=== PATIENT | male | born 1965 | race Caucasian/White ===

== ENCOUNTER 2017-01-06 20:07 | Emergency (ER) | payer MEDICAID ==
[~2017-01-06] VITALS: Ht 172.7 cm; Wt 68.0 kg
[~2017-01-06 20:07] MED LIST: LITH150C; NO HOME MEDICATIONS
[2017-01-06 20:08] VITALS: BP 143/72
--- NOTE | 2017-01-06 20:20 | NUR ---
CALLED; NO ANSWER AND NOT IN LOBBY
--- NOTE | 2017-01-06 20:47 | NUR ---
CALLED AGAIN; NOT IN LOBBY
--- NOTE | 2017-01-06 21:01 | NUR ---
CALLED AGAIN; STILL NOT IN LOBBY
--- NOTE | 2017-01-06 21:17 | NUR ---
CALLED AGAIN AND NOT ANYWHERE IN ER OR OUTSIDE.
== END 2017-01-06 21:19 | disposition home or self-care (01) ==
LOC: ER 20:08
DX: Z53.21 Procedure and treatment not carried out due to patient leaving prior to being seen by health care provider (principal)
CPT/HCPCS: A4606; Z7610

== ENCOUNTER 2018-05-22 17:51 | Inpatient (IN) | payer MEDICAID ==
[~2018-05-22] VITALS: Ht 182.9 cm; Wt 83.5 kg
--- NOTE | 2018-05-22 17:55 | NUR ---
PT MADHURI FROM THE STREETS TO ER BED 12 C/O GENERALIZED WEAKNESS, DIFFUSE ABDOMINAL PAIN AND DISTENSION FOR DAYS. HX OF LIVER CIRRHOSIS, ALSO C/O NAUSEA AND VOMITING. AWAITING MD MCCURDY.
--- NOTE | 2018-05-22 18:35 | NUR ---
KATHI FERRARI AT BEDSIDE FOR EVAL.
--- NOTE | 2018-05-22 18:46 | NUR ---
IV LINE STARTED BLOOD DRAWN AND SENT TO LAB.
[2018-05-22] MEDS ORDERED: KETOROLAC TROMETHAMINE 15 MG/ML VIAL ONE (18:51)
[2018-05-22] MEDS ORDERED: ONDANSETRON HCL/PF 4 MG/2 ML VIAL ONE (18:52)
[2018-05-22] MEDS ORDERED: ONDANSETRON HCL/PF 4 MG/2 ML VIAL IVP ONE (19:00)
[2018-05-22] MEDS ORDERED: KETOROLAC TROMETHAMINE INJ 30 MG/ML VIAL IV ONE (19:00)
[2018-05-22] MEDS ORDERED: IV NS 0.9% 500 ML BAG IV ONE (19:00)
[2018-05-22 19:02] LABS: CALCIUM, SERUM 8.1 mg/dL (8.5-10.1); CREATININE 0.5 mg/dL (0.6-1.3); POTASSIUM 3.1 mmol/L (3.5-5.1)
[2018-05-22 19:08] LABS: ALBUMIN 2.7 g/dL (3.4-5.0); BILIRUBIN,DIRECT 1.1 mg/dL (0.0-0.2); BILIRUBIN,TOTAL 1.9 mg/dL (0.2-1.0); TOTAL PROTEIN, SERUM 6.1 g/dL (6.4-8.2)
[2018-05-22 19:12] LABS: HEMATOCRIT 27 % (39-51); HEMOGLOBIN 8.4 g/dL (13.5-17.5); MEAN CORPUSCULAR HGB CONC 31 g/dl (31.0-36.0); MEAN CORPUSCULAR VOLUME 65 fL (80-96); RED BLOOD CELL COUNT(AUTO) 4.17 MIL/uL (4.5-6.0); WHITE BLOOD COUNT (AUTO) 6.8 K/uL (4.3-11.0)
[2018-05-22 19:13] LABS: PLATELET COUNT (AUTO) 119 /CMM (150-450)
[2018-05-22 19:28] LABS: LYMPHOCYTES % (MANUAL) 22 % (16-48); MONOCYTES % (MANUAL) 20 % (0-11.0); NEUTROPHILS % (MANUAL) 58 (42-76)
[2018-05-22 19:29] LABS: OCCULT BLOOD STOOL NEGATIVE (NEGATIVE)
[2018-05-22] MEDS ORDERED: POTASSIUM CHLORIDE 20 MEQ TAB.PRT.SR PO ONE ×2 (19:30→19:50)
[2018-05-22] MEDS ORDERED: Magnesium 1 GM/2 ML VIAL IV ONE (19:30)
[2018-05-22] MEDS ORDERED: Magnesium 1GM/D5W 100ML PREMIX 100 ML IV ONE (19:50)
--- NOTE | 2018-05-22 19:57 | NUR ---
REPORT GIVEN TO ERNA CISNEROS FOR KELLY.
[2018-05-22] MEDS ORDERED: Magnesium 1GM/D5W 100ML PREMIX PIGGYBACK IV ONE (20:00)
[2018-05-22] MEDS ORDERED: AMOX/CLAVULANATE 875 MG TABLET ONE (20:52)
[2018-05-22] MEDS ORDERED: AMOX/CLAVULANATE 875 MG TABLET PO ONE (21:00)
[2018-05-22] MEDS ORDERED: HYDROCODONE/APAP 5/325MG 1 EACH TABLET PO PRN (22:00)
[2018-05-22] MEDS ORDERED: MAG HYDROX/AL HYDROX/SIMETH 30 ML UDC PO PRN (22:00)
[2018-05-22] MEDS ORDERED: ONDANSETRON HCL/PF 4 MG/2 ML VIAL IVP PRN (22:00)
[2018-05-22] MEDS ORDERED: ACETAMINOPHEN 325 MG TABLET PO PRN (22:00)
[2018-05-22] MEDS ORDERED: Z GUARD REMEDY 2 OZ OINT TP PRN (22:00)
[2018-05-22] MEDS ORDERED: MAGNESIUM HYDROXIDE 30 ML UDC PO PRN (22:00)
--- NOTE | 2018-05-22 22:50 | NUR ---
REPORT GIVE TO BLAYNE BLACK FOR KELLY. BED 304-2.
[2018-05-22 23:46] VITALS: BP 116/60
--- NOTE | 2018-05-23 | NUR ---
RESOURCE RN NOTES: RECEIVED REPORT FROM ERNA REYNA RN. ADMISSION DOCUMENTATION COMPLETED. I INTERVIEWED THE PATIENT, LICENSED LAND SURVEYOR MY WITNESS. PT IS A/O X3, HOMELESS, WILL BE ADMITTED UNDER EPIC GROUP, DX ALCOHOLIC CIRRHOSIS OF LIVER WITH ASCITES, BULLOUS MYRINGITIS LEFT EAR. PT REFUSED FLU VACCINE AND PNA VACCINE, EDUCATION PROVIDED TO PT. LAST PARACENTESIS MAR 2018. ETOH 4 CANS OF BEER A DAY, SMOKER 9 CIG A DAY. ASSIGNED RN TO COMPLETE/DO INITIAL PHYSICAL ASSESSMENT AND ASSUMED FULL PATIENT CARE.
[2018-05-23] MEDS ORDERED: CEFTRIAXONE 1 G VIAL ONE (00:22)
[2018-05-23] MEDS: IV NS 0.9% 1,000 ML IV PRN ×2 (00:26→18:06)
[2018-05-23] MEDS: CEFTRIAXONE 1 G in IV D5W 50 ML IV SCH ×2 (00:27→22:56)
[2018-05-23] MEDS: MORPHINE SULFATE INJ 2 MG/ML DISP.SYRIN IV PRN ×2 (00:27→04:44)
[2018-05-23 06:35] LABS: BASOPHILS % (AUTO) 0.8 % (0.0-2.0); HEMATOCRIT 24 % (39-51); HEMOGLOBIN 7.4 g/dL (13.5-17.5); LYMPHOCYTES # (AUTO) 1.1 /CMM (0.8-4.8); LYMPHOCYTES % (AUTO) 22.1 % (20.0-44.0); MEAN CORPUSCULAR HGB CONC 31 g/dl (31.0-36.0); MEAN CORPUSCULAR VOLUME 65 fL (80-96); MONOCYTES # (AUTO) 1.2 /CMM (0.1-1.30); MONOCYTES % (AUTO) 24.8 % (2.0-12.0); NEUTROPHILS # (AUTO) 2.5 /CMM (1.8-8.9); NEUTROPHILS % (AUTO) 51.3 % (43.0-81.0); PLATELET COUNT (AUTO) 79 /CMM (150-450); RED BLOOD CELL COUNT(AUTO) 3.66 MIL/uL (4.5-6.0); WHITE BLOOD COUNT (AUTO) 4.9 K/uL (4.3-11.0)
--- NOTE | 2018-05-23 06:43 | NUR ---
MS RN NOTES AWAKE & RESPONSIVE. NOT IN ANY DISTRESS. NO SOB NOTED. DENIES ANY PAIN OR DISCOMFORT AT THIS TIME. WITH IVF INFUSING WELL. MONITORED ACCORDINGLY. CALL LIGHT WITHIN REACH. BED IN LOWEST POSITION. SR UP X 2 FOR SAFETY. WILL ENDORSE TO NEXT SHIFT.
[2018-05-23 06:53] LABS: ALBUMIN 2.4 g/dL (3.4-5.0); BILIRUBIN,TOTAL 1.4 mg/dL (0.2-1.0); CALCIUM, SERUM 7.9 mg/dL (8.5-10.1); CREATININE 0.5 mg/dL (0.6-1.3); PHOSPHORUS 3.5 mg/dL (2.5-4.9); POTASSIUM 3.5 mmol/L (3.5-5.1); TOTAL PROTEIN, SERUM 5.4 g/dL (6.4-8.2)
--- NOTE | 2018-05-23 07:24 | NUR ---
MS RN OPENING NOTES RECEIVED PT RESTING IN BED. A/O X 3 ON ROOM AIR, WITHOUT ANY SIGNS OF RESPIRATORY DISTRESS. ON IVF NS AT 75ML/HR TO RAC 20G INTACT AND PATENT; IVF INFUSING AND TOLERATING WELL. CURRENTLY ON NPO, SCHEDULED FOR US GUIDED PARACENTESIS TODAY; CONSENT TO BE SIGNED. WILL CONTINUE TO MONITOR.
[2018-05-23] MEDS: PANTOPRAZOLE 40 MG VIAL IV SCH (07:30)
[2018-05-23 08:00] VITALS: BP 107/60
[2018-05-23] MEDS: TRAMADOL HCL 50 MG TABLET PO SCH ×2 (08:30→16:16)
[2018-05-23] MEDS ORDERED: LORAZEPAM INJ 2 MG/ML VIAL IV PRN (08:30)
[2018-05-23 08:32] LABS: LYMPHOCYTES % (MANUAL) 24 % (16-48); MONOCYTES % (MANUAL) 25 % (0-11.0); NEUTROPHILS % (MANUAL) 51 (42-76)
[2018-05-23] MEDS: AMOX/CLAVULANATE 875 MG TABLET PO SCH ×2 (09:39→16:17)
[2018-05-23] MEDS: NICOTINE PATCH (14MG) 14 MG PATCH.TD24 TD SCH (09:40)
--- NOTE | 2018-05-23 10:30 | NUR ---
PER BLAYNE BALDERAS CONSENT FOR PARACENTESIS IS NOT SIGNED
--- NOTE | 2018-05-23 13:32 | NUR ---
MS RN NOTES US GUIDED PARACENTESIS DONE TO PATIENT WITH OUTPUT OF 3,060 ML. RN BROUGHT PARACENTESIS FLUID TO LABORATORY FOR SAFE KEEPING FOR NOW. VS STABLE; S/P PARACENTESIS. NO BLEEDING ON THE PUNCTURE SITE NOTED.
[2018-05-23 14:57] LABS: APPEARANCE,URINE CLOUDY (CLEAR); BILIRUBIN,URINE NEGATIVE (NEGATIVE); BLOOD, URINE NEGATIVE Ery/uL (NEGATIVE); COLOR,URINE AMBER (YELLOW); KETONES,URINE 1+ (NEGATIVE); LEUKOCYTE ESTERASE ,URINE NEGATIVE (NEGATIVE); NITRITE, URINE POSITIVE (NEGATIVE); PROTEIN,URINE NEGATIVE (NEGATIVE); UGLUCOSE NEGATIVE (NEGATIVE)
[2018-05-23 15:20] LABS: BACTERIA,URINE None seen /HPF (None Seen); RBC,URINE 0-2 /HPF (0-2); SQUAMOUS EPITHELIAL CELL,UR Few /HPF (None Seen); URINE AMORPHOUS URATE Many /HPF (None Seen); WBC,URINE 0-2 /HPF (0-3)
--- NOTE | 2018-05-23 15:57 | NUR ---
Bilingual Executive Assistant Consult: SW received consult regarding homeless and alcohol abuse. Patient is a 53 year-old male admitted to Med/Surg unit for diffuse abdominal pain and distension. 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 SW met with patient at bedside to discuss above consult. Patient is alert and oriented x4. Patient is aware of his cirrhosis. Per patient he drinks about 2-3 beers per day and has been doing so since he was 24 years old. Patient reports that he does not plan to stop drinking. SW provided education and information about Substance Abuse and ETOH Treatment Centers, and patient was receptive to the resources. SW gave patient referrals to [facility]stance Abuse Self-Helpl[facility] ([phone]); [facility] [[address] [place] [address]; [phone]]; [facility] [[address] [place] [address]; [phone]]; [facility] [[address] [place] [address]; [phone]]; [facility] [[address]; [place] [address]; [phone]]; [facility] [[address] [place] [address]; [phone]], and the [facility] [[address] [place] [address]; [phone]]. Patient reported that he is planning to re-apply for General Relief upon discharge. 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 Patient reports that he does not keep in touch with his family. Patient stated he has an adult daughter, with whom he plans to get in touch soon. Patient reported that he has been homeless for quite some time and has been living at the [facility] for a couple of months. SW educated the patient about the [facility], and patient refused halfway placement at this time. Patient reported that he would like to return to the [facility]. SW provided patient with the Homeless Resource Packet, which includes information about emergency shelters, meals, hot showers, and walk-in clinics. Patient was accepting of these resources. Patient also requested warm clothes, and SW provided patient with a warm coat and extra pairs of socks from the clothing closet. Patient was accepting of the clothing. JAY placed unsigned Homeless Patient Waiver Form in patient's chart and collaborated with pt's RNJulito and drive in theater attendant Sudha to have patient complete the form prior to discharge. No further Bilingual Executive Assistant needs identified at this time.
[2018-05-23 16:00] VITALS: BP 104/61
--- NOTE | 2018-05-23 17:30 | NUR ---
RN NOTES PATIENT REFUSED BED BATH OR SHOWER AND TO CHANGE FROM CIVILIAN CLOTHES TO HOSPITAL GOWN, DESPITE OF ENCOURAGEMENT. EXPLAINED IMPORTANCE OF HYGIENE, VERBALIZED UNDERSTANDING, BUT STILL REFUSING. STATED "NO, IT FEELS COLD AND WILL LET STAFF WHEN READY FOR CHANGE". WILL ENDORSE TO LABORATORY SUPERVISOR NURSE.
--- NOTE | 2018-05-23 18:42 | NUR ---
RN NOTES PIV ON RAC 20G, DISLODGED. NEW PIV ACCESS RFA WITH 22G INSERTED, SECURED WITH TAPE AND DATED; PIV INTACT AND PATENT. PT NOTED AGITATED AND REQUESTED FOR ATIVAN. 1MG OF ATIVAN GIVEN ORDERED AT 1835 VIA IVP. WILL CONTINUE TO MONITOR.
--- NOTE | 2018-05-23 18:50 | NUR ---
MS RN CLOSING NOTES PATIENT IN BED, AWAKE AND WATCHING TV. ALERT/ORIENTED X4. ABLE TO MAKE NEEDS AND CONCERNS. ALL NEEDS AND CARE PROVIDED WELL. ON ROOM AIR, BREATHING EVEN WITH NO ACUTE DISTRESS NOTED THROUGHOUT THE DAY. ON IVF NS AT 75ML/HR TO RFA 22G, INTACT AND PATENT, WITH NO SIGNS OF INFILTRATION NOTED. SAFETY MEASURES KEPT IN PLACE. BED IN LOW LOCKED POSITIONS WITH SR UP X2. CALL LIGHT WITHIN REACH. REMINDED PT TO CALL FOR ANY ASSISTANCE. WILL ENDORSE TO SWEATBAND DRUMMER NURSE FOR KELLY.
[2018-05-23 20:00] VITALS: BP 119/64
--- NOTE | 2018-05-23 20:08 | NUR ---
RN NOTES RECEIVED PATIENT IN BED, ALERT AND ORIENTED X4, ANXIOUS, ON ROOM AIR, NO DISTRESS, UNKEMPT, REFUSING BED BATH AND CHANGE OF CLOTHES, S/P PARACENTESIS, ON SOFT DIET, KEPT SAFE, CALL LIGHT WITHIN REACH.
[2018-05-23 20:25] VITALS: BP 119/64
[2018-05-23] MEDS: HYDROMORPHONE INJ 0.5 MG/0.5 ML SYRINGE IV PRN (21:02)
[2018-05-24] MEDS: TRAMADOL HCL 50 MG TABLET PO SCH ×2 (00:58→07:47)
[2018-05-24] MEDS: IV NS 0.9% 1,000 ML IV PRN (06:00)
--- NOTE | 2018-05-24 06:16 | NUR ---
RN NOTES PATIENT IS ALERT AND ORIENTED X4, ON ROOM AIR, COMPLAINING OF ABDOMINAL PAIN, RELIEVED BY TRAMADOL AND DILAUDID IVP, S/P PARACENTESIS, RIGHT LOWER QUADRANT PUNCTURE SITE IS DRY, NO BLEEDING, NO DRAINAGE, OPEN TO AIR, TOLERATING SOFT DIET, REFUSING BED BATH, PER POC, MONITOR H/H, 7.424, MONITOR FOR WITHDRAWALS, ATIVAN PRN, CONTINUE ROCEPHIN IV, SEIZURE PRECAUTION, PAIN MANAGEMENT.
--- NOTE | 2018-05-24 07:25 | NUR ---
MS RN OPENING NOTES RECEIVED PATIENT AWAKE, ALERT AND ORIENTED X4. ON ROOM AIR, WITH NO SOB NOTED. NOT IN ANY PAIN OR DISTRESS NOTED AND STATED. S/P ABDOMINAL PARACENTESIS, RIGHT LOWER QUADRANT PUNCTURE SITE IS DRY, NO BLEEDING, NO DRAINAGE, OPEN TO AIR. ON IF 75 ML/HR TO RFA 22G, INTACT AND PATENT, WITH NO INFILTRATION NOTED. SAFETY MEASURES IN PLACE. BED IN LOW LOCKED POSITION WITH SR X2. PT ABLE TO ASK FOR ASSISTANCE. ON SEIZURE PRECAUTION. WILL CONTINUE TO MONITOR.
[2018-05-24 07:31] LABS: BASOPHILS % (AUTO) 0.6 % (0.0-2.0); EOSINOPHILS % (AUTO) 0.8 % (0.0-6.0); HEMATOCRIT 24 % (39-51); HEMOGLOBIN 7.5 g/dL (13.5-17.5); LYMPHOCYTES # (AUTO) 0.7 /CMM (0.8-4.8); LYMPHOCYTES % (AUTO) 17.5 % (20.0-44.0); MEAN CORPUSCULAR HGB CONC 32 g/dl (31.0-36.0); MEAN CORPUSCULAR VOLUME 65 fL (80-96); MONOCYTES # (AUTO) 0.8 /CMM (0.1-1.30); MONOCYTES % (AUTO) 20.1 % (2.0-12.0); NEUTROPHILS # (AUTO) 2.4 /CMM (1.8-8.9); PLATELET COUNT (AUTO) 68 /CMM (150-450); RED BLOOD CELL COUNT(AUTO) 3.68 MIL/uL (4.5-6.0); WHITE BLOOD COUNT (AUTO) 3.9 K/uL (4.3-11.0)
[2018-05-24 07:47] LABS: CALCIUM, SERUM 7.8 mg/dL (8.5-10.1); CREATININE 0.4 mg/dL (0.6-1.3); MAGNESIUM 1.6 mg/dL (1.8-2.4); PHOSPHORUS 2.6 mg/dL (2.5-4.9); POTASSIUM 3.5 mmol/L (3.5-5.1)
[2018-05-24] MEDS: PANTOPRAZOLE 40 MG VIAL IV SCH (07:47)
[2018-05-24 08:00] VITALS: BP 107/63
[2018-05-24] MEDS: AMOX/CLAVULANATE 875 MG TABLET PO SCH ×2 (08:23→16:37)
[2018-05-24] MEDS: NICOTINE PATCH (14MG) 14 MG PATCH.TD24 TD SCH (08:23)
[2018-05-24] MEDS: Magnesium 1GM/D5W 100ML PREMIX 100 ML IV SCH ×2 (08:35→09:38)
--- NOTE | 2018-05-24 10:00 | NUR ---
RN NOTES PT'S MAGNESIUM LEVEL NOTED AT 1.6.REPLACED WITH 2BAGS OF MAGNESIUM 1GM/100ML; TOTAL OF 2GMS. WILL CONTINUE TO MONITOR.
[2018-05-24] MEDS: CHLORDIAZEPOXIDE HCL 25 MG CAPSULE PO SCH ×2 (10:55→16:37)
[2018-05-24] MEDS ORDERED: TRAMADOL HCL 50 MG TABLET PO PRN (11:00)
[2018-05-24] MEDS: HYDROMORPHONE INJ 0.5 MG/0.5 ML SYRINGE IV PRN ×2 (14:27→20:51)
--- NOTE | 2018-05-24 14:35 | NUR ---
RN NOTES PT STATED HE IS IN PAIN OF 8 OUT OF 10 ON HIS ABDOMEN RIGHT AND LEFT SIDE. REQUESTED FOR DILAUDID PRN, GIVEN ORDERED VIA IVP. WILL CONTINUE TO MONITOR.
[2018-05-24 16:00] VITALS: BP 110/60
[2018-05-24] MEDS ORDERED: METOCLOPRAMIDE HCL 10 MG/2 ML VIAL IV SCH (17:30)
--- NOTE | 2018-05-24 17:44 | NUR ---
RN NOTES PATIENT SEEN AND EVALUATED BY AUGUSTUS LOEV WITH ORDER FOR KUB TOMORROW AND CANCELLED NGT INSERTION AND TO START ON MECHANICAL SOFT DIET. WILL CONTINUE TO MONITOR.
[2018-05-24 17:46] LABS: IRON, SERUM 10 ug/dl (50-175); TOTAL IRON BINDING CAPACITY 273 ug/dl (250-450)
[2018-05-24] MEDS: SUCRALFATE 1 G TABLET PO SCH ×2 (17:52→21:00)
[2018-05-24 17:59] LABS: FERRITIN 19 ng/mL (8-388)
[2018-05-24] MEDS ORDERED: METOCLOPRAMIDE HCL 10 MG/2 ML VIAL IV PRN (18:00)
--- NOTE | 2018-05-24 18:47 | NUR ---
MS RN CLOSING NOTES RECEIVED PATIENT AWAKE, ALERT AND ORIENTED X4. ON ROOM AIR, WITH NO SOB NOTED. ON PAIN MANAGEMENT, DILAUDID VIA IVP. S/P ABDOMINAL PARACENTESIS, RIGHT LOWER QUADRANT PUNCTURE SITE IS DRY, NO BLEEDING, NO DRAINAGE, OPEN TO AIR. ON IVF 75 ML/HR TO RFA 22G, INTACT AND PATENT, WITH NO INFILTRATION NOTED. SAFETY MEASURES IN PLACE. BED IN LOW LOCKED POSITION WITH SR X2. PT ABLE TO ASK FOR ASSISTANCE. ON SEIZURE PRECAUTION. ON DAILY WT MONITORING, 172 LBS. FOR KUB TEST TOMORROW WITHOUT NPO NEEDED PER ORDER. WILL ENDORSE TO INCOMING GRINDER SET UP OPERATOR EXTERNAL NURSE FOR KELLY.
--- NOTE | 2018-05-24 19:00 | NUR ---
MS RN OPENING NOTES Received patient A/O x4, sitting on bed, able to ambulate with walker. On RA, no SOB/respiratory distress noted. Patient denies any pain discomfort at this time. Kept bed low and locked, call light at bedside. Will continue to monitor accordingly.
--- NOTE | 2018-05-24 19:20 | NUR ---
MS RN OPENING NOTES Received patient alert and oriented x3 on bed sitting position on bed with O2 inhalation via NC at 6LPM. SOB and occasional productive cough noted. RT at bedside giving breathing treatment. With family member and caregiver at bedside. Kept bed low and locked, call light at bedside. Will continue to monitor accordingly.
[2018-05-24 20:00] VITALS: BP 104/62
[2018-05-24] MEDS: ZOLPIDEM TARTRATE 5 MG TABLET PO PRN (21:01)
[2018-05-24] MEDS: CEFTRIAXONE 1 G in IV D5W 50 ML IV SCH (22:25)
--- NOTE | 2018-05-24 23:50 | NUR ---
MS RN NOTES Patient asked to discontinue his IV. Encourage patient to increase oral fluid intake unless contraindicated. Will monitor the patient closely.
--- NOTE | 2018-05-25 06:25 | NUR ---
MS RN NOTES Patient transferred to MS 202-1, transported via wheelchair accompanied by SHOULDER BONER and RN. Patient remained in stable condition, denies discomfort at this time. For pranav PLAZA this AM. Endorsed patient and report given to BLAYNE Urbina.
--- NOTE | 2018-05-25 07:05 | NUR ---
RN MS CLOSING NOTES PATIENT IN STABLE CONDITION. NO ACUTE CHANGES SINCE TRANSFER. BREATHING EVEN AND UNLABORED. NO SOB NOTED. TOLERATING ROOM AIR. NO COMPLAINTS OF PAIN OR DISCOMFORT. IV INTACT AND PATENT. SKIN DRY AND WARM TO TOUCH. AFEBRILE. ALL OTHER NEEDS ATTENDED TO. SAFETY MEASURES IN PLACE. CALL LIGHT WITHIN REACH. WILL ENDORSE TO ONCOMING NURSE FOR KELLY.
[2018-05-25 07:13] LABS: BASOPHILS % (AUTO) 0.8 % (0.0-2.0); EOSINOPHILS % (AUTO) 1.7 % (0.0-6.0); HEMATOCRIT 23 % (39-51); HEMOGLOBIN 7.2 g/dL (13.5-17.5); LYMPHOCYTES # (AUTO) 0.5 /CMM (0.8-4.8); LYMPHOCYTES % (AUTO) 15.3 % (20.0-44.0); MEAN CORPUSCULAR HGB CONC 31 g/dl (31.0-36.0); MEAN CORPUSCULAR VOLUME 65 fL (80-96); MONOCYTES # (AUTO) 0.7 /CMM (0.1-1.30); MONOCYTES % (AUTO) 20.7 % (2.0-12.0); NEUTROPHILS # (AUTO) 2.2 /CMM (1.8-8.9); NEUTROPHILS % (AUTO) 61.5 % (43.0-81.0); PLATELET COUNT (AUTO) 69 /CMM (150-450); RED BLOOD CELL COUNT(AUTO) 3.58 MIL/uL (4.5-6.0); WHITE BLOOD COUNT (AUTO) 3.6 K/uL (4.3-11.0)
[2018-05-25 07:28] LABS: CALCIUM, SERUM 7.8 mg/dL (8.5-10.1); CREATININE 0.5 mg/dL (0.6-1.3); MAGNESIUM 1.8 mg/dL (1.8-2.4); PHOSPHORUS 2.4 mg/dL (2.5-4.9); POTASSIUM 3.3 mmol/L (3.5-5.1)
--- NOTE | 2018-05-25 07:33 | NUR ---
RN OPENING NOTES RECEIVED BEDSIDE REPORT FROM NOC. ABLE TO AROUSE WITH VOICE AND TOUCH PATIENT SLEEPING NO SIGNS OR SYMPTOMS OF RESPIRATORY DISTRESS OR ACUTE PAIN NOTED.RFA # 22 GAUGE RUNNING @75ML/HR. KUB SCHEDULED FOR 0800 TRAY HELD TILL AFTER PROCEDURE. SAFETY PRECAUTIONS IN PLACE BED IN LOW POSITION CALL LIGHT WITHIN REACH WILL CONT TO MONITOR
[2018-05-25 08:00] VITALS: BP 105/64
[2018-05-25] MEDS: SUCRALFATE 1 G TABLET PO SCH ×4 (08:41→21:08)
[2018-05-25] MEDS: CHLORDIAZEPOXIDE HCL 25 MG CAPSULE PO SCH ×2 (08:41→16:28)
[2018-05-25] MEDS: PANTOPRAZOLE 40 MG VIAL IV SCH ×2 (08:41→16:28)
[2018-05-25] MEDS: NICOTINE PATCH (14MG) 14 MG PATCH.TD24 TD SCH (08:41)
[2018-05-25] MEDS ORDERED: POTASSIUM CHLORIDE 20 MEQ TAB.PRT.SR PO SCH (09:30)
[2018-05-25] MEDS: AMOX/CLAVULANATE 875 MG TABLET PO SCH ×2 (10:04→16:27)
[2018-05-25] MEDS ORDERED: K PHOS NEUTRAL 250 MG TABLET PO ONE (13:00)
[2018-05-25] MEDS: HYDROMORPHONE INJ 0.5 MG/0.5 ML SYRINGE IV PRN (13:25)
[2018-05-25] MEDS: IV NS 0.9% 1,000 ML IV PRN (14:27)
[2018-05-25] MEDS ORDERED: LACTULOSE 10 G/15 ML UDC (PYXIS) PO PRN (15:00)
[2018-05-25] MEDS ORDERED: PEG 3350/NA SULF,BICARB,CL/KCL 4,000 ML BOTTLE PO ONE (15:00)
[2018-05-25] MEDS ORDERED: MAGNESIUM CITRATE 296 ML BOTTLE PO ONE (15:00)
[2018-05-25] MEDS ORDERED: NA PHOS,M-B/NA PHOS,DI-BA 1 EA ENEMA RC PRN (15:00)
[2018-05-25 16:00] VITALS: BP 103/66
[2018-05-25] MEDS: TRAMADOL HCL 50 MG TABLET PO PRN (16:28)
--- NOTE | 2018-05-25 18:58 | NUR ---
MS RN CLOSING NOTES PATIENT IN BED ALERT/ORIENTED X4. ABLE TO MAKE NEEDS AND CONCERNS. ALL NEEDS AND CARE PROVIDED BY STAFF ON ROOM AIR, BREATHING EVEN WITH NO ACUTE DISTRESS NOTED THROUGHOUT THE DAY. ON IVF NS AT 75ML/HR TO RFA 22G, INTACT AND PATENT, CONSENT SIGNED FOR EGD IN THE AM WILL ENDORSE TO NOC OF NPO AFTER MIDNIGHT. AWAITING RX TO DELIVER PREP CALL X2. SAFETY MEASURES KEPT IN PLACE. BED IN LOW LOCKED POSITIONS WITH SR UP X2. CALL LIGHT WITHIN REACH. REMINDED PT TO CALL FOR ANY ASSISTANCE. WILL ENDORSE TO TIRE MOLD ENGRAVER NURSE FOR KELLY.
--- NOTE | 2018-05-25 19:44 | NUR ---
RN MS OPENING NOTES RECEIVED PATIENT IN BED AWAKE. ALERT AND ORIENTED X3, VERBALLY RESPONSIVE, ABLE TO MAKE NEEDS KNOWN. BREATHING EVEN AND UNLABORED. NO SOB NOTED. TOLERATING ROOM AIR. NO COMPLAINTS OF PAIN OR DISCOMFORT. IV ON RIGHT FA #22 INTACT AND PATENT WITH NS RUNNING AT 75ML/HR. SKIN DRY AND WARM TO TOUCH. AFEBRILE. ENCOURAGED TO CONTINUOUSLY DRINK GOLYTLE. PROVIDED EDUCATION ON THE PURPOSE OF THE MEDICATION AND REMINDED OF EGD AND COLONOSCOPY IN AM. PATIENT STATED, "I DONT THINK I CAN FINISH THAT." PATIENT ENCOURAGED AND STATED THAT HE WILL TRY. WILL CONTINUE TO MONITOR. ALL OTHER NEEDS ATTENDED TO. SAFETY MEASURES IN PLACE. CALL LIGHT WITHIN REACH.
[2018-05-25 20:00] VITALS: BP 106/69
[2018-05-25] MEDS: CEFTRIAXONE 1 G in IV D5W 50 ML IV SCH (23:08)
--- NOTE | 2018-05-26 | NUR ---
RN MS NOTES PATIENT WAS ONLY ABLE TO DRINK HALF OF GOLYTLE. ADMINISTRATION STARTED AT 1917 BY DAY NURSE. PER PATIENT, HE FEELS REALLY BLOATED AND CANNOT FINISH THE REST. PATIENT UNABLE TO MAKE BOWEL MOVEMENTS SINCE GOLYTLE STARTED. PATIENT IS NOW NPO FOR PROCEDURE IN AM.
--- NOTE | 2018-05-26 01:00 | NUR ---
BLAYNE MS NOTES PATIENT REFUSED TO HAVE IS IV FLUIDS ON. PER PATIENT IT KEEPS BEEPING, CAUSING HIM TO WAKE UP. HE ALSO GOES TO THE BATHROOM TO ATTEMPT TO MAKE A BOWEL MOVEMENT FREQUENTLY. PATIENT IS CURRENTLY NPO. Addendum: 05/26/18 at 0355 by MIGUEL ANDUJAR RN WILL CONTINUE TO MONITOR.
--- NOTE | 2018-05-26 04:20 | NUR ---
RN MS NOTES FLEET ENEMA WAS ADMINISTERED DUE TO PATIENT NOT HAVING BOWEL MOVEMENTS. PATIENT WAS ABLE TO GO GO RIGHT AWAY AFTER ADMINISTRATION. PATIENT'S BOWEL WAS NOTED TO BE GREENISH BROWN LIQUID WITH TRACES OF SMALL BROWN BOWELS. STILL NOT CLEAR DESPITE DRINKING ALMOST HALF OF THE GOLYTLE AND GETTING THE FLEET ENEMA. WILL CONTINUE TO MONITOR.
--- NOTE | 2018-05-26 06:06 | NUR ---
RN MS NOTES PAGED DR. MONTELONGO AND INFORMED HIM REGARDING PATIENT ONLY HAVING 1 BOWEL MOVEMENT THROUGHOUT THE SHIFT DESPITE DRINKING GOLYTLE AND FLEET ENEMA. INFORMED DR. MONTELONGO THAT HIS LAST BM BUT GREENISH BROWN LIQUID WITH TRACES OF SMALL FORMED BROWN BOWELS. PER DR. MONTELONGO, CANCEL COLONOSCOPY. WILL JUST DO EGD TODAY. ORDER NOTED AND CARRIED OUT. WILL CONTINUE TO MONITOR.
[2018-05-26 06:10] LABS: BASOPHILS % (AUTO) 1.1 % (0.0-2.0); EOSINOPHILS % (AUTO) 2.3 % (0.0-6.0); HEMATOCRIT 23 % (39-51); LYMPHOCYTES # (AUTO) 0.6 /CMM (0.8-4.8); LYMPHOCYTES % (AUTO) 18.1 % (20.0-44.0); MEAN CORPUSCULAR HGB CONC 31 g/dl (31.0-36.0); MEAN CORPUSCULAR VOLUME 65 fL (80-96); MONOCYTES # (AUTO) 0.9 /CMM (0.1-1.30); MONOCYTES % (AUTO) 26.4 % (2.0-12.0); NEUTROPHILS # (AUTO) 1.7 /CMM (1.8-8.9); NEUTROPHILS % (AUTO) 52.1 % (43.0-81.0); PLATELET COUNT (AUTO) 75 /CMM (150-450); RED BLOOD CELL COUNT(AUTO) 3.46 MIL/uL (4.5-6.0); WHITE BLOOD COUNT (AUTO) 3.3 K/uL (4.3-11.0)
[2018-05-26 06:28] LABS: CALCIUM, SERUM 7.7 mg/dL (8.5-10.1); CREATININE 0.5 mg/dL (0.6-1.3); MAGNESIUM 1.8 mg/dL (1.8-2.4); PHOSPHORUS 2.9 mg/dL (2.5-4.9); POTASSIUM 2.9 mmol/L (3.5-5.1)
--- NOTE | 2018-05-26 06:45 | NUR ---
RN MS NOTES PAGED DR. ZEE TO MAKE AWARE OF H/H OF 10/14.3. PREVIOUS H/H 7.06/07. AWAITING CALL BACK.
--- NOTE | 2018-05-26 06:46 | NUR ---
RN MS CLOSING NOTES PATIENT IN STABLE CONDITION. NO ACUTE CHANGES THROUGHOUT SHIFT. BREATHING EVEN AND UNLABORED. NO SOB NOTED. TOLERATING ROOM AIR. NO COMPLAINTS OF PAIN OR DISCOMFORT. IV INTACT AND PATENT - REFUSING IVF. SKIN DRY AND WARM TO TOUCH. AFEBRILE. ONLY HAD 1 BOWEL MOVEMENT DESPITE GOLYTLE AND FLEET ENEMA. DR. MONTELONGO AWARE. ANTICIPATING EGD TODAY. ALL OTHER NEEDS ATTENDED TO. SAFETY MEASURES IN PLACE. CALL LIGHT WITHIN REACH. WILL ENDORSE TO ONCOMING NURSE FOR KELLY.
--- NOTE | 2018-05-26 06:55 | NUR ---
RN MS NOTES PER DR. ZEE, NO NEW ORDERS REGARDING H/H. WILL CONTINUE TO MONITOR.
[2018-05-26 07:21] LABS: BAND % (MANUAL) 4 % (0.0-5.0); EOSINOPHILS % (MANUAL) 3 % (0-4); LYMPHOCYTES % (MANUAL) 24 % (16-48); MONOCYTES % (MANUAL) 19 % (0-11.0); NEUTROPHILS % (MANUAL) 50 (42-76)
[2018-05-26] MEDS: SUCRALFATE 1 G TABLET PO SCH ×4 (07:30→21:57)
[2018-05-26 08:00] VITALS: BP 109/67
[2018-05-26] MEDS ORDERED: POTASSIUM CL. PREMIX PERIPHER. 50 ML IV SCH (08:00)
--- NOTE | 2018-05-26 08:00 | NUR ---
m/s sales financial analyst: initial assessment received pt in bed awake, a/ox2-3. pt remains npo; for egd this afternoon. pt is not clear. colonoscopy was cancelled by gluing machine operator automatic per report. pt still reported having particles. pt stopped drinking golytely since early this morning per report. instructed to call for assistance. will continue to monitor.
--- NOTE | 2018-05-26 08:10 | NUR ---
m/s hand spring former: md visit seen by dr. haddad with orders. orders acknowledged. pt informed of blood transfusion due to hgb low=7.0, but pt gets upset and stated, "you are not going to put blood on my system." reality orientation provided prn. dr. haddad here and made aware.
[2018-05-26] MEDS: NICOTINE PATCH (14MG) 14 MG PATCH.TD24 TD SCH (08:49)
[2018-05-26] MEDS: PANTOPRAZOLE 40 MG VIAL IV SCH ×2 (09:00→15:20)
--- NOTE | 2018-05-26 09:34 | NUR ---
WOUND CARE CONSULT: PT PRESENTS WITH DRY ABRASION TO LEFT HIP AREA AND VERY DRY FLAKY SKIN TO EXTREMITIES, PRESENT ON ADMISSION. PT IS CONTINENT AND AMBULATORY. WILL SEE PRN.
--- NOTE | 2018-05-26 09:35 | NUR ---
m/s roofer apprentice: notes pt still refusing iv potassium and wants it pill form as stated. also pt aware of blood transfusion, but still refuses blood transfusion when it's available. dr. haddad still here and made aware with order to give potassium chloride 60meq po x one and d'c iv potassium. orders read back and carried out and acknowledged.
[2018-05-26] MEDS ORDERED: POTASSIUM CHLORIDE 20 MEQ TAB.PRT.SR PO ONE (10:00)
[2018-05-26] MEDS ORDERED: MINERAL OIL/PETROLATUM,WHITE 120 GM JAR TP PRN (10:00)
[2018-05-26] MEDS: CHLORDIAZEPOXIDE HCL 25 MG CAPSULE PO SCH ×2 (10:13→16:39)
[2018-05-26] MEDS: AMOX/CLAVULANATE 875 MG TABLET PO SCH ×2 (10:13→16:39)
--- NOTE | 2018-05-26 10:13 | NUR ---
m/s cannon pinion adjuster: notes medications given with sips of water. pt remains npo for egd this afternoon. will continue to monitor.
--- NOTE | 2018-05-26 11:42 | NUR ---
m/s bariatric coordinator: notes down to o.r. via bed at this time accompanied by 2 staff with chart.
[2018-05-26 13:30] VITALS: BP 105/65
--- NOTE | 2018-05-26 13:30 | NUR ---
m/s armored truck driver: notes received pt from recovery room with dx: s/p egd/colonoscopy by dr. henderson. pt with eyes close, but arousable. appears sedated. vss. no acute distress. will continue to monitor.
--- NOTE | 2018-05-26 13:35 | NUR ---
m/s uniform maker: notes bedside report given by jerardo (rn) and stated, "pt has gastritis with biopsy taken and colonoscopy done, but poorly prep, but it was done."
[2018-05-26] MEDS: SOD FERRIC GLUC 125 MG in IV NS 0.9% 100 ML IV SCH (13:54)
--- NOTE | 2018-05-26 15:00 | NUR ---
m/s data specialist: notes pt more awake and ask pt if he remembers earlier that he needed to be transfuse of 1 unit of prbc due to hgb=7.0, but pt still refuses, he doesn't want any blood on his system. educated pt on blood transfusion and side effects, but still refuses. instructed to call for assistance. will monitor.
[2018-05-26] MEDS: HYDROMORPHONE INJ 0.5 MG/0.5 ML SYRINGE IV PRN ×2 (15:21→20:26)
--- NOTE | 2018-05-26 15:21 | NUR ---
m/s cash surrender calculator: notes c/o 01/22 abdominal pain, medicated with dilaudid 0.25mg ivp by rn. instructed to call for assistance. will monitor.
--- NOTE | 2018-05-26 15:51 | NUR ---
m/s bank vault custodian: notes pt having his late lunch at this time. voiced no discomfort. call light within reach. instructed to call for assistance. will monitor.
[2018-05-26 16:00] VITALS: BP 104/69
--- NOTE | 2018-05-26 18:24 | NUR ---
m/s rouge presser: notes in bed resting comfortable. needs attended. no apparent distress noted. instructed to call for assistance. will continue to monitor.
--- NOTE | 2018-05-26 19:00 | NUR ---
RN MS NOTES RECEIVED PATIENT IN BED AWAKE ALERT AND ORIENTED X2, VERBALLY RESPONSIVE, RESPIRATIONS EVEN AND UNLABORED WITH EQUAL RISE AND FALL OF CHEST, PATIENT IS CURRENTLY EATING AT THIS TIME, TOLERATING WELL. DENIES ANY PAIN OR DISCOMFORT AT THIS TIME,FLUIDS OFFERED, IV SITE TO RIGHT FA #22G INTACT AND PATENT, NO REDNESS, NO INFILTRATION PRESENT, IVF RUNNING ORDERED, ORIENTED TO STAFF AND CALL LIGHT AND KEPT WITHIN REACH, SAFETY PRECAUTIONS IN PLACE LOW BED AND LOCKED,BED ALARM IN PLACE, PATIENT MADE AWARE REGARDING HEMOGLOBIN LEVEL AND STANDING BLOOD TRANSFUSION ORDER MADE AWARE OF RISKS AND BENEFITS, PATIENT REFUSED X 3 STATES " I DONT WANT IT." MD IS AWARE. ALL NEEDS ATTENDED AT THIS TIME, WILL CONTINUE TO MONITOR AND ATTEND TO NEEDS.
--- NOTE | 2018-05-26 19:10 | NUR ---
m/s government relations director: notes report given to leif (simón) for continuity of care.
[2018-05-26 20:00] VITALS: BP 95/62
[2018-05-26 20:09] VITALS: BP 95/62
--- NOTE | 2018-05-26 20:29 | NUR ---
RN MS NOTES PATIENT COMPLAINT OF PAIN TO ABDOMINAL AREA, 12/23 REQUESTING FOR PAIN MEDICATION DILAUDID. VS ASSESSED WNL,95/62,87,19,93% RA. PER PATIENT BP TENDS TO RUN ON THE LOWER END. WILL CONTINUE TO MONITOR, SAFETY PRECAUTIONS IN PLACE, LOW BED AND LOCKED. DILAUDID 0.25 ML GIVEN REST WASTED WITH ANOTHER RN AND VERIFIED.
[2018-05-26] MEDS: CEFTRIAXONE 1 G in IV D5W 50 ML IV SCH (22:00)
--- NOTE | 2018-05-26 22:30 | NUR ---
RN MS NOTES ATB ROCEPHIN INFUSED, PER PATIENT DOES NOT WANT IVF RUNNING AT THIS TIME, STATES " I WOULD LIKE TO GET SOME REST AND BE ABLE TO TURN." EXPLAINED RISKS AND BENEFITS PATIENT REFUSED, WILL CONTINUE TO MONITOR.
[2018-05-27] VITALS (7 sets, daily range): BP systolic 96–137; BP diastolic 54–67
[2018-05-27] MEDS: IV NS 0.9% 1,000 ML IV PRN (05:01)
--- NOTE | 2018-05-27 06:29 | NUR ---
RN MS CLOSING NOTES PATIENT IN BED AWAKE ALERT AND ORIENTED X2-3, VERBALLY RESPONSIVE, RESPIRATIONS EVEN AND UNLABORED WITH EQUAL RISE AND FALL OF CHEST. DENIES ANY PAIN OR DISCOMFORT AT THIS TIME,FLUIDS OFFERED, IV SITE TO RIGHT FA #22G INTACT AND PATENT, NO REDNESS, NO INFILTRATION PRESENT, PATIENT REFUSED IVF THROUGHOUT SHIFT MADE AWARE OF BENEFIT AND RISKS, REFUSED X 3 PER PATIENT " DOES NOT WANT AT THIS TIME",ALSO PATIENT REFUSED BLOOD TRANSFUSION. STATING " I DONT WANT IT." CALL LIGHT AND KEPT WITHIN REACH, SAFETY PRECAUTIONS IN PLACE LOW BED AND LOCKED,BED ALARM IN PLACE, FALL PRECAUTIONS RENDERED ALL NEEDS ATTENDED AT THIS TIME, WILL CONTINUE TO MONITOR AND ENDORSE TO NEXT SHIFT.
[2018-05-27 06:50] LABS: BASOPHILS # (AUTO) 0.1 /CMM (0.0-0.2); BASOPHILS % (AUTO) 1.6 % (0.0-2.0); EOSINOPHILS % (AUTO) 3.1 % (0.0-6.0); HEMATOCRIT 23 % (39-51); HEMOGLOBIN 7.2 g/dL (13.5-17.5); LYMPHOCYTES # (AUTO) 0.5 /CMM (0.8-4.8); LYMPHOCYTES % (AUTO) 14.3 % (20.0-44.0); MEAN CORPUSCULAR HGB CONC 31 g/dl (31.0-36.0); MEAN CORPUSCULAR VOLUME 65 fL (80-96); MONOCYTES # (AUTO) 1.1 /CMM (0.1-1.30); MONOCYTES % (AUTO) 29.7 % (2.0-12.0); NEUTROPHILS # (AUTO) 1.9 /CMM (1.8-8.9); NEUTROPHILS % (AUTO) 51.3 % (43.0-81.0); PLATELET COUNT (AUTO) 83 /CMM (150-450); RED BLOOD CELL COUNT(AUTO) 3.52 MIL/uL (4.5-6.0); WHITE BLOOD COUNT (AUTO) 3.8 K/uL (4.3-11.0)
[2018-05-27 07:02] LABS: POTASSIUM 3.2 mmol/L (3.5-5.1)
[2018-05-27 07:03] LABS: CALCIUM, SERUM 7.9 mg/dL (8.5-10.1); CREATININE 0.5 mg/dL (0.6-1.3); MAGNESIUM 1.8 mg/dL (1.8-2.4); PHOSPHORUS 2.7 mg/dL (2.5-4.9)
[2018-05-27 07:25] LABS: LYMPHOCYTES % (MANUAL) 12 % (16-48); MONOCYTES % (MANUAL) 24 % (0-11.0); NEUTROPHILS % (MANUAL) 64 (42-76)
--- NOTE | 2018-05-27 08:00 | NUR ---
m/s mortuary beautician: initial assessment received pt in bed awake, a/ox2-3. able to make needs known. reality orientation provided prn. no c/o pain or anyd discomfort. instructed to call for assistance. will continue to monitor.
[2018-05-27] MEDS: SUCRALFATE 1 G TABLET PO SCH ×4 (08:47→21:52)
[2018-05-27] MEDS: CHLORDIAZEPOXIDE HCL 25 MG CAPSULE PO SCH ×2 (08:48→16:54)
[2018-05-27] MEDS: AMOX/CLAVULANATE 875 MG TABLET PO SCH ×2 (08:48→16:54)
[2018-05-27] MEDS: NICOTINE PATCH (14MG) 14 MG PATCH.TD24 TD SCH (08:50)
[2018-05-27] MEDS: PANTOPRAZOLE 40 MG VIAL IV SCH ×2 (09:02→16:29)
[2018-05-27] MEDS: HYDROMORPHONE INJ 0.5 MG/0.5 ML SYRINGE IV PRN (09:05)
--- NOTE | 2018-05-27 10:20 | NUR ---
m/s transport tech: md visit seen and examined by dr. hanson with order to give 1 unit of prbc. pt agreed and signed the blood transfusion consent. order carried out and acknowledged.
[2018-05-27] MEDS: POTASSIUM CHLORIDE 20 MEQ TAB.PRT.SR PO SCH ×2 (11:09→12:42)
--- NOTE | 2018-05-27 12:35 | NUR ---
m/s resident programs assistant: notes started on blood transfusion (1 unit prbc) at this time. vss, afebrile. instructed to call for assistance. will continue to monitor.
--- NOTE | 2018-05-27 12:55 | NUR ---
m/s electric motor repair supervisor: notes no a/r noted from blood transfusion after 15 minutes. will continue to monitor.
--- NOTE | 2018-05-27 13:55 | NUR ---
m/s stenographer secretary: notes blood still infusing without a/r noted. instructed to call for assistance. will monitor.
--- NOTE | 2018-05-27 15:45 | NUR ---
m/s platform worker: notes blood transfusion completed without a/r noted, remains afebrile. b/p 96/61, hr 84. pt resting comfortable, sounds asleep at this time, but arousable. call light within reach. will continue to monitor.
[2018-05-27] MEDS: SOD FERRIC GLUC 125 MG in IV NS 0.9% 100 ML IV SCH (16:29)
--- NOTE | 2018-05-27 16:45 | NUR ---
m/s stock drier tender: notes s/p blood transfusion without a/r noted. instructed to call for assistance. will continue to monitor.
--- NOTE | 2018-05-27 18:30 | NUR ---
m/s appellate conferee: notes appetite remains fair to good. needs attended. no acute distress noted. instructed to call for assistance. will continue to monitor.
[2018-05-27] MEDS: HYDROCODONE/APAP 5/325MG 1 EACH TABLET PO PRN (18:46)
--- NOTE | 2018-05-27 18:46 | NUR ---
m/s laborer poultry hatchery: notes c/o 10/22 abdominal pain, medicated with norco 1 tab po as ordered. instructed to call for assistance. will continue to monitor.
--- NOTE | 2018-05-27 19:05 | NUR ---
RN MS OPENING NOTES RECEIVED PATIENT IN BED AWAKE ALERT AND ORIENTED X 2-3, DENIES ANY PAIN OR DISCOMFORT AT THIS TIME, RESPIRATIONS EVEN AND UNLABORED WITH EQUAL RISE AND FALL OF CHEST, SAFETY PRECAUTIONS IN PLACE, LOW BED AND LOCKED, BED ALARM IN PLACE, ORIENTED TO STAFF AND CALL LIGHT AND KEPT WITHIN REACH, URINAL AT BEDSIDE AND OFFERED, FLUIDS OFFERED, IV SITE TO RIGHT FA #22G INTACT AND PATENT, NO REDNESS, NO INFILTRATION PRESENT, REMAINS COMFORTABLE AT THIS TIME, ALL NEEDS ATTENDED WILL CONTINUE TO MONITOR,AND ATTEND TO NEEDS.
--- NOTE | 2018-05-27 19:22 | NUR ---
RN MS NOTES PATIENT COMPLAINT OF UPSET STOMACH. REQUESTING FOR MEDICATION MAALOX OFFERED AGREED TO TAKE, GIVEN, WILL CONTINUE TO MONITOR.
[2018-05-28] MEDS: ZOLPIDEM TARTRATE 5 MG TABLET PO PRN (00:22)
--- NOTE | 2018-05-28 00:22 | NUR ---
RN MS NOTES PATIENT COMPLAINT HE CANT SLEEP REQUESTING FOR SLEEP AID, AMBIEN OFFERED PATIENT AGREED, PRN AMBIEN GIVEN ORDERED WILL CONTINUE TO MONITOR FOR EFFECTIVENESS
--- NOTE | 2018-05-28 06:16 | NUR ---
RN MS NOTES BED BATH AND LINEN CHANGED OFFERED, PATIENT REFUSED.
--- NOTE | 2018-05-28 06:30 | NUR ---
RN MS CLOSING NOTES PATIENT IN BED AWAKE ALERT AND ORIENTED X 2-3, DENIES ANY PAIN OR DISCOMFORT AT THIS TIME, RESPIRATIONS EVEN AND UNLABORED WITH EQUAL RISE AND FALL OF CHEST, SAFETY PRECAUTIONS IN PLACE, LOW BED AND LOCKED, BED ALARM IN PLACE, CALL LIGHT KEPT WITHIN REACH, URINAL AT BEDSIDE AND OFFERED, FLUIDS OFFERED, IV SITE TO RIGHT FA #22G INTACT AND PATENT, NO REDNESS, NO INFILTRATION PRESENT, REMAINS COMFORTABLE AT THIS TIME, ALL NEEDS ATTENDED WILL CONTINUE TO MONITOR,AND ATTEND TO NEEDS AND ENDORSE TO NEXT SHIFT, REFUSED LAB DRAW AT THIS TIME, WOULD LIKE IT DONE LATER.
[2018-05-28 08:00] VITALS: BP 100/64
[2018-05-28] MEDS: SUCRALFATE 1 G TABLET PO SCH ×5 (08:27→21:02)
[2018-05-28] MEDS: HYDROCODONE/APAP 5/325MG 1 EACH TABLET PO PRN (08:49)
[2018-05-28] MEDS: AMOX/CLAVULANATE 875 MG TABLET PO SCH ×2 (08:49→17:15)
[2018-05-28] MEDS: PANTOPRAZOLE 40 MG VIAL IV SCH ×2 (08:49→17:15)
[2018-05-28] MEDS: NICOTINE PATCH (14MG) 14 MG PATCH.TD24 TD SCH (08:49)
[2018-05-28] MEDS: CHLORDIAZEPOXIDE HCL 25 MG CAPSULE PO SCH ×2 (09:00→17:00)
[2018-05-28 09:04] LABS: BASOPHILS % (AUTO) 0.9 % (0.0-2.0); EOSINOPHILS % (AUTO) 1.7 % (0.0-6.0); HEMATOCRIT 28 % (39-51); HEMOGLOBIN 8.9 g/dL (13.5-17.5); LYMPHOCYTES # (AUTO) 0.7 /CMM (0.8-4.8); LYMPHOCYTES % (AUTO) 13.9 % (20.0-44.0); MEAN CORPUSCULAR HGB CONC 32 g/dl (31.0-36.0); MEAN CORPUSCULAR VOLUME 67 fL (80-96); MONOCYTES # (AUTO) 1.3 /CMM (0.1-1.30); NEUTROPHILS # (AUTO) 2.8 /CMM (1.8-8.9); NEUTROPHILS % (AUTO) 56.5 % (43.0-81.0); PLATELET COUNT (AUTO) 106 /CMM (150-450); RED BLOOD CELL COUNT(AUTO) 4.21 MIL/uL (4.5-6.0); WHITE BLOOD COUNT (AUTO) 4.9 K/uL (4.3-11.0)
[2018-05-28 10:11] LABS: CALCIUM, SERUM 8.1 mg/dL (8.5-10.1); CREATININE 0.6 mg/dL (0.6-1.3); MAGNESIUM 1.8 mg/dL (1.8-2.4); PHOSPHORUS 2.2 mg/dL (2.5-4.9); POTASSIUM 3.4 mmol/L (3.5-5.1)
[2018-05-28] MEDS ORDERED: LIDOCAINE HCL/PF 1% 30 ML SDV ONE (10:36)
[2018-05-28] MEDS ORDERED: K PHOS NEUTRAL 250 MG TABLET PO ONE (11:30)
--- NOTE | 2018-05-28 11:30 | NUR ---
PARACENTESIS PERFORMED LT. ABDOMEN,5 LITERS REMOVED.PT. TOLERATED WELL.SPECIMEN TO LAB.ALL TESTS ORDERED PER DR. TAVARES.
[2018-05-28 12:30] VITALS: BP 96/57
[2018-05-28] MEDS ORDERED: POTASSIUM CHLORIDE 20 MEQ TAB.PRT.SR PO SCH (14:00)
[2018-05-28] MEDS: SOD FERRIC GLUC 125 MG in IV NS 0.9% 100 ML IV SCH (14:24)
[2018-05-28 16:00] VITALS: BP 94/52
--- NOTE | 2018-05-28 17:55 | NUR ---
NO CHANGE IN STATUS,ALTHOUGH BP LOW SO GREGORIA. LIBRIUM HELD.
[2018-05-28] MEDS: TRAMADOL HCL 50 MG TABLET PO PRN (21:03)
[2018-05-28 22:06] VITALS: BP 97/56
[2018-05-29] MEDS: HYDROCODONE/APAP 5/325MG 1 EACH TABLET PO PRN (02:20)
[2018-05-29 06:18] LABS: BASOPHILS % (AUTO) 0.9 % (0.0-2.0); EOSINOPHILS % (AUTO) 1.7 % (0.0-6.0); HEMATOCRIT 26 % (39-51); HEMOGLOBIN 8.3 g/dL (13.5-17.5); LYMPHOCYTES # (AUTO) 0.8 /CMM (0.8-4.8); MEAN CORPUSCULAR HGB CONC 32 g/dl (31.0-36.0); MEAN CORPUSCULAR VOLUME 68 fL (80-96); MONOCYTES # (AUTO) 1.4 /CMM (0.1-1.30); MONOCYTES % (AUTO) 26.2 % (2.0-12.0); NEUTROPHILS # (AUTO) 2.9 /CMM (1.8-8.9); NEUTROPHILS % (AUTO) 56.2 % (43.0-81.0); PLATELET COUNT (AUTO) 108 /CMM (150-450); RED BLOOD CELL COUNT(AUTO) 3.86 MIL/uL (4.5-6.0); WHITE BLOOD COUNT (AUTO) 5.2 K/uL (4.3-11.0)
--- NOTE | 2018-05-29 06:23 | NUR ---
MS RN NOTES AWAKE & RESPONSIVE. NOT IN ANY DISTRESS. NO SOB NOTED. DENIES ANY PAIN OR DISCOMFORT AT THIS TIME. WITH IV-HL PATENT & INTACT. CALL LIGHT WITHIN REACH. BED IN LOWEST POSITION. SR UP X 2 FOR SAFETY. WILL ENDORSE TO NEXT SHIFT.
[2018-05-29 06:27] LABS: CREATININE 0.5 mg/dL (0.6-1.3); MAGNESIUM 1.9 mg/dL (1.8-2.4); PHOSPHORUS 2.8 mg/dL (2.5-4.9); POTASSIUM 3.2 mmol/L (3.5-5.1)
--- NOTE | 2018-05-29 07:15 | NUR ---
RN OPENING NOTES RECEIVED PATIENT IN BED RESTING. A/OX3-4, ABLE TO MAKE NEEDS KNOWN. NOT IN ANY FORM OF DISTRESS. NO SOB. DENIED PAIN OR DISCOMFORT AT THIS TIME. IV ACCESS INTACT AND PATENT. KEPT PATIENT SAFE AND COMFORTABLE. BED IN LOW, LOCKED POSITION, SIDERAILS UPX2, CALL LIGHT IN REACH. WILL CONTINUE TO MONITOR ACCORDINGLY.
[2018-05-29 08:00] VITALS: BP 97/61
[2018-05-29] MEDS: AMOX/CLAVULANATE 875 MG TABLET PO SCH (08:40)
[2018-05-29] MEDS: CHLORDIAZEPOXIDE HCL 25 MG CAPSULE PO SCH (08:40)
[2018-05-29] MEDS: SUCRALFATE 1 G TABLET PO SCH ×2 (08:40→12:29)
[2018-05-29] MEDS: NICOTINE PATCH (14MG) 14 MG PATCH.TD24 TD SCH (08:41)
[2018-05-29] MEDS: PANTOPRAZOLE 40 MG VIAL IV SCH (08:41)
[2018-05-29 09:17] LABS: BAND % (MANUAL) 1 % (0.0-5.0); EOSINOPHILS % (MANUAL) 2 % (0-4); LYMPHOCYTES % (MANUAL) 8 % (16-48); MONOCYTES % (MANUAL) 19 % (0-11.0); NEUTROPHILS % (MANUAL) 70 (42-76)
[2018-05-29] MEDS ORDERED: Amox/Clavulanate PO (09:52)
[2018-05-29] MEDS ORDERED: SUCR1TAB PO (09:52)
[2018-05-29] MEDS ORDERED: LACT10SO6 PO (09:52)
[2018-05-29] MEDS ORDERED: PANT40TA2 PO (09:52)
[2018-05-29] MEDS ORDERED: POTASSIUM CHLORIDE 20 MEQ TAB.PRT.SR PO ONE (10:00)
[2018-05-29] MEDS: Magnesium 1GM/D5W 100ML PREMIX 100 ML IV SCH ×2 (11:04→12:28)
[2018-05-29] MEDS: TRAMADOL HCL 50 MG TABLET PO PRN (11:15)
[2018-05-29] MEDS ORDERED: KEY,NONCONTROL,TO KEEP IN PYXI 1 EA MC ONE (11:39)
--- NOTE | 2018-05-29 12:30 | NUR ---
JAY met with pt. bedside to discuss discharge plan. Pt. is alert and oriented x 4. Pt. is ambulatory. SW offered pt. the Winter Residential Program placement, however pt. declined stating, " I don't do group home." Pt. wants to go back to [facility] where he usually stays. SW offered pt. blankets, TAP CARD, Sweatshirt and a pair of shoes. JAY also gave pt. the following resources: [facility] Winter Residential Program [phone]. Mental Health clinics [facility] Homeless Program [address] [place] [address] [facility] [address] [facility], 2nd [place] [address] Main Number: Adult Full Service Partnership (AFSP): Contact [facility] [address] [place] [address] HOURS: Mon-Fri 8am--7pm Saturdays 9am--5:30pm [facility] [address] [place], [place] [address] Operation Hours: MON - FRI 8:00 a.m. - 5:00 p.m. Walk In Hours: Services by Age: Adults and Older Adults [facility] For the Homeless [facility] [address], [address] [place]. [place] Hours: M, T, Th, F 8:30AM-4:30PM Walk-ins allowed Provide medical screening and pharmacy [facility] [address] [place] [address] Hours M-F 8AM-3:30PM Walk-ins allowed Provide medical screening and pharmacy [facility] [address] [place] [address] Hours 8AM-4:30PM Walk-ins allowed Provide medical screening and pharmacy Alcohol and Drug Treatment Programs [facility] Substance Abuse Self-helpline ([facility]) Contact number . Call the hotline and the assistant offset press operator will screen and link individual to an appropriate program. Must have Medi-eva or be Med-eva eligible. [facility] [address] [facility] [place] [id number] [facility] [address] [place] [address] [facility] Rehabilitation Program (Hinduism based) [address] [place] [address] (Six months program and need to work for 8 hrs per day while in treatment) [facility] (No insurance required) [address] [place] [address] No other social service needs are requested at this time. Homeless Patient Waiver Form was signed by pt. and placed in pt's chart. BLAYNE Martinez and BRETT Boland were updated on pt's discharge plan.
--- NOTE | 2018-05-29 13:10 | NUR ---
DISCHARGED PATIENT IN STABLE CONDITION, ACCOMPANIED TO THE LOBBY. DISCHARGE INSTRUCTIONS GIVEN, VERBALIZED UNDERSTANDING. REFUSED TO ACCEPT DC PAPERWORKS, LEFT IT ON THE TABLE. ALL BELONGINGS RETURNED, FORM SIGNED. REMOVED IV ACCESS, NO BLEEDING, NO COMPLICATIONS. REMOVED NAME BAND. REFUSED SKIN PHOTOS, PATIENT STATED "IM IN A HURRY MAN, IDONT HAVE TIME FOR THIS".
== END 2018-05-29 13:06 | disposition home or self-care (01) | DRG 241 ==
LOC: ER 17:59 → MED 21:50 → MEDSG2 05-25 06:22 → MED 05-25 12:03
PROVIDERS: ADMIT Nurse Practitioner Acute Care; ATTEND Internal Medicine
PROC: 0W9G3ZX Drainage of Peritoneal Cavity, Percutaneous Approach, Diagnostic (ICD-10-PCS; 2018-05-23)
PROC: 0DB78ZX Excision of Stomach, Pylorus, Via Natural or Artificial Opening Endoscopic, Diagnostic (ICD-10-PCS; principal; 2018-05-26)
PROC: 0DJD8ZZ Inspection of Lower Intestinal Tract, Via Natural or Artificial Opening Endoscopic (ICD-10-PCS; principal; 2018-05-26)
PROC: 0W9G3ZX Drainage of Peritoneal Cavity, Percutaneous Approach, Diagnostic (ICD-10-PCS; 2018-05-28)
DX: K29.20 Alcoholic gastritis without bleeding (principal); E43 Unspecified severe protein-calorie malnutrition; D61.818 Other pancytopenia; J15.9 Unspecified bacterial pneumonia; K70.31 Alcoholic cirrhosis of liver with ascites; K56.7 Ileus, unspecified; E83.42 Hypomagnesemia; F10.239 Alcohol dependence with withdrawal, unspecified; D50.9 Iron deficiency anemia, unspecified; K72.90 Hepatic failure, unspecified without coma; H73.011 Bullous myringitis, right ear; Y90.9 Presence of alcohol in blood, level not specified; K29.70 Gastritis, unspecified, without bleeding; K57.30 Diverticulosis of large intestine without perforation or abscess without bleeding; F17.210 Nicotine dependence, cigarettes, uncomplicated; E87.6 Hypokalemia; Z59.0 Homelessness; R74.0 Nonspecific elevation of levels of transaminase and lactic acid dehydrogenase [LDH]; E80.6 Other disorders of bilirubin metabolism; K57.90 Diverticulosis of intestine, part unspecified, without perforation or abscess without bleeding
CPT/HCPCS: 36415; 71045-TC; 74018; 76942-TC; 80048-TC; 80053-TC; 80061-TC; 80076-TC; 81000-TC; 82140-TC; 82272-TC; 82728-TC; 83540-TC; 83690-TC; 83735-TC; 84100-TC; 85025-TC; 85730-TC; 86850-TC; 86921-TC; 87070-TC; 87081-TC; 87086-TC; 88305-TC; 88313-TC; 88342; 89051-TC; C9113; G0378; J0696; J1885; J2060; J2270; J2405; J2704; J2916; J3475; J3480; J3490; J7030; J7040; J7050; J7060; P9016-BL

== ENCOUNTER 2018-06-19 22:37 | Emergency (ER) | payer MEDICAID ==
[~2018-06-19] VITALS: Ht 182.9 cm; Wt 83.9 kg
[~2018-06-19 22:37] MED LIST changes: +Amox/Clavulanate PO; +LACT10SO6 PO; -LITH150C; -NO HOME MEDICATIONS; +PANT40TA2 PO; +SUCR1TAB PO
--- NOTE | 2018-06-19 22:45 | NUR ---
PT MADHURI FROM THE STREETS FOR ETOH; PT AAOX2-3; PT ON MONITOR, VSS, NAD NOTED, PENDING ER PROVIDER KAZ
--- NOTE | 2018-06-20 04:00 | NUR ---
Patient is resting comfortably in bed with eyes closed. Easily aroused. VSS
--- NOTE | 2018-06-20 07:55 | NUR ---
Patient discharged to home in stable condition. Written and verbal after care instructions given. Patient verbalizes understanding of instruction. PT REFUSED HOMELESS RESOURCES.
[2018-06-20 07:57] VITALS: BP 119/67
== END 2018-06-20 07:58 | disposition home or self-care (01) ==
LOC: ER 22:43
DX: F10.129 Alcohol abuse with intoxication, unspecified (principal); F17.200 Nicotine dependence, unspecified, uncomplicated; Y90.9 Presence of alcohol in blood, level not specified; Z59.0 Homelessness
CPT/HCPCS: 82962; 99283; 99406; A4606

== ENCOUNTER 2018-06-24 00:12 | Inpatient (IN) | payer MEDICAID ==
[~2018-06-24] VITALS: Ht 182.9 cm; Wt 83.0 kg
--- NOTE | 2018-06-24 00:20 | NUR ---
PT MADHURI FROM THE STREET FOR ETOH; C/O OF ABD PAIN; PT AAOX2-3, PT ON MONITOR, VSS, NAD NOTED, PENDING MD MCCURDY
[2018-06-24 00:57] LABS: BASOPHILS # (AUTO) 0.1 /CMM (0.0-0.2); BASOPHILS % (AUTO) 1.3 % (0.0-2.0); EOSINOPHILS % (AUTO) 1.8 % (0.0-6.0); HEMATOCRIT 32 % (39-51); HEMOGLOBIN 10.4 g/dL (13.5-17.5); LYMPHOCYTES # (AUTO) 1.9 /CMM (0.8-4.8); LYMPHOCYTES % (AUTO) 30.4 % (20.0-44.0); MEAN CORPUSCULAR HGB CONC 32 g/dl (31.0-36.0); MEAN CORPUSCULAR VOLUME 73 fL (80-96); MONOCYTES # (AUTO) 1.1 /CMM (0.1-1.30); NEUTROPHILS % (AUTO) 48.5 % (43.0-81.0); PLATELET COUNT (AUTO) 159 /CMM (150-450); RED BLOOD CELL COUNT(AUTO) 4.41 MIL/uL (4.5-6.0); WHITE BLOOD COUNT (AUTO) 6.1 K/uL (4.3-11.0)
[2018-06-24 01:10] LABS: CALCIUM, SERUM 8.3 mg/dL (8.5-10.1); CREATININE 0.4 mg/dL (0.6-1.3); POTASSIUM 3.5 mmol/L (3.5-5.1)
[2018-06-24 01:12] LABS: LYMPHOCYTES % (MANUAL) 20 % (16-48); MONOCYTES % (MANUAL) 17 % (0-11.0)
[2018-06-24 01:13] LABS: EOSINOPHILS % (MANUAL) 1 % (0-4); NEUTROPHILS % (MANUAL) 62 (42-76)
[2018-06-24 01:17] LABS: ALBUMIN 2.6 g/dL (3.4-5.0); BILIRUBIN,DIRECT 0.8 mg/dL (0.0-0.2); BILIRUBIN,TOTAL 1.2 mg/dL (0.2-1.0); TOTAL PROTEIN, SERUM 6.4 g/dL (6.4-8.2)
[2018-06-24 01:59] LABS: OCCULT BLOOD STOOL NEGATIVE (NEGATIVE)
--- NOTE | 2018-06-24 01:59 | NUR ---
PANEL CALL PLACED, AWAITING CALLBACK FROM DELORES COFFMAN
[2018-06-24] MEDS ORDERED: CEFTRIAXONE 1 G in IV D5W 50 ML IV ONE (02:00)
[2018-06-24] MEDS ORDERED: CEFTRIAXONE 1GM BAG (ER ONLY) 50 ML IV ONE (02:11)
[2018-06-24] MEDS ORDERED: MAGNESIUM HYDROXIDE 30 ML UDC PO PRN (02:30)
[2018-06-24] MEDS ORDERED: ZOLPIDEM TARTRATE 5 MG TABLET PO PRN (02:30)
[2018-06-24] MEDS ORDERED: ACETAMINOPHEN 325 MG TABLET PO PRN (02:30)
[2018-06-24] MEDS ORDERED: Z GUARD REMEDY 2 OZ OINT TP PRN (02:30)
--- NOTE | 2018-06-24 03:00 | NUR ---
REPORT GIVEN TO BLAYNE PERSON CHARGE NURSE FOR KELLY
[2018-06-24 04:00] VITALS: BP 106/66
--- NOTE | 2018-06-24 04:00 | NUR ---
PT TRANSFERRED TO 3RD FLOOR VIA WILLIAM COOPER
--- NOTE | 2018-06-24 04:10 | NUR ---
MS mens locker room attendant notes 53 years old male brought in via [facility], admitted for Acute toxic encephalopathy. Patient is awake, A/O x3 appears anxious. Skin body assessment done with VALENCIA Altman. Orientation to room, unit, staff. Safety measure explained, verbalized understanding.
[2018-06-24] MEDS: IV NS 0.9% 1,000 ML IV PRN ×3 (04:47→21:27)
[2018-06-24] MEDS: HYDROCODONE/APAP 5/325MG 1 EACH TABLET PO PRN ×3 (04:55→22:54)
--- NOTE | 2018-06-24 06:21 | NUR ---
MS RN CLOSING NOTES Patient in bed, stable oxygen saturation on RA. IVF infusing, maintained at 125ml/hr, tolerating well. Hip/leg pain controlled with PRN [place]. Patient is homeless, social service to follow. Blister bilateral plantar foot, coccyx excoriation, for wound consult. Repositioned every 2 hours, offload extremities at all times. Maintained safety, will endorse to oncoming RN.
[2018-06-24 06:28] LABS: BASOPHILS # (AUTO) 0.1 /CMM (0.0-0.2); BASOPHILS % (AUTO) 1.2 % (0.0-2.0); EOSINOPHILS % (AUTO) 4.1 % (0.0-6.0); HEMATOCRIT 31 % (39-51); HEMOGLOBIN 10.2 g/dL (13.5-17.5); LYMPHOCYTES # (AUTO) 1.6 /CMM (0.8-4.8); LYMPHOCYTES % (AUTO) 26.6 % (20.0-44.0); MEAN CORPUSCULAR HGB CONC 33 g/dl (31.0-36.0); MEAN CORPUSCULAR VOLUME 71 fL (80-96); MONOCYTES # (AUTO) 1.2 /CMM (0.1-1.30); MONOCYTES % (AUTO) 19.9 % (2.0-12.0); NEUTROPHILS % (AUTO) 48.2 % (43.0-81.0); PLATELET COUNT (AUTO) 156 /CMM (150-450); RED BLOOD CELL COUNT(AUTO) 4.35 MIL/uL (4.5-6.0); WHITE BLOOD COUNT (AUTO) 6.2 K/uL (4.3-11.0)
--- NOTE | 2018-06-24 06:44 | NUR ---
Troponin level elevated 0.057 (previous 0.054) patient denies pain, Pulse on 90's. Informed AUGUSTUS Self with no new orders at this time. Addendum: 06/24/18 at 0652 by LETICIA CACERES RN ERROR NOTES ABOVE. PLEASE DISREGARD.
[2018-06-24 06:53] LABS: CREATININE 0.4 mg/dL (0.6-1.3); MAGNESIUM 1.9 mg/dL (1.8-2.4); PHOSPHORUS 3.3 mg/dL (2.5-4.9); POTASSIUM 3.4 mmol/L (3.5-5.1)
[2018-06-24 08:00] VITALS: BP 127/75
[2018-06-24] MEDS ORDERED: SPIRONOLACTONE 25 MG TABLET PO ONE (09:00)
[2018-06-24] MEDS ORDERED: FUROSEMIDE 20 MG TABLET PO ONE (09:00)
[2018-06-24] MEDS ORDERED: FOLIC ACID 1 MG TABLET PO ONE (09:00)
[2018-06-24] MEDS ORDERED: THIAMINE HCL 100 MG TABLET PO ONE (09:00)
[2018-06-24] MEDS ORDERED: POTASSIUM CHLORIDE 20 MEQ TAB.PRT.SR PO SCH (10:00)
[2018-06-24] MEDS ORDERED: LORAZEPAM INJ 2 MG/ML VIAL IV PRN (11:00)
--- NOTE | 2018-06-24 11:20 | NUR ---
SW received consult requested by AUGUSTUS Self regarding homeless. Patient is a 53 year-old male admitted to Med/Surg unit for ascites. 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 SW met with patient at bedside to discuss above consult. Patient is alert and oriented x2. Pt. appears drowsy and lethargic and continued to fall asleep on SW during the assessment. SW to come back at a later time when pt. is more awake.
--- NOTE | 2018-06-24 12:47 | NUR ---
AT THIS TIME US GUIDED PARACENTESIS BEING COMPLETED-5L REMOVED CLEAR YELLOW FLUID.VS TAKEN.BP 105/55,HEART RATE 87 POX INITIALLY 89% THEN UP TO 91%.FOR COMFORT PLACED ON 02 2L.NC,IMMEDIATELY REQUESTING FOOD AND YELLING OUTLOUD.
--- NOTE | 2018-06-24 12:57 | NUR ---
PARACENTESIS FLUID TO LAB.
[2018-06-24 16:00] VITALS: BP 108/50
--- NOTE | 2018-06-24 17:07 | NUR ---
ASKS FOR PAIN MED THEN FALLS OFF TO SLEEP.
--- NOTE | 2018-06-24 20:06 | NUR ---
RN MS OPENING NOTES RECEIVED PT IN BED, AWAKE ALERT ORIENTED X3. BREATHING EVEN AND UNLABORED ON ROOM AIR. NO COMPLAINT OF PAIN OR DISCOMFORT AT THIS TIME. BLE EDEMA, ELEVATED WITH PILLOWS, ABDOMEN DISTENDED TENDER AND FIRM. IV ACCESS ON THE R AC #20 NS @125ML/HR. BED IN LOWEST LOCKED POSITION, CALL LIGHT WITHIN REACH AT ALL TIMES, WILL CONTINUE TO MONITOR
[2018-06-24 20:23] VITALS: BP 107/50
[2018-06-24] MEDS: ONDANSETRON HCL/PF 4 MG/2 ML VIAL IVP PRN (22:28)
[2018-06-25 04:14] VITALS: BP 107/50
[2018-06-25] MEDS: HYDROCODONE/APAP 5/325MG 1 EACH TABLET PO PRN (06:33)
--- NOTE | 2018-06-25 06:59 | NUR ---
RN MS CLOSING NOTES PT IN BED, AWAKE ALERT ORIENTED X3. BREATHING EVEN AND UNLABORED ON ROOM AIR. NO COMPLAINT OF PAIN OR DISCOMFORT AT THIS TIME. BLE EDEMA, ELEVATED WITH PILLOWS, ABDOMEN DISTENDED TENDER AND FIRM. IV ACCESS ON THE L FA #20 NS @125ML/HR. BED IN LOWEST LOCKED POSITION, CALL LIGHT WITHIN REACH AT ALL TIMES, WILL ENDORSE TO DAY NURSE FOR KELLY.
[2018-06-25 07:44] LABS: CALCIUM, SERUM 7.8 mg/dL (8.5-10.1); CREATININE 0.4 mg/dL (0.6-1.3); POTASSIUM 3.7 mmol/L (3.5-5.1)
[2018-06-25 08:00] VITALS: BP 116/58
--- NOTE | 2018-06-25 08:00 | NUR ---
RN NOTES RECEIVED PATIENT IN THE BED A/O X4, NO ACUTE RESPIRATORY DISTRESS, PATIENT WAS COMPLAINING OF GENERALIZED PAIN 10/22, MEDICATION WERE ADMINISTERED FOR PAIN NOT EFFECTIVE, V/S TAKEN STABLE. PATIENT HAS AN EDEMA ON BILATERAL LOWER EXTREMITIES WITH REDNESS, AND HOT TO TOUCH, AND EDEMA ON PENILE . DISTENDED ABDOMEN,AND MULTIPLE ABRASIONS. IV ACCESS ON LEFT FA INFUSING NS AT125 ML/HR. KEEP BLE ELEVATED. ADMINISTERED SCHEDULED MEDICATION. CALL LIGHT WITHIN TO REACH, SAFETY PRECAUTION MAINTAINED ALL THE TIME.
--- NOTE | 2018-06-25 08:58 | NUR ---
rn notes ADMINISTERED TYLENOL 650 MG PO PRN FOR BILATERAL LOWER EXTREMITIES 01/22 PER PATIENT REQUEST. CONTINUED MONITORING.
[2018-06-25] MEDS: SPIRONOLACTONE 25 MG TABLET PO SCH (08:59)
[2018-06-25] MEDS: ONDANSETRON HCL/PF 4 MG/2 ML VIAL IVP PRN (09:25)
--- NOTE | 2018-06-25 09:25 | NUR ---
RN NOTES ADMINISTERED ZOFRAN 4 MG/ML IV PUSH FOR NAUSEA.
--- NOTE | 2018-06-25 09:27 | NUR ---
WOUND CARE CONSULT: PT PRESENTS WITH SCARRING TO SACRUM, INCONTINENCE, LEFT WRIST ESCHAR, LARGE ABDOMEN WITH DRY ABRASIONS, BILATERAL LOWER LEG SWELLING AND REDNESS, BILATERAL PLANTAR FOOT DRY PEELING BLISTERS AND CURLING TOENAILS. RECOMMEND DPM CONSULT. RECOMMENDATIONS MADE FOR SKIN PROTECTION. DISCUSSED WITH NURSING STAFF. CURRENT SHAY SCORE IS 15. WILL SEE PRN. PAYTON IN AGREEMENT WITH PLAN OF CARE. Addendum: 06/25/18 at 0930 by CHANG NEWMAN WNDNU Amended: Links added.
[2018-06-25] MEDS ORDERED: Thiamine 100 MG in IV D5W 50 ML IV SCH (10:00)
[2018-06-25] MEDS: IV NS 0.9% 1,000 ML IV PRN (10:18)
[2018-06-25] MEDS ORDERED: LACTULOSE 10 G/15 ML UDC (PYXIS) PO PRN (11:00)
[2018-06-25] MEDS ORDERED: Folic acid 1 MG in IV D5W 50 ML IV SCH (11:00)
--- NOTE | 2018-06-25 11:43 | NUR ---
SW met with pt. again at bedside for an assessment. Patient is much more alert than yesterday. Pt. resides at the [facility]. Patient reported that he has been homeless for quite some time and has been living at the [facility] for a couple of months. SW is familiar with the pt. from previous admissions. JAY educated the patient about the [facility], and patient refused group home placement at this time. Patient reported that he would like to return to the [facility]. JAY to provide pt. with the Homeless Resource Packet, which includes information about emergency shelters, meals, hot showers, and walk-in clinics. Patient was accepting of these resources. Pt. is an alcoholic and drinks about 2-3 beers per day and has been doing so since he was 24 years old. Patient reports that he does not plan to stop drinking. JAY to provide education and information about Substance Abuse and ETOH Treatment Centers, and patient was receptive to the resources. JAY will give pt. referrals to [facility] Substance Abuse Self-Helpline ([phone]); [facility] [[address] [place] [address]; [phone]]; [facility] [[address] [place] [address]; [phone]]; [facility] Rehabilitation [facility] [[address] [place] [address]; [phone]]; [facility] [[address]; [place] [address]; [phone]]; [facility] [[address] [place] [address]; [phone]], and the [facility] [[address] [place] [address]; [phone]].
[2018-06-25] MEDS: CYCLOBENZAPRINE 10 MG TABLET PO PRN ×2 (13:04→19:39)
--- NOTE | 2018-06-25 13:04 | NUR ---
NOTES ADMINISTERED FLEXERIL 10 MG PO PRN FOR PAIN BLE 6/10 PER PATIENT REQUEST, CONTINUED MONITORING.
[2018-06-25 16:03] VITALS: BP 105/61
[2018-06-25] MEDS: CLOTRIMAZOLE 1% 15 GM TUBE TP SCH (17:50)
--- NOTE | 2018-06-25 18:30 | NUR ---
RN NOTES PATIENT STABLE, RESTING IN THE BED. KEEP BLE ELEVATED USING PILLOW, V/S STABLE, MED COMPLAINT. NEEDS ATTENDED AND ANTICIPATED. CALL LIGHT WITHIN TO REACH. ENDORSED ONCOMING NURSE FOR PLAN OF CARE.
--- NOTE | 2018-06-25 19:40 | NUR ---
RN MS OPENING NOTES RECEIVED PT IN BED, AWAKE ALERT ORIENTED X3. BREATHING EVEN AND UNLABORED ON ROOM AIR. PT COMPLAINTS OF ABDOMINAL PAIN 6/10 FLEXERIL GIVEN, WILL REASSESS IN 15 MINUTES. BLE EDEMA, ELEVATED WITH PILLOWS, ABDOMEN DISTENDED TENDER AND FIRM. IV ACCESS ON THE L FA #20 NS @125ML/HR. BED IN LOWEST LOCKED POSITION, CALL LIGHT WITHIN REACH AT ALL TIMES, WILL CONTINUE TO MONITOR
[2018-06-25 20:00] VITALS: BP 102/60
[2018-06-26] MEDS: IV NS 0.9% 1,000 ML IV PRN (06:18)
--- NOTE | 2018-06-26 07:40 | NUR ---
MS RN OPENING NOTE RECEIVED PT IN BED, RESTING WITH EYES CLOSED AND EASILY AROUSABLE. PT IS A/OX4, DENIES CHEST PAIN, SOB, N/V. BREATHING IS EVEN AND UNLABORED ON ROOM AIR. NO ACUTE DISTRESS NOTED AT THIS TIME. LEFT FA #20G IV IS INFUSING NS @ 75ML/HR WITHOUT REDNESS OR SWELLING. ALL NEEDS ATTENDED TO. BED IS LOCKED AND IN LOWEST POSITION, SIDE RAILS UP X2, BED ALARM ON, CALL LIGHT AND POSSESSIONS WITHIN REACH.
[2018-06-26 08:00] VITALS: BP 117/69
[2018-06-26] MEDS: SPIRONOLACTONE 25 MG TABLET PO SCH (08:30)
[2018-06-26] MEDS: CLOTRIMAZOLE 1% 15 GM TUBE TP SCH (08:30)
[2018-06-26] MEDS: HYDROCODONE/APAP 5/325MG 1 EACH TABLET PO PRN (08:33)
[2018-06-26 08:43] VITALS: BP 117/69
[2018-06-26] MEDS ORDERED: FOLIC ACID 1 MG TABLET PO SCH (09:00)
[2018-06-26] MEDS ORDERED: THIAMINE HCL 100 MG TABLET PO SCH (09:00)
--- NOTE | 2018-06-26 11:20 | NUR ---
JAY met with pt. bedside to discuss discharge plan. Pt. is alert and oriented x 4. Pt. was seen by Physical therapy and pt. is ambulatory and walked independently to the bathroom. However, Pt. is stating he is unable to walk. JAY informed pt. that he was evaluated by pt. and he is ambulatory. JAY informed pt. she will request a walker for him prior to discharge. Pt. requested if he could stay another night and leave tomorrow morning. JAY informed pt. she will inform BRETT Moore regarding his request. JAY provided pt. with the Homeless Resources which include [facility] program and [facility] Homeless Resource Directory which includes Hot meals, showers, housing etc. SW provided education and information about Substance Abuse and ETOH Treatment Centers, and patient was receptive to the resources. JAY also gave pt. referrals to [facility] Substance Abuse Self-Helpline ([phone]); [facility] [[address] [place] [address]; [phone]]; [facility] [[address] [place] [address]; [phone]]; [facility] [[address] [place] [address]; [phone]]; [facility] [[address]; [place] [address]; [phone]]; [facility] [[address] [place] [address]; [phone]], and the [facility] [[address] [place] [address]; [phone]]. Homeless Patient Waiver form was signed by the pt. and placed in pt's chart. JAY updated BRETT Moore regarding pt's request. JAY also informed case advocate Ira Aguilera regarding a walker for the pt. No other social service needs are requested at this time. SW is available, if needed. Pt. will require a TAP card upon request.
--- NOTE | 2018-06-26 14:20 | NUR ---
MS RN NOTE THE PT CALLED THE NURSE INTO THE ROOM AND STATED THAT HE NO LONGER WANTED TO WAIT AND SEE IF IT WOULD BE POSSIBLE TO STAY THE NIGHT BECAUSE IT WOULD "TAKE TOO LONG". THE PT INFORMED THE NURSE THAT HIS WISH IS TO LEAVE SOON POSSIBLE. THE PT STATED HE WAS AGREEABLE TO WAITING FOR DISCHARGE PAPERWORK.
--- NOTE | 2018-06-26 14:46 | NUR ---
MS RN PT DISCHARGED PT DISCHARGED HOME IN MEDICALLY STABLE CONDITION. PT IS A/OX 4, DENIES CHEST PAIN, SOB, N/V. BREATHING IS EVEN AND UNLABORED ON ROOM AIR. LEFT FOREARM PERIPHERAL IV REMOVED WITH CATHETER TIP INTACT. ASSISTED PT TO SET UP WALKER AND UTILIZED TEACH BACK METHOD. DISCHARGE PAPERWORK AND EDUCATION PROVIDED PER PROTOCOL. PT PROVIDED WITH PRESCRIPTION MEDICATIONS. PT INFORMED TO CALL 911 OR RETURN TO THE NEAREST ER FOR CHEST PAIN, SOB, UNILATERAL CALF SWELLING, TEMPERATURE THAT DOES NOT GO DOWN WITH TYLENOL ADMINISTRATION OR REOCCURRENCE OF CHIEF COMPLAINT. DISCUSSED DR RECOMMENDATIONS TO FOLLOW UP WITH PRIMARY CARE PROVIDER WITHIN 2 WEEKS, TAKE MEDICATIONS AND PRESCRIBED AND TO INITIATE AA MEETINGS. PT VERBALIZED UNDERSTANDING. PT REFUSED WOUND DOCUMENTATION X3, STATING THAT HE WAS EAGER AND WANTING TO LEAVE SOON POSSIBLE. PT ALSO REFUSED WOUND CARE. RISKS AND BENEFITS EXPLAINED, PT STILL STRONGLY REFUSED. SHAREPOINT SPECIALIST MET WITH PT TODAY AT THE BEDSIDE AND PROVIDED RESOURCES. ALL BELONGINGS ACCOUNTED FOR AND BELONGINGS LIST SIGNED AND PLACED IN CHART. THE NURSE ACCOMPANIED THE PT TO THE MAIN LOBBY WITHOUT INCIDENT.
== END 2018-06-26 14:45 | disposition home or self-care (01) | DRG 775 ==
LOC: ER 00:14 → MED 02:37
PROVIDERS: ADMIT Internal Medicine; ATTEND Internal Medicine
PROC: 0W9G3ZZ Drainage of Peritoneal Cavity, Percutaneous Approach (ICD-10-PCS; principal; 2018-06-24)
DX: F10.229 Alcohol dependence with intoxication, unspecified (principal); G92 Toxic encephalopathy; R18.8 Other ascites; K74.60 Unspecified cirrhosis of liver; B35.3 Tinea pedis; B35.1 Tinea unguium; F17.200 Nicotine dependence, unspecified, uncomplicated; Y90.8 Blood alcohol level of 240 mg/100 ml or more; Z59.0 Homelessness; L84 Corns and callosities
CPT/HCPCS: 36415; 70450-TC; 71045-TC; 72125-TC; 73630-TC; 76700-TC; 76942-TC; 80048-TC; 80061-TC; 80076-TC; 82040-TC; 82272-TC; 83690-TC; 83735-TC; 84100-TC; 85025-TC; 85610-TC; 87070-TC; 87081-TC; 88305-TC; 88312-TC; 89051-TC; 93307-TC; 93970-TC; 97110-TC; 97116-TC; 97530-TC; A6403; G0378; G0480; J0696; J2405; J3411; J3490; J7030; J7060

== ENCOUNTER 2018-07-04 19:36 | Emergency (ER) | payer MEDICAID ==
[~2018-07-04] VITALS: Ht 182.9 cm; Wt 78.0 kg
--- NOTE | 2018-07-04 19:40 | NUR ---
PT MADHURI COMPLAINING OF FLU LIKE SYMPTOMS X SEVERAL MONTHS. PT AXO4. RESPIRATIONS EVEN AND UNLABORED. NAD NOTED. PT PUT ON THE EXPEDITER CLERK AND PULSE OX. PENDING EVAL FROM ER .
--- NOTE | 2018-07-04 19:45 | NUR ---
DR CORDERO AT BEDSIDE
[2018-07-04] MEDS ORDERED: SPIRONOLACTONE 25 MG TABLET ONE (19:57)
[2018-07-04] MEDS ORDERED: SPIRONOLACTONE 25 MG TABLET PO ONE (20:00)
--- NOTE | 2018-07-04 21:00 | NUR ---
Patient signed homeless waiver form. Pt was wearing Jacket, pants, socks and shoes. All belongings with the patient. Transferred carefully to wheelchair by 2 EMT's.
--- NOTE | 2018-07-04 21:04 | NUR ---
Patient given written and verbal discharge instructions. Patient verbalizes understanding of instructions. Patient assisted to waiting room via wheelchair by 2 EMT's. Refuses offer of senior care placement. Patient verbalizes already has list of available shelters in surrounding area. Provided with Tap Card.
[2018-07-04 21:12] VITALS: BP 134/68
== END 2018-07-04 21:16 | disposition home or self-care (01) ==
LOC: ER 19:39
DX: K70.30 Alcoholic cirrhosis of liver without ascites (principal); R60.0 Localized edema; F19.10 Other psychoactive substance abuse, uncomplicated; F17.200 Nicotine dependence, unspecified, uncomplicated; F10.10 Alcohol abuse, uncomplicated; Y90.9 Presence of alcohol in blood, level not specified; Z59.0 Homelessness

== ENCOUNTER 2018-08-18 18:59 | Inpatient (IN) | payer MEDICAID, OTHER ==
[~2018-08-18] VITALS: Ht 170.2 cm; Wt 81.3 kg
--- NOTE | 2018-08-18 19:07 | NUR ---
MADHURI FROM THE STREET FOR ABD PAIN; PT SMELLS OF ETOH, PT AAOX4, PT ON MONITOR, VSS, MARIPOSA BURNETT MD AT FOR EVAL
[2018-08-18 19:29] LABS: BASOPHILS # (AUTO) 0.1 /CMM (0.0-0.2); BASOPHILS % (AUTO) 1.2 % (0.0-2.0); EOSINOPHILS % (AUTO) 1.3 % (0.0-6.0); HEMATOCRIT 29 % (39-51); HEMOGLOBIN 9.5 g/dL (13.5-17.5); LYMPHOCYTES % (AUTO) 21.7 % (20.0-44.0); MEAN CORPUSCULAR HGB CONC 33 g/dl (31.0-36.0); MEAN CORPUSCULAR VOLUME 79 fL (80-96); MONOCYTES % (AUTO) 32.5 % (2.0-12.0); NEUTROPHILS % (AUTO) 43.3 % (43.0-81.0); PLATELET COUNT (AUTO) 175 /CMM (150-450); RED BLOOD CELL COUNT(AUTO) 3.69 MIL/uL (4.5-6.0); WHITE BLOOD COUNT (AUTO) 9.2 K/uL (4.3-11.0)
[2018-08-18 19:44] LABS: ALBUMIN 2.5 g/dL (3.4-5.0); BILIRUBIN,TOTAL 3.6 mg/dL (0.2-1.0); CALCIUM, SERUM 7.7 mg/dL (8.5-10.1); CREATININE 0.5 mg/dL (0.6-1.3); POTASSIUM 3.4 mmol/L (3.5-5.1); TOTAL PROTEIN, SERUM 5.8 g/dL (6.4-8.2)
[2018-08-18] MEDS ORDERED: Calcium Gluconate 1GM/10ML 4.65 MEQ in IV NS 0.9% 50 ML IV ONE (20:00)
[2018-08-18] MEDS ORDERED: IOHEXOL-300 100 ML VIAL IV ONE (20:11)
[2018-08-18] MEDS ORDERED: IV NS 0.9% 250 ML IV ONE (20:12)
[2018-08-18] MEDS ORDERED: CT SWABBABLE VALVE TRANS SET 1 EA INFUS.SET MC ONE (20:12)
--- NOTE | 2018-08-18 20:41 | NUR ---
VERBAL AUTH APPROVED
--- NOTE | 2018-08-18 21:24 | NUR ---
CALLED HOUSE SUP FOR TELE BED
[2018-08-18 22:00] LABS: BAND % (MANUAL) 1 % (0.0-5.0); LYMPHOCYTES % (MANUAL) 19 % (16-48); MONOCYTES % (MANUAL) 29 % (0-11.0); NEUTROPHILS % (MANUAL) 51 (42-76)
[2018-08-18] MEDS ORDERED: ACETAMINOPHEN 325 MG TABLET PO PRN (22:00)
[2018-08-18] MEDS ORDERED: MAGNESIUM HYDROXIDE 30 ML UDC PO PRN (22:00)
[2018-08-18] MEDS ORDERED: ONDANSETRON HCL/PF 4 MG/2 ML VIAL IVP PRN (22:00)
[2018-08-18] MEDS ORDERED: MAG HYDROX/AL HYDROX/SIMETH 30 ML UDC PO PRN (22:00)
--- NOTE | 2018-08-18 22:25 | NUR ---
REPORT GIVEN TO INP NURSE; PT WILL BE TRANSPORTED VIA ACLS PROTOCOL
[2018-08-18 22:30] VITALS: BP 98/52
--- NOTE | 2018-08-18 22:30 | NUR ---
RN OPEN NOTES RECEIVED PATIENT FROM ER VIA WILLIAM. A/O X3. NO SIGNS OF DISTRESS OR DISCOMFORT. BREATHING EVEN AND UNLABORED. IV ACCESS IN RAC, PATENT AND INTACT, NO SIGNS OF REDNESS OR INFILTRATION. ORIENTED PATIENT TO UNIT AND ROOM. ALL SKIN BREAKDOWN PHOTOS TAKEN. BED IN LOW LOCKED POSITION WITH SIDE RAILS X2. CALL LIGHT WITHIN REACH. WILL CONTINUE TO MONITOR.
--- NOTE | 2018-08-18 22:37 | NUR ---
UNABLE TO DEPART PT ON [facility]
[2018-08-18] MEDS: THIAMINE HCL 100 MG TABLET PO SCH (23:13)
[2018-08-18] MEDS: HYDROCODONE/APAP 10/325MG 1 EA TABLET PO PRN (23:14)
[2018-08-18] MEDS: IV NS 0.9% 1,000 ML IV PRN (23:17)
[2018-08-19] MEDS: TEMAZEPAM 15 MG CAPSULE PO PRN (01:41)
--- NOTE | 2018-08-19 01:41 | NUR ---
RN NOTES ADMINISTERED RESTORIL 30MG ORDERED FOR INSOMNIA. AT PATIENT REQUEST. VSS. WILL CONTINUE TO MONITOR.
--- NOTE | 2018-08-19 06:48 | NUR ---
RN CLOSING NOTES PATIENT RESTING COMFORTABLY IN BED. A/OX3. NO SIGNS OF DISTRESS OR DISCOMFORT. BREATHING EVEN AND UNLABORED. IV ACCESS IN RAC WITH NS INFUSING, PATENT AND INTACT, NO SIGNS OF REDNESS OR INFILTRATION. ALL NEEDS MET. NO SIGNIFICANT CHANGES THROUGH THE NIGHT. PATIENT REPOSITIONED Q2H AND PRN. BED IN LOW LOCKED POSITION WITH SIDE RAILS X2. CALL LIGHT WITHIN REACH. WILL ENDORSE TO AM SHIFT FOR KELLY.
[2018-08-19 07:26] LABS: BASOPHILS # (AUTO) 0.1 /CMM (0.0-0.2); EOSINOPHILS % (AUTO) 2.8 % (0.0-6.0); HEMATOCRIT 24 % (39-51); LYMPHOCYTES # (AUTO) 1.5 /CMM (0.8-4.8); LYMPHOCYTES % (AUTO) 25.5 % (20.0-44.0); MEAN CORPUSCULAR HGB CONC 33 g/dl (31.0-36.0); MEAN CORPUSCULAR VOLUME 78 fL (80-96); MONOCYTES # (AUTO) 1.8 /CMM (0.1-1.30); MONOCYTES % (AUTO) 29.2 % (2.0-12.0); NEUTROPHILS # (AUTO) 2.5 /CMM (1.8-8.9); NEUTROPHILS % (AUTO) 41.5 % (43.0-81.0); PLATELET COUNT (AUTO) 139 /CMM (150-450); WHITE BLOOD COUNT (AUTO) 6.1 K/uL (4.3-11.0)
[2018-08-19] MEDS: PANTOPRAZOLE 40 MG TABLET.DR PO SCH (07:32)
[2018-08-19 07:52] LABS: CALCIUM, SERUM 7.7 mg/dL (8.5-10.1); CREATININE 0.5 mg/dL (0.6-1.3); MAGNESIUM 1.9 mg/dL (1.8-2.4); PHOSPHORUS 2.9 mg/dL (2.5-4.9); POTASSIUM 3.7 mmol/L (3.5-5.1)
[2018-08-19 08:00] VITALS: BP 108/54
[2018-08-19] MEDS: THIAMINE HCL 100 MG TABLET PO SCH (08:03)
[2018-08-19] MEDS: IV NS 0.9% 1,000 ML IV PRN (10:45)
[2018-08-19] MEDS: HYDROCODONE/APAP 10/325MG 1 EA TABLET PO PRN ×3 (10:47→19:49)
--- NOTE | 2018-08-19 11:38 | NUR ---
WOUND CARE CONSULT; PT PRESENTS WITH MULTIPLE DRY ABRASIONS AND BRUISES AND LEFT ARM SKIN TEAR, PRESENT ON ADMISSION. RECOMMENDATIONS MADE FOR WOUND CARE AND SKIN PROTECTION. DISCUSSED WITH NURSING STAFF. WILL SEE PRN. PAYTON IN AGREEMENT WITH PLAN OF CARE. PT ON [facility] LOW AIRLOSS BED. Addendum: 08/19/18 at 1140 by CHANG NEWMAN WNDNU Amended: Links added.
[2018-08-19] MEDS ORDERED: Z GUARD REMEDY 2 OZ OINT TP PRN (12:00)
[2018-08-19] MEDS: Z GUARD REMEDY 2 OZ OINT TP SCH (12:51)
--- NOTE | 2018-08-19 15:32 | NUR ---
Social service consult requested by Tony Chi for pts homelessness. Pt is a 53 year old male admitted to [facility] due to cirrhosis, trauma and fall. Pt has a medical history of cirrhosis with ascites and bullous meningitis per medical records. mop worker attempted to meet with pt at bedside pt was in a deep sleep and had not even waken to eat lunch. Social work will attempt to return to conduct consult.
[2018-08-19 16:00] VITALS: BP 110/62
--- NOTE | 2018-08-19 16:01 | NUR ---
workers compensation coordinator was notified by Case Management that pt has a housing case manager through [facility]. workers compensation coordinator called rehabilitation case coordinator Ximena Rodríguez (web design specialist) cell phone [phone], no pickle processor, carlos alberto left requesting return call. CM notified CARLOS ALBERTO that pts d.c plan is to go to [facility].
--- NOTE | 2018-08-19 16:40 | NUR ---
section gang worker reached out to [facility] at [phone] and spoke with mayte Loza at extension ([phone]) who stated that pt currently does not have a bed assigned. Pt had last contacted [facility] SaturdayAugust 17. section gang worker created referral packet with pts Face sheet, H&P, medication list, and progress notes and faxed them to [facility] at ([phone]).
--- NOTE | 2018-08-19 19:10 | NUR ---
RN MS OPENING NOTES RECEIVED PATIENT IN BED AWAKE ALERT AND ORIENTED X3, ABLE TO MAKE SIMPLE NEEDS KNOWN, RESPIRATIONS EVEN AND UNLABORED, IV SITE TO RIGHT AC #18 G INTACT AND PATENT, NO REDNESS , NO INFILTRATION PRESENT, IVF RUNNING ORDERED, ORIENTED TO STAFF AND CALL LIGHT AND KEPT WITHIN REACH, SAFETY PRECAUTIONS IN PLACE, LOW BED AND LOCKED, FLUIDS OFFERED, REPOSITIONING OFFERED, ALL NEEDS ATTENDED AT THIS TIME, WILL CONTINUE TO MONITOR.
--- NOTE | 2018-08-19 19:29 | NUR ---
M/S RN NOTES PATIENT RESTING IN BED, ALERT AND ORIENTED X3. PATIENT WITH NO RESPIRATORY DISTRESS NOTED. PATIENT WITH NO S/S OF PAIN AT THIS TIME. SKIN WARM TO TOUCH. IVF OF NS @75ML/HR INFUSING WELL ON RT AC #18G. BED ON LOW AND LOCKED POSITION. CALL LIGHT WITHIN REACH. WILL CONTINUE TO MONITOR.
--- NOTE | 2018-08-19 19:49 | NUR ---
RN MS NOTES PATIENT COMPLAINT OF PAIN TO GENERALIZED BODY / REQUESTING FOR PAIN MEDICATION NORCO VS WNL 114/62,18,93%, NORCO PRN GIVEN ORDERED WILL CONTINUE TO MONITOR FOR EFFECTIVENESS.
[2018-08-19 20:00] VITALS: BP 114/62
[2018-08-19] MEDS: LORAZEPAM INJ 2 MG/ML VIAL IV PRN (21:27)
--- NOTE | 2018-08-19 21:27 | NUR ---
RN MS NOTES PATIENT NOTED TO APPEAR ANXIOUS NOTED WITH SLIGHT SHAKING OF HANDS PT STATES " WITHDRAWING FROM ALCOHOL" PRN ATIVAN GIVEN ORDERED 0.5ML/1MG GIVEN , 1 MG REST WASTED AND VERIFIED WITH ANOTHER RN . WILL CONTINUE TO MONITOR FOR EFFECTIVENESS.
[2018-08-20] MEDS: IV NS 0.9% 1,000 ML IV PRN ×2 (00:49→17:41)
[2018-08-20] MEDS: HYDROCODONE/APAP 10/325MG 1 EA TABLET PO PRN ×3 (02:50→14:09)
--- NOTE | 2018-08-20 02:50 | NUR ---
RN MS NOTES PATIENT COMPLAINT OF PAIN GENERALIZED 10/10 REQUESTING FOR PAIN MEDICATION NORCO OFFERED PATIENT AGREED NORCO 10/325 PRN GIVEN ORDERED VS WNL 120/75,85,97% 2 L , 18 REPOSITIONED WILL CONTINUE TO MONITOR FOR EFFECTIVENESS.
--- NOTE | 2018-08-20 06:39 | NUR ---
RN MS CLOSING NOTES RECEIVED PATIENT IN BED AWAKE ALERT AND ORIENTED X3, ABLE TO MAKE SIMPLE NEEDS KNOWN, RESPIRATIONS EVEN AND UNLABORED, IV SITE TO RIGHT AC #18 G INTACT AND PATENT, NO REDNESS , NO INFILTRATION PRESENT, IVF RUNNING ORDERED,CALL LIGHT KEPT WITHIN REACH, SAFETY PRECAUTIONS IN PLACE, LOW BED AND LOCKED, FLUIDS OFFERED, REPOSITIONING OFFERED, LINENS CHANGED, WOUND CARE PROVIDED, HEELS OFFLOADED, SACRAL INTACT AND OFFLOADED HEELS INTACT. ALL NEEDS ATTENDED AT THIS TIME, WILL CONTINUE TO MONITOR AND ENDORSE TO NEXT SHIFT. PATIENT REMAINS COMFORTABLE ON 2 L VIA NC FOR COMFORT PER PATIENT REQUEST.
[2018-08-20 07:53] VITALS: BP 120/71
[2018-08-20 08:00] VITALS: BP 120/71
--- NOTE | 2018-08-20 08:00 | NUR ---
RN NOTES RECEIVED PATIENT IN THE BED A/O X3/4. PATIENT ON O2-2LNC. PATIENT REFUSED SOB, NO ACUTE RESPIRATORY DISTRESS. PATIENT HAS DISTENDED ABDOMEN, BLE EDEMA KEEP ELEVATED USING PILLOWS. DISCOLORATION LEFT SIDE OF ABDOMEN, AND BUA, AND SCABS. PATIENT WAS COMPLAINING OF PAIN 10/10 PER PAIN SCALE GENERALIZED. V/S TAKEN STABLE, ADMINISTERED SCHEDULED MEDICATION, PATIENT UNKEMPT. INFUSING NS AT 75 ML/HR ON RIGHT ARM INTACT. PATIENT REFUSED TURN AND REPOSTION BECAUSE OF PAIN, CALL LIGHT WITHIN TO REACH. PATIENT USING DIAPER, APPLIED Z-GUARD. CALL LIGHT WITHIN TO REACH. SAFETY PRECAUTION MAINTAINED ALL THE TIME.
[2018-08-20] MEDS: PANTOPRAZOLE 40 MG TABLET.DR PO SCH (08:38)
[2018-08-20] MEDS: THIAMINE HCL 100 MG TABLET PO SCH (08:39)
--- NOTE | 2018-08-20 08:40 | NUR ---
RN NOTES ADMINISTERED NARCO 10/325 MG PO PRN FOR GENERALIZED PAIN /10 PER PATIENT REQUEST, V/S TAKEN BP-120/71, P-95. CONTINUED MONITORING.
[2018-08-20] MEDS: Z GUARD REMEDY 2 OZ OINT TP SCH (08:41)
--- NOTE | 2018-08-20 10:01 | NUR ---
JAY received a call from shelter case manager through [facility] (college specialist) [phone], inquiring about pt's discharge plan. JAY informed her that pt. was referred to [facility], however there is no bed availability at this time. Ximena reiterated to JAY that pt. cannot be discharged back to the streets since due to his medical condition and will require placement. JAY, then transferred call to Lefty, case picker regarding SNF placement.
[2018-08-20] MEDS ORDERED: SPIR50TA5 PO (11:34)
[2018-08-20] MEDS ORDERED: HYDR-3972 PO (11:34)
[2018-08-20] MEDS ORDERED: Thiamine HCL PO (11:34)
[2018-08-20] MEDS ORDERED: FURO-145 PO (11:34)
[2018-08-20] MEDS ORDERED: FOLI1TAB16 PO (11:34)
--- NOTE | 2018-08-20 14:12 | NUR ---
RN NOTES ADMINISTERED NARCO 10/325 MG PO PRN, FOR GENERALIZED PAIN 10/10 PER PATIENT REQUEST, AND MAALOX 30 MG PO PRN FOR STOMACHACHE. CONTINUED MONITORING.
[2018-08-20 16:00] VITALS: BP 132/79
--- NOTE | 2018-08-20 17:20 | NUR ---
RN NOTES PATIENT D/C ORDER FOR SNF, WAITING FOR BED AVAILABILITY, MEDICATION WERE ADMINISTERED FOR PAIN EFFECTIVE. CALL LIGHT WITHIN TO REACH, DRESSING CHANGED ON LEFT ARM. CONTINUED MONITORING.
[2018-08-20] MEDS: LORAZEPAM INJ 2 MG/ML VIAL IV PRN (17:44)
--- NOTE | 2018-08-20 17:44 | NUR ---
RN NOTES ADMINISTERED ATIVAN 1 MG /ML IV PUSH FOR ANXIETY PER PATIENT REQUEST BP-132/79, P-89, CONTINUED MONITORING.
--- NOTE | 2018-08-20 18:43 | NUR ---
RN NOTES PATIENT RESTING IN THE BED, MEDICATION WERE ADMINISTERED FOR ANXIETY EFFECTIVE, NO ACUTE RESPIRATORY DISTRESS. CALL LIGHT WITHIN TO REACH. INFUSING NS AT 75 ML/HR INTACT ON RIGHT AC AREA, ENDORSED ONCOMING NURSE FOR PLAN OF CARE.
--- NOTE | 2018-08-20 19:15 | NUR ---
RN OPEN NOTES RECEIVED PATIENT SITTING IN BED. A/OX3. NO SIGNS OF DISTRESS OR DISCOMFORT. BREATHING EVEN AND UNLABORED. IV ACCESS IN RAC WITH NS INFUSING, PATENT AND INTACT, NO SIGNS OF REDNESS OR INFILTRATION. BED IN LOW LOCKED POSITION WITH SIDE RAILS X3. CALL LIGHT WITHIN REACH. BED ALARM ON. WILL CONTINUE TO MONITOR.
[2018-08-20 20:00] VITALS: BP 119/71
[2018-08-20 20:21] VITALS: BP 119/71
[2018-08-21] MEDS: IV NS 0.9% 1,000 ML IV PRN ×2 (06:08→23:17)
--- NOTE | 2018-08-21 06:47 | NUR ---
RN CLOSING NOTES PATIENT RESTING IN BED. A/OX3. NO SIGNS OF DISTRESS OR DISCOMFORT. BREATHING EVEN AND UNLABORED. IV ACCESS IN RAC WITH NS INFUSING, PATENT AND INTACT, NO SIGNS OF REDNESS OR INFILTRATION. ALL NEEDS MET. NO SIGNIFICANT CHANGES THROUGH THE NIGHT. PATIENT REPOSITIONED Q2H AND PRN. PATIENT REFUSED TO BE CHANGED X3 THIS AM, ADVISED PATIENT OF RISK OF SKIN BREAKDOWN. BED IN LOW LOCKED POSITION WITH SIDE RAILS X3. CALL LIGHT WITHIN REACH. BED ALARM ON. WILL ENDORSE TO AM SHIFT FOR KELLY.
[2018-08-21 07:30] VITALS: BP 122/81
--- NOTE | 2018-08-21 07:43 | NUR ---
MS RN OPENING NOTES RECEIVED PT LAYING IN BED WITH HOB ELEVATED, SLEEPING COMFORTABLY. PT IS EASILY AROUSABLE, A/O 2-3, AFEBRILE. RESPIRATIONS ARE EVEN AND UNLABORED, NOT IN ANY ACUTE DISTRESS NOTED. PT DENIES ANY PAIN AT THIS TIME, NO C/O SOB N/V. IV SITE TO RAC INTACT, NO INFILTRATION NOTED. DRESSING KEPT CLEAN AND DRY. IV FLUIDS INFUSING AT 75ML/HR, TOLERATING WELL. SAFETY MEASURES ARE IN PLACE. INSTRUCTED PT TO USE CALL LIGHT WHEN ASSISTANCE IS NEEDED, CALL LIGHT IS LEFT WITHIN REACH. WILL MONITOR THROUGHOUT SHIFT FOR CONTINUITY OF CARE.
[2018-08-21 08:00] VITALS: BP 122/81
[2018-08-21] MEDS: THIAMINE HCL 100 MG TABLET PO SCH (08:14)
[2018-08-21] MEDS: PANTOPRAZOLE 40 MG TABLET.DR PO SCH (08:15)
[2018-08-21] MEDS: HYDROCODONE/APAP 10/325MG 1 EA TABLET PO PRN ×2 (08:15→23:10)
[2018-08-21] MEDS: Z GUARD REMEDY 2 OZ OINT TP SCH (08:22)
[2018-08-21] MEDS: LORAZEPAM INJ 2 MG/ML VIAL IV PRN (12:09)
--- NOTE | 2018-08-21 12:41 | NUR ---
MS RN NOTES-- PT ABLE TO MAKE NEEDS KNOWN. NEEDS MET AND RENDERED. WILL CONTINUE TO MONITOR.
--- NOTE | 2018-08-21 14:00 | NUR ---
MS RN NOTES-- PICTURES TAKEN OF SKIN. PT REFUSED PICTURE TO SCROTAL AREA, HONORED PTS DIGNITY AND RIGHT TO REFUSE. PICTURES PLACED IN CHART.
[2018-08-21 16:00] VITALS: BP 107/73
--- NOTE | 2018-08-21 18:25 | NUR ---
MS RN NOTES-- PER CM, WAITING ON AUTH FOR HARPREET FOSTER.
--- NOTE | 2018-08-21 18:26 | NUR ---
MS RN CLOSING NOTES ALL DUE MEDS GIVEN, NEEDS MET AND ANTICIPATED. PT REMAINS A/O X2-3, AFEBRILE. RESPIRATIONS ARE EVEN AND UNLABORED, NOT IN ANY ACUTE DISTRESS NOTED. DENIES ANY CHEST PAIN, SOB, N/V. IV SITE TO LAC INTACT, NO INFILTRATION NOTED. HOB KEPT ELEVATED TO ENHANCE BREATHING AND PREVENT ASPIRATION. SAFETY MEASURES ARE IN PLACE. REMINDED PT TO USE CALL LIGHT WHEN ASSISTANCE IS NEEDED, CALL LIGHT IS LEFT WITHIN REACH. WILL ENDORSE TO NEXT SHIFT FOR CONTINUITY OF CARE.
--- NOTE | 2018-08-21 19:00 | NUR ---
MS RN OPENING NOTES Received patient asleep, easily awaken, A/Ox3. On Vaughan's position on bed. On RA, no SOB/respiratory distress noted at this time. No complaints of pain at this time, no discomfort noted. With patent peripheral IV line RAC G#18 with NS 75ml/hr. Incontinent, on diaper. On fall precaution. Call light at bedside. Will continue to monitor accordingly.
[2018-08-21 20:21] VITALS: BP 118/71
[2018-08-22] MEDS: TEMAZEPAM 15 MG CAPSULE PO PRN (01:59)
[2018-08-22] MEDS: LORAZEPAM INJ 2 MG/ML VIAL IV PRN (03:19)
[2018-08-22] MEDS: HYDROCODONE/APAP 10/325MG 1 EA TABLET PO PRN ×2 (04:54→19:02)
--- NOTE | 2018-08-22 06:36 | NUR ---
MS RN CLOSING NOTES Patient noted intermittently asleep throughout the night with episodes of getting confusion and multiple attempts to get off the bed. On close monitoring for high risk of fall, patient noncompliant to safety instructions. With peripheral IV line RFA G#20 with NS @ 75ml/hr as ordered. Due meds given as ordered, no ASE noted. Kept HOB elevated and in Avughan's position at all times. Supplementary O2 @ 2LPM given to patient via NC. Shallow, minimal tachypnea noted due to patient's effort in getting of the bed. No new complaints made. On fall precautions. Endorsed to the next shift.
[2018-08-22 08:00] VITALS: BP 113/73
--- NOTE | 2018-08-22 08:00 | NUR ---
m/s automobile club travel counselor: initial assessment received pt in bed awake, appears drowsy or lethargic. a/ox2-3. reality orientation provided prn. noted pt disrobing. incontinent care rendered by staff. new gown provided. instructed to call for assistance. will monitor.
[2018-08-22] MEDS: THIAMINE HCL 100 MG TABLET PO SCH (08:33)
[2018-08-22] MEDS: PANTOPRAZOLE 40 MG TABLET.DR PO SCH (08:33)
[2018-08-22] MEDS: Z GUARD REMEDY 2 OZ OINT TP SCH (08:33)
--- NOTE | 2018-08-22 11:00 | NUR ---
m/s sill worker: notes p.t. tx done at this time. for d'c planning. instructed to call for assistance. will monitor.
--- NOTE | 2018-08-22 13:00 | NUR ---
m/s turbine operator: notes pt in bed with eyes close. no distress noted. for d'c planning to snf. will continue to monitor.
--- NOTE | 2018-08-22 14:00 | NUR ---
m/s sheltered workshop executive director: notes pt having his lunch at this time. hob elevated. will continue to monitor.
--- NOTE | 2018-08-22 15:00 | NUR ---
m/s staff combat information center officer: notes noted with close/unopen blister on the penis shaft, pt refuse photo to be taken. wound consult triggered. incontinent care rendered by soft sugar supervisor. will continue to monitor.
[2018-08-22] MEDS: HYDROCODONE/APAP 5/325MG 1 EACH TABLET PO PRN (15:11)
--- NOTE | 2018-08-22 15:11 | NUR ---
m/s foreign car mechanic: notes c/o 7/10 lower back pain, medicated with norco 5/325mg po 1 tab as ordered. instructed to call for assistance. will continue to monitor.
[2018-08-22 16:00] VITALS: BP 115/74
--- NOTE | 2018-08-22 17:15 | NUR ---
m/s fitness center attendant: notes dinner served with hob elevated, but no ensure. left message to dietary dept.
[2018-08-22] MEDS: ENSURE ENLIVE 237 ML LIQUID (VANILLA) PO SCH (17:51)
--- NOTE | 2018-08-22 17:51 | NUR ---
m/s antique furniture restorer: notes pt still having dinner with hob elevated. ensure given to pt. call light within reach. will continue to monitor.
--- NOTE | 2018-08-22 19:02 | NUR ---
m/s wafer slicer: notes pt c/o 8 lower back pain, medicated with norco 10/325mg po as ordered. will continue to monitor. call light within reach. report given piero (rn) for continuity of care.
--- NOTE | 2018-08-22 19:15 | NUR ---
MS/RN NOTES RECEIVED PT. LYING IN BED. PT. IS AWAKE, ALERT AND ORIENTED X2-3. BREATHING EVEN AND UNLABORED ON ROOM AIR. NO SOB, RESPIRATORY DISTRESS OR COMPLAINTS OF PAIN NOTED AT THIS TIME. PT. WITH RIGHT FOREARM 20 GAUGE IV SALINE LOCK PRESENT, PATENT AND INTACT ADMINISTERING TO PT. NS @ 75 ML/HR. BED LOCKED AND IN LOWEST POSITION, SIDE RAILS UP X3, BED ALARM ON, CALL LIGHT WITHIN REACH, WILL CONTINUE TO MONITOR.
[2018-08-22 20:25] VITALS: BP 112/74
--- NOTE | 2018-08-23 06:53 | NUR ---
MS/RN NOTES PT. IS LYING IN BED RESTING. BREATHING EVEN AND UNLABORED ON ROOM AIR. NO SOB, RESPIRATORY DISTRESS OR COMPLAINTS OF PAIN NOTED AT THIS TIME. PT. WITH RIGHT FOREARM 20 GAUGE IV SALINE LOCK PRESENT, PATENT AND INTACT ADMINISTERING TO PT. NS @ 75 ML/HR. ALL PT. NEEDS MET. BED LOCKED AND IN LOWEST POSITION, SIDE RAILS UP X3, BED ALARM ON, CALL LIGHT WITHIN REACH, WILL ENDORSE TO DAYSHIFT NURSE FOR CONTINUITY OF CARE.
[2018-08-23] MEDS: IV NS 0.9% 1,000 ML IV PRN (06:59)
--- NOTE | 2018-08-23 07:51 | NUR ---
MS/RN OPENING NOTE PATIENT IN BED IN STABLE CONDITION. A/O X 3. NO SIGNS OF ACUTE DISTRESS. NO COMPLAIN OF PAIN OR DISCOMFORT. ALL NEEDS ATTENDED TO. CALL LIGHT WITHIN REACH. WILL CONTINUE TO MONITOR TO ENSURE SAFETY.
--- NOTE | 2018-08-23 07:54 | NUR ---
TELE/RN OPENING NOTE PATIENT IN BED IN STABLE CONDITION. A/O X 2-3 WITH EPISODES OF FORGETFULNESS. NO SIGNS OF ACUTE DISTRESS. NO COMPLAIN OF PAIN OR DISCOMFORT. ON TELE MONITOR NOTED WITH SR IN 90'S. NOTED WITH SWOLLEN TONGUE AT THIS TIME AND PATIENT COMPLAIN OF DIFFICULTY TALKING SECONDARY TO SWOLLEN TONGUE. PER PATIENT, BEFORE COMING TO ER PATIENT WAS HAVING SEIZURES AND HE BIT HIS TONGUE. AT THIS TIME KEPT PATIENT NPO TFO. DR. NORTON NOTIFIED. CALL LIGHT WITHIN REACH. WILL CONTINUE TO MONITOR TO ENSURE SAFETY. Addendum: 08/23/18 at 0758 by SUPRIYA REYES RN DOCUMENTED FOR WRONG PATIENT.
[2018-08-23 08:00] VITALS: BP 120/72
[2018-08-23] MEDS: THIAMINE HCL 100 MG TABLET PO SCH (08:29)
[2018-08-23] MEDS: PANTOPRAZOLE 40 MG TABLET.DR PO SCH (08:29)
[2018-08-23] MEDS: Z GUARD REMEDY 2 OZ OINT TP SCH (08:30)
[2018-08-23] MEDS: ENSURE ENLIVE 237 ML LIQUID (VANILLA) PO SCH ×2 (08:30→16:22)
--- NOTE | 2018-08-23 10:00 | NUR ---
MS/RN PATIENT REFUSED IV FLUIDS, OFFERED X 3 WITH RISKS AND BENEFITS EXPLAINED CONTINUE TO REFUSE. MD NOTIFIED.
[2018-08-23] MEDS: HYDROCODONE/APAP 5/325MG 1 EACH TABLET PO PRN ×2 (12:52→18:53)
[2018-08-23 16:00] VITALS: BP 110/61
--- NOTE | 2018-08-23 18:01 | NUR ---
MS/RN CLOSING NOTE PATIENT IN BED IN STABLE CONDITION. A/O X 3. NO SIGNS OF ACUTE DISTRESS. NO COMPLAIN OF PAIN OR DISCOMFORT. ALL NEEDS ATTENDED TO. CALL LIGHT WITHIN REACH. WILL ENDORSE TO NEXT SHIFT FOR CONTINUITY OF CARE.
[2018-08-23 20:00] VITALS: BP 117/75
[2018-08-24] MEDS: HYDROCODONE/APAP 10/325MG 1 EA TABLET PO PRN ×2 (05:22→10:22)
--- NOTE | 2018-08-24 06:03 | NUR ---
MS/RN MORNING CARE WAS DONE AT 0500, GOOD SKIN CARE DONE, REPOSITIONED TO COMFORT, ALL NEEDS ATTENDED AT THIS TIME, WILL CONTINUE TO MONITOR.
--- NOTE | 2018-08-24 06:51 | NUR ---
MS/RN IV NOT FLUSHING, REMOVED AND INSERTED NEW IV AT LEFT F/A G 22. STILL REFUSED IVF.
--- NOTE | 2018-08-24 07:05 | NUR ---
MS RN NOTES PATIENT IN BED ALERT ORIENTED X 3. NO ACUTE DISTRESS NOTED, BREATHING UNLABORED. NO SOB NOTED. DUE MEDICATIONS GIVEN, NO ASE NOTED. IV ACCESS PATENT AND INTACT, NO REDNESS OR SWELLING NOTED. SAFETY MEASURES IN PLACE. CALL LIGHT WITHIN REACH. WILL CONTINUE TO MONITOR ACCORDINGLY.
--- NOTE | 2018-08-24 07:15 | NUR ---
MS/RN PATIENT WAS MOVED TO MS2 AT AROUND 0645. BEDSIDE REPORT WAS GIVEN TO NEXT RN FOR CONTINUITY OF CARE.
[2018-08-24] MEDS: PANTOPRAZOLE 40 MG TABLET.DR PO SCH (07:57)
[2018-08-24 08:00] VITALS: BP 111/73
[2018-08-24] MEDS: ENSURE ENLIVE 237 ML LIQUID (VANILLA) PO SCH (08:47)
[2018-08-24] MEDS: THIAMINE HCL 100 MG TABLET PO SCH (08:47)
[2018-08-24] MEDS: Z GUARD REMEDY 2 OZ OINT TP SCH (08:48)
[2018-08-24] MEDS ORDERED: SPIRONOLACTONE 25 MG TABLET PO SCH (09:00)
[2018-08-24] MEDS ORDERED: FUROSEMIDE 20 MG TABLET PO SCH (09:00)
[2018-08-24] MEDS ORDERED: MORPHINE SULFATE INJ 2 MG/ML DISP.SYRIN IV ONE (16:30)
--- NOTE | 2018-08-24 16:35 | NUR ---
MS RN NOTES PATIENT SITTING ON HIS WHEELCHAIR CAME OUT OF THE ROOM WHEELED HIMSELF TO THE HALLWAY YELLING LOOKING FOR EXIT DOOR TO GO OUT OF THE HOSPITAL. MADE AWARE THAT DOCTOR HAS NOT CLEARED HIM TO BE DISCHARGE AND AWAITING FOR HIS PLACEMENT. INSISTED ON LEAVING THE HOSPITAL BECAUSE HE HAS TO BE SOMEWHERE IN 30 MINUTES, RISK AND BENEFITS EXPLAINED, VERBALIZED UNDERSTANDING, PATIENT STILL INSISTED IN LEAVING THE HOSPITAL SCREAMING. PATIENT REFUSED BODY ASSESSMENT AND PHOTO TAKEN ,PATIENT ALLOWED IV ACCESS REMOVED, NO BLEEDING, NO REDNESS, NO SWELLING NOTED. PATIENT LEFT WITH SECURITY, PATIENT ALERT ORIENTED X 3, NO ACUTE DISTRESS NOTED, IN STABLE CONDITION. PATIENT REFUSED TO SIGNS AMA FORM AND DISCHARGE PAPERS. SLAB OFF MILL TENDER INDIRA ESTRELLA MADE AWARE AND NURSING POLE SETTER MARKEL. BELONGINGS LEFT BY PATIENT PLACED IN A PLASTIC AND PLACED IN THE SUPPLY ROOM WITNESSED BY SECURITY AND BLAYNE ELISE.
--- NOTE | 2018-08-24 16:40 | NUR ---
MS RN NOTES TRYING TO CALL ONEAL JAVIER ON CONTACT LIST TO NOTIFY, NO ANSWER.
== END 2018-08-24 16:35 | disposition left against medical advice (07) | DRG 135 ==
LOC: ER 19:01 → TELE 21:29 → MED 22:34 → MEDSG2 08-24 06:51
PROVIDERS: ADMIT Nurse Practitioner Acute Care; ATTEND Nurse Practitioner Acute Care
DX: S22.41XA Multiple fractures of ribs, right side, initial encounter for closed fracture (principal); E43 Unspecified severe protein-calorie malnutrition; S22.019A Unspecified fracture of first thoracic vertebra, initial encounter for closed fracture; K76.6 Portal hypertension; E83.51 Hypocalcemia; K70.31 Alcoholic cirrhosis of liver with ascites; E88.09 Other disorders of plasma-protein metabolism, not elsewhere classified; K86.1 Other chronic pancreatitis; W19.XXXA Unspecified fall, initial encounter; Y92.9 Unspecified place or not applicable; F10.129 Alcohol abuse with intoxication, unspecified; Y90.8 Blood alcohol level of 240 mg/100 ml or more; S30.1XXA Contusion of abdominal wall, initial encounter; Z59.0 Homelessness; F17.200 Nicotine dependence, unspecified, uncomplicated; D63.8 Anemia in other chronic diseases classified elsewhere; J98.11 Atelectasis; R74.0 Nonspecific elevation of levels of transaminase and lactic acid dehydrogenase [LDH]; M62.50 Muscle wasting and atrophy, not elsewhere classified, unspecified site; Z68.28 Body mass index [BMI] 28.0-28.9, adult
CPT/HCPCS: 36415; 71260-TC; 80048-TC; 80076-TC; 83690-TC; 83735-TC; 84100-TC; 84484-TC; 85025-TC; 85730-TC; 86850-TC; 87081-TC; 97530-TC; A4216; G0378; G0480; J0610; J2060; J7030; J7050; Q9967

== ENCOUNTER 2018-08-24 22:36 | Emergency (ER) | payer OTHER ==
[~2018-08-24] VITALS: Ht 182.9 cm; Wt 95.3 kg
[~2018-08-24 22:36] MED LIST changes: -Amox/Clavulanate PO; +FOLI1TAB16 PO; +FURO-145 PO; +HYDR-3972 PO; -LACT10SO6 PO; -PANT40TA2 PO; +SPIR50TA5 PO; -SUCR1TAB PO; +Thiamine HCL PO
--- NOTE | 2018-08-24 22:42 | NUR ---
PT BBIRA [facility] FOR ABD PAIN; PT WAS RECENTLY ADMITTED TO [facility] TODAY 08/24/18; PT VSS, NAD NOTED, PT TO BED 13, PENDING MD MCCURDY
--- NOTE | 2018-08-24 23:48 | NUR ---
VITAL SIGNS UPDATED. Patient is resting comfortably in bed with eyes closed. Easily aroused. VSS
--- NOTE | 2018-08-25 00:04 | NUR ---
REPORT GIVEN TO STEVIE ICSNEROS FOR KELLY
--- NOTE | 2018-08-25 02:34 | NUR ---
PT RESTING COMFORTABLY IN BED. VITAL SIGNS STABLE. NO ACUTE DISTRESS NOTED AT THIS TIME
[2018-08-25 04:28] VITALS: BP 127/86
--- NOTE | 2018-08-25 05:35 | NUR ---
PT COUGHT SMOKING IN ER BED. ASKED TO HAND OVER PERSONAL BELONGINGS, PT REFUSED AND DECIDED TO LEAVE AMA WITHOUT SIGNING PAPERWORK. AWARE.
== END 2018-08-25 05:45 | disposition left against medical advice (07) ==
LOC: ER 22:41
DX: T51.8X1A Toxic effect of other alcohols, accidental (unintentional), initial encounter (principal); F10.129 Alcohol abuse with intoxication, unspecified; K70.31 Alcoholic cirrhosis of liver with ascites; D64.9 Anemia, unspecified; F17.200 Nicotine dependence, unspecified, uncomplicated; Z59.0 Homelessness; Z79.899 Other long term (current) drug therapy; Y92.89 Other specified places as the place of occurrence of the external cause; Y90.6 Blood alcohol level of 120-199 mg/100 ml
CPT/HCPCS: 36415; 71045-TC; G0480

== ENCOUNTER 2018-08-25 08:00 | Emergency (ER) | payer OTHER ==
[~2018-08-25] VITALS: Ht 177.8 cm; Wt 68.0 kg
--- NOTE | 2018-08-25 08:27 | NUR ---
PT BIB SELF C/O ABDOMINAL PAIN AND SWELLING, PT IS AAOX4, NOT IN RESPIRATORY DISTRESS, V/S STABLE, HOOKED TO MONITOR, KEPT RESTED AND COMFORTABLE.
--- NOTE | 2018-08-25 08:45 | NUR ---
SEEN AND EXAMINED BY DR. CARROLL.
--- NOTE | 2018-08-25 09:00 | NUR ---
IV LINE ESTABLISHED, LABS DRAWNED AND SENT TO LAB.
[2018-08-25 09:01] LABS: BASOPHILS # (AUTO) 0.1 /CMM (0.0-0.2); BASOPHILS % (AUTO) 1.4 % (0.0-2.0); EOSINOPHILS % (AUTO) 1.7 % (0.0-6.0); HEMATOCRIT 28 % (39-51); HEMOGLOBIN 9.1 g/dL (13.5-17.5); LYMPHOCYTES # (AUTO) 0.8 /CMM (0.8-4.8); LYMPHOCYTES % (AUTO) 10.6 % (20.0-44.0); MEAN CORPUSCULAR HGB CONC 33 g/dl (31.0-36.0); MEAN CORPUSCULAR VOLUME 80 fL (80-96); MONOCYTES # (AUTO) 1.9 /CMM (0.1-1.30); MONOCYTES % (AUTO) 24.9 % (2.0-12.0); NEUTROPHILS # (AUTO) 4.8 /CMM (1.8-8.9); NEUTROPHILS % (AUTO) 61.4 % (43.0-81.0); PLATELET COUNT (AUTO) 120 /CMM (150-450); WHITE BLOOD COUNT (AUTO) 7.8 K/uL (4.3-11.0)
[2018-08-25 09:08] LABS: CALCIUM, SERUM 7.8 mg/dL (8.5-10.1); CREATININE 0.6 mg/dL (0.6-1.3); POTASSIUM 3.1 mmol/L (3.5-5.1)
[2018-08-25 09:14] LABS: ALBUMIN 2.3 g/dL (3.4-5.0); BILIRUBIN,DIRECT 2.5 mg/dL (0.0-0.2); TOTAL PROTEIN, SERUM 5.5 g/dL (6.4-8.2)
[2018-08-25 10:28] VITALS: BP 122/71
== END 2018-08-25 10:32 | disposition home or self-care (01) ==
LOC: ER 08:00
DX: F10.20 Alcohol dependence, uncomplicated (principal); R18.8 Other ascites; D64.9 Anemia, unspecified; F17.200 Nicotine dependence, unspecified, uncomplicated; Z59.0 Homelessness; Z79.899 Other long term (current) drug therapy
CPT/HCPCS: 36415; 80048; 80076; 80307; 83690; 85025; 85730; 99283; 99406; A6403; G0480

== ENCOUNTER 2018-08-29 19:41 | Inpatient (IN) | payer OTHER ==
[~2018-08-29] VITALS: Ht 182.9 cm; Wt 77.1 kg
[2018-08-29] MEDS ORDERED: ONDANSETRON HCL/PF 4 MG/2 ML VIAL ONE (20:55)
[2018-08-29] MEDS ORDERED: MORPHINE SULFATE INJ 4 MG/ML DISP.SYRIN ONE (20:56)
[2018-08-29] MEDS ORDERED: MORPHINE SULFATE INJ 2 MG/ML DISP.SYRIN ONE (20:56)
[2018-08-29] MEDS ORDERED: ONDANSETRON HCL/PF 4 MG/2 ML VIAL IVP ONE (21:00)
[2018-08-29] MEDS ORDERED: MORPHINE SULFATE INJ 2 MG/ML DISP.SYRIN IV ONE (21:00)
--- NOTE | 2018-08-29 21:00 | NUR ---
[id number] FROM [facility] C/O GENERALIZED ABDOMINAL PAIN NR. +ETOH. ABD ASCITES NOTED. HX OF ETOH ABUSE. PT IS AAOX4. RR EVEN AND UNLABORED. PT PLACED ON SCALP TREATMENT SPECIALIST AND POX. MILD S/S OF DISTRESS NOTED D/T TESTICULAR PAIN.
[2018-08-29 21:11] LABS: BASOPHILS # (AUTO) 0.1 /CMM (0.0-0.2); BASOPHILS % (AUTO) 1.1 % (0.0-2.0); EOSINOPHILS % (AUTO) 0.8 % (0.0-6.0); HEMATOCRIT 30 % (39-51); HEMOGLOBIN 9.8 g/dL (13.5-17.5); LYMPHOCYTES # (AUTO) 1.5 /CMM (0.8-4.8); LYMPHOCYTES % (AUTO) 11.5 % (20.0-44.0); MEAN CORPUSCULAR HGB CONC 33 g/dl (31.0-36.0); MEAN CORPUSCULAR VOLUME 79 fL (80-96); MONOCYTES # (AUTO) 3.6 /CMM (0.1-1.30); MONOCYTES % (AUTO) 27.5 % (2.0-12.0); NEUTROPHILS # (AUTO) 7.7 /CMM (1.8-8.9); NEUTROPHILS % (AUTO) 59.1 % (43.0-81.0); PLATELET COUNT (AUTO) 216 /CMM (150-450)
[2018-08-29 21:37] LABS: ALANINE AMINOTRANSFERASE 31 U/L (12-78); ALBUMIN 2.3 g/dL (3.4-5.0); ALKALINE PHOSPHATASE 504 U/L (46-116); ASPARTATE AMINOTRANSFERASE 71 U/L (15-37); BILIRUBIN,DIRECT 2.6 mg/dL (0.0-0.2); BILIRUBIN,TOTAL 4.7 mg/dL (0.2-1.0); CALCIUM, SERUM 7.8 mg/dL (8.5-10.1); CARBON DIOXIDE 22 mmol/L (21-32); CHLORIDE 98 mmol/L (98-107); CREATININE 0.4 mg/dL (0.6-1.3); GLUCOSE 86 mg/dL (74-106); POTASSIUM 4.5 mmol/L (3.5-5.1); SODIUM SERUM 132 mmol/L (136-145); TOTAL PROTEIN, SERUM 5.6 g/dL (6.4-8.2); UREA NITROGEN, BLOOD 3 mg/dL (7-18)
--- NOTE | 2018-08-29 21:44 | NUR ---
URINAL GIVEN TO PT
[2018-08-29] MEDS ORDERED: PIPERACILLIN /TAZOBACTAM 3.375 G VIAL IV ONE (21:51)
[2018-08-29 22:00] LABS: LYMPHOCYTES % (MANUAL) 15 % (16-48); MONOCYTES % (MANUAL) 21 % (0-11.0); NEUTROPHILS % (MANUAL) 64 (42-76)
[2018-08-29] MEDS ORDERED: PIPERACILLIN /TAZOBACTAM 3.375 G in IV D5W 50 ML IV ONE (22:00)
--- NOTE | 2018-08-29 22:03 | NUR ---
PT UNABLE TO GIVEN URINE SAMPLE AT THIS TIME, MADE AWARE. PER MD, PT OKAY TO BE ADMITTED INPATIENT WITHOUT URINE SAMPLE AT THIS TIME
--- NOTE | 2018-08-29 22:44 | NUR ---
REPORT GIVEN TO DARIANA VEGA FOR KELLY
[2018-08-29] MEDS ORDERED: IV NS 0.9% 1,000 ML IV PRN (22:51)
[2018-08-29] MEDS ORDERED: ZOLPIDEM TARTRATE 5 MG TABLET PO PRN (23:00)
[2018-08-29] MEDS ORDERED: ALBUTEROL FS 2.5 MG/0.5 ML VIAL.NEB NEB PRN (23:00)
[2018-08-29] MEDS ORDERED: ONDANSETRON HCL/PF 4 MG/2 ML VIAL IVP PRN (23:00)
[2018-08-29] MEDS ORDERED: MAG HYDROX/AL HYDROX/SIMETH 30 ML UDC PO PRN (23:00)
[2018-08-29] MEDS ORDERED: ACETAMINOPHEN 325 MG TABLET PO PRN (23:00)
[2018-08-29] MEDS ORDERED: MAGNESIUM HYDROXIDE 30 ML UDC PO PRN (23:00)
[2018-08-29] MEDS ORDERED: LORAZEPAM INJ 2 MG/ML VIAL IV PRN (23:00)
[2018-08-29] MEDS ORDERED: Z GUARD REMEDY 2 OZ OINT TP PRN (23:00)
[2018-08-29 23:30] VITALS: BP 117/61
[2018-08-29 23:40] VITALS: BP 117/61
--- NOTE | 2018-08-29 23:40 | NUR ---
RN NOTES ADMITTED PATIENT, TRANSPORTED VIA GURNEY, INITIAL ASSESSMENT AND ADMISSION DONE, ASSESSED SKIN CONDITION, ORIENTED TO UNIT, AND THE USE OF CALL LIGHT, SAFETY MEASURES IN PLACE, REPOSITIONED FOR COMFORT. NO APPARENT CARDIAC AND RESPIRATORY DISTRESS NOTED. WILL MONITOR ACCORDINGLY.
[2018-08-30] MEDS ORDERED: VANCOMYCIN 1 GM VIAL ONE (00:39)
[2018-08-30] MEDS ORDERED: VANCOMYCIN 500 MG VIAL ONE (00:41)
[2018-08-30] MEDS ORDERED: VANCOMYCIN 1.5 GM in IV D5W 500ml IV ONE (01:00)
[2018-08-30] MEDS ORDERED: ENOXAPARIN SODIUM 40 MG/0.4 ML DISP.SYRIN SQ ONE (01:00)
[2018-08-30] MEDS: HYDROMORPHONE INJ 2 MG/ML DISP.SYRIN IV PRN ×5 (01:24→18:34)
[2018-08-30 04:00] VITALS: BP 102/65
[2018-08-30] MEDS ORDERED: PIPERACILLIN /TAZOBACTAM 3.375 G VIAL IV ONE (05:03)
[2018-08-30] MEDS ORDERED: PIPERACILLIN /TAZOBACTAM 3.375 G in IV D5W 50 ML IV ONE (06:00)
[2018-08-30 06:14] LABS: BASOPHILS # (AUTO) 0.1 /CMM (0.0-0.2); BASOPHILS % (AUTO) 1.2 % (0.0-2.0); EOSINOPHILS % (AUTO) 3.6 % (0.0-6.0); HEMATOCRIT 26 % (39-51); HEMOGLOBIN 8.9 g/dL (13.5-17.5); LYMPHOCYTES # (AUTO) 1.7 /CMM (0.8-4.8); MEAN CORPUSCULAR HGB CONC 34 g/dl (31.0-36.0); MEAN CORPUSCULAR VOLUME 78 fL (80-96); MONOCYTES # (AUTO) 3.1 /CMM (0.1-1.30); MONOCYTES % (AUTO) 27.3 % (2.0-12.0); NEUTROPHILS # (AUTO) 6.1 /CMM (1.8-8.9); NEUTROPHILS % (AUTO) 52.9 % (43.0-81.0); PLATELET COUNT (AUTO) 189 /CMM (150-450); RED BLOOD CELL COUNT(AUTO) 3.39 MIL/uL (4.5-6.0); WHITE BLOOD COUNT (AUTO) 11.4 K/uL (4.3-11.0)
[2018-08-30 06:42] LABS: ALBUMIN 2.1 g/dL (3.4-5.0); CALCIUM, SERUM 7.5 mg/dL (8.5-10.1); CREATININE 0.6 mg/dL (0.6-1.3); MAGNESIUM 1.8 mg/dL (1.8-2.4); PHOSPHORUS 3.3 mg/dL (2.5-4.9); POTASSIUM 4.3 mmol/L (3.5-5.1); TOTAL PROTEIN, SERUM 5.1 g/dL (6.4-8.2)
[2018-08-30 07:09] LABS: NEUTROPHILS % (MANUAL) 54 (42-76)
[2018-08-30 07:10] LABS: EOSINOPHILS % (MANUAL) 6 % (0-4); LYMPHOCYTES % (MANUAL) 24 % (16-48); MONOCYTES % (MANUAL) 16 % (0-11.0)
[2018-08-30] MEDS ORDERED: FEE PK DOSING 1 MIN EA MC ONE (07:31)
--- NOTE | 2018-08-30 07:33 | NUR ---
RN NOTES ALL NEEDS ATTENDED AND MET, REPOSITIONED FOR COMFORT, TELE MONITOR READS SINUS 90s, IV ACCESS INTACT AND PATENT, ABLE TO REST AND SLEEP AT INTERVALS, ENDORSED TO AM NURSE FOR CONTINUITY OF CARE.
[2018-08-30 08:00] VITALS: BP 102/54
--- NOTE | 2018-08-30 08:06 | NUR ---
RN MS OPENING NOTES Patient received on 2L o2 nasal cannula. No sob noted. Patient stated that he prefers morphine as his pain reliever. Patient comfortable, a/o x 4. Bed at the lowest setting, call light within reach.
[2018-08-30] MEDS: MULTIPLE VIT (LYCOPENE/FA/MV,CA,IRON,MIN/LUT)1 TAB PO SCH (08:16)
[2018-08-30] MEDS: FUROSEMIDE 20 MG TABLET PO SCH (08:16)
[2018-08-30] MEDS: FOLIC ACID 1 MG TABLET PO SCH (08:16)
[2018-08-30] MEDS: PANTOPRAZOLE 40 MG TABLET.DR PO SCH (08:16)
[2018-08-30] MEDS: THIAMINE HCL 100 MG TABLET PO SCH (08:16)
[2018-08-30] MEDS: NICOTINE PATCH (21MG) 21 MG PATCH.TD24 TD SCH (08:17)
[2018-08-30] MEDS ORDERED: SPIRONOLACTONE 50 MG TABLET PO SCH (09:00)
[2018-08-30] MEDS: VANCOMYCIN 1.25 GM in IV D5W 500 ML IV SCH ×2 (09:56→17:46)
--- NOTE | 2018-08-30 11:09 | NUR ---
RN MS NOTES Transfered patient to Juan CISNEROS for KELLY.
--- NOTE | 2018-08-30 11:10 | NUR ---
PATIENT IN STABLE CONDITION. ABLE TO MAKE NEEDS KNOWN. NOT IN ANY FORM OF DISTRESS, NO SOB. IV ACCESS INTACT AND PATENT. KEPT PATIENT SAFE AND COMFORTABLE. BED IN LOW/LOCKED, SIDRAILS UPX2, CALL LIGHT IN REACH. WILL CONTINUE TO MONITOR ACCORDINGLY
[2018-08-30] MEDS: SPIRONOLACTONE 25 MG TABLET PO SCH (11:16)
--- NOTE | 2018-08-30 11:30 | NUR ---
RN NOTES DR ALFARO AT BEDSIDE ROUNDING THE PATIENT. PATIENT NEEDS PARACENTESIS PER MD. ORDERS NOTED AND WILL CARRY OUT
--- NOTE | 2018-08-30 12:00 | NUR ---
RN NOTES CONSENT SIGNED FOR PARACENTESIS
[2018-08-30] MEDS: PIPERACILLIN /TAZOBACTAM 3.375 G in IV D5W 50 ML IV SCH ×3 (12:22→23:15)
--- NOTE | 2018-08-30 14:30 | NUR ---
RN NOTES PARACENTESIS DONE, 5L OUTPUT. BODY FLUIDS SENT OUT TO LAB.
--- NOTE | 2018-08-30 14:31 | NUR ---
RN NOTES COMPLAINS OF ABDOMINAL PAIN 12/23. DILAUDID 1MG IV GIVEN ORDERED. WILL REASSESS
--- NOTE | 2018-08-30 15:27 | NUR ---
RN NOTES REFUSED SKIN ASSESSMENT ON THE BACK AND SACRUM. PATIENT STATED "NO MAN! IT HURTS WHEN IT MOVES! LET ME REST FOR A WHILE MAN!".
--- NOTE | 2018-08-30 15:30 | NUR ---
RN NOTES OFFERED NORCO BUT REFUSED. PER PATIENT, "NORCO DOESNT HELP!". PATIENT WANTED DILAUDID, MEDS NOT DUE YET. PATIENT SAID HE'LL WAIT.
[2018-08-30 16:00] VITALS: BP 111/69
--- NOTE | 2018-08-30 18:28 | NUR ---
RN NOTES RIGHT WRIST IV ACCESS WAS ACCIDENTALLY PULLED OUT BY PATIENT. NO COMPLICATIONS.
--- NOTE | 2018-08-30 19:10 | NUR ---
MS RN OPENING NOTES Received patient in bed, alert, oriented x 3. Breathing even and unlabored. Not in any distress, on room air. Currently infusing IV Vancomycin. No complaints at this time. Patient stable as endorsed by the AM RN. Safety measures in place; call alvarez within easy reach, bed in low, locked position. Will continue to monitor accordingly
--- NOTE | 2018-08-30 19:18 | NUR ---
RN CLOSING NOTES PATIENT IN STABLE CONDITION. ALL NEEDS ATTENDED AND PROVIDED. ALL DUE MEDICATIONS GIVEN ORDERED. ASSISTED WITH ADLS. BED IN LOW/LOCKED POSITION, SIDERAILS UPX2, CALL LIGHT IN REACH. ENDORSED TO NIGHT RN FOR KELLY.
[2018-08-30 20:00] VITALS: BP 116/69
--- NOTE | 2018-08-30 20:15 | NUR ---
RN NOTES Urine sample obtained. Sent to Lab
[2018-08-30 20:24] LABS: APPEARANCE,URINE CLEAR (CLEAR); BILIRUBIN,URINE NEGATIVE (NEGATIVE); BLOOD, URINE TRACE Ery/uL (NEGATIVE); COLOR,URINE YELLOW (YELLOW); KETONES,URINE NEGATIVE (NEGATIVE); LEUKOCYTE ESTERASE ,URINE NEGATIVE (NEGATIVE); NITRITE, URINE NEGATIVE (NEGATIVE); PROTEIN,URINE NEGATIVE (NEGATIVE); UGLUCOSE NEGATIVE (NEGATIVE); UROBILINOGEN,URINE 0.2 EU/dL (0.2)
[2018-08-30 20:49] LABS: BACTERIA,URINE None seen /HPF (None Seen); SQUAMOUS EPITHELIAL CELL,UR 0-2 /HPF (None Seen); WBC,URINE 0-2 /HPF (0-3)
--- NOTE | 2018-08-30 21:30 | NUR ---
RN NOTES Clarified with AUGUSTUS Montelongo if okay to give lovenox with H/H- 8.9/, PT- 13.6, INR- 1.32. AUGUSTUS Montelongo says okay to give
[2018-08-30] MEDS: ENOXAPARIN SODIUM 40 MG/0.4 ML DISP.SYRIN SQ SCH (21:34)
--- NOTE | 2018-08-30 21:41 | NUR ---
RN NOTES Patient c/o nausea, zofran 4mg given as ordered.
[2018-08-31] MEDS: HYDROMORPHONE INJ 2 MG/ML DISP.SYRIN IV PRN ×6 (00:20→23:43)
--- NOTE | 2018-08-31 00:21 | NUR ---
RN NOTES Patient c/o pain in the abdomen and back, 01/22. BP-117/60, HR- 108. Dilaudid 1mg given as ordered. Excess wasted with another RN. Will continue to monitor
[2018-08-31] MEDS: VANCOMYCIN 1.25 GM in IV D5W 500 ML IV SCH ×2 (00:25→09:00)
--- NOTE | 2018-08-31 02:30 | NUR ---
RN NOTES Patient is wet from urine. Patient refused to be changed at this time, stated he wants to be changed in the morning
[2018-08-31] MEDS: PIPERACILLIN /TAZOBACTAM 3.375 G in IV D5W 50 ML IV SCH ×2 (05:27→11:54)
--- NOTE | 2018-08-31 06:06 | NUR ---
RN NOTES Patient c/o abdominal and back pain, 12/23. BP- 115/64, HR- 103. Dilaudid 1mg given as ordered
[2018-08-31 06:13] LABS: BASOPHILS # (AUTO) 0.1 /CMM (0.0-0.2); BASOPHILS % (AUTO) 0.7 % (0.0-2.0); EOSINOPHILS % (AUTO) 1.3 % (0.0-6.0); HEMATOCRIT 27 % (39-51); HEMOGLOBIN 8.9 g/dL (13.5-17.5); LYMPHOCYTES # (AUTO) 0.6 /CMM (0.8-4.8); LYMPHOCYTES % (AUTO) 9.2 % (20.0-44.0); MEAN CORPUSCULAR HGB CONC 33 g/dl (31.0-36.0); MEAN CORPUSCULAR VOLUME 78 fL (80-96); MONOCYTES # (AUTO) 1.6 /CMM (0.1-1.30); MONOCYTES % (AUTO) 22.4 % (2.0-12.0); NEUTROPHILS # (AUTO) 4.6 /CMM (1.8-8.9); NEUTROPHILS % (AUTO) 66.4 % (43.0-81.0); PLATELET COUNT (AUTO) 104 /CMM (150-450); RED BLOOD CELL COUNT(AUTO) 3.47 MIL/uL (4.5-6.0)
[2018-08-31 06:40] LABS: CALCIUM, SERUM 7.8 mg/dL (8.5-10.1); CREATININE 0.8 mg/dL (0.6-1.3); POTASSIUM 3.3 mmol/L (3.5-5.1)
--- NOTE | 2018-08-31 06:52 | NUR ---
RN CLOSING NOTES PATIENT IN STABLE CONDITION, NO ACUTE CHANGES OVERNIGHT. ALL NEEDS ATTENDED AND PROVIDED. ALL DUE MEDICATIONS GIVEN ORDERED. BED IN LOW/LOCKED POSITION, SIDERAILS UPX2, CALL LIGHT IN REACH. WILL ENDORSE KELLY TO ONCOMING RN
--- NOTE | 2018-08-31 07:15 | NUR ---
RN OPENING NOTES PATIENT IN STABLE CONDITION. ABLE TO MAKE NEEDS KNOWN. NOT IN ANY FORM OF DISTRESS, NO SOB. IV ACCESS INTACT AND PATENT. KEPT PATIENT SAFE AND COMFORTABLE. BED IN LOW/LOCKED, SIDRAILS UPX2, CALL LIGHT IN REACH. WILL CONTINUE TO MONITOR ACCORDINGLY
[2018-08-31 07:26] LABS: BAND % (MANUAL) 4 % (0.0-5.0); LYMPHOCYTES % (MANUAL) 7 % (16-48); MONOCYTES % (MANUAL) 14 % (0-11.0); NEUTROPHILS % (MANUAL) 75 (42-76)
[2018-08-31 08:08] VITALS: BP 103/52
[2018-08-31] MEDS: FUROSEMIDE 20 MG TABLET PO SCH (08:24)
[2018-08-31] MEDS: SPIRONOLACTONE 25 MG TABLET PO SCH (08:24)
[2018-08-31] MEDS: MULTIPLE VIT (LYCOPENE/FA/MV,CA,IRON,MIN/LUT)1 TAB PO SCH (08:24)
[2018-08-31] MEDS: PANTOPRAZOLE 40 MG TABLET.DR PO SCH (08:25)
[2018-08-31] MEDS: FOLIC ACID 1 MG TABLET PO SCH (08:25)
[2018-08-31] MEDS: NICOTINE PATCH (21MG) 21 MG PATCH.TD24 TD SCH (08:25)
[2018-08-31] MEDS: THIAMINE HCL 100 MG TABLET PO SCH (08:25)
[2018-08-31] MEDS: HYDROCODONE/APAP 5/325MG 1 EACH TABLET PO PRN ×2 (08:32→21:27)
--- NOTE | 2018-08-31 09:25 | NUR ---
tariqo trough 22, held 0900 dose. notifid pharmacstkanika
[2018-08-31] MEDS ORDERED: Z GUARD REMEDY 2 OZ OINT TP PRN (09:30)
--- NOTE | 2018-08-31 10:00 | NUR ---
RN NOTES AGREED SKIN ASSESSMENT ON THE BACK. PHOTOS TAKEN. NOTED WITH BLANCHABLE REDNESS AND EXCORIATION ON SACRAL AREA AND LEFT UPPER POSTERIOR THIGH. SEEMS LIKE A POPPED BLISTER. ALSO NOTED BLISTER ON LEFT UPPER BACK. WOUND CONSULT ORDERED.
[2018-08-31] MEDS ORDERED: POTASSIUM CHLORIDE 20 MEQ TAB.PRT.SR PO SCH (11:00)
[2018-08-31] MEDS: VANCOMYCIN 1 GM in IV D5W 250 ML IV SCH ×2 (15:46→23:35)
--- NOTE | 2018-08-31 15:48 | NUR ---
RN NOTES AUTOMATIC BANDSAW TENDER,DOTTIE, REPORTED TO PRIMARY NURSE THAT HE WITNESSED PATIENT'S IV WAS PULLED OUT. APPLIED PRESSURE AND COVERED WITH GAUZE AND TAPED. NO COMPLICATIONS.
--- NOTE | 2018-08-31 15:50 | NUR ---
RN NOTES REINSERTED NEW IV ACCESS AT RIGHT FOREARM GAUGE 20, INTACT AND PATENT.
[2018-08-31 16:00] VITALS: BP 114/66
[2018-08-31] MEDS ORDERED: CEFTRIAXONE 1 G in IV D5W 50 ML IV SCH (18:00)
--- NOTE | 2018-08-31 19:37 | NUR ---
RN CLOSING NOTES PATIENT IN STABLE CONDITION. ALL NEEDS ATTENDED AND PROVIDED, ALL DUE MEDS GIVEN ORDERED. ASSISTED WITH ADLs. TURNED AND REPOSITIONED PATIENT EVERY 2 HRS NEEDED. KEPT PATIENT SAFE AND COMFORTABLE. BED IN LOW/LOCKED POSITION, SIDERAILS UPX2 CALL LIGHT IN EACH. ENDORSED TO NIGHT RN FOR KELLY.
--- NOTE | 2018-08-31 19:46 | NUR ---
RN OPENING NOTES/ DILAUDID PRN PATIENT IN STABLE CONDITION. ABLE TO MAKE NEEDS KNOWN. REQUESTED AND GIVEN DILUADID PRN FOR PAIN 10/10 IN BACK LEGS AND ABD. NOT IN ANY FORM OF DISTRESS, NO SOB. IV ACCESS INTACT AND PATENT. KEPT PATIENT SAFE AND COMFORTABLE. BED IN LOW/LOCKED, SIDRAILS UPX2, CALL LIGHT IN REACH. WILL CONTINUE TO MONITOR ACCORDINGLY. REVIEWED POC QUESTIONS CONCERNS ADDRESSED.
[2018-08-31 20:00] VITALS: BP 113/69
--- NOTE | 2018-08-31 21:25 | NUR ---
NORCO PRN PATIENT REQUESTED NORCO PRN FOR PAIN RATED 7/10 IN ABD, BLE AND BACK. ADMINSITERED PER ORDRES.
[2018-08-31] MEDS: ENOXAPARIN SODIUM 40 MG/0.4 ML DISP.SYRIN SQ SCH (21:33)
[2018-09-01] MEDS: VANCOMYCIN 1 GM in IV D5W 250 ML IV SCH (06:01)
[2018-09-01] MEDS: HYDROMORPHONE INJ 2 MG/ML DISP.SYRIN IV PRN ×3 (06:02→15:45)
[2018-09-01] MEDS: PANTOPRAZOLE 40 MG TABLET.DR PO SCH (06:33)
[2018-09-01 06:43] LABS: CALCIUM, SERUM 7.7 mg/dL (8.5-10.1); CREATININE 0.7 mg/dL (0.6-1.3); POTASSIUM 3.2 mmol/L (3.5-5.1)
--- NOTE | 2018-09-01 07:05 | NUR ---
RN PM CLOSING NOTES PATIENT IN STABLE CONDITION. ALL NEEDS ATTENDED AND PROVIDED, ALL DUE MEDS GIVEN ORDERED. TURNED AND REPOSITIONED PATIENT EVERY 2 HRS NEEDED. KEPT PATIENT SAFE AND COMFORTABLE. BED IN LOW/LOCKED POSITION, SIDERAILS UPX2 CALL LIGHT IN EACH.
[2018-09-01] MEDS: HYDROCODONE/APAP 5/325MG 1 EACH TABLET PO PRN ×3 (07:29→12:09)
--- NOTE | 2018-09-01 07:44 | NUR ---
MS RN OPENING NOTES RECEIVED PATIENT AWAKE IN BED IN NO ACUTE SIGNS OF DISTRESS. A/O X3. ABLE TO MAKE NEEDS KNOWN, DENIES PAIN OR ANY DISCOMFORTS AT THIS TIME. ON ROOM AIR, BREATHING EVEN AND UNLABORED. IV ACCESS ON RFA G#20 INTACT AND PATENT. SAFETY MEASURES IN PLACE. BED IN LOW LOCKED POSITION WITH SIDE RAILS UP X2. CALL LIGHT WITHIN REACH. WILL CONTINUE TO MONITOR
[2018-09-01 08:00] VITALS: BP 108/63
[2018-09-01] MEDS: MULTIPLE VIT (LYCOPENE/FA/MV,CA,IRON,MIN/LUT)1 TAB PO SCH (08:26)
[2018-09-01] MEDS: NICOTINE PATCH (21MG) 21 MG PATCH.TD24 TD SCH (08:26)
[2018-09-01] MEDS: FOLIC ACID 1 MG TABLET PO SCH (08:27)
[2018-09-01] MEDS: SPIRONOLACTONE 25 MG TABLET PO SCH (08:27)
[2018-09-01] MEDS: THIAMINE HCL 100 MG TABLET PO SCH (08:27)
[2018-09-01] MEDS: FUROSEMIDE 20 MG TABLET PO SCH (08:27)
[2018-09-01] MEDS: POTASSIUM CHLORIDE 20 MEQ TAB.PRT.SR PO SCH ×2 (09:41→10:38)
--- NOTE | 2018-09-01 10:42 | NUR ---
Social service consult requested by AUGUSTUS Montelongo for homelessness and possible placement. Pt. is a 53 year old male who was admitted to [facility] for ascitis/fluid overload. SW met with pt. bedside. SW is familiar with pt. from previous admissions. Pt's last admission was on August 25, 2018. Pt. refused to go to a SNF placement at time of discharge on previous admission. Pt. is linked to services through [facility]. Pt. is alert and oriented x 4. Pt. is friendly and cooperative with SW during the assessment. Pt. is an alcoholic, however denies drinking alcohol in the past 2 weeks. Pt's alcohol level on admission was 251. Pt. is being referred to a SNF placement, however pt. declined and is adamant on leaving. Pt. states he needs to go see his friend. SW explained to the pt. the benefits of short term rehab, however pt. declined. Pt. is also refusing homeless shelters and resources, stating he has the resources from last time he was at [facility]. Pt. is in need of pants and T-shirt. SW to provide pt with pants and T-shirt. Pt. will need a walker. SW informed heel caser Ira Aguilera regarding pt. needing a walker upon discharge. SW offered pt. alcohol treatment programs, however pt. has no motivation to change and declined referrals and resources to alcohol treatment programs. Homeless Patient waiver Form to be signed by the pt. upon discharge.
--- NOTE | 2018-09-01 10:43 | NUR ---
RN NOTES/PAIN MANAGEMENT PATIENT C/O ACHING AND RADIATING PAIN TO LOWER ABDOMEN, BACK AND BLE WITH SCALE OF 9/10. PRN DILAUDID 1MG/0.5ML IVP ADMINISTERED AT 1040. WILL CONTINUE TO MONITOR AND REASSESS PT.
--- NOTE | 2018-09-01 11:53 | NUR ---
WOUND CARE CONSULT: PT BEING SEEN FOR DEBRIDEMENT OF LOWER LEG WOUNDS BY DR ESPARZA AT THIS TIME. WILL SEE PT AT LATER TIME FOR SKIN ASSESSMENT.
--- NOTE | 2018-09-01 12:02 | NUR ---
RN NOTES PATIENT SEEN AND EVALUATED BY DR GRAY WITH ORDER TO DO INCISION AND DRAINAGE WITH WOUND DEBRIDEMENT OF RIGHT LOWER LEG. PROCEDURE WAS EXPLAINED TO PT AND VERBALIZED UNDERSTANDING. PT SIGNED CONSENT AND PROCEDURES WAS DONE. WILL CONTINUE TO MONITOR
--- NOTE | 2018-09-01 12:09 | NUR ---
RN MS NOTES/PAIN MANAGEMENT AFTER WOUND DRAINIAGE AND DEBRIDEMENT, PT C/O BILATERAL LEG PAIN RATED 7/10. PT GIVEN PRN NORCO. WILL REASSESS PAIN LEVEL.
--- NOTE | 2018-09-01 12:33 | NUR ---
JAY met with pt. bedside and gave him a pair of pants and sweatshirt. Pt. appeared very happy to get some clothes. Pt. has been recommended SNF placement, however pt. is declining SNF. Pt. refused snf placement as well. Pt. states he is going to meet with this friend when he is discharged from the hospital. JAY gave pt. the following homeless resources: [facility] located at [address] [facility] ; [facility], [address] [place] [address], [place]. [place] ; [employer] [place], [address], [place] ; [facility] Homeless Resource Directory which includes food stamps, transitional housing, showers and hot meals etc; Mental Health clinics such as [facility] ; [facility] ; Health clinics;[facility] and Alcohol treatment centers such as [facility], ; [facility] Substance Abuse Hotline and [facility] . Pt. accepted the resources. Homeless Patient form was signed by the pt. and placed in pt's chart. BLAYNE Vila and correctional case manager Ira Aguilera have been updated with pt's discharge plan. Pt. was given a walker. Pt. will need a TAP card upon discharge. BLAYNE Vila is aware.
--- NOTE | 2018-09-01 14:49 | NUR ---
WOUND CARE CONSULT: PT PRESENTS WITH SKIN TEARS TO HANDS AND INCONTINENCE ASSOCIATED SKIN DAMAGE TO BUTTOCKS AND LEFT POSTERIOR BUTTOCK/THIGH AREA, PRESENT ON ADMISSION. ABDOMEN IS HUGE. RECOMMENDATIONS MADE FOR SKIN PROTECTION AND CARE. DISCUSSED WITH NURSING STAFF. WILL SEE PRN. PAYTON IN AGREEMENT WITH PLAN OF CARE. LOW AIRLOSS BED TO BE PLACED IF PT NOT DISCHARGED (ISOFLEX). DEFER TO DPM FOR LOWER EXTREMITIES. DRESSING LEFT IN PLACE (DRY AND INTACT) TO RT LOWER LEG.
[2018-09-01 16:00] VITALS: BP 126/74
--- NOTE | 2018-09-01 17:03 | NUR ---
communications equipment installer note PT discharged home in stable condition. All discharge teachings given regarding patients conditionand pt verbalized understanding. Vital signs stable and recorded. Patient encouraged to seek out senior care services for wound and antibiotic treatments. Patient verbalized understanding and stated "I will go tonight or tomorrow." Photos of skin issues taken and documented in chart. Pt signed all discharge papers but refused to take belongings and discharge packet home. Iv access removed without bleeding noted. Patient provided with walker but refused to take it home stating "its too much to carry". Pt left unit at 1700 on escorted out via wheelchair accompanied by nursing staff. MD and Charge Nurse aware of discharge.
[2018-09-01] MEDS ORDERED: VANCOMYCIN 1 GM in IV D5W 250 ML IV SCH (18:00)
== END 2018-09-01 17:03 | disposition home or self-care (01) | DRG 280 ==
LOC: ER 19:42 → MED 22:33 → TELE 08-30 02:57 → MED 08-30 10:28
PROVIDERS: ADMIT Nurse Practitioner Acute Care
PROC: 0W9G3ZX Drainage of Peritoneal Cavity, Percutaneous Approach, Diagnostic (ICD-10-PCS; principal; 2018-08-30)
PROC: 0JBN0ZZ Excision of Right Lower Leg Subcutaneous Tissue and Fascia, Open Approach (ICD-10-PCS; 2018-09-01)
DX: K70.31 Alcoholic cirrhosis of liver with ascites (principal); K70.40 Alcoholic hepatic failure without coma; E43 Unspecified severe protein-calorie malnutrition; G92 Toxic encephalopathy; E87.2 Acidosis; K76.6 Portal hypertension; E87.1 Hypo-osmolality and hyponatremia; K86.0 Alcohol-induced chronic pancreatitis; L03.115 Cellulitis of right lower limb; E88.09 Other disorders of plasma-protein metabolism, not elsewhere classified; L03.116 Cellulitis of left lower limb; F10.229 Alcohol dependence with intoxication, unspecified; Y90.8 Blood alcohol level of 240 mg/100 ml or more; D63.8 Anemia in other chronic diseases classified elsewhere; Z59.0 Homelessness; R74.0 Nonspecific elevation of levels of transaminase and lactic acid dehydrogenase [LDH]; Z68.23 Body mass index [BMI] 23.0-23.9, adult; F17.210 Nicotine dependence, cigarettes, uncomplicated; F19.20 Other psychoactive substance dependence, uncomplicated; I87.2 Venous insufficiency (chronic) (peripheral); I87.311 Chronic venous hypertension (idiopathic) with ulcer of right lower extremity; Z91.19 Patient's noncompliance with other medical treatment and regimen; I10 Essential (primary) hypertension
CPT/HCPCS: 36415; 71045-TC; 76942-TC; 80048-TC; 80053-TC; 80076-TC; 80202-TC; 81000-TC; 83605-TC; 83735-TC; 84100-TC; 84484-TC; 85025-TC; 85730-TC; 87040-TC; 87070-TC; 87081-TC; 87086-TC; 89051-TC; 97110-TC; 97112-TC; 97530-TC; A6253; A6402; A6403; G0378; G0480; J0696; J1170; J1650; J2270; J2405; J2543; J3370; J7030; J7060

== ENCOUNTER 2018-09-01 21:04 | Emergency (ER) ==
[~2018-09-01] VITALS: Ht 172.7 cm; Wt 77.6 kg
--- NOTE | 2018-09-01 21:37 | NUR ---
PT BIB RA WITH A C/O ABD PAIN. PT WAS JUST D/C'D FROM THE HOSPITAL 2 HRS AGO. PT WAS FOUND DRINKING AND CALLED 911 DUE TO ABD PAIN. PT WAS TRIAGED AND TAKEN TO ROOM 14. PT'S ABD APPEARS DISTENDED AND PT IS C/O FEELING COLD. PT REC'D SEVERAL WARM BLANKETS. WILL CONTINUE TO MONTIOR THE PT.
--- NOTE | 2018-09-01 23:00 | NUR ---
Patient discharged to home in stable condition. Written and verbal after care instructions given. Patient verbalizes understanding of instruction. PT REC'D A CANE TO ASSIST WITH WALKING. PT ALSO REC'D A SANDWICH AND WILL WAIT IN THE LOBBY FOR A LITTLE WHILE. PT HAS A TAP CARD FROM EARLIER DISCHARGE AND STATED THAT HE WILL USE IT. PT HAS FRIENDS HE LIVES WITH BUT WAS ALSO GIVEN THE HOMELESS RESOURCES. PT AMBULATED OUT WITH A SLOW GATE USING THE CANE. VSS.
[2018-09-01 23:48] VITALS: BP 109/57
[2018-09-23] MEDS ORDERED: FURO20TA4 PO (14:13)
[2018-09-23] MEDS ORDERED: DIPH50CA37 PO (14:13)
[2018-09-23] MEDS ORDERED: ALLA266C2 TP (14:13)
[2018-09-23] MEDS ORDERED: Hydrogel Dressing TP (14:13)
[2018-09-23] MEDS ORDERED: CLOT15CR5 TP (14:13)
[2018-09-23] MEDS ORDERED: DIPH28.33 TP (14:13)
[2018-09-23] MEDS ORDERED: MAG30ORA PO (14:13)
[2018-09-23] MEDS ORDERED: SPIR25TA PO (14:14)
[2018-09-23] MEDS ORDERED: ZOLP5TAB2 PO (14:14)
[2018-09-23] MEDS ORDERED: NEOM15OI3 TP (14:14)
[2018-09-23] MEDS ORDERED: POTA20TA83 PO (14:14)
== END 2018-09-01 23:53 | disposition home or self-care (01) ==
LOC: ER 21:06
DX: K74.69 Other cirrhosis of liver (principal); F19.10 Other psychoactive substance abuse, uncomplicated; K76.6 Portal hypertension; F10.20 Alcohol dependence, uncomplicated; F17.200 Nicotine dependence, unspecified, uncomplicated; Y90.9 Presence of alcohol in blood, level not specified; Z60.2 Problems related to living alone; Z98.890 Other specified postprocedural states

== ENCOUNTER 2018-09-02 01:06 | Emergency (ER) ==
[~2018-09-02] VITALS: Ht 162.6 cm; Wt 68.0 kg
--- NOTE | 2018-09-02 01:11 | NUR ---
PT BIBS. C/O "HAVING R SIDE PAIN" -SOB -ACUTE DISTRESS. AMBULATORY
[2018-09-02] MEDS ORDERED: IBUPROFEN 600 MG TABLET PO ONE ×2 (01:15→01:30)
[2018-09-02 02:49] VITALS: BP 125/77
[2018-09-23] MEDS ORDERED: DIPH28.33 TP (14:13)
[2018-09-23] MEDS ORDERED: MAG30ORA PO (14:13)
[2018-09-23] MEDS ORDERED: CLOT15CR5 TP (14:13)
[2018-09-23] MEDS ORDERED: ALLA266C2 TP (14:13)
[2018-09-23] MEDS ORDERED: FURO20TA4 PO (14:13)
[2018-09-23] MEDS ORDERED: Hydrogel Dressing TP (14:13)
[2018-09-23] MEDS ORDERED: DIPH50CA37 PO (14:13)
[2018-09-23] MEDS ORDERED: SPIR25TA PO (14:14)
[2018-09-23] MEDS ORDERED: NEOM15OI3 TP (14:14)
[2018-09-23] MEDS ORDERED: ZOLP5TAB2 PO (14:14)
[2018-09-23] MEDS ORDERED: POTA20TA83 PO (14:14)
== END 2018-09-02 02:50 | disposition home or self-care (01) ==
LOC: ER 01:09
DX: S22.41XA Multiple fractures of ribs, right side, initial encounter for closed fracture (principal); D64.9 Anemia, unspecified; F17.200 Nicotine dependence, unspecified, uncomplicated; I10 Essential (primary) hypertension; Z76.5 Malingerer [conscious simulation]; Z59.0 Homelessness; Z79.899 Other long term (current) drug therapy; W18.11XA Fall from or off toilet without subsequent striking against object, initial encounter; Y93.89 Activity, other specified; Y92.89 Other specified places as the place of occurrence of the external cause; Y99.8 Other external cause status
CPT/HCPCS: 71045-TC

== ENCOUNTER 2018-09-02 16:52 | Emergency (ER) ==
[~2018-09-02] VITALS: Ht 172.7 cm; Wt 86.6 kg
[2018-09-02] MEDS ORDERED: FAMOTIDINE/PF INJ 20 MG/2 ML VIAL IV ONE ×2 (17:15→17:30)
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
[2018-09-02] MEDS ORDERED: IV NS 0.9% 1,000 ML BAG IV ONE (17:30)
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
[2018-09-02 17:56] LABS: BASOPHILS # (AUTO) 0.1 /CMM (0.0-0.2); BASOPHILS % (AUTO) 0.6 % (0.0-2.0); EOSINOPHILS % (AUTO) 4.8 % (0.0-6.0); HEMATOCRIT 30 % (39-51); HEMOGLOBIN 9.9 g/dL (13.5-17.5); LYMPHOCYTES # (AUTO) 1.2 /CMM (0.8-4.8); LYMPHOCYTES % (AUTO) 11.5 % (20.0-44.0); MEAN CORPUSCULAR HGB CONC 33 g/dl (31.0-36.0); MEAN CORPUSCULAR VOLUME 80 fL (80-96); MONOCYTES # (AUTO) 1.9 /CMM (0.1-1.30); MONOCYTES % (AUTO) 18.7 % (2.0-12.0); NEUTROPHILS # (AUTO) 6.5 /CMM (1.8-8.9); NEUTROPHILS % (AUTO) 64.4 % (43.0-81.0); PLATELET COUNT (AUTO) 214 /CMM (150-450); RED BLOOD CELL COUNT(AUTO) 3.77 MIL/uL (4.5-6.0); WHITE BLOOD COUNT (AUTO) 10.2 K/uL (4.3-11.0)
[2018-09-02 18:05] LABS: CALCIUM, SERUM 7.9 mg/dL (8.5-10.1); CREATININE 0.9 mg/dL (0.6-1.3); POTASSIUM 3.3 mmol/L (3.5-5.1)
[2018-09-02 18:14] LABS: ALBUMIN 2.4 g/dL (3.4-5.0); BILIRUBIN,DIRECT 1.3 mg/dL (0.0-0.2); BILIRUBIN,TOTAL 2.2 mg/dL (0.2-1.0); TOTAL PROTEIN, SERUM 5.8 g/dL (6.4-8.2)
[2018-09-02] MEDS ORDERED: FOLIC ACID 1 MG TABLET PO ONE (18:30)
[2018-09-02] MEDS ORDERED: THIAMINE HCL 100 MG TABLET PO ONE (18:30)
[2018-09-02] MEDS ORDERED: FOLIC ACID 1 MG TABLET ONE (18:31)
[2018-09-02] MEDS ORDERED: THIAMINE HCL 100 MG TABLET ONE (18:31)
--- NOTE | 2018-09-02 18:42 | NUR ---
PROVIDED PT WITH FOOD TRAY
[2018-09-02 18:48] LABS: EOSINOPHILS % (MANUAL) 7 % (0-4); LYMPHOCYTES % (MANUAL) 7 % (16-48); MONOCYTES % (MANUAL) 25 % (0-11.0); NEUTROPHILS % (MANUAL) 61 (42-76)
--- NOTE | 2018-09-02 19:16 | NUR ---
CALLED NURSING SUP FOR TAP CARD
--- NOTE | 2018-09-02 19:22 | NUR ---
IV removed. Catheter intact and site benign. Pressure and 4x4 applied to site. No bleeding noted. Patient discharged to home in stable condition. Written and verbal after care instructions given. PT REFUSED TO SIGN.
--- NOTE | 2018-09-02 19:47 | NUR ---
GAVE PT SANDWICH AND TAP CARD. SECURITY AT BEDSIDE FOR DISCHARGE. PT REFUSED TO SIGN DISCHARGE PAPER AND HOMELESS CHECKLIST.
[2018-09-02 20:15] VITALS: BP 154/54
[2018-09-23] MEDS ORDERED: CLOT15CR5 TP (14:13)
[2018-09-23] MEDS ORDERED: FURO20TA4 PO (14:13)
[2018-09-23] MEDS ORDERED: Hydrogel Dressing TP (14:13)
[2018-09-23] MEDS ORDERED: MAG30ORA PO (14:13)
[2018-09-23] MEDS ORDERED: ALLA266C2 TP (14:13)
[2018-09-23] MEDS ORDERED: DIPH50CA37 PO (14:13)
[2018-09-23] MEDS ORDERED: DIPH28.33 TP (14:13)
[2018-09-23] MEDS ORDERED: SPIR25TA PO (14:14)
[2018-09-23] MEDS ORDERED: POTA20TA83 PO (14:14)
[2018-09-23] MEDS ORDERED: ZOLP5TAB2 PO (14:14)
[2018-09-23] MEDS ORDERED: NEOM15OI3 TP (14:14)
== END 2018-09-02 19:47 | disposition home or self-care (01) ==
LOC: ER 16:53
DX: K70.31 Alcoholic cirrhosis of liver with ascites (principal); F10.10 Alcohol abuse, uncomplicated; I10 Essential (primary) hypertension; D64.9 Anemia, unspecified; F17.200 Nicotine dependence, unspecified, uncomplicated; Z76.5 Malingerer [conscious simulation]; Z86.19 Personal history of other infectious and parasitic diseases; Z59.0 Homelessness; Z79.899 Other long term (current) drug therapy
CPT/HCPCS: 36415; 80048; 80076; 83690; 85025; 85730; 96374; 99283; 99406; J3490; J7030

== ENCOUNTER 2018-09-03 21:39 | Inpatient (IN) | payer OTHER ==
[~2018-09-03] VITALS: Ht 172.7 cm; Wt 81.6 kg
[~2018-09-03 21:39] MED LIST changes: -HYDR-3972 PO
[2018-09-03] MEDS ORDERED: FAMOTIDINE/PF INJ 20 MG/2 ML VIAL IV ONE ×2 (22:30→22:42)
[2018-09-03] MEDS ORDERED: IV NS 0.9% 500 ML BAG IV ONE (22:30)
[2018-09-03 23:08] LABS: BASOPHILS # (AUTO) 0.1 /CMM (0.0-0.2); BASOPHILS % (AUTO) 0.8 % (0.0-2.0); EOSINOPHILS % (AUTO) 2.9 % (0.0-6.0); HEMATOCRIT 30 % (39-51); HEMOGLOBIN 9.9 g/dL (13.5-17.5); LYMPHOCYTES # (AUTO) 1.5 /CMM (0.8-4.8); LYMPHOCYTES % (AUTO) 12.6 % (20.0-44.0); MEAN CORPUSCULAR HGB CONC 33 g/dl (31.0-36.0); MEAN CORPUSCULAR VOLUME 80 fL (80-96); MONOCYTES % (AUTO) 25.3 % (2.0-12.0); NEUTROPHILS % (AUTO) 58.4 % (43.0-81.0); PLATELET COUNT (AUTO) 219 /CMM (150-450); RED BLOOD CELL COUNT(AUTO) 3.76 MIL/uL (4.5-6.0)
[2018-09-03 23:13] LABS: CALCIUM, SERUM 7.6 mg/dL (8.5-10.1); CREATININE 0.8 mg/dL (0.6-1.3); POTASSIUM 3.9 mmol/L (3.5-5.1)
[2018-09-03 23:28] LABS: ALBUMIN 2.3 g/dL (3.4-5.0); BILIRUBIN,DIRECT 1.1 mg/dL (0.0-0.2); BILIRUBIN,TOTAL 1.8 mg/dL (0.2-1.0); TOTAL PROTEIN, SERUM 5.7 g/dL (6.4-8.2)
[2018-09-03] MEDS ORDERED: CEFTRIAXONE 1GM BAG (ER ONLY) 50 ML IV ONE (23:58)
--- NOTE | 2018-09-03 23:58 | NUR ---
blood culture was drawn and rocephine given as ordered. infusion time: 09/04/18 @ 0028 .
[2018-09-04] MEDS ORDERED: CEFTRIAXONE 1 G in IV D5W 50 ML IV ONE ×2
--- NOTE | 2018-09-04 00:04 | NUR ---
CALLED NURSING SUP FOR BED
[2018-09-04 00:05] LABS: EOSINOPHILS % (MANUAL) 3 % (0-4); LYMPHOCYTES % (MANUAL) 14 % (16-48); MONOCYTES % (MANUAL) 20 % (0-11.0); NEUTROPHILS % (MANUAL) 63 (42-76)
--- NOTE | 2018-09-04 00:08 | NUR ---
BED 200
[2018-09-04] MEDS ORDERED: SILVER SULFADIAZINE CREAM 25 GM TUBE ONE (00:34)
--- NOTE | 2018-09-04 04:19 | NUR ---
Patient is resting comfortably in bed with eyes closed. Easily aroused. VSS
--- NOTE | 2018-09-04 07:04 | NUR ---
PT IN BED RESTING COMFORTABLY. BREATHING EVENLY. NO SOB. REMAINED ON CONTINUOUS MONITORING W/ NO ACUTE EVENT DURING THE NIGHT. WILL CONT TO MONITOR AND WILL ENDORSE TO AM SHIFT FOR KELLY AND F/U.
--- NOTE | 2018-09-04 07:12 | NUR ---
ASSUME PT CARE. SLEEPING IN BED. AROUSABLE. ON MONITOR. STABLE VITALS.
--- NOTE | 2018-09-04 09:46 | NUR ---
Social service consult requested by BRETT Krueger for homelessness and alcohol use. Pt. is a 53 year old male who was brought to [facility] ED for weakness and alcohol intoxication. JAY and director of event marketing Mariela Jang met with pt. bedside in ED. JAY is very familiar with pt. from previous admissions with the recent discharge date of 09/01/18. Pt. refused to cooperate. Pt. had the sheet over his face. Pt. ambulates with a walker. His walker was outside the room with all his belongings. Pt. is not appropriate for homeless shelters due to his medical needs. Case management to assist with placement for this pt.
--- NOTE | 2018-09-04 09:55 | NUR ---
PT IS AWAKE. PROVIDED W/ FOOD TRAY. STABLE VITALS.
[2018-09-04] MEDS ORDERED: FURO-145 PO (10:59)
[2018-09-04] MEDS ORDERED: SPIR50TA PO (10:59)
[2018-09-04] MEDS ORDERED: THIA100T74 PO (10:59)
[2018-09-04] MEDS ORDERED: FOLI1TAB16 PO (10:59)
--- NOTE | 2018-09-04 11:20 | NUR ---
PT NOW REFUSING BLOOD RE DRAW.
[2018-09-04 12:23] LABS: BASOPHILS # (AUTO) 0.2 /CMM (0.0-0.2); BASOPHILS % (AUTO) 1.4 % (0.0-2.0); EOSINOPHILS % (AUTO) 2.3 % (0.0-6.0); HEMATOCRIT 29 % (39-51); HEMOGLOBIN 9.6 g/dL (13.5-17.5); LYMPHOCYTES # (AUTO) 1.2 /CMM (0.8-4.8); MEAN CORPUSCULAR HGB CONC 33 g/dl (31.0-36.0); MEAN CORPUSCULAR VOLUME 80 fL (80-96); MONOCYTES % (AUTO) 32.3 % (2.0-12.0); NEUTROPHILS # (AUTO) 6.7 /CMM (1.8-8.9); PLATELET COUNT (AUTO) 200 /CMM (150-450); RED BLOOD CELL COUNT(AUTO) 3.65 MIL/uL (4.5-6.0); WHITE BLOOD COUNT (AUTO) 12.3 K/uL (4.3-11.0)
[2018-09-04 12:32] LABS: CALCIUM, SERUM 7.9 mg/dL (8.5-10.1); CARBON DIOXIDE 24 mmol/L (21-32); CHLORIDE 99 mmol/L (98-107); CREATININE 0.8 mg/dL (0.6-1.3); GLUCOSE 116 mg/dL (74-106); SODIUM SERUM 133 mmol/L (136-145); UREA NITROGEN, BLOOD 9 mg/dL (7-18)
[2018-09-04 12:38] LABS: ALANINE AMINOTRANSFERASE 31 U/L (12-78); ALBUMIN 2.1 g/dL (3.4-5.0); ALCOHOL, BLOOD 117 mg/dL (0-0); ALKALINE PHOSPHATASE 482 U/L (46-116); ASPARTATE AMINOTRANSFERASE 64 U/L (15-37); BILIRUBIN,DIRECT 1.2 mg/dL (0.0-0.2); TOTAL PROTEIN, SERUM 5.6 g/dL (6.4-8.2)
--- NOTE | 2018-09-04 12:41 | NUR ---
PT RESTING IN BED. MEAL TRAY PROVIDED. ALL NEEDS ATTENDED.
--- NOTE | 2018-09-04 14:14 | NUR ---
310-2 M/S DX FAILURE TO THRIVE
--- NOTE | 2018-09-04 15:05 | NUR ---
REPORT GIVEN TO ERIKA CISNEROS. PT AWAITING TRANSFER TO FLOOR.
[2018-09-04 15:50] VITALS: BP 124/67
--- NOTE | 2018-09-04 15:50 | NUR ---
MS FOOD SERVER NOTES PATIENT ADMITTED FROM ER IN STABLE CONDITION REPORT GIVEN BY EDNA. ALERT ORIENTED X 4. NO ACUTE DISTRESS NOTED. BREATHING UNLABORED, IV ACCESS PATENT AND INTACT. NEEDS ATTENDED AND ANTICIPATED. PATIENT SHOUTING REFUSED BODY ASSESSMENT AND PHOTO TAKEN DESPITE OF EXPLANATION OF RISKS AND BENEFITS. SAFETY MEASURES IN PLACE. CALL LIGHT WITHIN REACH. WILL CONTINUE TO MONITOR ACCORDINGLY.
--- NOTE | 2018-09-04 15:50 | NUR ---
MS PREMIUM CARD CANCELLATION CLERK NOTES PATIENT ADMITTED FROM ER IN STABLE CONDITION, REPORT GIVEN BY EDNA CISNEROS. NO ACUTE DISTRESS NOTED. BREATHING UNLABORED, IV ACCESS PATENT AND INTACT. NEEDS ATTENDED AND ANTICIPATED. PATIENT SHOUTING REFUSED BODY ASSESSMENT AND PHOTO TAKEN DESPITE OF EXPLANATION OF RISK AND BENEFITS. SAFETY MEASURES IN PLACE. CALL LIGHT WITHIN REACH. WILL CONTINUE TO MONITOR ACCORDINGLY. Addendum: 09/04/18 at 1848 by ABHILASH HOLMAN RN DISREGARD ABOVE NOTES
[2018-09-04 17:00] VITALS: BP 124/67
[2018-09-04] MEDS ORDERED: LORAZEPAM INJ 2 MG/ML VIAL IV PRN (17:00)
[2018-09-04] MEDS ORDERED: ONDANSETRON HCL/PF 4 MG/2 ML VIAL IVP PRN (17:00)
[2018-09-04] MEDS ORDERED: FEE PK DOSING 1 MIN EA MC ONE (17:29)
[2018-09-04] MEDS: PIPERACILLIN /TAZOBACTAM 3.375 G in IV D5W 50 ML IV SCH (18:03)
[2018-09-04] MEDS: IV NS 0.9% 1,000 ML IV PRN (18:03)
[2018-09-04] MEDS: PANTOPRAZOLE 40 MG TABLET.DR PO SCH (18:05)
--- NOTE | 2018-09-04 18:43 | NUR ---
BUSINESS REPRESENTATIVE NOTES CLARIFIED WITH AUGUSTUS HOUSTON REGARDING SEPSIS PROTOCOL ORDERS, AUGUSTUS HOUSTON SAID TO GIVE FLUID ORDERED NS @50 MLS/HR, ZOSYN IV AND VANCOMYCIN IV ORDERED.
[2018-09-04 18:55] LABS: BILIRUBIN,DIRECT 1.2 mg/dL (0.0-0.2); BILIRUBIN,TOTAL 1.9 mg/dL (0.2-1.0)
--- NOTE | 2018-09-04 18:58 | NUR ---
MS RN NOTES PATIENT IN BED ALERT ORIENTED X 4. NO ACUTE DISTRESS NOTED, BREATHING UNLABORED, NO SOB NOTED. IV ACCESS PATENT AND INTACT, NO REDNESS NO SWELLING NOTED. DUE MEDICATION GIVEN GIVEN, NO ASE NOTED. NEEDS ATTENDED AND ANTICIPATED. SAFETY MEASURES IN PLACE. CALL LIGHT WITHIN REACH. WILL ENDORSE TO NIGHT NURSE FOR CONTINUITY OF CARE.
--- NOTE | 2018-09-04 19:00 | NUR ---
HOT STRIP MILL INSPECTOR NOTES VANCOMYCIN IV NOT AVAILABLE YET AT THIS TIME, CALLED PHARMACIST SPOKE WITH ALFONSO , VANCOMYCIN WILL BE DELIVERED AT THE FLOOR SOON. ENDORSED TO NIGHT NURSE FOR FOLLOW UP AND ADMINISTRATION OF VANCOMYCIN IV.
[2018-09-04] MEDS: VANCOMYCIN 1 GM in IV D5W 250 ML IV SCH (19:46)
--- NOTE | 2018-09-04 19:58 | NUR ---
RN OPENING NOTES RECEIVED PATIENT AWAKE IN BED. PATIENT IS A/O X4. NO SIGNS OF RESPIRATORY DISTRESS. NO S/S OF SOB OR PAIN AT THIS TIME. IV SITE PATENT AND INTACT. SAFETY PRECAUTIONS IMPLEMENTED. CALL LIGHT WITHIN REACH. WILL CONTINUE TO MONITOR PATIENT THROUGHOUT THE SHIFT.
[2018-09-04 20:00] VITALS: BP 124/67
[2018-09-04] MEDS: MORPHINE SULFATE INJ 2 MG/ML DISP.SYRIN IV PRN (20:11)
--- NOTE | 2018-09-04 20:33 | NUR ---
RN NOTES CURRENT TELE READING IS SR 97. PATIENT NONCOMPLIANT WITH TELE MONITOR AT THE BEGINNING OF THE SHIFT. PATIENT COMPLIANT NOW.
--- NOTE | 2018-09-04 23:06 | NUR ---
RN NOTES DR. ALFARO AWARE OF CURRENT CRITICAL LACTIC ACID VALUE OF 2.3. WILL CONTINUE ABX AND FLUIDS.
--- NOTE | 2018-09-04 23:28 | NUR ---
patient is well known to returned case inspector from his multiple ER visits and readmissions. He was recently discharged on 09/01/18 now readmitted with need of placement. 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 He is non-compliant with treatments and meds, has very limited support system. Robyn Lee / Ximena Rodríguez - are his pack worker supervisor [facility] [phone]. Will discuss with IPA returned case inspector regarding dc planning for possible SNF placement. Addendum: 09/04/18 at 5521 by EKTA SORIANO RN Amended: Links added.
[2018-09-05] VITALS (7 sets, daily range): BP systolic 116–132; BP diastolic 63–77
[2018-09-05] MEDS: PIPERACILLIN /TAZOBACTAM 3.375 G in IV D5W 50 ML IV SCH ×5 (00:14→23:14)
[2018-09-05] MEDS: VANCOMYCIN 1 GM in IV D5W 250 ML IV SCH ×2 (05:04→20:26)
[2018-09-05 06:43] LABS: BASOPHILS # (AUTO) 0.1 /CMM (0.0-0.2); BASOPHILS % (AUTO) 1.5 % (0.0-2.0); EOSINOPHILS % (AUTO) 1.7 % (0.0-6.0); HEMATOCRIT 27 % (39-51); HEMOGLOBIN 8.9 g/dL (13.5-17.5); LYMPHOCYTES % (AUTO) 10.5 % (20.0-44.0); MEAN CORPUSCULAR HGB CONC 33 g/dl (31.0-36.0); MEAN CORPUSCULAR VOLUME 79 fL (80-96); MONOCYTES # (AUTO) 2.9 /CMM (0.1-1.30); MONOCYTES % (AUTO) 30.7 % (2.0-12.0); NEUTROPHILS # (AUTO) 5.3 /CMM (1.8-8.9); NEUTROPHILS % (AUTO) 55.6 % (43.0-81.0); PLATELET COUNT (AUTO) 129 /CMM (150-450); RED BLOOD CELL COUNT(AUTO) 3.38 MIL/uL (4.5-6.0); WHITE BLOOD COUNT (AUTO) 9.5 K/uL (4.3-11.0)
--- NOTE | 2018-09-05 06:48 | NUR ---
RN CLOSING NOTES PATIENT IS IN BED A/O X 4. NO RESPIRATORY DISTRESS NOTED. NO SOB NOTED. IV ACCESS PATENT AND INTACT. DUE MEDICATION GIVEN. ALL NEEDS ATTENDED. CURRENT TELE READING IS SR 99. SAFETY PRECAUTIONS IMPLEMENTED. CALL LIGHT WITHIN REACH. WILL ENDORSE TO AM NURSE FOR CONTINUITY OF CARE.
[2018-09-05 07:04] LABS: THYROID STIMULATING HORMONE 3.082 uIU/mL (0.358-3.74)
[2018-09-05 07:08] LABS: BILIRUBIN,TOTAL 3.4 mg/dL (0.2-1.0); CALCIUM, SERUM 7.8 mg/dL (8.5-10.1); CREATININE 0.9 mg/dL (0.6-1.3); MAGNESIUM 1.8 mg/dL (1.8-2.4); PHOSPHORUS 2.8 mg/dL (2.5-4.9); POTASSIUM 3.6 mmol/L (3.5-5.1); TOTAL PROTEIN, SERUM 5.3 g/dL (6.4-8.2)
--- NOTE | 2018-09-05 07:30 | NUR ---
CONTRACT SHELTERED WORKSHOP SUPERVISOR OPENING NOTE RECEIVED PT IN BED, RESTING WITH EYES CLOSED AND EASILY AROUSABLE. PT IS ALERT AND ORIENTED X3-4, DENIES CHEST PAIN, SOB, N/V, BREATHING IS EVEN AND UNLABORED ON ROOM AIR. PT ON GENERAL SURGERY PHYSICIAN ASSISTANT WITH SINUS RHYTHM, HR 94 AT THIS TIME. RIGHT FA #20G IS INFUSING NS @ 50ML/HR WITHOUT REDNESS OR SWELLING. SITTER AT THE BEDSIDE FOR SAFETY. SEIZURE AND ASPIRATION PRECAUTIONS MAINTAINED. ALL NEEDS ATTENDED TO. BED IS LOCKED AND IN LOWEST POSITION, SIDE RAILS UP X3, BED ALARM ON, CALL LIGHT AND POSSESSIONS WITHIN REACH.
[2018-09-05] MEDS: SPIRONOLACTONE 25 MG TABLET PO SCH (08:58)
--- NOTE | 2018-09-05 08:58 | NUR ---
NUCLEAR PHYSICS TEACHER NOTE AM ALDACTONE HELD PENDING IMMINENT THORACENTESIS.
[2018-09-05] MEDS: FUROSEMIDE 20 MG/2 ML VIAL IV SCH (08:59)
[2018-09-05] MEDS: THIAMINE HCL 100 MG TABLET PO SCH (08:59)
[2018-09-05] MEDS: FERROUS SULFATE (325 MG) 325 MG/TAB TABLET PO SCH ×2 (08:59→17:00)
[2018-09-05] MEDS: FOLIC ACID 1 MG TABLET PO SCH (08:59)
[2018-09-05] MEDS: MULTIVITAMINS,THERAGRAN 1 UDTAB TABLET PO SCH (08:59)
[2018-09-05] MEDS: PANTOPRAZOLE 40 MG TABLET.DR PO SCH (09:22)
--- NOTE | 2018-09-05 10:00 | NUR ---
MS RN NOTE DR. SMITH AT THE BEDSIDE FOR ASSESSMENT, PT ALLOWED HIM TO CHANGE DRESSING ON LOWER RIGHT EXTREMITY, DID NOT ALLOW FOR FULL SKIN ASSESSMENT OR PICTURES AT THIS TIME. EDUCATION PROVIDED, PT STILL STRONGLY REFUSING.
[2018-09-05] MEDS ORDERED: LACTULOSE 10 G/15 ML UDC (PYXIS) PO PRN (10:30)
--- NOTE | 2018-09-05 10:34 | NUR ---
10:05 PATIENT REFUSED PARACENTESIS. HE WANTS TO EAT FIRST. RNCONNIE , WAS INFORMED
--- NOTE | 2018-09-05 10:47 | NUR ---
INFECTIOUS DISEASE TECHNICIAN NOTE PT REFUSING PARACENTESIS AT THIS TIME. EDUCATION PROVIDED ON RISKS AND BENEFITS, PT STILL REFUSING AT THIS TIME. INFORMED PRIMARY HOSPITALIST DONAL HOUSTON NP.
--- NOTE | 2018-09-05 10:50 | NUR ---
ASSOCIATE LOAN OFFICER NOTE PT REFUSING LAB DRAW AT THIS TIME. RISKS AND BENEFITS EXPLAINED, PT STILL REFUSING AT THIS TIME.
--- NOTE | 2018-09-05 10:51 | NUR ---
10:50 FOLLOWED UP WITH RN. PER RN HE IS REFUSING AND UTILITY PORTER TALKING TO PATIENT. RN, CONNIE , WILL CALL ME SHORTLY FOR THE UPDATES.
--- NOTE | 2018-09-05 11:12 | NUR ---
WOUND CARE CONSULT: PT REFUSED SKIN ASSESSMENT. DISCUSSED SKIN PROTCTION WITH NURSING STAFF. WILL SEE PRN. PAYTON IN AGREEMENT WITH PLAN OF CARE.
--- NOTE | 2018-09-05 11:15 | NUR ---
JAY met with pt. bedside. JAY is familiar with pt. from several previous admissions. Pt's last admission was on August 25, 2018. Pt. refused to go to a SNF placement at time of discharge on previous admission. Pt. is linked to services through [facility]. Pt. is alert and oriented x 3. Pt. is friendly and cooperative with SW during the assessment. Pt. appears dirty and disheveled. Pt. appears weak and stated, " I am feeling very cold." Pt. has three blankets on him, SW gave him another blanket. Pt. is a severe alcoholic and drinks daily. Pt. is being referred to a SNF placement if deemed appropriate or will be discharged to a board and care. Pt. ambulates with a walker. Pt. is not homeless long-term appropriate at this time due to medical concerns. Pt. is very non-compliant with his care. JAY has tried to encourage pt. several times to attend an alcohol treatment program, however pt. continues to decline and is not motivated to change. SW is available, if needed.
[2018-09-05] MEDS ORDERED: Z GUARD REMEDY 2 OZ OINT TP PRN (11:30)
[2018-09-05] MEDS: Z GUARD REMEDY 2 OZ OINT TP SCH (11:30)
[2018-09-05] MEDS: IV NS 0.9% 1,000 ML IV PRN (12:12)
--- NOTE | 2018-09-05 12:15 | NUR ---
MS RN NOTE PT REFUSING TO ALLOW ABD ULTRASOUND TO BE COMPLETED. EDUCATION PROVIDED, PT STILL STRONGLY REFUSING. PLEASE SEE ABD US REPORT.
--- NOTE | 2018-09-05 14:05 | NUR ---
INSOLE AND OUTSOLE SPLITTER REQUEST 6 BOTTLES/6300 ML FLUID WAS TAKEN FROM BLAYNE MEANS CONFIRMED
--- NOTE | 2018-09-05 14:50 | NUR ---
MS RN NOTE CRITICAL VALUE OF LACTIC ACID 2.4 REPORTED PER PROTOCOL TO DONAL HOUSTON NP. ORDERS RECEIVED AND INITIATED.
[2018-09-05] MEDS: MORPHINE SULFATE INJ 2 MG/ML DISP.SYRIN IV PRN ×2 (16:03→20:25)
[2018-09-05] MEDS ORDERED: IV NS 0.9% 500 ML IV ONE (17:00)
--- NOTE | 2018-09-05 18:00 | NUR ---
MS RN NOTE RAPID FLU OBTAINED ORDERED, INFORMED SOODA IN LAB FOR SHELL MOLDING ROLLER BLAST OPERATOR
--- NOTE | 2018-09-05 18:05 | NUR ---
MS RN PT TRANSFER NOTE PT TRANSFERRED TO ROOM 208-2. PT IN BED, RESTING WITH EYES CLOSED AND EASILY AROUSABLE. PT IS ALERT AND ORIENTED X3-4, DENIES CHEST PAIN, SOB, N/V, BREATHING IS EVEN AND UNLABORED ON ROOM AIR. RIGHT FA #20G IS INFUSING ORDERED WITHOUT REDNESS OR SWELLING. SITTER AT THE BEDSIDE FOR SAFETY. SEIZURE AND ASPIRATION PRECAUTIONS MAINTAINED. ADLS AND WOUND CARE PROVIDED ORDERED AND PT ASSISTED TO TURN AND REPOSITION Q2H FOR THE DURATION OF THE SHIFT. ALL NEEDS ATTENDED TO. BED IS LOCKED AND IN LOWEST POSITION, SIDE RAILS UP X3, BED ALARM ON, CALL LIGHT AND POSSESSIONS WITHIN REACH. REPORT GIVEN TO BLAYNE JAMES FOR CONTINUITY OF CARE.
--- NOTE | 2018-09-05 19:00 | NUR ---
MS RN NOTES PATIENT IN BED ALERT ORIENTED X 3-4. NO ACUTE DISTRESS NOTED. BREATHING UNLABORED. NO SOB NOTED. IV ACCESS PATENT AND INTACT, NO REDNESS OR SWELLING NOTED. NEEDS ATTENDED AND ANTICIPATED. SITTER AT BEDSIDE. SAFETY MEASURES IN PLACE. STILL RUNNING ZOSYN ANTIBIOTIC AND NS WIDE OPEN, ENDORSED TO NIGHT NURSE VANCOMYCIN ADMINISTRATION AND CONTINUITY OF CARE.
--- NOTE | 2018-09-05 19:42 | NUR ---
rn initial notes: received report from meghna. pt in bed, s/p paracentesis today with 6300ml fluid removed. pt a/o x3 on ra respiration even and unlabored, sitter at bed side. rfa iv access patent and flushing well,infusing with ns at 50ml/hr. noted abdominal distention. pt refusing skin check and assessing abdomen area. pt received bolus and iv antibiotic due to elevated lactic acid. repeat lactic acid order for 1999. discussed plan of care to pt. safety precautions for fall initiated, call light in reach, will continue monitoring pt
--- NOTE | 2018-09-05 19:45 | NUR ---
rn notes: pt strongly refused body assessment, sitter at bed side witness, pt will only allow to cover his toes and feet, other than that he doesn't want any skin/body check, refused photo documentation, education provided to the pt
--- NOTE | 2018-09-05 20:03 | NUR ---
RN NOTES: CENTRIFUGAL CASTING MACHINE TENDER IN THE UNIT TO DRAW BLOOD, LACTIC ACID SCHED FOR 1999
[2018-09-05] MEDS: ACETAMINOPHEN 325 MG TABLET PO PRN (20:08)
--- NOTE | 2018-09-05 20:10 | NUR ---
PRN TYLENOL: PT TEMP IS 100.3, PRN TYLENOL 650 MG TAB PO ADMINISTERED TO THE PT AT THIS TIME, PT REFUSED COOLING MEASURES, REFUSED ICE PACK AND REFUSED REMOVING BLANKET, EDUCATION PROVIDED TO THE PT.
--- NOTE | 2018-09-05 20:27 | NUR ---
PRN MORPHINE: PT C/O 01/22 GENERALIZED PAIN REQUESTING FOR MORPHINE, PRN MORPHINE 0.5ML IVP ADMINISTERED TO THE PT AT THIS TIME, VS TAKEN AND RECORDED PRIOR TO ADMINISTERING MEDS. EDUCATION PROVIDED TO PT REGARDING ACTION AND SIDE EFFECTS. LATE ADMIN OF VANCOMYCIN IV, PT PER DAY RN REPORT RECEIVED BOLUS AND ZOSYN, THOSE JUST COMPLETED. NOW ADMINISTERING THE IV VANCOMYCIN ORDERED
--- NOTE | 2018-09-05 21:30 | NUR ---
rn notes: pt drink total of 240ml of juice, ate 2 packets of crackers, and half egg sand which
--- NOTE | 2018-09-05 22:00 | NUR ---
rn notes: pt refused to be turn and repositioned at this time, education provided to the pt regarding possibility of developing pressure ulcer
--- NOTE | 2018-09-06 | NUR ---
REFUSAL FOR REPOSITION: pt refused to be turn and repositioned at this time, educate pt about developing pressure sore, risk
[2018-09-06 00:49] VITALS: BP 128/67
[2018-09-06] MEDS: MORPHINE SULFATE INJ 2 MG/ML DISP.SYRIN IV PRN ×6 (00:50→22:07)
--- NOTE | 2018-09-06 00:50 | NUR ---
PRN MORPHINE: PT C/O 01/22 GENERALIZED PAIN, REQUESTING FOR MORPHINE, PRN MORPHINE 1MG IVP ADMINISTERED TO THE PT AT THIS TIME, VS TAKEN AND RECORDED PRIOR TO ADMINISTERING MEDICATION. WILL CONTINUE TO MONITOR AND REASSESS PT
[2018-09-06 05:00] VITALS: BP 118/67
--- NOTE | 2018-09-06 05:08 | NUR ---
PRN MORPHINE: PT C/O GENERALIZED PAIN PS 10/ REQUESTING FOR HIS PAIN MEDICATION. PRN MORPHINE 1MG IVP ADMINISTERED TO THE PT AT THIS TIME, WILL CONTINUE TO MONITOR AND REASSESS PT
[2018-09-06] MEDS: PIPERACILLIN /TAZOBACTAM 3.375 G in IV D5W 50 ML IV SCH ×2 (05:09→11:02)
--- NOTE | 2018-09-06 06:15 | NUR ---
rn notes: vanco trough drawn at 0500am, awaiting result, vancomycin iv schedule for 0600am, will determine whether it will be administer or not, awaiting result from lab
[2018-09-06] MEDS: IV NS 0.9% 1,000 ML IV PRN (06:20)
--- NOTE | 2018-09-06 06:53 | NUR ---
rn closing notes: pt in bed, awake, last pain meds administered at 0500am. seizure precautions maintained and followed. iv access remains patent and flushing well, infusing with ns at 50ml/hr. pt remains to refused skin check, also refused to touch his leg and refused for any dressing change. refused turning and repositioning. education provided to the pt. abdomen remains distended. condom cath remains in placed. vs remains stable, needs attended. still waiting for vanco trough result. safety precautions for fall remains engaged, call light in reach, will endorse to day rn for continuity of care.
--- NOTE | 2018-09-06 07:05 | NUR ---
RN OPENING NOTE PT WAS RECEIVED RESTING IN BED AT LOWEST AND LOCKED POSITION WITH SIDE RAILS UP 2, A/O X3 BREATHING EVEN AND UNLABORED ON RA, NO S/S OF ANY DISTRESS OR PAIN NOTED AT THIS TIME, IV IS PATENT AND INTACT, NOTED TO HAVE CONDOM CATH IN PLACE, REFUSED TO HAVE PHOTOS OF SACRAL WOUND/LEFTHIP/LEFT LEG, AND UPPER BACK TO BE TAKEN. NOTED TO HAVE REFUSED TURNING LAST NIGHT. HOLDING ANTICOAG DUE TO H/H TRENDING DOWN, SITTER PRESENT AT BEDSIDE, SAFETY PRECAUTIONS IN PLACE, CALL LIGHT WITHIN REACH, WILL MONITOR PT ACCORDINGLY.
[2018-09-06 08:00] VITALS: BP 110/60
[2018-09-06 08:14] LABS: BASOPHILS # (AUTO) 0.1 /CMM (0.0-0.2); EOSINOPHILS % (AUTO) 3.9 % (0.0-6.0); HEMATOCRIT 25 % (39-51); HEMOGLOBIN 8.3 g/dL (13.5-17.5); LYMPHOCYTES # (AUTO) 0.9 /CMM (0.8-4.8); LYMPHOCYTES % (AUTO) 13.5 % (20.0-44.0); MEAN CORPUSCULAR HGB CONC 33 g/dl (31.0-36.0); MEAN CORPUSCULAR VOLUME 79 fL (80-96); MONOCYTES # (AUTO) 1.8 /CMM (0.1-1.30); MONOCYTES % (AUTO) 26.9 % (2.0-12.0); NEUTROPHILS # (AUTO) 3.6 /CMM (1.8-8.9); NEUTROPHILS % (AUTO) 54.7 % (43.0-81.0); PLATELET COUNT (AUTO) 85 /CMM (150-450); RED BLOOD CELL COUNT(AUTO) 3.14 MIL/uL (4.5-6.0); WHITE BLOOD COUNT (AUTO) 6.6 K/uL (4.3-11.0)
[2018-09-06] MEDS: PANTOPRAZOLE 40 MG TABLET.DR PO SCH (08:30)
[2018-09-06] MEDS: SPIRONOLACTONE 25 MG TABLET PO SCH (08:30)
[2018-09-06] MEDS: FERROUS SULFATE (325 MG) 325 MG/TAB TABLET PO SCH ×2 (08:30→16:42)
[2018-09-06] MEDS: MULTIVITAMINS,THERAGRAN 1 UDTAB TABLET PO SCH (08:30)
[2018-09-06] MEDS: THIAMINE HCL 100 MG TABLET PO SCH (08:30)
[2018-09-06] MEDS: FOLIC ACID 1 MG TABLET PO SCH (08:30)
[2018-09-06] MEDS: FUROSEMIDE 20 MG/2 ML VIAL IV SCH ×2 (08:31→16:43)
[2018-09-06] MEDS: Z GUARD REMEDY 2 OZ OINT TP SCH (08:31)
[2018-09-06 08:36] LABS: ALBUMIN 1.8 g/dL (3.4-5.0); BILIRUBIN,TOTAL 2.4 mg/dL (0.2-1.0); CALCIUM, SERUM 7.5 mg/dL (8.5-10.1); MAGNESIUM 1.7 mg/dL (1.8-2.4); PHOSPHORUS 2.7 mg/dL (2.5-4.9); TOTAL PROTEIN, SERUM 4.8 g/dL (6.4-8.2)
[2018-09-06] MEDS: VANCOMYCIN 1 GM in IV D5W 250 ML IV SCH ×2 (08:48→17:17)
--- NOTE | 2018-09-06 08:54 | NUR ---
RN NOTE VANCO TROUGH RESULT CAME BACK AND RESULTED IN A LEVEL OF 13, VANCO GIVEN AT THIS TIME.
[2018-09-06 10:10] LABS: EOSINOPHILS % (MANUAL) 6 % (0-4); LYMPHOCYTES % (MANUAL) 14 % (16-48); MONOCYTES % (MANUAL) 26 % (0-11.0); NEUTROPHILS % (MANUAL) 54 (42-76)
--- NOTE | 2018-09-06 10:17 | NUR ---
RN NOTE PT HAD CONDOM CATH ON BUT REMOVED IT DUE TO HIM NOT WANTING IT ANYMORE STATING IT WAS GETTING IN HIS WAY
--- NOTE | 2018-09-06 10:30 | NUR ---
RN NOTE NEW IV INSERTED IN LFA GAUGE 22 AT THIS TIME
[2018-09-06] MEDS: POTASSIUM CL. PREMIX PERIPHER. 50 ML IV SCH ×6 (10:41→16:42)
--- NOTE | 2018-09-06 11:15 | NUR ---
RN NOTE PT STILL REFUSED FOR PHOTOS OF SKIN WOUNDS TO BE TAKEN, HOWEVER HE ALLOWED ME TO PLACE SOME Z GUARD AND MEPILEX ON HIS SACRUM AT THIS TIME. WILL MONITOR ACCORDINGLY.
[2018-09-06] MEDS: Magnesium 1GM/D5W 100ML PREMIX 100 ML IV SCH ×2 (12:05→13:02)
[2018-09-06] MEDS: LACTULOSE 10 G/15 ML UDC (PYXIS) PO SCH ×2 (12:06→16:43)
--- NOTE | 2018-09-06 12:42 | NUR ---
RN NOTE PT REQUESTED FOR POTASSIUM TO BE DISCONNECTED AT THIS TIME DUE TO CAUSING HIM PAIN. HE WAS INFORMED THAT THE POTASSIUM WOULD CAUSE SOME PAIN WHEN INFUSED AND THAT IT WAS ALREADY RUNNING AT A SLOW RATE AND INFUSING WITH SALINE WELL. WILL ATTEMPT TO CONTINUE INFUSION LATER AND WILL MONITOR PT ACCORDINGLY
[2018-09-06 16:00] VITALS: BP 105/62
[2018-09-06] MEDS: RIFAXIMIN 550 MG TABLET PO SCH (16:43)
--- NOTE | 2018-09-06 18:10 | NUR ---
RN NOTE PT REFUSED THE LAST TWO BAGS OF IV POTASSIUM AT THIS TIME STATING HE HAS HAD ENOUGH OF THE POTASSIUM AND THE BURNING SENSATION SO HE DOES NOT WANT THE OTHER TWO BAGS THAT ARE DUE. HE WAS INFORMED OF HIS POTASSIUM LEVEL AND WHY HE NEED THE LAST TWO IV POTASSIUM BAGS BUT HE IS ADAMANT ON NOT WANTING MORE.
--- NOTE | 2018-09-06 18:20 | NUR ---
RN CLOSING NOTE PT IN BED AT LOWEST AND LOCKED POSITION WITH SIDE RAILS UP X2, A/O X3 BREATHING EVEN AND UNLABORED ON RA, IV MORPHINE WAS JUST GIVEN FOR GENERALIZED PAIN OF 9-10, IV ARE PATENT AND INTACT, ALL NEEDS WERE ATTENDED TO, SAFETY PRECAUTIONS IN PLACE, CALL LIGHT WITHIN REACH, WILL ENDORSE TO SLATE SPLITTER RN FOR KELLY.
--- NOTE | 2018-09-06 18:55 | NUR ---
RN NOTE DONAL HOUSTON QUALITY COMPLIANCE COORDINATOR NOTIFIED OF PATIENT REFUSAL OF LAST 2 BAGS OF IV POTASSIUM, ORDERED 40 MEQ OF PO POTASSIUM AT THIS TIME, WILL IMPLEMENT AND CARRY OUT.
[2018-09-06] MEDS ORDERED: POTASSIUM CHLORIDE 20 MEQ TAB.PRT.SR PO ONE (19:00)
--- NOTE | 2018-09-06 19:30 | NUR ---
rn initial notes: received report from verenice. pt in bed, a/o x3 on ra respiration even and unlabored, sitter at bed side. rfa iv access patent and flushing well,another iv access lfa g 22, on hl. noted abdominal distention, dressing in placed, no active bleeding noted. pt s/p paracentesis 09/05/18. discussed plan of care to pt. safety precautions for fall initiated, call light in reach, will continue monitoring pt
--- NOTE | 2018-09-06 19:30 | NUR ---
RN NOTES": CONTACTED LAB TO MANAGER WOUND CARE URINE SPECIMEN
[2018-09-06 20:00] VITALS: BP 112/66
--- NOTE | 2018-09-06 20:30 | NUR ---
RN NOTES: CONTACTED LAB O CERTIFIED OPHTHALMIC TECHNOLOGIST STOOL SPECIMEN
--- NOTE | 2018-09-06 21:00 | NUR ---
RN NOTES: PT ON LACTULOSE TID, RECEIVED THIS AFTERNOON. AMMONIA LEVEL ELEVATED
[2018-09-06 21:22] LABS: APPEARANCE,URINE CLEAR (CLEAR); BILIRUBIN,URINE NEGATIVE (NEGATIVE); BLOOD, URINE NEGATIVE Ery/uL (NEGATIVE); COLOR,URINE YELLOW (YELLOW); KETONES,URINE NEGATIVE (NEGATIVE); LEUKOCYTE ESTERASE ,URINE NEGATIVE (NEGATIVE); NITRITE, URINE NEGATIVE (NEGATIVE); PROTEIN,URINE NEGATIVE (NEGATIVE); UGLUCOSE NEGATIVE (NEGATIVE)
[2018-09-06 21:25] LABS: BACTERIA,URINE None seen /HPF (None Seen); RBC,URINE 0-2 /HPF (0-2); SQUAMOUS EPITHELIAL CELL,UR Few /HPF (None Seen); WBC,URINE 0-2 /HPF (0-3)
--- NOTE | 2018-09-06 21:33 | NUR ---
RN NOTES: HAD LIQUID BM, WASHED PT, WOUND CARE DONE FOR SACRAL WOUND, PT STILL REFUSED FOR TAKING PICTURE OR TOUCHING WOUND, ONLY AGREE TO PUT MEPILEX AND Z GUARD ON THE WOUND
[2018-09-06 21:36] LABS: OCCULT BLOOD STOOL NEGATIVE (NEGATIVE)
[2018-09-06 22:00] VITALS: BP 118/60
--- NOTE | 2018-09-06 22:00 | NUR ---
rn notes: reoffer to pt to do picture taking for skin issue but pt refused, stated he doesn't need those, inform pt there is a wound care nurse who can check and prescribe appropriate treatment for the wounds, pt doesn't listen and started yelling a dn raising his voice towards staff. informed pt i will just measure the wounds but pt very uncooperative, and making his body so stiff, no male rn to help us tonight only female sitter/community service aide, pt refused for picture taking and wound measuring, only wants zguard and mepilex for wounds, education provided to pt
--- NOTE | 2018-09-06 22:07 | NUR ---
prn morphine: pt c/o generalized pain ps 01/22 requesting for morphine, prn morphine 1mg ivp administered to the pt at this time, will continue to monitor and reassess pt
[2018-09-07 02:00] VITALS: BP 116/64
[2018-09-07] MEDS: IV NS 0.9% 1,000 ML IV PRN (02:05)
[2018-09-07] MEDS: MORPHINE SULFATE INJ 2 MG/ML DISP.SYRIN IV PRN ×4 (02:07→14:43)
--- NOTE | 2018-09-07 02:07 | NUR ---
PRN MORPHINE: PT C/O GENERALIZED PAIN CLAIMED PAIN SCALE 10/10 REQUESTING FOR MORPHINE, PRN MORPHINE 1MG IVP ADMINISTERED AT THIS TIME, WILL CONTINUE TO MONITOR AND REASSESS PT.
--- NOTE | 2018-09-07 02:10 | NUR ---
rn notes: placed on oxygen 2l nc as pt receiving prn iv meds on the dot
--- NOTE | 2018-09-07 03:00 | NUR ---
rn notes: pt kept asking for more water, pt finished 1L of water, informed pt too much water isnt good for his condition as his been retaining fluids and edematous legs, extremities, pt on lasix and gentle hydration. pt still insisting to drink more water, claimed he feels dehydrated. he had chronic alcoholism as pt stated. pt removed oxygen as he feels its making him more thirsty
[2018-09-07] MEDS: ACETAMINOPHEN 325 MG TABLET PO PRN (03:35)
--- NOTE | 2018-09-07 03:36 | NUR ---
PRN TYLENOL: C/O GENERALIZED PAIN 06/22, JUST RECEIVED MORPHINE AT 0206AM, REQUESTED FOR TYLENOL, PRN TYLENOL 650 MG TAB PO ADMINISTERED TO THE PT AT THIS TIME, WILL CONTINUE TO MONITOR AND REASSESS PT
--- NOTE | 2018-09-07 03:51 | NUR ---
rn notes: pt still c/o pain, requesting for extra morphine, notified md diamond sander awaiting for callback
--- NOTE | 2018-09-07 04:07 | NUR ---
rn notes: per md electrician control equipment no more additional pain meds
--- NOTE | 2018-09-07 04:30 | NUR ---
rn notes: am care provided, dressing change provided, wound care done
--- NOTE | 2018-09-07 05:05 | NUR ---
rn notes: ms2 will be closed, pt transferred to room 326-2 all belongings including pt's own walker sent with the pt upon transfer
[2018-09-07 06:00] VITALS: BP 118/67
--- NOTE | 2018-09-07 06:10 | NUR ---
PRN MORPHINE: PT C/O 11/22 ABDOMINAL PAIN REQUESTING FOR MORPHINE, PRN MORPHINE 1MG IVP ADMINISTERED TO THE PT AT THIS TIME, WILL CONTINUE TO MONITOR AND REASSESS PT
--- NOTE | 2018-09-07 06:29 | NUR ---
RN CLOSING NOTES: PT REMAINS A/O X3 ON RA, REFUSING OXYGEN STATED HIS NOT COMFORTABLE WITH OXYGEN. LAST PAIN MEDS ADMINISTERED AT 0609AM. IV ACCESS REMAINS PATENT AND FLUSHING WELL, INFUSING WITH NS AT 50ML/HR. NO ACTIVE BLEEDING NOTED. PT HAD A TOTAL OF 10X SOFT TO LOOSE BM, PT ON LACTULOSE DUE HIGH AMMONIA LEVEL. REPEAT LABS TODAY. ABDOMEN REMAINS DISTENDED. BLE KEPT OFFLOADED ON PILLOWS. PT REMAINS TO REFUSED PICTURE TAKING FOR DOCUMENTATION OF WOUNDS, ONLY AGREED TO APPLICATION OF Z GUARD AND MEPILEX. VS REMAINS STABLE, NEEDS ATTENDED. SAFETY PRECAUTIONS FOR FALL REMAINS ENGAGED, CALL LIGHT IN REACH, WILL ENDORSE TO DAY RN FOR CONTINUITY OF CARE.
[2018-09-07 08:02] LABS: BASOPHILS # (AUTO) 0.1 /CMM (0.0-0.2); EOSINOPHILS % (AUTO) 3.9 % (0.0-6.0); HEMATOCRIT 27 % (39-51); HEMOGLOBIN 8.7 g/dL (13.5-17.5); LYMPHOCYTES # (AUTO) 0.9 /CMM (0.8-4.8); LYMPHOCYTES % (AUTO) 9.8 % (20.0-44.0); MEAN CORPUSCULAR HGB CONC 33 g/dl (31.0-36.0); MEAN CORPUSCULAR VOLUME 80 fL (80-96); MONOCYTES # (AUTO) 1.9 /CMM (0.1-1.30); MONOCYTES % (AUTO) 20.9 % (2.0-12.0); NEUTROPHILS # (AUTO) 5.9 /CMM (1.8-8.9); NEUTROPHILS % (AUTO) 64.4 % (43.0-81.0); PLATELET COUNT (AUTO) 110 /CMM (150-450); RED BLOOD CELL COUNT(AUTO) 3.35 MIL/uL (4.5-6.0); WHITE BLOOD COUNT (AUTO) 9.1 K/uL (4.3-11.0)
[2018-09-07 08:09] LABS: ALBUMIN 1.9 g/dL (3.4-5.0); BILIRUBIN,TOTAL 2.3 mg/dL (0.2-1.0); CALCIUM, SERUM 7.6 mg/dL (8.5-10.1); CREATININE 0.9 mg/dL (0.6-1.3); MAGNESIUM 1.9 mg/dL (1.8-2.4); PHOSPHORUS 2.4 mg/dL (2.5-4.9); POTASSIUM 3.3 mmol/L (3.5-5.1); TOTAL PROTEIN, SERUM 5.1 g/dL (6.4-8.2)
[2018-09-07 08:13] VITALS: BP 113/68
[2018-09-07] MEDS: LACTULOSE 10 G/15 ML UDC (PYXIS) PO SCH ×2 (09:00→13:00)
[2018-09-07] MEDS: Z GUARD REMEDY 2 OZ OINT TP SCH (09:00)
[2018-09-07 09:12] LABS: BAND % (MANUAL) 1 % (0.0-5.0); EOSINOPHILS % (MANUAL) 7 % (0-4); LYMPHOCYTES % (MANUAL) 7 % (16-48); MONOCYTES % (MANUAL) 19 % (0-11.0); NEUTROPHILS % (MANUAL) 66 (42-76)
[2018-09-07] MEDS: MULTIVITAMINS,THERAGRAN 1 UDTAB TABLET PO SCH (09:16)
[2018-09-07] MEDS: PANTOPRAZOLE 40 MG TABLET.DR PO SCH (09:16)
[2018-09-07] MEDS: FOLIC ACID 1 MG TABLET PO SCH (09:16)
[2018-09-07] MEDS: SPIRONOLACTONE 25 MG TABLET PO SCH (09:16)
[2018-09-07] MEDS: THIAMINE HCL 100 MG TABLET PO SCH (09:17)
[2018-09-07] MEDS: RIFAXIMIN 550 MG TABLET PO SCH (09:17)
[2018-09-07] MEDS: FUROSEMIDE 20 MG/2 ML VIAL IV SCH (09:17)
[2018-09-07] MEDS: FERROUS SULFATE (325 MG) 325 MG/TAB TABLET PO SCH (09:17)
[2018-09-07] MEDS ORDERED: POTASSIUM CHLORIDE 20 MEQ TAB.PRT.SR PO SCH (09:30)
[2018-09-07] MEDS ORDERED: K PHOS NEUTRAL 250 MG TABLET PO ONE (10:00)
--- NOTE | 2018-09-07 10:24 | NUR ---
RN NOTES INFORMED DONAL HOUSTON OF DUPLICATE ORDER FOR KDUR. PER MANAGER WORK OKAY TO HOLD DOSE.
--- NOTE | 2018-09-07 10:25 | NUR ---
RN NOTES PATIENT COMPLAINS OF 10/10 GENERALIZED PAIN REQUESTING FOR MORPHINE, PRN MORPHINE 1MG IVP ADMINISTERED TO THE PT AT THIS TIME, WILL CONTINUE TO MONITOR.
[2018-09-07 16:32] VITALS: BP 104/60
--- NOTE | 2018-09-07 18:51 | NUR ---
UPPER CUTTER OUT NOTES PT STABLE AT DISCHARGE. ALL PATIENT BELONGINGS TAKEN WITH PATIENT. ID AND IVS REMOVED PRIOR TO DISCHARGE. PT REFUSED PHOTOS. ALL DISCHARGE PAPERWORK DISCUSSED, SIGNED, COPIED, AND GIVEN TO THE PATIENT. PATIENT TAKEN OFF UNIT AT 1810 VIA PRIVATE TRANSPORT.
== END 2018-09-07 18:00 | disposition home or self-care (01) | DRG 720 ==
LOC: ER 21:43 → MEDSG2 09-04 00:59 → UNDOADMIN 09-04 00:59 → MED 09-04 14:53 → TELE 09-04 22:33 → MED 09-05 09:14 → MEDSG2 09-05 17:57 → MED 09-07 05:57
PROVIDERS: ADMIT Registered Nurse; ATTEND Registered Nurse
PROC: 0W9G3ZZ Drainage of Peritoneal Cavity, Percutaneous Approach (ICD-10-PCS; principal; 2018-09-05)
DX: A41.9 Sepsis, unspecified organism (principal); E43 Unspecified severe protein-calorie malnutrition; D61.818 Other pancytopenia; E87.2 Acidosis; J90 Pleural effusion, not elsewhere classified; D68.4 Acquired coagulation factor deficiency; D69.59 Other secondary thrombocytopenia; E87.1 Hypo-osmolality and hyponatremia; K76.6 Portal hypertension; K72.90 Hepatic failure, unspecified without coma; K86.1 Other chronic pancreatitis; K70.31 Alcoholic cirrhosis of liver with ascites; D63.8 Anemia in other chronic diseases classified elsewhere; K31.9 Disease of stomach and duodenum, unspecified; K29.50 Unspecified chronic gastritis without bleeding; E66.9 Obesity, unspecified; F17.210 Nicotine dependence, cigarettes, uncomplicated; Z59.0 Homelessness; Z91.19 Patient's noncompliance with other medical treatment and regimen; F10.20 Alcohol dependence, uncomplicated; Y90.5 Blood alcohol level of 100-119 mg/100 ml; N39.0 Urinary tract infection, site not specified; R74.0 Nonspecific elevation of levels of transaminase and lactic acid dehydrogenase [LDH]; E88.09 Other disorders of plasma-protein metabolism, not elsewhere classified; E80.6 Other disorders of bilirubin metabolism; K57.30 Diverticulosis of large intestine without perforation or abscess without bleeding; L97.819 Non-pressure chronic ulcer of other part of right lower leg with unspecified severity; I87.2 Venous insufficiency (chronic) (peripheral); Z68.27 Body mass index [BMI] 27.0-27.9, adult; M84.48XS Pathological fracture, other site, sequela; I11.0 Hypertensive heart disease with heart failure; I50.9 Heart failure, unspecified
CPT/HCPCS: 36415; 71045-TC; 76700-TC; 76942-TC; 80048-TC; 80053-TC; 80061-TC; 80076-TC; 80202-TC; 81000-TC; 82040-TC; 82140-TC; 82247-TC; 82248-TC; 82272-TC; 83605-TC; 83690-TC; 83735-TC; 84100-TC; 84443-TC; 84484-TC; 85025-TC; 85730-TC; 87040-TC; 87070-TC; 87081-TC; 87086-TC; 87400; 88112-TC; 88305-TC; 88312-TC; 89051-TC; 97116-TC; 97530-TC; A4349; A6402; A6403; G0378; G0480; J0696; J1940; J2060; J2270; J2543; J3370; J3475; J3480; J3490; J7030; J7040; J7050; J7060

== ENCOUNTER 2018-09-15 19:19 | Inpatient (IN) | payer OTHER ==
[~2018-09-15] VITALS: Ht 182.9 cm; Wt 77.1 kg
[~2018-09-15 19:19] MED LIST changes: +SPIR50TA PO; -SPIR50TA5 PO; +THIA100T74 PO; -Thiamine HCL PO
--- NOTE | 2018-09-15 22:01 | NUR ---
CALLED PT TO BE PLACED IN ROOM, PT ELOPED
--- NOTE | 2018-09-15 22:15 | NUR ---
PT WAS PLACED IN ER 18 IN A CHAIR. PT STATED THAT HE HAD A GLF EARLIER TODAY AND NOW HIS BACK AND BLE HURT. PT HAS AN ABRASION ON HIS NOSE. PT WAS TAKEN TO BED #14 VIA .
[2018-09-15] MEDS ORDERED: oxyCODONE/APAP (5/325 MG) 1 UDTAB TABLET PO ONE (22:30)
[2018-09-15 22:43] LABS: BASOPHILS # (AUTO) 0.3 /CMM (0.0-0.2); BASOPHILS % (AUTO) 2.9 % (0.0-2.0); LYMPHOCYTES # (AUTO) 1.3 /CMM (0.8-4.8); MONOCYTES # (AUTO) 1.8 /CMM (0.1-1.30); NEUTROPHILS # (AUTO) 6.9 /CMM (1.8-8.9)
[2018-09-15 22:45] LABS: HEMATOCRIT 31 % (39-51); MEAN CORPUSCULAR HGB CONC 33 g/dl (31.0-36.0); MEAN CORPUSCULAR VOLUME 82 fL (80-96); MONOCYTES % (AUTO) 16.5 % (2.0-12.0); NEUTROPHILS % (AUTO) 63.6 % (43.0-81.0); PLATELET COUNT (AUTO) 257 /CMM (150-450); RED BLOOD CELL COUNT(AUTO) 3.72 MIL/uL (4.5-6.0); WHITE BLOOD COUNT (AUTO) 10.9 K/uL (4.3-11.0)
[2018-09-15] MEDS ORDERED: oxyCODONE/APAP (5/325 MG) 1 UDTAB TABLET ONE (22:45)
[2018-09-15 22:50] LABS: CALCIUM, SERUM 7.6 mg/dL (8.5-10.1); CREATININE 0.8 mg/dL (0.6-1.3); POTASSIUM 3.7 mmol/L (3.5-5.1)
[2018-09-15 22:56] LABS: ALBUMIN 2.1 g/dL (3.4-5.0); BILIRUBIN,DIRECT 0.8 mg/dL (0.0-0.2); MAGNESIUM 2.2 mg/dL (1.8-2.4); TOTAL PROTEIN, SERUM 5.7 g/dL (6.4-8.2)
--- NOTE | 2018-09-15 22:57 | NUR ---
PT APPEARS TO BE RESTING COMFORTABLY. WILL CONTINUE TO MONITOR THE PT.
[2018-09-15 23:28] LABS: EOSINOPHILS % (MANUAL) 4 % (0-4); LYMPHOCYTES % (MANUAL) 14 % (16-48); MONOCYTES % (MANUAL) 12 % (0-11.0); NEUTROPHILS % (MANUAL) 70 (42-76)
--- NOTE | 2018-09-16 01:21 | NUR ---
CALLED [facility]EDER[facility], FOR X-RAY AND CT READ.
--- NOTE | 2018-09-16 01:37 | NUR ---
PT DOES NOT HAVE AN IV. MD IS AWARE AND IS NOT ORDERING AN IV AT THIS TIME.
--- NOTE | 2018-09-16 01:49 | NUR ---
PT WAS SLEEPING SOUNDLY AND CALLING FOR HIS NURSE. WHEN I WENT TO THE BEDSIDE, THE PT WAS ASLEEP. PT FINALLY WOKE UP AND REQUESTED A URINAL. PT REC'D URINAL
--- NOTE | 2018-09-16 01:58 | NUR ---
DR LONG SPOKE TO DR CEJA RE: ADMITTING THE PT.
[2018-09-16] MEDS ORDERED: ZOLPIDEM TARTRATE 5 MG TABLET PO PRN (02:30)
[2018-09-16] MEDS ORDERED: MAGNESIUM HYDROXIDE 30 ML UDC PO PRN (02:30)
[2018-09-16] MEDS ORDERED: ONDANSETRON HCL/PF 4 MG/2 ML VIAL IVP PRN (02:30)
[2018-09-16] MEDS ORDERED: Z GUARD REMEDY 2 OZ OINT TP PRN (02:30)
--- NOTE | 2018-09-16 02:30 | NUR ---
RECEIVED REPORT FROM BLAYNE WOO FOR KELLY.
--- NOTE | 2018-09-16 02:32 | NUR ---
REPORT GIVEN TO BLAYNE HARRIS
--- NOTE | 2018-09-16 03:00 | NUR ---
MANAGER BEHAVIOR OPENING NOTES PT ARRIVED VIA GURNEY FROM ER. PT A/O X3, ABLE TO MAKE NEEDS KNOWN. C/O PAIN 01/22, WILL ADMINISTER PRN MEDICATION. NO SOB NOTED. ON RA, RR EVEN AND UNLABORED. VITAL SIGNS WNL. PATIENT ORIENTED TO ROOM. MRSA SWAB DONE. PHYSICAL ASSESSMENT DONE AND RECORDED. SAFETY MEASURES IN PLACE. CALL LIGHT WITHIN REACH. BED LOCKED AND IN LOWEST POSITION. MD MADE AWARE OF ADMISSION, AWAITING FOR ADMITTING ORDERS. WILL MONITOR PATIENT.
[2018-09-16 04:00] VITALS: BP 108/62
[2018-09-16] MEDS: MORPHINE SULFATE INJ 2 MG/ML DISP.SYRIN IV PRN ×3 (05:22→21:19)
--- NOTE | 2018-09-16 07:22 | NUR ---
BUCKLE STRINGER CLOSING NOTES PATIENT IN RESTING IN BED. A/O X3. ABLE TO MAKE NEEDS KNOWN. NO SOB NOTED. ON RA, RR EVEN AND UNLABORED. VITAL SIGNS WNL. PATIENT ORIENTED TO ROOM. MRSA SWAB DONE. PHYSICAL ASSESSMENT DONE AND RECORDED. SAFETY MEASURES IN PLACE. CALL LIGHT WITHIN REACH. BED LOCKED AND IN LOWEST POSITION. ALL ADMITTING ORDERS ATTENDED. ALL NEEDS ANTICIPATED AND MET. ENDORSED TO AM RN FOR KELLY.
--- NOTE | 2018-09-16 07:48 | NUR ---
PATIENT PORTAL REPRESENTATIVE AM NOTES PATIENT IN RESTING IN BED. A/O X3. ABLE TO MAKE NEEDS KNOWN. SCREAMING FOR MORPHINE IV FOR HIS GENERALIZED BODY PAIN AND EXPLAINED THAT HIS MORPHINE IV WAS JUST RECENTLY GIVEN AT 6AM AND NEXT DOSE IS DUE AT 10 AM.NO SOB NOTED. ON RA, RR EVEN AND UNLABORED. VITAL SIGNS WNL.REFUSED BLOOD DRAW FOR AM LABS INSPITE OF EXPLAINING ITS RISKS AND BENEFITS-PT INSISTS TO REFUSE.WILL TRY LATER. SAFETY MEASURES IN PLACE. CALL LIGHT WITHIN REACH. BED LOCKED AND IN LOWEST POSITION. Addendum: 09/16/18 at 0752 by PRASAD WALLACE RN PT IS A MED SURG PT NOT TELE.
[2018-09-16 08:00] VITALS: BP 93/36
[2018-09-16] MEDS: PANTOPRAZOLE 40 MG TABLET.DR PO SCH (08:32)
--- NOTE | 2018-09-16 10:19 | NUR ---
WOUND CARE CONSULT: PT PRESENTS WITH INCONTINENCE, BILATERAL SHOULDER STAGE 2 ULCERS, BILATERAL LOWER LEG OPEN BLISTER/WOUNDS, STAGE 3 ULCERS TO LEFT HIP AND SACRUM, RASH TO PERINEUM, INNER THIGH AREAS, SUTURE NOTED TO ABDOMEN, ALL PRESENT ON ADMISSION. ABDOMEN IS VERY LARGE. RECOMMEND SURGICAL CONSULT. DEFER TO SURGEON FOR WOUND TREATMENT PLAN. DR BARNES NOTIFIED OF SURGICAL WOUND CONSULT. ISOFLEX LOW AIRLOSS BED TO BE PLACED. WILL SEE PRN. IN AGREEMENT WITH PLAN OF CARE.
[2018-09-16 11:24] LABS: BASOPHILS # (AUTO) 0.1 /CMM (0.0-0.2); BASOPHILS % (AUTO) 1.5 % (0.0-2.0); EOSINOPHILS % (AUTO) 5.6 % (0.0-6.0); HEMATOCRIT 26 % (39-51); HEMOGLOBIN 8.7 g/dL (13.5-17.5); LYMPHOCYTES # (AUTO) 0.8 /CMM (0.8-4.8); LYMPHOCYTES % (AUTO) 9.1 % (20.0-44.0); MEAN CORPUSCULAR HGB CONC 33 g/dl (31.0-36.0); MEAN CORPUSCULAR VOLUME 81 fL (80-96); MONOCYTES # (AUTO) 2.1 /CMM (0.1-1.30); MONOCYTES % (AUTO) 22.6 % (2.0-12.0); NEUTROPHILS # (AUTO) 5.7 /CMM (1.8-8.9); NEUTROPHILS % (AUTO) 61.2 % (43.0-81.0); PLATELET COUNT (AUTO) 195 /CMM (150-450); WHITE BLOOD COUNT (AUTO) 9.4 K/uL (4.3-11.0)
[2018-09-16 11:37] LABS: ALBUMIN 1.8 g/dL (3.4-5.0); BILIRUBIN,TOTAL 0.9 mg/dL (0.2-1.0); CALCIUM, SERUM 7.5 mg/dL (8.5-10.1); CREATININE 0.8 mg/dL (0.6-1.3); POTASSIUM 3.9 mmol/L (3.5-5.1); TOTAL PROTEIN, SERUM 4.9 g/dL (6.4-8.2)
[2018-09-16 12:55] LABS: EOSINOPHILS % (MANUAL) 5 % (0-4); LYMPHOCYTES % (MANUAL) 11 % (16-48); MONOCYTES % (MANUAL) 23 % (0-11.0); NEUTROPHILS % (MANUAL) 61 (42-76)
[2018-09-16 16:00] VITALS: BP 118/58
--- NOTE | 2018-09-16 16:00 | NUR ---
SACRAL WOUND DEBRIDEMENT DONE AT BEDSIDE BY AUGUSTUS COLÓN.PT TOLERATED WELL.DENIES ANY DISCOMFORT AND DISTRESS.NO BLEEDING NOTED.TURNED EVERY TWO HRS BUT PT KEEPS LYING ON HIS BACK INSPITE OF EXPLAINING ITS RISKS AND BENEFITS. PLACED ON ISOFLEX MATTRESS.
[2018-09-16] MEDS: NEOMY SULF/BACITRAC ZN/POLY 15 GM TUBE TP SCH (17:55)
[2018-09-16] MEDS: HYDROGEL DRESSING 90 GM TUBE TP SCH ×2 (17:55→20:45)
[2018-09-16] MEDS: CLOTRIMAZOLE/BETAMETASONE DIPROPIONATE 15 GM TUBE TP SCH (17:55)
--- NOTE | 2018-09-16 19:15 | NUR ---
MS/RN OPENING NOTES PT RECEIVED ASLEEP, OPENS EYES TO NAME. ON ROOM AIR, BREATHING EVEN AND UNLABORED. DENIES SOB AND PAIN AT THIS TIME. IV TO LFA PATENT AND INTACT. NO NEEDS EXPRESSED AT THIS TIME. BED IN LOW/LOCKED POSITION WITH CALL LIGHT IN REACH. BILAT. UPPER SIDE RAILS IN PLACE. HOB ELEVATED. WILL CONTINUE TO MONITOR
[2018-09-16 20:00] VITALS: BP 121/54
--- NOTE | 2018-09-16 21:20 | NUR ---
RN NOTES PT C/O OF 10/10 GENERALIZED PAIN. ADMINISTERED PRN MORPHINE ORDERED. WILL MONITOR FOR EFFECTIVENESS
--- NOTE | 2018-09-16 21:30 | NUR ---
RN NOTES IV TO LFA INFILTRATED. INSERTED IV TO RFA #22. FLUSHES WELL. PAIN MEDS ADMINISTERED ORDERED.
[2018-09-17] MEDS: MORPHINE SULFATE INJ 2 MG/ML DISP.SYRIN IV PRN ×5 (01:22→21:30)
--- NOTE | 2018-09-17 01:25 | NUR ---
RN NOTES PT C/O OF GENERALIZED PAIN 10/10, REQUESTING MORPHINE. ADMINISTERED ORDERED.
[2018-09-17 04:00] VITALS: BP 118/52
--- NOTE | 2018-09-17 06:20 | NUR ---
PT REFUSED BLOOD DRAW EDUCATION PROVIDED AND STATES HE WANTS TO "DO IT AFTER BREAKFAST"
--- NOTE | 2018-09-17 06:37 | NUR ---
MS/RN CLOSING NOTES PT ASLEEP, RESPONSIVE TO NAME. A/O3. ON ROOM AIR, BREATHING EVEN AND UNLABORED. IN NO ACUTE DISTRESS. DENIES SOB AND RECENTLY RECEIVED PAIN MEDICATION. IV TO RFA PATENT AND INTACT. NO SIGNIFICANT CHANGES OVERNIGHT. PAIN MANAGED WITH PRN MEDS. WOUND CARE PROVIDED ORDERED. ENCOURAGED PT TO TURN/REPOSITION Q2H, PT VERBALIZED UNDERSTANDING BUT REFUSED TO TURN THROUGHOUT SHIFT. BED IN LOW/LOCKED POSITION WITH CALL LIGHT IN REACH, BILAT. UPPER SIDE RAILS IN PLACE. BED ALARM ON FOR SAFETY. WILL ENDORSE TO ONCOMING SHIFT KELLY.
[2018-09-17 07:38] LABS: BASOPHILS # (AUTO) 0.1 /CMM (0.0-0.2); EOSINOPHILS % (AUTO) 5.8 % (0.0-6.0); HEMATOCRIT 25 % (39-51); HEMOGLOBIN 8.4 g/dL (13.5-17.5); LYMPHOCYTES # (AUTO) 0.8 /CMM (0.8-4.8); LYMPHOCYTES % (AUTO) 11.3 % (20.0-44.0); MEAN CORPUSCULAR HGB CONC 34 g/dl (31.0-36.0); MEAN CORPUSCULAR VOLUME 81 fL (80-96); MONOCYTES # (AUTO) 1.7 /CMM (0.1-1.30); MONOCYTES % (AUTO) 24.1 % (2.0-12.0); NEUTROPHILS # (AUTO) 3.9 /CMM (1.8-8.9); NEUTROPHILS % (AUTO) 56.8 % (43.0-81.0); PLATELET COUNT (AUTO) 117 /CMM (150-450); RED BLOOD CELL COUNT(AUTO) 3.12 MIL/uL (4.5-6.0); WHITE BLOOD COUNT (AUTO) 6.9 K/uL (4.3-11.0)
[2018-09-17 07:47] LABS: THYROID STIMULATING HORMONE 2.415 uIU/mL (0.358-3.74)
[2018-09-17 07:50] LABS: CALCIUM, SERUM 7.4 mg/dL (8.5-10.1); CREATININE 0.7 mg/dL (0.6-1.3); PHOSPHORUS 3.1 mg/dL (2.5-4.9); POTASSIUM 3.7 mmol/L (3.5-5.1)
[2018-09-17] MEDS: PANTOPRAZOLE 40 MG TABLET.DR PO SCH (08:33)
[2018-09-17 08:47] LABS: EOSINOPHILS % (MANUAL) 3 % (0-4); LYMPHOCYTES % (MANUAL) 8 % (16-48); MONOCYTES % (MANUAL) 24 % (0-11.0); NEUTROPHILS % (MANUAL) 65 (42-76)
--- NOTE | 2018-09-17 10:00 | NUR ---
RECEIVED PT TRANSFER FROM [facility].PT IS ALERT AND ORIENTED.VERBALLY RESPONSIVE. WITH MULTIPLE WOUNDS/SCABS AND SACRAL WOUND GROIN REDNESS. ELDON,AUGUSTUS AND DID WOUND TX AND PLACED WOUND TX ORDERS.IV H/L TO RFA REMAINS INTACT AND NO INFILTRATION NOTED ON THE SITE.ORIENTATION TO THE ROOM AND USE OF CALL LIGHT GIVEN. CALL LIGHT PLACED WITHIN REACH.DENIES PAIN OR DISTRESS AT THIS TIME.
[2018-09-17 10:30] VITALS: BP 119/66
--- NOTE | 2018-09-17 10:36 | NUR ---
PATIENT TRANSFERED TO SECOND FLOOR [place] [address] BED 1 PER BED AND REPORT GIVEN TO THE NURSE.
[2018-09-17] MEDS: CLOTRIMAZOLE/BETAMETASONE DIPROPIONATE 15 GM TUBE TP SCH ×2 (12:20→16:51)
[2018-09-17] MEDS: HYDROGEL DRESSING 90 GM TUBE TP SCH ×2 (12:20→21:31)
[2018-09-17] MEDS: NEOMY SULF/BACITRAC ZN/POLY 15 GM TUBE TP SCH ×3 (12:20→16:52)
--- NOTE | 2018-09-17 12:58 | NUR ---
Social service consult requested by Dr. Negrete for homelessness. Pt. is a 53 year old male who was admitted to [facility] for generalized weakness, ascites. SW is familiar with pt. from previous admissions. Pt. was admitted to [facility] from 09/04-09/07. Pt. was discharged to a board and care where he stayed for four days and left the facility and came back to [facility], where he usually stays. SW met with pt. bedside. Pt. is alert and oriented x 4. Pt. was sitting in his bed and eating lunch. Pt. appears disheveled and dirty. Pt. had a ski cap on his head. Pt's mood is congruent. SW inquired with pt. as to why he left the board and care facility. Pt. stated, "there are crazy people there". Pt. stated he came to [facility] complaining of abrasion to his nose after a ground-level fall which was due to tripping. Pt. is ambulatory with a cane. Pt. is an alcoholic and toxicology shows that pt. was intoxicated upon arrival, however pt. denies being intoxicated and stated he hasn't had a drink in a few days. Pt. is in denial about his alcohol use. Pt. receives GR and food stamps. Pt. is willing to go to a board and care facility if it is located in the [place]. JAY and engineering program manager to find a board and care facility for the pt. Pt. denies any suicidal and homicidal ideations at this time. Homeless patient waiver form to be signed by the pt. upon discharge.
[2018-09-17 16:00] VITALS: BP 110/64
--- NOTE | 2018-09-17 17:08 | NUR ---
INFORMED KAYLIE STROUD TO DO PT'S MED RECON.
--- NOTE | 2018-09-17 19:30 | NUR ---
MS/RN OPENING NOTES PT RESTING COMFORTABLY IN BED. ON ROOM AIR, BREATHING EVEN AND UNLABORED. NO SOB OR PAIN NOTED AT THIS TIME. IV TO RFA PATENT AND INTACT. BED IN LOW/LOCKED POSITION WITH CALL LIGHT IN REACH. SIDE RAILS IN PLACE X3. BED ALARM ON FOR SAFETY. WILL CONTINUE TO MONITOR
[2018-09-17 20:00] VITALS: BP 112/64
[2018-09-17] MEDS: MAG HYDROX/AL HYDROX/SIMETH 30 ML UDC PO PRN (20:24)
[2018-09-18] MEDS: MORPHINE SULFATE INJ 2 MG/ML DISP.SYRIN IV PRN ×3 (01:37→20:02)
--- NOTE | 2018-09-18 01:42 | NUR ---
RN NOTES PT C/O 01/22 GENERALIZED PAIN. REQUESTING MORPHINE. ADMINISTERED ORDERED.
[2018-09-18 03:03] VITALS: BP 112/64
--- NOTE | 2018-09-18 05:15 | NUR ---
RN NOTES PT STILL NOTED WITH WHEEZES, ESPECIALLY UPON EXERTION. RR 24, 100% ON 2 VIA NC, 142/53, HR 88. PAGED DR. DOMINGO. AWAITING FOR CALL BACK
--- NOTE | 2018-09-18 07:35 | NUR ---
MS/RN CLOSING NOTES PT AWAKE, SITTING UP IN BED. ON ROOM AIR, BREATHING EVEN AND UNLABORED. NO SOB OR PAIN NOTED AT THIS TIME. IV TO RFA PATENT AND INTACT. NO SIGNIFICANT CHANGES OVERNIGHT. ALL NEEDS MET. WOUND CARE PROVIDED ORDERED. PRN PAIN MEDS ADMINISTERED. ALL NEEDS MET. BED IN LOW/LOCKED POSITION WITH CALL LIGHT IN REACH. SIDE RAILS IN PLACE X3. BED ALARM ON FOR SAFETY. ENDORSED TO DAY SHIFT RN KELLY.
[2018-09-18 07:58] VITALS: BP 106/64
--- NOTE | 2018-09-18 08:00 | NUR ---
MS RN AM NOTES PT RESTING COMFORTABLY IN BED. ON ROOM AIR, BREATHING EVEN AND UNLABORED. NO SOB OR PAIN NOTED AT THIS TIME. IV TO RFA PATENT AND INTACT. BED IN LOW/LOCKED POSITION WITH CALL LIGHT IN REACH. STILL LOOKING FOR PLACEMENT.SIDE RAILS IN PLACE X3. BED ALARM ON FOR SAFETY. WILL CONTINUE TO MONITOR
[2018-09-18] MEDS: FOLIC ACID 1 MG TABLET PO SCH (08:06)
[2018-09-18] MEDS: FUROSEMIDE 20 MG TABLET PO SCH (08:06)
[2018-09-18] MEDS: PANTOPRAZOLE 40 MG TABLET.DR PO SCH (08:06)
[2018-09-18] MEDS: SPIRONOLACTONE 25 MG TABLET PO SCH (08:07)
[2018-09-18] MEDS: HYDROGEL DRESSING 90 GM TUBE TP SCH ×2 (08:08→20:04)
[2018-09-18] MEDS: CLOTRIMAZOLE/BETAMETASONE DIPROPIONATE 15 GM TUBE TP SCH ×2 (08:10→17:36)
[2018-09-18] MEDS: NEOMY SULF/BACITRAC ZN/POLY 15 GM TUBE TP SCH ×3 (08:11→17:36)
--- NOTE | 2018-09-18 08:13 | NUR ---
HELD SPIRONOLACTONE DUE TO LOW BP BUT GAVE LASIX .BP 106/64 HR 82
[2018-09-18 15:43] VITALS: BP 110/64
--- NOTE | 2018-09-18 19:20 | NUR ---
RN OPEN NOTES RECEIVED PATIENT AWAKE IN BED. A/O X4. NO SIGNS OF DISTRESS OR DISCOMFORT. BREATHING EVEN AND UNLABORED. IV ACCESS IN RFA, PATENT AND INTACT, NO SIGNS OF REDNESS OR INFILTRATION. BED IN LOW LOCKED POSITION WITH SIDE RAILS X2. CALL LIGHT WITHIN REACH. PATIENT ADVISED TO USE CALL LIGHT FOR ASSISTANCE. WILL CONTINUE TO MONITOR.
--- NOTE | 2018-09-18 19:23 | NUR ---
SEEN BY THE INVOICE CLASSIFICATION CLERK AND DISCUSSED PLACEMENT FOR HIM.PT RESTING IN BED DENYING ANY DISTRESS.CALL LIGHT PLACED WITHIN REACH.
[2018-09-18 20:00] VITALS: BP 110/78
[2018-09-18 20:36] LABS: BILIRUBIN,TOTAL 1.2 mg/dL (0.2-1.0); CALCIUM, SERUM 7.6 mg/dL (8.5-10.1); CREATININE 0.7 mg/dL (0.6-1.3); MAGNESIUM 1.7 mg/dL (1.8-2.4); PHOSPHORUS 2.7 mg/dL (2.5-4.9); POTASSIUM 3.5 mmol/L (3.5-5.1); TOTAL PROTEIN, SERUM 5.2 g/dL (6.4-8.2)
[2018-09-18 20:54] LABS: BASOPHILS # (AUTO) 0.1 /CMM (0.0-0.2); BASOPHILS % (AUTO) 0.8 % (0.0-2.0); EOSINOPHILS % (AUTO) 6.5 % (0.0-6.0); HEMATOCRIT 26 % (39-51); HEMOGLOBIN 8.8 g/dL (13.5-17.5); LYMPHOCYTES # (AUTO) 0.8 /CMM (0.8-4.8); LYMPHOCYTES % (AUTO) 8.4 % (20.0-44.0); MEAN CORPUSCULAR HGB CONC 34 g/dl (31.0-36.0); MEAN CORPUSCULAR VOLUME 82 fL (80-96); MONOCYTES # (AUTO) 1.5 /CMM (0.1-1.30); MONOCYTES % (AUTO) 15.7 % (2.0-12.0); NEUTROPHILS # (AUTO) 6.6 /CMM (1.8-8.9); NEUTROPHILS % (AUTO) 68.6 % (43.0-81.0); PLATELET COUNT (AUTO) 137 /CMM (150-450); WHITE BLOOD COUNT (AUTO) 9.6 K/uL (4.3-11.0)
[2018-09-18] MEDS: IBUPROFEN 200 MG TABLET PO PRN (21:27)
[2018-09-18 21:55] LABS: BAND % (MANUAL) 1 % (0.0-5.0); EOSINOPHILS % (MANUAL) 4 % (0-4); LYMPHOCYTES % (MANUAL) 12 % (16-48); MONOCYTES % (MANUAL) 15 % (0-11.0); NEUTROPHILS % (MANUAL) 68 (42-76)
[2018-09-19] MEDS: MORPHINE SULFATE INJ 2 MG/ML DISP.SYRIN IV PRN ×2 (02:48→21:00)
[2018-09-19] MEDS: IBUPROFEN 200 MG TABLET PO PRN ×3 (06:55→21:42)
--- NOTE | 2018-09-19 07:26 | NUR ---
RN CLOSING NOTES PATIENT AWAKE IN BED. A/O X4. NO SIGNS OF DISTRESS OR DISCOMFORT. BREATHING EVEN AND UNLABORED. IV ACCESS IN RFA, PATENT AND INTACT, NO SIGNS OF REDNESS OR INFILTRATION. ALL NEEDS MET. NO SIGNIFICANT CHANGES THROUGH THE NIGHT. PATIENT REFUSED LINEN CHANGE, BED BATH AND DRESSING CHANGE X3, PATIENT EDUCATION REINFORCED. BED IN LOW LOCKED POSITION WITH SIDE RAILS X2. CALL LIGHT WITHIN REACH. PATIENT ADVISED TO USE CALL LIGHT FOR ASSISTANCE. ENDORSED TO AM SHIFT FOR KELLY.
--- NOTE | 2018-09-19 07:32 | NUR ---
MS/RN OPENING NOTE PATIENT IN BED IN STABLE CONDITION. A/O X 4. NO SIGNS OF ACUTE DISTRESS. NO COMPLAIN OF PAIN OR DISCOMFORT. ALL NEEDS ATTENDED TO. CALL LIGHT WITHIN REACH. WILL CONTINUE TO MONITOR TO ENSURE SAFETY.
[2018-09-19 08:00] VITALS: BP 113/80
[2018-09-19] MEDS: FOLIC ACID 1 MG TABLET PO SCH (08:35)
[2018-09-19] MEDS: SPIRONOLACTONE 25 MG TABLET PO SCH (08:35)
[2018-09-19] MEDS: FUROSEMIDE 20 MG TABLET PO SCH (08:35)
[2018-09-19] MEDS: PANTOPRAZOLE 40 MG TABLET.DR PO SCH (08:35)
[2018-09-19] MEDS: NEOMY SULF/BACITRAC ZN/POLY 15 GM TUBE TP SCH ×3 (08:39→16:41)
[2018-09-19] MEDS: CLOTRIMAZOLE/BETAMETASONE DIPROPIONATE 15 GM TUBE TP SCH ×2 (08:39→16:42)
[2018-09-19] MEDS: diphenhydrAMINE HCL/ZINC ACET CREAM 28.3 GM TUBE TP PRN (08:39)
[2018-09-19] MEDS: HYDROGEL DRESSING 90 GM TUBE TP SCH ×2 (08:39→21:05)
--- NOTE | 2018-09-19 11:30 | NUR ---
MS/RN SEEN AND EXAMINED BY DR MAXIMUS WALKER WITH ORDERS FOR US GUIDED PARACENTESIS.
--- NOTE | 2018-09-19 11:55 | NUR ---
MS/RN RECEIVED CALL FROM [employer], PER RADIOLOGIST ORDER STAT INR.
--- NOTE | 2018-09-19 15:35 | NUR ---
MS/RN SPOKE WITH DR MAXIMUS Gómez AND MADE AWARE PER RADIOLOGIST IF ITS OKAY TO TAKE MORE THAN 5L FLUID OUT FROM PARACENTESIS PROCEDURE. PER MAXIMUS LAST TIME HE HAS 6L OUT, OKAY TO TAKE 6L OUT AND AND HE PLANS TO GIVE HIM ALBUMIN AFTERWARDS. RADIOLOGIST TECH AWARE.
--- NOTE | 2018-09-19 15:50 | NUR ---
MS/RN RECEIVED CALL FROM DR STROUD WITH ORDERS TO ORDER BODY FLUID ANALYSIS.
[2018-09-19 15:58] LABS: BASOPHILS # (AUTO) 0.1 /CMM (0.0-0.2); BASOPHILS % (AUTO) 1.1 % (0.0-2.0); EOSINOPHILS % (AUTO) 8.1 % (0.0-6.0); HEMATOCRIT 26 % (39-51); HEMOGLOBIN 8.5 g/dL (13.5-17.5); LYMPHOCYTES # (AUTO) 0.9 /CMM (0.8-4.8); LYMPHOCYTES % (AUTO) 11.8 % (20.0-44.0); MEAN CORPUSCULAR HGB CONC 33 g/dl (31.0-36.0); MEAN CORPUSCULAR VOLUME 82 fL (80-96); MONOCYTES # (AUTO) 1.4 /CMM (0.1-1.30); NEUTROPHILS # (AUTO) 4.6 /CMM (1.8-8.9); PLATELET COUNT (AUTO) 138 /CMM (150-450); RED BLOOD CELL COUNT(AUTO) 3.13 MIL/uL (4.5-6.0); WHITE BLOOD COUNT (AUTO) 7.6 K/uL (4.3-11.0)
[2018-09-19 16:07] VITALS: BP 102/61
--- NOTE | 2018-09-19 16:08 | NUR ---
MS/RN S/P PARACENTESIS 6L OUT. TOLERATED WELL.
[2018-09-19 17:12] LABS: BAND % (MANUAL) 3 % (0.0-5.0); EOSINOPHILS % (MANUAL) 12 % (0-4); LYMPHOCYTES % (MANUAL) 13 % (16-48); MONOCYTES % (MANUAL) 8 % (0-11.0); NEUTROPHILS % (MANUAL) 64 (42-76)
--- NOTE | 2018-09-19 18:32 | NUR ---
MS/RN CLOSING NOTE PATIENT IN BED IN STABLE CONDITION. A/O X 4. NO SIGNS OF ACUTE DISTRESS. NO COMPLAIN OF PAIN OR DISCOMFORT. ALL NEEDS ATTENDED TO. CALL LIGHT WITHIN REACH. WILL ENDORSE TO NEXT SHIFT FOR CONTINUITY OF CARE.
--- NOTE | 2018-09-19 19:32 | NUR ---
MS RN RECEIVE PT IN BED A/O X 3, RESPIRATIONS EVEN AND UNLABORED,STABLE, NO S/S OF DISTRESS, SAFETY MEASURES IN PLACE. WILL CONTINUE TO MONITOR
[2018-09-19 20:00] VITALS: BP 112/62
[2018-09-19] MEDS ORDERED: NEOMY SULF/BACITRAC ZN/POLY 15 GM TUBE TP PRN (22:00)
[2018-09-20] MEDS: MORPHINE SULFATE INJ 2 MG/ML DISP.SYRIN IV PRN ×6 (01:27→23:09)
--- NOTE | 2018-09-20 06:11 | NUR ---
MS RN ASLEEP AND EASILY AWAKEN, RESPIRATIONS EVEN AND UNLABORED. PAIN MEDICATED WITH PRN PAIN MEDICATION WITH RELIEF. TREATMENT ORDERED TO THE WOUND. GOOD SKIN CARE PROVIDED. KEPT CLEAN AND DRY AND COMFORTABLE. NEEDS ATTENDED AND ANTICIPATED, NURSING CARE RENDERED, OFFLOAD HEELS AND ELBOWS AT ALL TIMES. NO S/S OF DISTRESS, REPOSITIONED EVERY 2 HOURS. SAFETY MEASURES AT ALL TIMES. ENDORSE TO THE NEXT SHIFT.
--- NOTE | 2018-09-20 07:30 | NUR ---
RN OPENING NOTE PT WAS RECEIVED IN BED AT LOWEST AND LOCKED POSITION WITH SIDE RAILS UP X2, A/O X4 NOTED TO BE SHORT OF BREATH BUT SCHEDULED BREATHING TX NOTED AND DUE SOON, NO COMPLAINTS OF PAIN OR DISTRESS, IV IS PATENT AND INTACT, SAFETY PRECAUTIONS IN PLACE, CALL LIGHT WITHIN REACH, WILL MONITOR PT ACCORDINGLY. Addendum: 09/20/18 at 0915 by ARIK HENDRICKS RN WRONG NOTE, SEE OTHER NOTE
--- NOTE | 2018-09-20 07:46 | NUR ---
RN OPENING NOTE PT WAS RECEIVED IN BED AT LOWEST AND LOCKED POSITION WITH SIDE RAILS UP X3, A/O X4 BREATHING EVEN AND UNLABORED ON RA WITH NO S/S OF ANY DISTRESS OR PAIN AT THIS TIME, IV IS PATENT AND INTACT, SAFETY PRECAUTIONS IN PLACE, CALL LIGHT WITHIN REACH, WILL MONITOR PT ACCORDINGLY
[2018-09-20 08:07] VITALS: BP 94/56
[2018-09-20] MEDS: FUROSEMIDE 20 MG TABLET PO SCH (08:09)
[2018-09-20] MEDS: PANTOPRAZOLE 40 MG TABLET.DR PO SCH (08:09)
[2018-09-20] MEDS: SPIRONOLACTONE 25 MG TABLET PO SCH (08:09)
[2018-09-20] MEDS: FOLIC ACID 1 MG TABLET PO SCH (08:09)
[2018-09-20] MEDS: NEOMY SULF/BACITRAC ZN/POLY 15 GM TUBE TP SCH ×3 (08:11→17:19)
[2018-09-20] MEDS: CLOTRIMAZOLE/BETAMETASONE DIPROPIONATE 15 GM TUBE TP SCH ×2 (08:11→17:19)
[2018-09-20] MEDS: HYDROGEL DRESSING 90 GM TUBE TP SCH ×2 (08:12→21:16)
[2018-09-20 08:33] LABS: BASOPHILS % (AUTO) 0.7 % (0.0-2.0); HEMATOCRIT 28 % (39-51); HEMOGLOBIN 9.4 g/dL (13.5-17.5); LYMPHOCYTES # (AUTO) 0.9 /CMM (0.8-4.8); LYMPHOCYTES % (AUTO) 14.3 % (20.0-44.0); MEAN CORPUSCULAR HGB CONC 34 g/dl (31.0-36.0); MEAN CORPUSCULAR VOLUME 82 fL (80-96); MONOCYTES # (AUTO) 1.2 /CMM (0.1-1.30); NEUTROPHILS # (AUTO) 3.8 /CMM (1.8-8.9); PLATELET COUNT (AUTO) 145 /CMM (150-450); RED BLOOD CELL COUNT(AUTO) 3.42 MIL/uL (4.5-6.0); WHITE BLOOD COUNT (AUTO) 6.4 K/uL (4.3-11.0)
--- NOTE | 2018-09-20 08:35 | NUR ---
RN NOTE AM BP MEDS HELD DUE TO A BP OF 94/56, WILL MONITOR PT ACCORDINGLY
[2018-09-20 08:45] LABS: CALCIUM, SERUM 7.9 mg/dL (8.5-10.1); CREATININE 0.6 mg/dL (0.6-1.3); MAGNESIUM 1.6 mg/dL (1.8-2.4); PHOSPHORUS 2.9 mg/dL (2.5-4.9)
[2018-09-20] MEDS: ALBUMIN 25% 25 GM in PREMIX 1 EA IV SCH ×2 (11:01→17:11)
[2018-09-20] MEDS ORDERED: POTASSIUM CHLORIDE 20 MEQ TAB.PRT.SR PO ONE (11:30)
[2018-09-20 11:32] LABS: BAND % (MANUAL) 1 % (0.0-5.0); EOSINOPHILS % (MANUAL) 10 % (0-4); LYMPHOCYTES % (MANUAL) 16 % (16-48); MONOCYTES % (MANUAL) 17 % (0-11.0); NEUTROPHILS % (MANUAL) 56 (42-76)
[2018-09-20] MEDS: Magnesium 1GM/D5W 100ML PREMIX 100 ML IV SCH ×2 (12:16→13:19)
[2018-09-20 16:06] VITALS: BP 106/63
[2018-09-20] MEDS: MAG HYDROX/AL HYDROX/SIMETH 30 ML UDC PO PRN (16:15)
[2018-09-20] MEDS: IBUPROFEN 200 MG TABLET PO PRN (16:15)
[2018-09-20] MEDS: hydrOXYzine PAMOATE 25 MG CAPSULE PO PRN (17:10)
--- NOTE | 2018-09-20 18:51 | NUR ---
RN CLOSING NOTE PT RESTING IN COMFORTABLY IN BED AT LOWEST AND LOCKED POSITION WITH SIDE RAILS UP X3, A/O X4 BREATHING EVEN AND UNLABORED ON RA WITH NO S/S OF ANY DISTRESS OR PAIN AT THIS TIME, IV IS PATENT AND INTACT, WOUND CARE PROVIDED ORDERED, SAFETY PRECAUTIONS IN PLACE, CALL LIGHT WITHIN REACH, ALL NEEDS ATTENDED TO, WILL ENDORSE TO CLOTH MENDER RN FOR KELLY.
--- NOTE | 2018-09-20 19:25 | NUR ---
MS RN RECEIVE PT IN BED WATCHING TV A/O X 3, RESPIRATIONS EVEN AND UNLABORED, STABLE, NO S/S OF DISTRESS, SAFETY MEASURES IN PLACE. WILL CONTINUE TO MONITOR
[2018-09-20 20:00] VITALS: BP 107/56
--- NOTE | 2018-09-21 02:00 | NUR ---
PT SLEEPING CALM AND NO DISTRESS
[2018-09-21] MEDS: MORPHINE SULFATE INJ 2 MG/ML DISP.SYRIN IV PRN ×5 (03:09→20:21)
--- NOTE | 2018-09-21 06:31 | NUR ---
MS RN AWAKE WATCHING TV, AM CARE RENDERED, STABLE NO S/S OF DISTRESS, NO SIGNIFICANT CHANGES THROUGHOUT THE SHIFT. TREATMENT ORDERED GOOD SKIN CARE PROVIDED. PAIN MEDICATED WITH PRN PAIN MEDICATION WITH RELIEF. KEPT CLEAN AND DRY AND COMFORTABLE, NEEDS ATTENDED AND ANTICIPATED, NURSING CARE RENDERED, OFFLOAD HEELS AND ELBOWS AT ALL TIMES. REPOSITIONED EVERY 2 HOURS. SAFETY MEASURES AT ALL TIMES. ENDORSE TO THE NEXT SHIFT.
--- NOTE | 2018-09-21 07:37 | NUR ---
MS RN OPENING NOTES RECEIVED PT SITTING UPRIGHT IN BED. PT IS A/O X4, AFEBRILE. RESPIRATIONS ARE EVEN AND UNLABORED, NOT IN ANY ACUTE DISTRESS NOTED. PUPILS ARE REACTIVE TO LIGHT, BILATERAL HAND TRANSMISSION AND PROTECTION ENGINEER ARE STRONG AND EQUAL. PT C/O GENERALIZED PAIN 10/10, WILL MEDICATE ACCORDINGLY AND NOTE EFFECTIVENESS. NO C/O SOB, N/V. IV SITE TO RFA G20 INTACT, NO INFILTRATION NOTED. DRESSING KEPT CLEAN AND DRY. SAFETY MEASURES ARE IN PLACE. INSTRUCTED PT TO USE CALL LIGHT WHEN ASSISTANCE IS NEEDED, CALL LIGHT IS LEFT WITHIN REACH. WILL MONITOR THROUGHOUT SHIFT FOR CONTINUITY OF CARE.
[2018-09-21 08:00] VITALS: BP 104/60
[2018-09-21] MEDS: PANTOPRAZOLE 40 MG TABLET.DR PO SCH (08:07)
[2018-09-21] MEDS: FUROSEMIDE 20 MG TABLET PO SCH (08:08)
[2018-09-21] MEDS: hydrOXYzine PAMOATE 25 MG CAPSULE PO PRN ×2 (08:08→16:09)
[2018-09-21] MEDS: FOLIC ACID 1 MG TABLET PO SCH (08:08)
--- NOTE | 2018-09-21 08:09 | NUR ---
MS BLAYNE NOTES-- PT C/O GENERALIZED PAIN 01/22. ADMINISTERED MORPHINE 2MG IVP. WILL MONITOR EFFECTIVENESS.
[2018-09-21] MEDS: HYDROGEL DRESSING 90 GM TUBE TP SCH ×2 (08:11→20:25)
[2018-09-21] MEDS: NEOMY SULF/BACITRAC ZN/POLY 15 GM TUBE TP SCH ×3 (08:12→16:12)
[2018-09-21] MEDS: CLOTRIMAZOLE/BETAMETASONE DIPROPIONATE 15 GM TUBE TP SCH ×2 (08:12→16:12)
[2018-09-21] MEDS: SPIRONOLACTONE 25 MG TABLET PO SCH (08:26)
--- NOTE | 2018-09-21 09:20 | NUR ---
MS RN NOTES-- WOUND CARE DONE ORDERED. PT TOLERATED WELL. WILL CONTINUE TO MONITOR.
[2018-09-21] MEDS: diphenhydrAMINE HCL/ZINC ACET CREAM 28.3 GM TUBE TP PRN (14:49)
[2018-09-21 16:00] VITALS: BP 138/61
--- NOTE | 2018-09-21 16:09 | NUR ---
MS RN NOTES-- PT C/O GENERALIZED PAIN 10/10 AND ITCHINESS. ADMINISTER MORPHINE 2MG IVP AND VISTARIL 25MG. WILL NOTE EFFECTIVENESS.
--- NOTE | 2018-09-21 16:20 | NUR ---
MS RN NOTES-- ADMINISTERED BENADRYL CREAM TO AFFECTED AREAS. WILL NOTE EFFECTIVENESS.
--- NOTE | 2018-09-21 16:31 | NUR ---
MS RN NOTES-- PT ABLE TO MAKE NEEDS KNOWN. NEEDS MET AND ANTICIPATED. PT DOES NOT APPEAR TO BE IN ANY APPARENT DISTRESS NOTED. WILL CONTNUE TO MONITOR.
--- NOTE | 2018-09-21 18:22 | NUR ---
MS RN CLOSING NOTES ALL DUE MEDS GIVEN, NEEDS MET AND RENDERED. PT IS A/O X4, AFEBRILE. RESPIRATIONS ARE EVEN AND UNLABORED, NOT IN ANY ACUTE DISTRESS NOTED. PT C/O GENERALIZED PAIN AT THIS TIME AND IS AWARE OF NEXT PAIN MEDICATION DUE. PT STATED HE CAN WAIT AND HAS BEEN COMPLIANT. NO C/O SOB, N/V. IV TO RFA INTACT, NO INFILTRATION NOTED. DRESSING KEPT CLEAN AND DRY. SAFETY MEASURES ARE IN PLACE. REMINDED PT TO USE CALL LIGHT WHEN ASSISTANCE IS NEEDED, CALL LIGHT IS LEFT WITHIN REACH. WILL ENDORSE TO NEXT SHIFT FOR CONTINUITY OF CARE.
[2018-09-21 19:51] VITALS: BP 115/66
--- NOTE | 2018-09-21 20:21 | NUR ---
RN NOTES ADMINISTERED MORPHINE 2MG ORDERED FOR ABDOMINAL PAIN 10 AT PATIENT REQUEST. VSS. WILL CONTINUE TO MONITOR.
[2018-09-22] MEDS: hydrOXYzine PAMOATE 25 MG CAPSULE PO PRN ×2 (00:06→08:20)
[2018-09-22] MEDS: MORPHINE SULFATE INJ 2 MG/ML DISP.SYRIN IV PRN ×6 (00:06→20:49)
--- NOTE | 2018-09-22 00:06 | NUR ---
RN NOTES ADMINISTERED MORPHINE 2MG ORDERED FOR ABDOMINAL PAIN 10 AT PATIENT REQUEST. VSS. WILL CONTINUE TO MONITOR.
--- NOTE | 2018-09-22 04:12 | NUR ---
RN NOTES ADMINISTERED MORPHINE 2MG ORDERED FOR ABDOMINAL PAIN 10 AT PATIENT REQUEST. VSS. WILL CONTINUE TO MONITOR.
--- NOTE | 2018-09-22 06:50 | NUR ---
RN CLOSING NOTES PATIENT AWAKE IN BED. A/O X4. NO SIGNS OF DISTRESS OR DISCOMFORT. BREATHING EVEN AND UNLABORED. IV ACCESS IN RFA, PATENT AND INTACT, NO SIGNS OF REDNESS OR INFILTRATION. ALL NEEDS MET. NO SIGNIFICANT CHANGES THROUGH THE NIGHT. BED IN LOW LOCKED POSITION WITH SIDE RAILS X2. CALL LIGHT WITHIN REACH. PATIENT ADVISED TO USE CALL LIGHT FOR ASSISTANCE. WILL ENDORSE TO AM SHIFT FOR KELLY.
--- NOTE | 2018-09-22 07:34 | NUR ---
MS RN OPENING NOTES RECEIVED PT LAYING IN BED WITH HOB ELEVATED. PT IS A/O X4, AFEBRILE. RESPIRATIONS ARE EVEN AND UNLABORED, NOT IN ANY ACUTE DISTRESS NOTED. PT C/O PAIN 11/22 TO BLE, WILL MEDICATE ACCORDINGLY AND NOTE EFFECTIVENESS. IV SITE TO RAC 20G INTACT, NO INFILTRATION NOTED. DRESSING KEPT CLEAN AND DRY. SAFETY MEASURES ARE IN PLACE. INSTRUCTED PT TO USE CALL LIGHT WHEN ASSISTANCE IS NEEDED, CALL LIGHT IS LEFT WITHIN REACH. WILL MONITOR THROUGHOUT SHIFT FOR CONTINUITY OF CARE.
[2018-09-22 08:00] VITALS: BP 108/67
[2018-09-22] MEDS: FUROSEMIDE 20 MG TABLET PO SCH (08:20)
[2018-09-22] MEDS: FOLIC ACID 1 MG TABLET PO SCH (08:20)
[2018-09-22] MEDS: PANTOPRAZOLE 40 MG TABLET.DR PO SCH (08:20)
[2018-09-22] MEDS: SPIRONOLACTONE 25 MG TABLET PO SCH (08:20)
[2018-09-22] MEDS: diphenhydrAMINE HCL/ZINC ACET CREAM 28.3 GM TUBE TP PRN (08:23)
[2018-09-22] MEDS: HYDROGEL DRESSING 90 GM TUBE TP SCH ×2 (08:23→20:20)
[2018-09-22] MEDS: CLOTRIMAZOLE/BETAMETASONE DIPROPIONATE 15 GM TUBE TP SCH ×2 (08:24→16:49)
[2018-09-22] MEDS: NEOMY SULF/BACITRAC ZN/POLY 15 GM TUBE TP SCH ×3 (08:24→16:49)
[2018-09-22] MEDS ORDERED: diphenhydrAMINE HCL/ZINC ACET CREAM 28.3 GM TUBE TP PRN (10:00)
[2018-09-22] MEDS: diphenhydrAMINE HCL 50 MG CAPSULE PO PRN ×2 (13:24→20:20)
--- NOTE | 2018-09-22 13:41 | NUR ---
MS RN NOTES-- PT ABLE TO MAKE NEEDS KNOWN. NEEDS MET AND RENDERED. PT IS NOT IN ANY APPARENT DISTRESS NOTED. WILL CONTINUE TO MONITOR CLOSELY.
[2018-09-22 16:00] VITALS: BP 100/72
--- NOTE | 2018-09-22 18:46 | NUR ---
MS RN CLOSING NOTES ALL DUE MEDS GIVEN, NEEDS MET AND RENDERED. PT IS A/O X4, AFEBRILE. RESPIRATIONS ARE EVEN AND UNLABORED, NOT IN ANY ACUTE DISTRESS NOTED. PT DENIES ANY PAIN AT THIS TIME. NO C/O SOB, N/V. IV TO RFA INTACT, NO INFILTRATION NOTED. DRESSING KEPT CLEAN AND DRY. SAFETY MEASURES ARE IN PLACE. REMINDED PT TO USE CALL LIGHT WHEN ASSISTANCE IS NEEDED, CALL LIGHT IS LEFT WITHIN REACH. WILL ENDORSE TO NEXT SHIFT FOR CONTINUITY OF CARE.
--- NOTE | 2018-09-22 19:05 | NUR ---
MS RN OPENING NOTES: RECEIVED PT ON ROOM AIR AND IS SITTING UP IN BED. PT IS REQUESTING FOR HIS BENADRYL 50MG PEDICATION. PT IS VERBALIZING HE IS ITCHY ALL OVER. PT HAS IV ON R FOREARM #20G AND IS PATENT AND INTACT. CURRENTLY H/L. NOTED ABDOMEN TO BE HARD AND DISTENDED. PT HAS BILATERAL LOWER EXTREMITIES SWELLING WELL. PT IS A/OX3. BED KEPT IN LOW, LOCKED POSITION, AND SIDE RAILS X 2UP. WILL CONTINUE TO MONITOR PT.
[2018-09-22 20:32] VITALS: BP 125/69
--- NOTE | 2018-09-22 20:52 | NUR ---
MS RN NOTES: PT COMPLAINING OF PAIN BILATERAL LEGS, BACK, ABDOMEN 11/22. PT WAS ADMINISTERED MORPHINE 2MG IV. WILL CONTINUE TO MONITOR.
[2018-09-23] MEDS: MORPHINE SULFATE INJ 2 MG/ML DISP.SYRIN IV PRN ×5 (00:53→20:55)
[2018-09-23] MEDS: diphenhydrAMINE HCL 50 MG CAPSULE PO PRN ×3 (02:20→20:05)
--- NOTE | 2018-09-23 02:26 | NUR ---
MS RN NOTES: PT COMPLAINING OF ITCHING ALL OVER BODY. PT IS SAYING THAT TOPICAL BENADRYL IS NOT ENOUGH. PT WAS ADMINISTERED BENADRYL 50MG PO. WILL CONTINUE TO MONITOR.
--- NOTE | 2018-09-23 05:11 | NUR ---
MS RN NOTES: PT COMPLAINING OF 10/10 AB PAIN, BILATERAL LEGS, BACK PAIN. PT WAS ADMINISTERED MORPHINE 2MG IV. WILL CONTINUE TO MONITOR.
[2018-09-23 06:42] LABS: BASOPHILS # (AUTO) 0.1 /CMM (0.0-0.2); BASOPHILS % (AUTO) 1.2 % (0.0-2.0); EOSINOPHILS % (AUTO) 5.9 % (0.0-6.0); HEMATOCRIT 28 % (39-51); HEMOGLOBIN 9.3 g/dL (13.5-17.5); LYMPHOCYTES # (AUTO) 0.8 /CMM (0.8-4.8); LYMPHOCYTES % (AUTO) 11.8 % (20.0-44.0); MEAN CORPUSCULAR HGB CONC 33 g/dl (31.0-36.0); MEAN CORPUSCULAR VOLUME 82 fL (80-96); MONOCYTES # (AUTO) 1.3 /CMM (0.1-1.30); NEUTROPHILS # (AUTO) 4.4 /CMM (1.8-8.9); NEUTROPHILS % (AUTO) 62.1 % (43.0-81.0); PLATELET COUNT (AUTO) 165 /CMM (150-450); RED BLOOD CELL COUNT(AUTO) 3.39 MIL/uL (4.5-6.0)
[2018-09-23 06:46] LABS: ALBUMIN 2.4 g/dL (3.4-5.0); CALCIUM, SERUM 8.2 mg/dL (8.5-10.1); CREATININE 0.6 mg/dL (0.6-1.3); MAGNESIUM 1.7 mg/dL (1.8-2.4); PHOSPHORUS 3.1 mg/dL (2.5-4.9)
[2018-09-23 06:48] LABS: POTASSIUM 2.7 mmol/L (3.5-5.1)
[2018-09-23] MEDS: MAG HYDROX/AL HYDROX/SIMETH 30 ML UDC PO PRN ×2 (07:05→20:55)
--- NOTE | 2018-09-23 07:29 | NUR ---
MS RN CLOSING NOTES: ALL NEEDS WERE ATTENDED AND ANTICIPATED FOR. PT SITTING UP IN BED .WOUND TX PERFORMED ORDERED. IV REMAINS INTACT. CURRENTLY H/L. BED KEPT IN LOW, LOCKED POSITION, AND SIDE RAILS X 2UP. ENDORSED TO AM NURSE FOR KELLY.
--- NOTE | 2018-09-23 07:41 | NUR ---
MS RN OPENING NOTES RECEIVED PT LAYING IN BED WITH HOB ELEVATED. PT IS A/O X4, AFEBRILE. RESPIRATIONS ARE EVEN AND UNLABORED, NOT IN ANY ACUTE DISTRESS NOTED. PT DENIES ANY PAIN AT THIS TIME NO C/O SOB, N/V. IV SITE TO RFA 20G INTACT, NO INFILTRATION NOTED. DRESSING KEPT CLEAN AND DRY. SAFETY MEASURES ARE IN PLACE. INSTRUCTED PT TO USE CALL LIGHT WHEN ASSISTANCE IS NEEDED, CALL LIGHT IS LEFT WITHIN REACH. WILL MONITOR THROUGHOUT SHIFT FOR CONTINUITY OF CARE.
[2018-09-23 08:00] VITALS: BP 99/66
[2018-09-23 08:55] LABS: BAND % (MANUAL) 1 % (0.0-5.0); EOSINOPHILS % (MANUAL) 7 % (0-4); LYMPHOCYTES % (MANUAL) 10 % (16-48); MONOCYTES % (MANUAL) 14 % (0-11.0); NEUTROPHILS % (MANUAL) 68 (42-76)
[2018-09-23] MEDS: SPIRONOLACTONE 25 MG TABLET PO SCH (09:00)
[2018-09-23] MEDS: FOLIC ACID 1 MG TABLET PO SCH (09:22)
[2018-09-23] MEDS: FUROSEMIDE 20 MG TABLET PO SCH (09:22)
[2018-09-23] MEDS: NEOMY SULF/BACITRAC ZN/POLY 15 GM TUBE TP SCH ×3 (09:25→16:09)
[2018-09-23] MEDS: CLOTRIMAZOLE/BETAMETASONE DIPROPIONATE 15 GM TUBE TP SCH ×2 (09:25→16:12)
[2018-09-23] MEDS: HYDROGEL DRESSING 90 GM TUBE TP SCH ×2 (09:26→20:05)
[2018-09-23] MEDS: PANTOPRAZOLE 40 MG TABLET.DR PO SCH (09:28)
--- NOTE | 2018-09-23 11:52 | NUR ---
MS RN NOTES-- NOTIFIED DR. CEJA OF CRITICAL K LEVEL W/ ORDERS FOR KDUR 40MEQ AND POTASSIUM CHLORIDE IV 40MEQ. ORDERS READ BACK AND VERIFIED. NOTED AND CARRIED OUT.
[2018-09-23] MEDS: Magnesium 1GM/D5W 100ML PREMIX 100 ML IV SCH ×2 (11:55→13:19)
[2018-09-23] MEDS ORDERED: POTASSIUM CL. PREMIX PERIPHER. 50 ML IV SCH (12:00)
[2018-09-23] MEDS ORDERED: POTASSIUM CHLORIDE 10 MEQ/50 ML PREMIXED IVPB FOR PERIPHERAL LINE IV ONE (12:00)
[2018-09-23] MEDS ORDERED: POTASSIUM CHLORIDE 20 MEQ TAB.PRT.SR PO ONE ×2 (12:00→13:00)
[2018-09-23] MEDS ORDERED: DIPH50CA37 PO (14:13)
[2018-09-23] MEDS ORDERED: FURO20TA4 PO (14:13)
[2018-09-23] MEDS ORDERED: ALLA266C2 TP (14:13)
[2018-09-23] MEDS ORDERED: Hydrogel Dressing TP (14:13)
[2018-09-23] MEDS ORDERED: CLOT15CR5 TP (14:13)
[2018-09-23] MEDS ORDERED: MAG30ORA PO (14:13)
[2018-09-23] MEDS ORDERED: DIPH28.33 TP (14:13)
[2018-09-23] MEDS ORDERED: POTA20TA83 PO (14:14)
[2018-09-23] MEDS ORDERED: SPIR25TA PO (14:14)
[2018-09-23] MEDS ORDERED: ZOLP5TAB2 PO (14:14)
[2018-09-23] MEDS ORDERED: NEOM15OI3 TP (14:14)
[2018-09-23 16:00] VITALS: BP 104/66
--- NOTE | 2018-09-23 16:40 | NUR ---
MS RN NOTES-- US GUIDED PARACENTESIS BEING DONE AT BEDSIDE. CONSENTS SIGNED.
--- NOTE | 2018-09-23 17:30 | NUR ---
RN NOTES-- PT FINISHED WITH US GUIDED PARACENTESIS WITH 7.3 LITERS OUT, CLEAR YELLOW FLUID. PT TOLERATED WELL. VITAL SIGNS STABLE. PT REMAINS A/O X4. NOT IN ANY APPARENT DISTRESS NOTED. WILL CONTINUE TO MONITOR.
--- NOTE | 2018-09-23 18:45 | NUR ---
MS RN NOTES-- PER DR. CEJA, NO NEED FOR PATHOLOGY FOR PARACENTHESIS ASCITES FLUID.
--- NOTE | 2018-09-23 19:41 | NUR ---
MS RN OPENING NOTES: RECEIVED PT ON ROOM AIR AND IS TOLERATING WELL. NO SOB NOTED. NO S/S OF DISTRESS. IV REMAINS INTACT. CURRENTLY H/L. PT STATES HE FEELS BETTER AFTER PARACENTESIS. BED KEPT IN LOW, LOCKED POSITION, AND SIDE RAILS X 2UP. SITTER AT BEDSIDE. WILL CONTINUE TO MONITOR PT.
[2018-09-23 20:00] VITALS: BP 95/50
--- NOTE | 2018-09-23 20:10 | NUR ---
MS RN NOTES: PT COMPLAINING OF ITCHINESS. PT WAS ADMINISTERED BENADRYL 50MG PO. WILL CONTINUE TO MONITOR.
[2018-09-23 20:53] VITALS: BP 101/63
--- NOTE | 2018-09-23 21:00 | NUR ---
MS RN NOTES: PT COMPLAINING OF AB PAIN. PT WAS ADMINISTERED MAALOX. PT ALSO COMPLAINING OF BILATERAL LEG, BACK, AND ABDOMINAL 10/10 PAIN. PT WAS ADMINISTERED MORPHINE 2MG IV. WILL CONTINUE TO MONITOR.
[2018-09-24] MEDS: MORPHINE SULFATE INJ 2 MG/ML DISP.SYRIN IV PRN ×3 (01:00→11:07)
[2018-09-24] MEDS: diphenhydrAMINE HCL 50 MG CAPSULE PO PRN ×2 (02:32→12:24)
--- NOTE | 2018-09-24 02:37 | NUR ---
MS RN NOTES: PT COMPLAINING THAT HE IS ITCHING ALL OVER AND UPSET THAT THE TOPICAL CREAM ISN'T SUFFICIENT. PT WAS ADMINISTERED BENADRYL 50MG PO. WILL CONTINUE TO MONITOR.
[2018-09-24 06:10] VITALS: BP 104/65
--- NOTE | 2018-09-24 06:13 | NUR ---
MS RN NOTES: PT WOKE UP AFTER BLOOD DRAW AND IS COMPLAINING OF 10/10 BILATERAL LEGS, BACK, AND AB 10/10 PAIN. PT WAS ADMINISTERED MORPHINE 2MG IV. WILL CONTINUE TO MONITOR.
--- NOTE | 2018-09-24 06:24 | NUR ---
MS RN CLOSING NOTES: ALL NEEDS WERE ATTENDED AND ANTICIPATED FOR. PT COMFORTABLY SLEEPING AT THIS TIME. PT ON ROOM AIR AND TOLERATING WELL. NO SOB NOTED. NO S/S OF DISTRESS. IV REMAINS INTACT. CURRENTLY H/L. PT FOR DISCHARGE TODAY. WOUND TX PERFORMED ORDERED BUT PT KEEPS PICKING AT WOUNDS ALTHOUGH INFORMED THAT HE SHOULD AVOID TO. BED KEPT IN LOW, LOCKED POSITION, AND SIDE RAILS X 2UP. WILL ENDORSE TO AM NURSE FOR KELLY.
[2018-09-24 06:55] LABS: BASOPHILS # (AUTO) 0.1 /CMM (0.0-0.2); BASOPHILS % (AUTO) 1.4 % (0.0-2.0); EOSINOPHILS % (AUTO) 5.8 % (0.0-6.0); HEMATOCRIT 27 % (39-51); LYMPHOCYTES % (AUTO) 15.7 % (20.0-44.0); MEAN CORPUSCULAR HGB CONC 33 g/dl (31.0-36.0); MEAN CORPUSCULAR VOLUME 81 fL (80-96); MONOCYTES # (AUTO) 1.3 /CMM (0.1-1.30); MONOCYTES % (AUTO) 20.8 % (2.0-12.0); NEUTROPHILS # (AUTO) 3.7 /CMM (1.8-8.9); NEUTROPHILS % (AUTO) 56.3 % (43.0-81.0); PLATELET COUNT (AUTO) 153 /CMM (150-450); RED BLOOD CELL COUNT(AUTO) 3.32 MIL/uL (4.5-6.0); WHITE BLOOD COUNT (AUTO) 6.5 K/uL (4.3-11.0)
[2018-09-24 07:00] LABS: CALCIUM, SERUM 7.5 mg/dL (8.5-10.1); CREATININE 0.6 mg/dL (0.6-1.3); MAGNESIUM 2.1 mg/dL (1.8-2.4); PHOSPHORUS 2.7 mg/dL (2.5-4.9); POTASSIUM 3.2 mmol/L (3.5-5.1)
--- NOTE | 2018-09-24 07:40 | NUR ---
MS RN OPENING NOTE RECEIVED PT IN BED, RESTING WITH EYES CLOSED AND EASILY AOUSABLE. PT IS ALERT AND ORIENTED X4, DENIES CHEST PAIN, SOB, N/V. BREATHING IS EVEN AND UNLABORED ON ROOM AIR. NO ACUTE DISTRESS NOTED AT THIS TIME. RIGHT FA #20G IV IS SALINE LOCKED WITHOUT REDNESS OR SWELLING. PT HAS ORDER FOR D/C TODAY, WILL FOLLOW UP WITH MISSILE INSPECTOR PREFLIGHT. ALL NEEDS ATTENDED TO. BED IS LOCKED AND IN LOWEST POSITION, SIDE RAILS UP X2, BED ALARM ON, CALL LIGHT AND POSSESSIONS WITHIN REACH.
[2018-09-24 08:00] VITALS: BP 102/82
[2018-09-24 08:42] LABS: BAND % (MANUAL) 1 % (0.0-5.0); EOSINOPHILS % (MANUAL) 8 % (0-4); LYMPHOCYTES % (MANUAL) 15 % (16-48); MONOCYTES % (MANUAL) 25 % (0-11.0); NEUTROPHILS % (MANUAL) 51 (42-76)
[2018-09-24] MEDS ORDERED: POTASSIUM CHLORIDE 20 MEQ TAB.PRT.SR PO SCH (09:00)
[2018-09-24] MEDS: SPIRONOLACTONE 25 MG TABLET PO SCH (09:00)
[2018-09-24] MEDS: PANTOPRAZOLE 40 MG TABLET.DR PO SCH (09:28)
[2018-09-24] MEDS: FOLIC ACID 1 MG TABLET PO SCH (09:28)
[2018-09-24] MEDS: FUROSEMIDE 20 MG TABLET PO SCH (09:28)
[2018-09-24] MEDS: NEOMY SULF/BACITRAC ZN/POLY 15 GM TUBE TP SCH (09:29)
[2018-09-24] MEDS: HYDROGEL DRESSING 90 GM TUBE TP SCH (09:29)
[2018-09-24] MEDS: CLOTRIMAZOLE/BETAMETASONE DIPROPIONATE 15 GM TUBE TP SCH (09:29)
--- NOTE | 2018-09-24 09:45 | NUR ---
MS RN NOTE PT REFUSING WOUND DRESSING CHANGE AND PICTURES AT THIS TIME. EDUCATION PROVIDED, PT STATED "I'LL WAIT TILL LATER".
--- NOTE | 2018-09-24 10:00 | NUR ---
MS RN NOTE PER AND WOUND CARE NURSE HOLA DOWNING TO REMOVE SUTURE PRIOR TO D/C FOR INFECTION PREVENTION.
--- NOTE | 2018-09-24 11:00 | NUR ---
MS RN NOTE PT STILL REFUSING WOUND CARE AND WOUND DOCUMENTATION AT THIS TIME. EDUCATION PROVIDED PT STILL REFUSING.
--- NOTE | 2018-09-24 12:00 | NUR ---
MS RN NOTE PT CONTINUES TO REFUSE WOUND CARE AND DOCUMENTATION DESPITE EDUCATION PROVIDED. PT STATES "I WANT TO DO IT LATER".
--- NOTE | 2018-09-24 13:01 | NUR ---
MS RN PT DISCHARGE NOTE PT DISCHARGED TO [facility] IN MEDICALLY STABLE CONDITION VIA AMBULANCE. PT IS ALERT AND ORIENTED X4, DENIES CHEST PAIN, SOB, N/V, BREATHING IS EVEN AND UNLABORED ON ROOM AIR. RIGHT FA PERIPHERAL IV REMOVED WITH CATHETER TIP INTACT. PT STRONGLY REFUSING WOUND CARE, ADLS, AND WOUND PHOTO DOCUMENTATION FOR THE DURATION OF THE SHIFT DESPITE EDUCATION PROVIDED. REPORT GIVEN TO BLAYNE ORELLANA DELINQUENT TAX COLLECTOR ASSISTANT FOR CONTINUITY OF CARE. DISCHARGE PAPERWORK AND EDUCATION PROVIDED PER PROTOCOL INCLUDING WOUND CARE. REYNA VERBALIZED UNDERSTANDING AND AGREEMENT. ALL BELONGINGS ACCOUNTED FOR, PT STATED "I HAVE ALL MY STUFF" BUT REFUSED TO SIGN PAPERWORK. REPORT GIVEN TO AMBULANCE STAFF FOR TRANSFER OF CARE.
== END 2018-09-24 13:01 | DRG 280 ==
LOC: ER 19:21 → MEDSG1 09-16 02:27 → MEDSG2 09-17 09:59
PROVIDERS: ADMIT Hospitalist; ATTEND Student in an Organized Health Care Education/Training Program
PROC: 0JB70ZZ Excision of Back Subcutaneous Tissue and Fascia, Open Approach (ICD-10-PCS; principal; 2018-09-16)
PROC: 0W9G3ZZ Drainage of Peritoneal Cavity, Percutaneous Approach (ICD-10-PCS; 2018-09-19)
DX: K70.31 Alcoholic cirrhosis of liver with ascites (principal); E43 Unspecified severe protein-calorie malnutrition; L89.153 Pressure ulcer of sacral region, stage 3; K76.6 Portal hypertension; E87.1 Hypo-osmolality and hyponatremia; E83.42 Hypomagnesemia; G31.2 Degeneration of nervous system due to alcohol; E88.09 Other disorders of plasma-protein metabolism, not elsewhere classified; I10 Essential (primary) hypertension; F17.210 Nicotine dependence, cigarettes, uncomplicated; E87.6 Hypokalemia; L30.4 Erythema intertrigo; Z59.0 Homelessness; R53.1 Weakness; Y90.8 Blood alcohol level of 240 mg/100 ml or more; D63.8 Anemia in other chronic diseases classified elsewhere; K86.1 Other chronic pancreatitis; Z91.19 Patient's noncompliance with other medical treatment and regimen; F10.129 Alcohol abuse with intoxication, unspecified; L98.8 Other specified disorders of the skin and subcutaneous tissue; I87.2 Venous insufficiency (chronic) (peripheral); S01.21XA Laceration without foreign body of nose, initial encounter; S41.012A Laceration without foreign body of left shoulder, initial encounter; S41.011A Laceration without foreign body of right shoulder, initial encounter; S61.412A Laceration without foreign body of left hand, initial encounter; X58.XXXA Exposure to other specified factors, initial encounter; Y93.9 Activity, unspecified; S81.012A Laceration without foreign body, left knee, initial encounter; S81.011A Laceration without foreign body, right knee, initial encounter; Y92.9 Unspecified place or not applicable
CPT/HCPCS: 36415; 71045-TC; 72170-TC; 73552; 73590-TC; 76942-TC; 80048-TC; 80053-TC; 80061-TC; 80076-TC; 82040-TC; 82140-TC; 83690-TC; 83735-TC; 84100-TC; 84443-TC; 85025-TC; 85610-TC; 87070-TC; 87081-TC; 88112-TC; 88305-TC; 88312-TC; 89051-TC; 93970-TC; 97116-TC; 97530-TC; A4216; A6248; A6253; A6402; A6403; G0378; G0480; J2270; J3475; J7030; J7060; P9047; Q0163; Q0177

== ENCOUNTER 2018-10-01 15:09 | Emergency (ER) | payer OTHER ==
[~2018-10-01] VITALS: Ht 172.7 cm; Wt 78.5 kg
[~2018-10-01 15:09] MED LIST changes: +ALLA266C2 TP; +CLOT15CR5 TP; +DIPH28.33 TP; +DIPH50CA37 PO; +FURO20TA4 PO; +Hydrogel Dressing TP; +MAG30ORA PO; +NEOM15OI3 TP; +POTA20TA83 PO; +SPIR25TA PO; -THIA100T74 PO; +ZOLP5TAB2 PO
--- NOTE | 2018-10-01 15:15 | NUR ---
PT [id number] FRM STREETS C/O ABDOMINAL PAIN AND DISTENSION. PT IS AAOX3, NOT IN RESPIRATORY DISTRESS, V/S STABLE, KEPT RESTED AND COMFORTABLE, WILL CONTINUE TO MONITOR.
--- NOTE | 2018-10-01 15:28 | NUR ---
AT BEDSIDE FOR EVAL.
[2018-10-01] MEDS ORDERED: HYDROCODONE/APAP 10/325MG 1 EA TABLET PO ONE (15:30)
--- NOTE | 2018-10-01 15:45 | NUR ---
ER PHLEB AT BEDSIDE FOR BLOOD DRAW.
[2018-10-01 15:53] LABS: BASOPHILS # (AUTO) 0.2 /CMM (0.0-0.2); BASOPHILS % (AUTO) 1.3 % (0.0-2.0); HEMATOCRIT 29 % (39-51); HEMOGLOBIN 9.6 g/dL (13.5-17.5); LYMPHOCYTES # (AUTO) 2.3 /CMM (0.8-4.8); LYMPHOCYTES % (AUTO) 18.1 % (20.0-44.0); MEAN CORPUSCULAR HGB CONC 33 g/dl (31.0-36.0); MEAN CORPUSCULAR VOLUME 81 fL (80-96); MONOCYTES # (AUTO) 3.3 /CMM (0.1-1.30); MONOCYTES % (AUTO) 25.7 % (2.0-12.0); NEUTROPHILS # (AUTO) 6.6 /CMM (1.8-8.9); NEUTROPHILS % (AUTO) 51.9 % (43.0-81.0); PLATELET COUNT (AUTO) 316 /CMM (150-450); RED BLOOD CELL COUNT(AUTO) 3.57 MIL/uL (4.5-6.0); WHITE BLOOD COUNT (AUTO) 12.8 K/uL (4.3-11.0)
--- NOTE | 2018-10-01 15:53 | NUR ---
TECH AT BEDSIDE FOR US GUIDED PARACENTESIS.
[2018-10-01] MEDS ORDERED: HYDROCODONE/APAP 10/325MG 1 EA TABLET ONE (16:06)
[2018-10-01 16:15] LABS: CALCIUM, SERUM 8.1 mg/dL (8.5-10.1); CREATININE 0.5 mg/dL (0.6-1.3); POTASSIUM 3.1 mmol/L (3.5-5.1)
[2018-10-01 16:21] LABS: ALBUMIN 2.4 g/dL (3.4-5.0); BILIRUBIN,DIRECT 0.6 mg/dL (0.0-0.2); BILIRUBIN,TOTAL 1.2 mg/dL (0.2-1.0); TOTAL PROTEIN, SERUM 6.1 g/dL (6.4-8.2)
[2018-10-01] MEDS ORDERED: ALBUMIN 25% 50 ML IV ONE (16:28)
[2018-10-01] MEDS ORDERED: POTASSIUM CHLORIDE 20 MEQ TAB.PRT.SR PO ONE ×2 (16:29→16:30)
[2018-10-01] MEDS ORDERED: ALBUMIN 25% 12.5 GM/50 ML BOTTLE IV ONE (16:30)
[2018-10-01 16:47] LABS: BAND % (MANUAL) 1 % (0.0-5.0); EOSINOPHILS % (MANUAL) 3 % (0-4); LYMPHOCYTES % (MANUAL) 17 % (16-48); MONOCYTES % (MANUAL) 21 % (0-11.0); NEUTROPHILS % (MANUAL) 58 (42-76)
--- NOTE | 2018-10-01 16:53 | NUR ---
BOOKING MANAGER AT BEDSIDE FOR XRAY.
[2018-10-01 17:15] VITALS: BP 102/64
--- NOTE | 2018-10-01 17:15 | NUR ---
IV removed. Catheter intact and site benign. Pressure and 4x4 applied to site. No bleeding noted. Patient discharged to home in stable condition. Written and verbal after care instructions given. Patient verbalizes understanding of instruction.
== END 2018-10-01 17:17 | disposition home or self-care (01) ==
LOC: ER 15:09
DX: K70.31 Alcoholic cirrhosis of liver with ascites (principal); F10.20 Alcohol dependence, uncomplicated; F19.10 Other psychoactive substance abuse, uncomplicated; I10 Essential (primary) hypertension; E83.51 Hypocalcemia; F17.200 Nicotine dependence, unspecified, uncomplicated; Y90.8 Blood alcohol level of 240 mg/100 ml or more; Z59.0 Homelessness
CPT/HCPCS: 36415; 49083; 71045; 80048; 80076; 80307; 83690; 85025; 85730; 96365; 99285; 99406; P9047; 76942-TC; G0480

== ENCOUNTER 2018-10-03 18:55 | Emergency (ER) | payer OTHER ==
[~2018-10-03] VITALS: Ht 175.3 cm; Wt 65.3 kg
--- NOTE | 2018-10-03 19:00 | NUR ---
PT BIBRA. C/O "WAS FOUND BEHIND A DUMPSTER. ETOH" PT AMBULATORY. VSS. -HI -SI. -SOB -N/V NOTED. PT ALERT REPONSIVE AND ORIENTED X4.
[2018-10-03 21:00] VITALS: BP 112/71
--- NOTE | 2018-10-04 03:02 | NUR ---
PT BECOMING AGITATED. YELLING AT STAFF. REFUSING ALL PAPERWORK AT THIS TIME. REFUSING TO SIGN. HOMELESS DISCHRAGE PROVIDED TO PT. PT REFUSED TO TAKE IT. SECUTIRY CALLED AND PT BEING ESCORTED OUT OF ER.
== END 2018-10-04 03:06 | disposition home or self-care (01) ==
LOC: ER 19:30
DX: F10.129 Alcohol abuse with intoxication, unspecified (principal); R60.0 Localized edema; F19.10 Other psychoactive substance abuse, uncomplicated; I10 Essential (primary) hypertension; E83.51 Hypocalcemia; F10.10 Alcohol abuse, uncomplicated; F17.200 Nicotine dependence, unspecified, uncomplicated; Y90.9 Presence of alcohol in blood, level not specified; Z59.0 Homelessness

== ENCOUNTER 2018-10-22 15:13 | Emergency (ER) | payer OTHER ==
[~2018-10-22] VITALS: Ht 182.9 cm; Wt 74.8 kg
[2018-10-22 15:27] VITALS: BP 111/71
--- NOTE | 2018-10-22 22:49 | NUR ---
pt refusing blood draw. cancelled by dr worley.
--- NOTE | 2018-10-23 01:22 | NUR ---
Pt provided with new socks, food and drink.
--- NOTE | 2018-10-23 05:30 | NUR ---
pt ok to be discharged per dr worley. pt upset claiming he was not treated. pt cursing at staff. security at bedside.
--- NOTE | 2018-10-23 05:50 | NUR ---
Pt left er refusing to sign discharge paperwork and Homeless waiver.
== END 2018-10-23 07:03 | disposition home or self-care (01) ==
LOC: ER 15:13
DX: R18.8 Other ascites (principal); G89.29 Other chronic pain; M54.5 Low back pain; F19.10 Other psychoactive substance abuse, uncomplicated; I10 Essential (primary) hypertension; E83.51 Hypocalcemia; F10.20 Alcohol dependence, uncomplicated; F17.200 Nicotine dependence, unspecified, uncomplicated; Y90.9 Presence of alcohol in blood, level not specified; Z59.0 Homelessness

== ENCOUNTER 2018-11-16 18:45 | Emergency (ER) | payer OTHER ==
[~2018-11-16] VITALS: Ht 182.9 cm; Wt 56.7 kg
[2018-11-16 19:00] VITALS: BP 91/58
--- NOTE | 2018-11-16 19:06 | NUR ---
[id number] FROM THE STREETS C/O ABDOMINAL PAIN, WEAKNESS. +ETOH. FREQUENT VISITOR TO [facility]. STATES PAIN IS 8/10. HX OF LIVER CIRRHOSIS. PT AOX3, VSS, RR EVEN AND UNLABORED ON RA. NO ACUTE DISTRESS NOTED. PROVIDED WARM BLANKET FOR COMFORT. READY FOR EVAL.
[2018-11-16 19:19] LABS: BASOPHILS # (AUTO) 0.3 /CMM (0.0-0.2); BASOPHILS % (AUTO) 2.8 % (0.0-2.0); EOSINOPHILS % (AUTO) 3.6 % (0.0-6.0); HEMATOCRIT 29 % (39-51); HEMOGLOBIN 9.3 g/dL (13.5-17.5); LYMPHOCYTES # (AUTO) 2.4 /CMM (0.8-4.8); LYMPHOCYTES % (AUTO) 23.5 % (20.0-44.0); MEAN CORPUSCULAR HGB CONC 32 g/dl (31.0-36.0); MEAN CORPUSCULAR VOLUME 74 fL (80-96); MONOCYTES # (AUTO) 2.1 /CMM (0.1-1.30); MONOCYTES % (AUTO) 20.1 % (2.0-12.0); NEUTROPHILS # (AUTO) 5.1 /CMM (1.8-8.9); PLATELET COUNT (AUTO) 460 /CMM (150-450); RED BLOOD CELL COUNT(AUTO) 3.93 MIL/uL (4.5-6.0); WHITE BLOOD COUNT (AUTO) 10.3 K/uL (4.3-11.0)
[2018-11-16 19:32] LABS: CARBON DIOXIDE 26 mmol/L (21-32); CHLORIDE 107 mmol/L (98-107); CREATININE 0.5 mg/dL (0.6-1.3); GLUCOSE 111 mg/dL (74-106); POTASSIUM 3.7 mmol/L (3.5-5.1); SODIUM SERUM 143 mmol/L (136-145); UREA NITROGEN, BLOOD 7 mg/dL (7-18)
[2018-11-16 19:39] LABS: ALANINE AMINOTRANSFERASE 26 U/L (12-78); ALBUMIN 2.3 g/dL (3.4-5.0); ALCOHOL, BLOOD 383 mg/dL (0-0); ALKALINE PHOSPHATASE 264 U/L (46-116); ASPARTATE AMINOTRANSFERASE 45 U/L (15-37); BILIRUBIN,DIRECT 0.2 mg/dL (0.0-0.2); BILIRUBIN,TOTAL 0.5 mg/dL (0.2-1.0); TOTAL PROTEIN, SERUM 5.7 g/dL (6.4-8.2)
[2018-11-16 19:42] LABS: ACETAMINOPHEN 0 ug/ml (10-30); SALICYLATE 0.9 mg/dL (2.8-20.0)
[2018-11-16 19:47] LABS: SERUM AMMONIA 42 umol/L (11-32)
--- NOTE | 2018-11-16 20:20 | NUR ---
PT GIVEN FOOD AND JUICE. OK PER
[2018-11-16 20:45] LABS: EOSINOPHILS % (MANUAL) 3 % (0-4); LYMPHOCYTES % (MANUAL) 21 % (16-48); MONOCYTES % (MANUAL) 17 % (0-11.0); NEUTROPHILS % (MANUAL) 59 (42-76)
--- NOTE | 2018-11-16 20:50 | NUR ---
Patient eloped from facility. ER MD notified.
[2018-11-17] MEDS ORDERED: DIATR MEGLU/DIATRIZOATE SODIUM 30 ML BOTTLE (GASTROGRAPHIN) ONE (19:45)
== END 2018-11-16 20:53 | disposition left against medical advice (07) ==
LOC: ER 18:50
DX: F10.229 Alcohol dependence with intoxication, unspecified (principal); R41.82 Altered mental status, unspecified; R60.0 Localized edema; F19.10 Other psychoactive substance abuse, uncomplicated; I10 Essential (primary) hypertension; F17.200 Nicotine dependence, unspecified, uncomplicated; Y90.8 Blood alcohol level of 240 mg/100 ml or more; Z59.0 Homelessness
CPT/HCPCS: 36415; 71045; 80048; 80076; 80307; 80329; 82140; 84484; 85025; 85730; 93005; 99284; 99406; G0480; Q9963

== ENCOUNTER 2018-11-30 16:24 | Emergency (ER) | payer OTHER ==
[~2018-11-30] VITALS: Ht 177.8 cm; Wt 82.6 kg
[2018-11-30 17:06] VITALS: BP 121/81
--- NOTE | 2018-11-30 17:24 | NUR ---
Patient given written and verbal discharge instructions. Patient verbalizes understanding of instructions. Patient is ambulatory with steady gait. Refuses offer of retirement placement. Patient given list of available shelters in surrounding area.
== END 2018-11-30 17:25 | disposition home or self-care (01) ==
LOC: ER 16:31
DX: K70.30 Alcoholic cirrhosis of liver without ascites (principal); F10.20 Alcohol dependence, uncomplicated; F19.10 Other psychoactive substance abuse, uncomplicated; I10 Essential (primary) hypertension; E83.51 Hypocalcemia; F17.200 Nicotine dependence, unspecified, uncomplicated; Y90.9 Presence of alcohol in blood, level not specified; Z59.0 Homelessness

== ENCOUNTER 2018-12-01 19:45 | Emergency (ER) | payer OTHER ==
[~2018-12-01] VITALS: Ht 177.8 cm; Wt 82.6 kg
[2018-12-01 19:50] VITALS: BP 102/63
--- NOTE | 2018-12-01 21:15 | NUR ---
PT REFUSING TO LEAVE. SECURITY CALLED FOR ASSISTANCE
--- NOTE | 2018-12-01 21:25 | NUR ---
PT REFUSED TO SIGN DISCHARGE PAPERS
== END 2018-12-01 21:28 | disposition home or self-care (01) ==
LOC: ER 19:51
DX: R18.8 Other ascites (principal); F10.20 Alcohol dependence, uncomplicated; F19.10 Other psychoactive substance abuse, uncomplicated; I10 Essential (primary) hypertension; E83.51 Hypocalcemia; F17.200 Nicotine dependence, unspecified, uncomplicated; Y90.9 Presence of alcohol in blood, level not specified; Z59.0 Homelessness

== ENCOUNTER 2018-12-15 21:47 | Emergency (ER) | payer OTHER ==
[~2018-12-15] VITALS: Ht 177.8 cm; Wt 82.6 kg
--- NOTE | 2018-12-15 22:04 | NUR ---
[id number] FROM [address] C/O ABDOMINAL PAIN AND L UPPER EXT PAIN S/P GLF X2DAYS AGO -HEAD INJURY. ABDOMEN IS DISTENDED. SKIN TEAR AT LEFT FOREARM R/T RECENT FALL. NO OTHER COMPLAINTS AT THIS TIME. NO ACUTE DISTRESS NOTED. READY FOR EVAL.
[2018-12-15 22:45] LABS: BASOPHILS # (AUTO) 0.1 /CMM (0.0-0.2); BASOPHILS % (AUTO) 1.7 % (0.0-2.0); EOSINOPHILS % (AUTO) 3.3 % (0.0-6.0); HEMATOCRIT 28 % (39-51); HEMOGLOBIN 8.8 g/dL (13.5-17.5); LYMPHOCYTES % (AUTO) 23.8 % (20.0-44.0); MEAN CORPUSCULAR HGB CONC 32 g/dl (31.0-36.0); MEAN CORPUSCULAR VOLUME 70 fL (80-96); MONOCYTES # (AUTO) 1.2 /CMM (0.1-1.30); MONOCYTES % (AUTO) 15.1 % (2.0-12.0); NEUTROPHILS # (AUTO) 4.6 /CMM (1.8-8.9); NEUTROPHILS % (AUTO) 56.1 % (43.0-81.0); PLATELET COUNT (AUTO) 265 /CMM (150-450); RED BLOOD CELL COUNT(AUTO) 3.99 MIL/uL (4.5-6.0); WHITE BLOOD COUNT (AUTO) 8.2 K/uL (4.3-11.0)
[2018-12-15] MEDS ORDERED: HYDROCODONE/APAP 10/325MG 1 EA TABLET ONE (22:48)
[2018-12-15] MEDS ORDERED: LIDOCAINE /MPF 1% VIAL 5 ML VIAL ONE (22:48)
[2018-12-15] MEDS ORDERED: CEFTRIAXONE 1 G VIAL ONE (22:48)
[2018-12-15 22:54] LABS: CREATININE 0.7 mg/dL (0.6-1.3); POTASSIUM 3.2 mmol/L (3.5-5.1)
[2018-12-15 23:00] LABS: ALBUMIN 2.5 g/dL (3.4-5.0); BILIRUBIN,DIRECT 0.4 mg/dL (0.0-0.2); BILIRUBIN,TOTAL 0.7 mg/dL (0.2-1.0); TOTAL PROTEIN, SERUM 5.7 g/dL (6.4-8.2)
[2018-12-15] MEDS: CEFTRIAXONE 1 G VIAL IM ONE (23:00)
[2018-12-15] MEDS: HYDROCODONE/APAP 10/325MG 1 EA TABLET PO ONE (23:00)
--- NOTE | 2018-12-15 23:00 | NUR ---
MEDS GIVEN PER MD ORDER. WILL CONT TO MONITOR ACCORDINGLY
[2018-12-15 23:28] LABS: EOSINOPHILS % (MANUAL) 2 % (0-4); LYMPHOCYTES % (MANUAL) 19 % (16-48); MONOCYTES % (MANUAL) 14 % (0-11.0); NEUTROPHILS % (MANUAL) 65 (42-76)
[2018-12-16 05:59] VITALS: BP 112/74
== END 2018-12-16 05:59 | disposition home or self-care (01) ==
LOC: ER 21:52
DX: K86.1 Other chronic pancreatitis (principal); R18.8 Other ascites; K70.9 Alcoholic liver disease, unspecified; F19.10 Other psychoactive substance abuse, uncomplicated; F17.200 Nicotine dependence, unspecified, uncomplicated; I10 Essential (primary) hypertension; D64.9 Anemia, unspecified; Z59.0 Homelessness; Z79.899 Other long term (current) drug therapy
CPT/HCPCS: 36415; 80048; 80076; 80307; 83690; 85025; 85730; 96372; 99283; 99406; J0696; J3490; G0480

== ENCOUNTER 2018-12-17 21:16 | Inpatient (IN) | payer OTHER ==
[~2018-12-17] VITALS: Ht 175.3 cm; Wt 74.8 kg
[2018-12-17 21:54] LABS: BASOPHILS # (AUTO) 0.2 /CMM (0.0-0.2); BASOPHILS % (AUTO) 2.5 % (0.0-2.0); EOSINOPHILS % (AUTO) 3.5 % (0.0-6.0); HEMATOCRIT 27 % (39-51); HEMOGLOBIN 8.6 g/dL (13.5-17.5); LYMPHOCYTES # (AUTO) 1.9 /CMM (0.8-4.8); LYMPHOCYTES % (AUTO) 28.8 % (20.0-44.0); MEAN CORPUSCULAR HGB CONC 32 g/dl (31.0-36.0); MEAN CORPUSCULAR VOLUME 70 fL (80-96); MONOCYTES # (AUTO) 0.9 /CMM (0.1-1.30); MONOCYTES % (AUTO) 13.1 % (2.0-12.0); NEUTROPHILS # (AUTO) 3.5 /CMM (1.8-8.9); NEUTROPHILS % (AUTO) 52.1 % (43.0-81.0); PLATELET COUNT (AUTO) 259 /CMM (150-450); RED BLOOD CELL COUNT(AUTO) 3.88 MIL/uL (4.5-6.0); WHITE BLOOD COUNT (AUTO) 6.6 K/uL (4.3-11.0)
--- NOTE | 2018-12-17 21:56 | NUR ---
Note undone in EDM - 12/17/18 at 2[address]RE[address] TO ER BED 11. AAOX3. NO RESP DISTRESS NOTED, BREATHING EVEN AND UNLABORED. C/O ABDOMINAL PAIN. PT REPORT THAT PAIN HAD BEEN GOING ON FOR THE PAST 9 MONTHS. NOTED WITH ACSITED AND PT REPORTS THAT IT HAS TO BE DRAINED EVERY NOW AND THEN. PT ALSO NOTED WIHT LFA OLD SKIN ABRASSION WITH SCAB. MD AT BEDSIDE FOR EVAL. ORDERS RECEIVED, NOTED AND CARRIED OUT, IV LINE OBTAINED ON R FA 18G. BLOOD DRAWN AND GIVEN TO SOFTWARE QUALITY ASSURANCE ANALYST AT [facility].
--- NOTE | 2018-12-17 21:59 | NUR ---
MADHURI FROM STREET. TO ER BED 11. AAOX3. NO RESP DISTRESS NOTED, BREATHING EVEN AND UNLABORED. C/O ABDOMINAL PAIN. PT REPORT THAT PAIN HAD BEEN GOING ON FOR THE PAST 9 MONTHS. NOTED WITH ACSITED AND PT REPORTS THAT IT HAS TO BE DRAINED EVERY NOW AND THEN. PT ALSO NOTED WIHT LFA OLD SKIN ABRASSION WITH SCAB. PT NOTED WITH BP 91/51. MD AT BEDSIDE FOR EVAL. ORDERS RECEIVED, NOTED AND CARRIED OUT, IV LINE OBTAINED ON R FA 18G. BLOOD DRAWN AND GIVEN TO WEB PAGE DESIGNER AT [facility].
[2018-12-17] MEDS ORDERED: IV NS 0.9% 1,000 ML BAG IV ONE (22:00)
[2018-12-17 22:03] LABS: CALCIUM, SERUM 7.8 mg/dL (8.5-10.1); CARBON DIOXIDE 23 mmol/L (21-32); CHLORIDE 108 mmol/L (98-107); CREATININE 0.6 mg/dL (0.6-1.3); GLUCOSE 102 mg/dL (74-106); POTASSIUM 3.5 mmol/L (3.5-5.1); SODIUM SERUM 142 mmol/L (136-145); UREA NITROGEN, BLOOD 5 mg/dL (7-18)
[2018-12-17 22:09] LABS: ALANINE AMINOTRANSFERASE 18 U/L (12-78); ALBUMIN 2.4 g/dL (3.4-5.0); ALKALINE PHOSPHATASE 262 U/L (46-116); ASPARTATE AMINOTRANSFERASE 36 U/L (15-37); BILIRUBIN,DIRECT 0.2 mg/dL (0.0-0.2); BILIRUBIN,TOTAL 0.4 mg/dL (0.2-1.0); LIPASE 415 U/L (73-393); TOTAL PROTEIN, SERUM 5.7 g/dL (6.4-8.2)
[2018-12-17] MEDS ORDERED: HYDROCODONE/APAP 10/325MG 1 EA TABLET PO ONE (22:30)
[2018-12-17] MEDS ORDERED: HYDROCODONE/APAP 10/325MG 1 EA TABLET ONE (22:55)
[2018-12-17 23:06] LABS: APPEARANCE,URINE Clear (CLEAR); BILIRUBIN,URINE Negative (NEGATIVE); BLOOD, URINE Negative Ery/uL (NEGATIVE); COLOR,URINE Yellow (YELLOW); KETONES,URINE Negative (NEGATIVE); LEUKOCYTE ESTERASE ,URINE Negative (NEGATIVE); NITRITE, URINE Negative (NEGATIVE); PROTEIN,URINE Negative (NEGATIVE); UGLUCOSE Negative (NEGATIVE); UROBILINOGEN,URINE 0.2 EU/dL (0.2)
--- NOTE | 2018-12-17 23:20 | NUR ---
PT NOTED WITH BP 88/55. PT ALREADY RECEIVED 1L NS VIA IV. MADE AWARE. NNO RECEIVED AT THIS TIME.
[2018-12-18] MEDS ORDERED: IOHEXOL-300 100 ML VIAL IV ONE (00:18)
[2018-12-18] MEDS ORDERED: CT SWABBABLE VALVE TRANS SET 1 EA INFUS.SET MC ONE (00:18)
--- NOTE | 2018-12-18 00:36 | NUR ---
PT TO RADIOLOGY ON [facility]
--- NOTE | 2018-12-18 03:23 | NUR ---
AWARE OF BP 86/51. NNO RECEIVED
--- NOTE | 2018-12-18 03:27 | NUR ---
EPIC PAGED FOR PANEL
[2018-12-18] MEDS ORDERED: IV NS 0.9% 1,000 ML BAG IV ONE (03:30)
[2018-12-18] MEDS ORDERED: diphenhydrAMINE HCL/ZINC ACET CREAM 28.3 GM TUBE TP PRN (04:00)
[2018-12-18] MEDS ORDERED: MAG HYDROX/AL HYDROX/SIMETH 30 ML UDC PO PRN ×2 (04:00)
[2018-12-18] MEDS ORDERED: ZOLPIDEM TARTRATE 5 MG TABLET PO PRN (04:00)
[2018-12-18] MEDS ORDERED: diphenhydrAMINE HCL 50 MG CAPSULE PO PRN (04:00)
[2018-12-18] MEDS ORDERED: ACETAMINOPHEN 325 MG TABLET PO PRN (04:00)
[2018-12-18] MEDS ORDERED: MAGNESIUM HYDROXIDE 30 ML UDC PO PRN (04:00)
[2018-12-18] MEDS ORDERED: Z GUARD REMEDY 2 OZ OINT TP PRN (04:00)
[2018-12-18] MEDS ORDERED: ONDANSETRON HCL/PF 4 MG/2 ML VIAL IVP PRN (04:00)
--- NOTE | 2018-12-18 04:31 | NUR ---
Magaly miller in [facility] - 12/18/18 at 0432 by TOBI TROY SHABAZZ.
--- NOTE | 2018-12-18 04:48 | NUR ---
ROOM 119-1
--- NOTE | 2018-12-18 04:53 | NUR ---
REPORT GIVEN TO BLAYNE MANSFIELD FOR KELLY. GOING TO 119
--- NOTE | 2018-12-18 05:05 | NUR ---
TELE/RN NOTES RECEIVED PT. FROM ER VIA [facility]. PT. IS AWAKE, ALERT AND ORIENTED X3. BREATHING EVEN AND UNLABORED ON ROOM AIR. NO SOB OR RESPIRATORY DISTRESS NOTED AT THIS TIME. PT. IS COMPLAINING OF ABDOMINAL PAIN 7/10 WHEN HIS ABDOMEN IS TOUCHED. PT. STATES PAIN MEDICATION IN ER HELPED. PT. WITH RIGHT FOREARM 18 GAUGE IV SALINE LOCK PRESENT, PATENT AND INTACT. PT. IS NPO AT THIS TIME. PT. REFUSING ASSESSMENT OF HIS FEET STATING "I WANT TO KEEP MY SOCKS ON, DON'T TAKE THEM OFF". PT. REFUSED TO GO THROUGH BELONGINGS CHECK. PLACED EXTERNAL DINKEY OPERATOR SLAG ON PT. CURRENT RHYTHM = SINUS RHYTHM HR 65. BED LOCKED AND IN LOWEST POSITION, SIDE RAILS UP X3, CALL LIGHT WITHIN REACH, WILL CONTINUE TO MONITOR.
--- NOTE | 2018-12-18 05:11 | NUR ---
PT TRANSPORTED TO UNIT ON [facility] WITH RN AND MANAGER PRODUCT DESIGN AT BEDSIDE. PT IS STABLE FOR TRANSFER. PT AMBULATED FROM [facility] TO BED
--- NOTE | 2018-12-18 06:26 | NUR ---
TELE/RN NOTES PT. IS LYING IN BED RESTING. BREATHING EVEN AND UNLABORED ON ROOM AIR. NO SOB, RESPIRATORY DISTRESS OR COMPLAINTS OF PAIN NOTED AT THIS TIME. PT. WITH EXTERNAL FRET SAW OPERATOR PRESENT AND INTACT. CURRENT RHYTHM = SINUS RHYTHM HR 62. PT. WITH RIGHT FOREARM 18 GAUGE IV SALINE LOCK PRESENT, PATENT AND INTACT. PT. REMAINS NPO AT THIS TIME. BED LOCKED AND IN LOWEST POSITION, SIDE RAILS UP X3, CALL LIGHT WITHIN REACH, WILL ENDORSE TO DAYSHIFT NURSE FOR CONTINUITY OF CARE.
--- NOTE | 2018-12-18 07:00 | NUR ---
BACKSIDE GRINDER OPENING RECEIVED PATIENT A/O X4. NO ACUTE DISTRESS OR SOB NOTED. ATTACHED TO TELE, SINUS GEORGINA HR 56. R FA 18G IV SITE C/D/I, PATENT. NPO STATUS MAINTAINED. NO S/S ALCOHOL WITHDRAWAL AT THIS TIME. BED LOCKED, LOW, ALARM ON, SIDE RAILS UPX2, CALL LIGHT WITHIN REACH, WILL CONTINUE TO MONITOR
[2018-12-18 08:00] VITALS: BP 93/59
[2018-12-18] MEDS: FOLIC ACID 1 MG TABLET PO SCH (08:42)
[2018-12-18] MEDS: POTASSIUM CHLORIDE 20 MEQ TAB.PRT.SR PO SCH (08:42)
[2018-12-18] MEDS: FUROSEMIDE 20 MG/2 ML VIAL IV SCH ×2 (08:43→16:21)
[2018-12-18] MEDS: SPIRONOLACTONE 25 MG TABLET PO SCH (08:43)
[2018-12-18] MEDS: METOCLOPRAMIDE HCL 10 MG/2 ML VIAL IV SCH ×2 (08:43→16:21)
[2018-12-18] MEDS: CLOTRIMAZOLE/BETAMETASONE DIPROPIONATE 15 GM TUBE TP SCH ×2 (08:43→16:21)
[2018-12-18] MEDS: MORPHINE SULFATE INJ 2 MG/ML DISP.SYRIN IV PRN ×3 (08:49→21:00)
[2018-12-18] MEDS ORDERED: DIATR MEGLU/DIATRIZOATE SODIUM 120 ML BOTTLE (GASTROGRAPHIN) ONE (09:41)
[2018-12-18 12:00] VITALS: BP 101/63
[2018-12-18] MEDS: HYDROCODONE/APAP 5/325MG 1 EACH TABLET PO PRN ×2 (12:09→18:45)
--- NOTE | 2018-12-18 12:30 | NUR ---
INR DRAWN + CONSENT SIGNED FOR PARACENTESIS Addendum: 12/18/18 at 1256 by JOANNE RAMOS RN DR. AGUILAR AT BEDSIDE. BP 112/83
--- NOTE | 2018-12-18 13:00 | NUR ---
5,250 mL OUT. FLUID SENT TO LAB
--- NOTE | 2018-12-18 15:30 | NUR ---
Social service consult requested by AUGUSTUS Murphy for homelessness. Pt.is a 53 year old male who was admitted to [facility] for severe ascites and abdominal pain. JAY and keycase assembler Pam met with pt. bedside. JAY is very familiar with the pt. from previous admissions. Pt's last inpatient discharge date was 09/24/18. Pt. is alert and oriented x 4. Pt. appears dirty, disheveled and unkempt. Pt. was constantly scratching is head. Pt. is homeless and lives at [facility]. Pt. has been provided with placement several times in the past however pt. declines. JAY offered pt. alf placement, however pt. declined stating, " [place]." Pt. is a chronic alcoholic, however is denying that he has been drinking excessively. Pt. states, " I only drink 2 beers." Pt states he has no income, but when asked how he gets his alcohol and food, he states, " my friends buy it for me." During previous admission pt. has stated he receives GR and food stamps. JAY offered pt. homeless resources and alcohol program resources, however pt. declined. Homeless patient waiver form to be signed by the pt. upon discharge. Pt. is declining all resources at this time. SW is available, if needed.
[2018-12-18 16:00] VITALS: BP 106/57
--- NOTE | 2018-12-18 18:52 | NUR ---
CITY TREASURER CLOSING NO SIGNIFICANT CHANGE IN PATIENT CONDITION. REPORTS PAIN 10/10 AT ALL TIMES, MEDICATED ORDERED. WILL ENDORSE TO NOC RN FOR KELLY
[2018-12-18 20:00] VITALS: BP 106/58
--- NOTE | 2018-12-18 20:00 | NUR ---
RN INITIAL NOTES RECEIVED REPORT FROM SUGAR. RECEIVED PATIENT RESTING IN BED, A/O X4. NO ACUTE DISTRESS OR SOB NOTED. ON TELE, SR/SB HR 59. R FA 18G IV SITE C/D/I, PATENT. NO S/S ALCOHOL WITHDRAWAL AT THIS TIME. BED LOCKED, LOW, ALARM ON, SIDE RAILS UPX2, CALL LIGHT WITHIN REACH, WILL CONTINUE TO MONITOR.
[2018-12-19] VITALS: BP 107/67
[2018-12-19] MEDS: MORPHINE SULFATE INJ 2 MG/ML DISP.SYRIN IV PRN ×4 (01:11→21:01)
--- NOTE | 2018-12-19 02:33 | NUR ---
RN NOTES ADMINISTERED MORPHINE 1MG IV. VIAL WAS FOR 2MG. WAS NOT ABLE TO WASTE IN THE OMNICELL THE 1MG WASTED MORPHINE SINCE THERE WAS AN ERROR IN COUNTING. HIM MANAGER AWARE.
[2018-12-19 04:00] VITALS: BP 110/56
--- NOTE | 2018-12-19 07:10 | NUR ---
TOW TRUCK DISPATCHER OPENING NOTE RECEIVED REPORT AT BEDSIDE. PT A/OX4. ON ROOM AIR. NO SIGN OF RESPIRATORY/CARDIAC DISTRESS OR SOB NOTED. RFA #18 INFILTRATED. REMOVED IV AND WILL INSERT A NEW ONE. ON MACHINE I ENGRAVER SR WITH HR 75. PT COMPLAINS OF ABDOMINAL AND BACK PAIN 10 OUT OF 10. PAIN MED WILL BE GIVEN. SAFETY PRECAUTION IN PLACE. BED LOCKED AND AT THE LOWEST POSITION, BED ALARM ON, CALL LIGHT WITHIN REACH. WILL CONTINUE TO MONITOR CLOSELY.
--- NOTE | 2018-12-19 07:25 | NUR ---
RN CLOSING NOTES NO SIGNIFICANT CHANGE IN PATIENT CONDITION. MEDICATED FOR PAIN ORDERED ORDERED. WILL ENDORSE TO AM RN FOR KELLY
--- NOTE | 2018-12-19 07:56 | NUR ---
WOUND CARE CONSULT WOUND CARE RECEIVED CONSULT FOR SACRAL REDNESS, BILATERAL ARM AND LEG SCRATCHES/ABRASIONS. WOUND CARE WILL DEFER CONSULT AND TREATMENT PLANS TO PLASTIC SURGICAL TEAM WHO ARE CURRENTLY FOLLOWING THIS PATIENT. PATIENT WITH SHAY AT 20, WILL SEE PRN.
[2018-12-19 08:00] VITALS: BP 107/69
[2018-12-19 08:04] LABS: CREATININE 0.5 mg/dL (0.6-1.3); MAGNESIUM 1.5 mg/dL (1.8-2.4); PHOSPHORUS 3.7 mg/dL (2.5-4.9); POTASSIUM 2.9 mmol/L (3.5-5.1)
[2018-12-19 08:07] LABS: THYROID STIMULATING HORMONE 3.098 uIU/mL (0.358-3.74)
[2018-12-19] MEDS: SPIRONOLACTONE 25 MG TABLET PO SCH (08:15)
[2018-12-19] MEDS: FOLIC ACID 1 MG TABLET PO SCH (08:15)
[2018-12-19] MEDS: POTASSIUM CHLORIDE 20 MEQ TAB.PRT.SR PO SCH (08:15)
[2018-12-19] MEDS: FUROSEMIDE 20 MG/2 ML VIAL IV SCH ×2 (08:15→16:48)
[2018-12-19] MEDS: METOCLOPRAMIDE HCL 10 MG/2 ML VIAL IV SCH ×2 (08:16→16:47)
--- NOTE | 2018-12-19 08:45 | NUR ---
CIVIL ENGINEERING TEACHER NOTE RIGHT AC IV #22 PLACED. INTACT, PATENT AND FLUSHED WELL.
[2018-12-19 08:47] LABS: BASOPHILS # (AUTO) 0.1 /CMM (0.0-0.2); BASOPHILS % (AUTO) 1.6 % (0.0-2.0); EOSINOPHILS % (AUTO) 3.2 % (0.0-6.0); HEMATOCRIT 30 % (39-51); HEMOGLOBIN 9.5 g/dL (13.5-17.5); LYMPHOCYTES # (AUTO) 0.7 /CMM (0.8-4.8); LYMPHOCYTES % (AUTO) 16.2 % (20.0-44.0); MEAN CORPUSCULAR HGB CONC 31 g/dl (31.0-36.0); MEAN CORPUSCULAR VOLUME 69 fL (80-96); MONOCYTES # (AUTO) 0.7 /CMM (0.1-1.30); MONOCYTES % (AUTO) 17.9 % (2.0-12.0); NEUTROPHILS # (AUTO) 2.5 /CMM (1.8-8.9); NEUTROPHILS % (AUTO) 61.1 % (43.0-81.0); PLATELET COUNT (AUTO) 172 /CMM (150-450); RED BLOOD CELL COUNT(AUTO) 4.35 MIL/uL (4.5-6.0)
[2018-12-19] MEDS: CLOTRIMAZOLE/BETAMETASONE DIPROPIONATE 15 GM TUBE TP SCH ×2 (09:23→16:48)
[2018-12-19 09:57] LABS: EOSINOPHILS % (MANUAL) 3 % (0-4); LYMPHOCYTES % (MANUAL) 16 % (16-48); MONOCYTES % (MANUAL) 14 % (0-11.0); NEUTROPHILS % (MANUAL) 67 (42-76)
[2018-12-19] MEDS: HYDROCODONE/APAP 5/325MG 1 EACH TABLET PO PRN ×2 (10:40→16:47)
[2018-12-19] MEDS ORDERED: POTASSIUM CHLORIDE 20 MEQ TAB.PRT.SR PO ONE (11:00)
--- NOTE | 2018-12-19 11:00 | NUR ---
DECKHAND TUNA BOAT NOTE POTASSIUM LEVEL 2.9. ALREADY PAGED DR. TAVARES. WILL FOLLOW UP.
[2018-12-19] MEDS: Magnesium 1GM/D5W 100ML PREMIX 100 ML IV SCH ×2 (11:24→13:27)
--- NOTE | 2018-12-19 11:30 | NUR ---
RN MS NOTE PAGED DR. TAVARES AGAIN TO LET HER KNOW PATIENT'S K 2.9. WILL F/U.
--- NOTE | 2018-12-19 11:40 | NUR ---
SALES AND MARKETING ANALYST NOTE HAD A CALL FROM DR. TAVARES. ACCORDING TO HER SINCE PT IS GETTING KDUR PILL THERE IS NO NEED FOR IV POTASSIUM. CHARGE NURSE CHRISTOPHER MADE AWARE.
[2018-12-19 16:00] VITALS: BP 102/56
--- NOTE | 2018-12-19 19:10 | NUR ---
MS RN CLOSING NOTE PT SITTING AT BED COMFORTABLY. ON ROOM AIR SATURATING WELL. NO SIGN OF RESPIRATORY/ DISTRESS OR SOB NOTED. LAC #22 PATENT, INTACT AND FLUSHED WELL. ALL NEEDS ATTENDANT. SAFETY PRECAUTION IN PLACE. BED LOCKED AND AT THE LOWEST POSITION, BED ALARM ON, CALL LIGHT WITHIN REACH. WILL CONTINUE TO MONITOR CLOSELY.
[2018-12-19 20:00] VITALS: BP 110/71
[2018-12-20] MEDS: MORPHINE SULFATE INJ 2 MG/ML DISP.SYRIN IV PRN ×4 (01:30→09:05)
[2018-12-20 04:00] VITALS: BP 100/62
[2018-12-20 07:12] LABS: CREATININE 0.5 mg/dL (0.6-1.3); MAGNESIUM 1.6 mg/dL (1.8-2.4); PHOSPHORUS 3.8 mg/dL (2.5-4.9); POTASSIUM 3.6 mmol/L (3.5-5.1)
--- NOTE | 2018-12-20 07:30 | NUR ---
INITIAL PT RESTING IN BED COMFORTABLY. ON ROOM AIR SATURATING WELL. NO SIGN OF RESPIRATORY/ DISTRESS OR SOB NOTED. LAC #22 PATENT, INTACT AND FLUSHED WELL. ALL NEEDS ATTENDANT. SAFETY PRECAUTION IN PLACE. BED LOCKED AND AT THE LOWEST POSITION, BED ALARM ON, CALL LIGHT WITHIN REACH. WILL CONTINUE TO MONITOR CLOSELY.
[2018-12-20 08:00] VITALS: BP 99/61
[2018-12-20] MEDS: FUROSEMIDE 20 MG/2 ML VIAL IV SCH (09:04)
[2018-12-20] MEDS: SPIRONOLACTONE 25 MG TABLET PO SCH (09:05)
[2018-12-20] MEDS: METOCLOPRAMIDE HCL 10 MG/2 ML VIAL IV SCH (09:05)
[2018-12-20] MEDS: POTASSIUM CHLORIDE 20 MEQ TAB.PRT.SR PO SCH (09:05)
[2018-12-20] MEDS: FOLIC ACID 1 MG TABLET PO SCH (09:05)
[2018-12-20] MEDS: CLOTRIMAZOLE/BETAMETASONE DIPROPIONATE 15 GM TUBE TP SCH (09:06)
[2018-12-20] MEDS: Magnesium 1GM/D5W 100ML PREMIX 100 ML IV SCH ×2 (12:01→12:16)
--- NOTE | 2018-12-20 12:10 | NUR ---
PATIENT REFUSED [facility] REFERRAL,SIGNED WAIVER.ALSO SEEN BY PT ,PT OK TO AMBULATE,PATIENT ALSO VERBALIZED "I NEED TO GO NOW' REFUSED DISCHARGE PHOTO.IV HEP LOCK REMOVE.
--- NOTE | 2018-12-20 12:14 | NUR ---
ALSO PATIENT REFUSED MAGNESIUM REPLACEMENT MD AWARE.
--- NOTE | 2018-12-20 12:22 | NUR ---
DISCHARGE PT DISCHARGE TO [facility] PIV REMOVED WITH TIP INTACT GIVEN EXIT CARE PT REFUSED VITAL SIGNS, PHOTOS, AND IV MAGNESIUM PT DISCHARGED TO [facility] HOMELESS PAPER SIGNED ALONG WITH BELONGINGS PT WALKED WITH STEADY GAIT
== END 2018-12-20 12:14 | disposition home or self-care (01) | DRG 280 ==
LOC: ER 21:20 → MEDSG1 12-18 04:14 → TELE1 12-18 06:02 → MEDSG1 12-19 15:14
PROVIDERS: ADMIT Internal Medicine; ATTEND Internal Medicine
PROC: 0W9G3ZZ Drainage of Peritoneal Cavity, Percutaneous Approach (ICD-10-PCS; principal; 2018-12-18)
PROC: 0HBRXZZ Excision of Toe Nail, External Approach (ICD-10-PCS; 2018-12-19)
DX: K70.31 Alcoholic cirrhosis of liver with ascites (principal); D68.9 Coagulation defect, unspecified; E44.1 Mild protein-calorie malnutrition; E83.42 Hypomagnesemia; D63.8 Anemia in other chronic diseases classified elsewhere; S41.112A Laceration without foreign body of left upper arm, initial encounter; F10.10 Alcohol abuse, uncomplicated; L60.3 Nail dystrophy; Z59.0 Homelessness; X58.XXXA Exposure to other specified factors, initial encounter; Y93.9 Activity, unspecified; L90.5 Scar conditions and fibrosis of skin; S80.812A Abrasion, left lower leg, initial encounter; S80.811A Abrasion, right lower leg, initial encounter; Y92.9 Unspecified place or not applicable; Y90.9 Presence of alcohol in blood, level not specified; Z87.891 Personal history of nicotine dependence; I10 Essential (primary) hypertension; Z68.24 Body mass index [BMI] 24.0-24.9, adult
CPT/HCPCS: 36415; 74250-TC; 76942-TC; 80048-TC; 80061-TC; 80076-TC; 81000-TC; 82040-TC; 83690-TC; 83735-TC; 84100-TC; 84443-TC; 84484-TC; 85025-TC; 85610-TC; 87070-TC; 87081-TC; 89051-TC; 97116-TC; 97530-TC; G0378; J1940; J2270; J2765; J3475; J7030; J7050; Q9963; Q9967

== ENCOUNTER 2019-01-01 19:03 | Emergency (ER) | payer OTHER ==
[~2019-01-01] VITALS: Ht 167.6 cm; Wt 72.6 kg
[2019-01-01 19:07] VITALS: BP 128/78
--- NOTE | 2019-01-01 19:48 | NUR ---
Patient does not wish to proceed with medical care recommended by Dr. Waston. Patient given information related to possible complications, up to and including , which could occur as a result of leaving the hospital at this time. Patient verbalizes understanding of risks involved due to leaving against medical advice. Patient has refused to signed AMA form, witnessed with 2nd Rn
== END 2019-01-01 19:49 | disposition left against medical advice (07) ==
LOC: ER 19:08
DX: R18.8 Other ascites (principal); F19.10 Other psychoactive substance abuse, uncomplicated; I10 Essential (primary) hypertension; K86.1 Other chronic pancreatitis; E83.51 Hypocalcemia; D68.9 Coagulation defect, unspecified; G89.29 Other chronic pain; M54.5 Low back pain; E44.1 Mild protein-calorie malnutrition; F10.10 Alcohol abuse, uncomplicated; F17.200 Nicotine dependence, unspecified, uncomplicated; Y90.9 Presence of alcohol in blood, level not specified; Z68.25 Body mass index [BMI] 25.0-25.9, adult; Z59.0 Homelessness

== ENCOUNTER 2019-02-27 17:54 | Emergency (ER) | payer OTHER ==
[~2019-02-27] VITALS: Ht 182.9 cm; Wt 74.8 kg
--- NOTE | 2019-02-27 19:05 | NUR ---
PT AAOX4. PT C/O STOMACH PAIN AND DISTENSION, LAST PARACENTESIS 2 WKS AGO. PLACED ON MONITOR AND PULSE OX. WILL CONTINUE TO MONITOR.
[2019-02-27] MEDS ORDERED: IV NS 0.9% 500 ML BAG IV ONE (19:30)
[2019-02-27] MEDS ORDERED: HYDROCODONE/APAP 5/325MG 1 EACH TABLET PO ONE (19:30)
[2019-02-27 19:50] LABS: BASOPHILS # (AUTO) 0.1 /CMM (0.0-0.2); EOSINOPHILS % (AUTO) 1.6 % (0.0-6.0); HEMATOCRIT 31 % (39-51); HEMOGLOBIN 9.4 g/dL (13.5-17.5); LYMPHOCYTES # (AUTO) 1.5 /CMM (0.8-4.8); LYMPHOCYTES % (AUTO) 25.6 % (20.0-44.0); MEAN CORPUSCULAR HGB CONC 31 g/dl (31.0-36.0); MEAN CORPUSCULAR VOLUME 66 fL (80-96); MONOCYTES # (AUTO) 0.6 /CMM (0.1-1.30); MONOCYTES % (AUTO) 10.5 % (2.0-12.0); NEUTROPHILS # (AUTO) 3.5 /CMM (1.8-8.9); NEUTROPHILS % (AUTO) 60.3 % (43.0-81.0); PLATELET COUNT (AUTO) 136 /CMM (150-450); RED BLOOD CELL COUNT(AUTO) 4.64 MIL/uL (4.5-6.0); WHITE BLOOD COUNT (AUTO) 5.8 K/uL (4.3-11.0)
[2019-02-27] MEDS ORDERED: LIDOCAINE MPF 1%-EPI 1:200,000 30 ML VIAL IJ ONE (19:53)
[2019-02-27] MEDS ORDERED: HYDROCODONE/APAP 5/325MG 1 EACH TABLET ONE (19:53)
[2019-02-27 20:06] LABS: ALBUMIN 2.9 g/dL (3.4-5.0); BILIRUBIN,DIRECT 0.6 mg/dL (0.0-0.2); CALCIUM, SERUM 7.9 mg/dL (8.5-10.1); CREATININE 0.6 mg/dL (0.6-1.3); POTASSIUM 3.3 mmol/L (3.5-5.1); TOTAL PROTEIN, SERUM 6.5 g/dL (6.4-8.2)
[2019-02-27] MEDS ORDERED: MORPHINE SULFATE INJ 4 MG/ML DISP.SYRIN ONE (21:13)
[2019-02-27] MEDS ORDERED: MORPHINE SULFATE INJ 2 MG/ML DISP.SYRIN IV ONE (21:30)
[2019-02-27] MEDS ORDERED: ALBUMIN 25% 12.5 GM/50 ML BOTTLE IV ONE (21:30)
[2019-02-27] MEDS ORDERED: ALBUMIN 25% 100 ML IV ONE (21:47)
[2019-02-27 21:48] LABS: LYMPHOCYTES % (MANUAL) 24 % (16-48); NEUTROPHILS % (MANUAL) 65 (42-76)
[2019-02-27 21:49] LABS: EOSINOPHILS % (MANUAL) 1 % (0-4); MONOCYTES % (MANUAL) 10 % (0-11.0)
--- NOTE | 2019-02-27 22:06 | NUR ---
PARACENTHESIS OUTPUT 5,350ML
--- NOTE | 2019-02-27 23:55 | NUR ---
Patient given written and verbal discharge instructions. Patient verbalizes understanding of instructions. Patient is ambulatory with steady gait. Refuses offer of penitentiary placement. Patient given list of available shelters in surrounding area.
[2019-02-27 23:56] VITALS: BP 112/65
== END 2019-02-27 23:56 | disposition home or self-care (01) ==
LOC: ER 17:57
DX: R18.8 Other ascites (principal); R10.84 Generalized abdominal pain; F19.10 Other psychoactive substance abuse, uncomplicated; I10 Essential (primary) hypertension; E83.51 Hypocalcemia; G89.29 Other chronic pain; M54.5 Low back pain; F17.200 Nicotine dependence, unspecified, uncomplicated; Z59.0 Homelessness; Z79.899 Other long term (current) drug therapy
CPT/HCPCS: 36415; 49083; 80048; 80076; 83690; 85025; 85730; 96374; 96375; 99285; 99406; J2270; J3490; P9047

== ENCOUNTER 2019-03-14 19:14 | Emergency (ER) | payer OTHER ==
[~2019-03-14] VITALS: Ht 177.8 cm; Wt 84.8 kg
[2019-03-14] MEDS ORDERED: SPIRONOLACTONE 25 MG TABLET PO ONE (19:30)
[2019-03-14] MEDS ORDERED: HYDROCODONE/APAP 5/325MG 1 EACH TABLET PO ONE (19:30)
--- NOTE | 2019-03-14 19:30 | NUR ---
PT MADHURI FROM STREET C/O ABDOMINAL PAIN. PER RA, +ETOH. PT AAOX4. RESPIRATIONS EVEN AND UNLABORED. SKIN INTACT. NO ACUTE DISTRESS NOTED AT THIS TIME. WILL CONTINUE TO MONITOR
[2019-03-14] MEDS ORDERED: HYDROCODONE/APAP 5/325MG 1 EACH TABLET ONE (19:34)
[2019-03-14] MEDS ORDERED: SPIRONOLACTONE 25 MG TABLET ONE ×3 (19:34→19:55)
--- NOTE | 2019-03-14 19:46 | NUR ---
QA AUTOMATION ENGINEER AT BEDSIDE FOR BLOOD DRAW
[2019-03-14 19:52] LABS: BASOPHILS # (AUTO) 0.1 /CMM (0.0-0.2); BASOPHILS % (AUTO) 1.6 % (0.0-2.0); EOSINOPHILS % (AUTO) 1.7 % (0.0-6.0); HEMATOCRIT 32 % (39-51); LYMPHOCYTES # (AUTO) 2.5 /CMM (0.8-4.8); LYMPHOCYTES % (AUTO) 41.8 % (20.0-44.0); MEAN CORPUSCULAR HGB CONC 31 g/dl (31.0-36.0); MEAN CORPUSCULAR VOLUME 65 fL (80-96); MONOCYTES # (AUTO) 0.7 /CMM (0.1-1.30); MONOCYTES % (AUTO) 11.1 % (2.0-12.0); NEUTROPHILS # (AUTO) 2.6 /CMM (1.8-8.9); NEUTROPHILS % (AUTO) 43.8 % (43.0-81.0); PLATELET COUNT (AUTO) 144 /CMM (150-450); RED BLOOD CELL COUNT(AUTO) 4.96 MIL/uL (4.5-6.0); WHITE BLOOD COUNT (AUTO) 5.9 K/uL (4.3-11.0)
--- NOTE | 2019-03-14 20:00 | NUR ---
PER PT REQUEST, PT PROVIDED WITH SANDWICH AND WATER
[2019-03-14 20:02] LABS: CALCIUM, SERUM 8.4 mg/dL (8.5-10.1); CREATININE 0.5 mg/dL (0.6-1.3)
[2019-03-14 21:42] LABS: EOSINOPHILS % (MANUAL) 2 % (0-4); LYMPHOCYTES % (MANUAL) 29 % (16-48); MONOCYTES % (MANUAL) 11 % (0-11.0); NEUTROPHILS % (MANUAL) 58 (42-76)
--- NOTE | 2019-03-14 23:34 | NUR ---
PT RESTING COMFORTABLY IN BED. VITAL SIGNS STABLE. NO ACUTE DISTRESS NOTED AT THIS TIME. WILL CONTINUE TO MONITOR
--- NOTE | 2019-03-15 07:06 | NUR ---
Patient given written and verbal discharge instructions. Patient verbalizes understanding of instructions. Patient is ambulatory with steady gait. Refuses offer of custodial placement. Patient given list of available shelters in surrounding area.
[2019-03-15 07:08] VITALS: BP 125/79
== END 2019-03-15 07:08 | disposition home or self-care (01) ==
LOC: ER 19:17
DX: K70.30 Alcoholic cirrhosis of liver without ascites (principal); F10.129 Alcohol abuse with intoxication, unspecified; F17.200 Nicotine dependence, unspecified, uncomplicated; I10 Essential (primary) hypertension; D64.9 Anemia, unspecified; G89.29 Other chronic pain; Z59.0 Homelessness; Z79.899 Other long term (current) drug therapy; Y90.8 Blood alcohol level of 240 mg/100 ml or more
CPT/HCPCS: 36415; 80048-TC; 85025-TC; G0480

== ENCOUNTER 2019-03-16 16:53 | Emergency (ER) | payer OTHER ==
[~2019-03-16] VITALS: Ht 177.8 cm; Wt 84.8 kg
--- NOTE | 2019-03-16 16:57 | NUR ---
[id number] FROM STREETS C/O ABDOMINAL PAIN/DISTENSION S/P DRINKING 3 BEERS SEEN IN ED MULTIPLE TIMES FOR SAME REASON. pt awake, alert, -sob, nadn oted, pending md cortes
[2019-03-16] MEDS ORDERED: HYDROMORPHONE INJ 2 MG/ML DISP.SYRIN ONE (17:27)
[2019-03-16 17:28] LABS: BASOPHILS # (AUTO) 0.1 /CMM (0.0-0.2); BASOPHILS % (AUTO) 1.5 % (0.0-2.0); EOSINOPHILS % (AUTO) 1.3 % (0.0-6.0); HEMATOCRIT 32 % (39-51); LYMPHOCYTES # (AUTO) 2.5 /CMM (0.8-4.8); LYMPHOCYTES % (AUTO) 40.4 % (20.0-44.0); MEAN CORPUSCULAR HGB CONC 31 g/dl (31.0-36.0); MEAN CORPUSCULAR VOLUME 65 fL (80-96); MONOCYTES # (AUTO) 0.8 /CMM (0.1-1.30); MONOCYTES % (AUTO) 12.9 % (2.0-12.0); NEUTROPHILS # (AUTO) 2.7 /CMM (1.8-8.9); NEUTROPHILS % (AUTO) 43.9 % (43.0-81.0); PLATELET COUNT (AUTO) 153 /CMM (150-450); RED BLOOD CELL COUNT(AUTO) 4.95 MIL/uL (4.5-6.0); WHITE BLOOD COUNT (AUTO) 6.2 K/uL (4.3-11.0)
[2019-03-16] MEDS ORDERED: ONDANSETRON HCL/PF 4 MG/2 ML VIAL ONE (17:28)
[2019-03-16] MEDS ORDERED: ONDANSETRON HCL/PF 4 MG/2 ML VIAL IVP ONE (17:30)
[2019-03-16] MEDS ORDERED: HYDROMORPHONE INJ 2 MG/ML DISP.SYRIN IV ONE (17:30)
[2019-03-16 17:53] LABS: BILIRUBIN,DIRECT 0.8 mg/dL (0.0-0.2); BILIRUBIN,TOTAL 1.3 mg/dL (0.2-1.0); CREATININE 0.6 mg/dL (0.6-1.3); POTASSIUM 3.5 mmol/L (3.5-5.1); TOTAL PROTEIN, SERUM 6.5 g/dL (6.4-8.2)
[2019-03-16 18:00] VITALS: BP 132/75
[2019-03-16 18:33] LABS: BASOPHILS % (MANUAL) 1 % (0.0-2.0); EOSINOPHILS % (MANUAL) 1 % (0-4); LYMPHOCYTES % (MANUAL) 40 % (16-48); MONOCYTES % (MANUAL) 13 % (0-11.0); NEUTROPHILS % (MANUAL) 45 (42-76)
--- NOTE | 2019-03-16 18:53 | NUR ---
Patient given written and verbal discharge instructions. Patient verbalizes understanding of instructions. Patient is ambulatory with steady gait. Refuses offer of care home placement. Patient given list of available shelters in surrounding area.
== END 2019-03-16 18:59 | disposition home or self-care (01) ==
LOC: ER 17:00
DX: R18.8 Other ascites (principal); F10.20 Alcohol dependence, uncomplicated; F17.200 Nicotine dependence, unspecified, uncomplicated; F19.10 Other psychoactive substance abuse, uncomplicated; I10 Essential (primary) hypertension; E83.51 Hypocalcemia; D68.9 Coagulation defect, unspecified; M54.5 Low back pain; G89.29 Other chronic pain; E44.1 Mild protein-calorie malnutrition; Y90.9 Presence of alcohol in blood, level not specified; Z59.0 Homelessness; Z79.899 Other long term (current) drug therapy; Z68.26 Body mass index [BMI] 26.0-26.9, adult
CPT/HCPCS: 36415; 80048; 80076; 83690; 85025; 85730; 96374; 96375; 99283; 99406; J1170; J2405

== ENCOUNTER 2019-03-18 16:48 | Inpatient (IN) | payer OTHER ==
[~2019-03-18] VITALS: Ht 182.9 cm; Wt 81.2 kg
[2019-03-18 18:50] LABS: BASOPHILS # (AUTO) 0.1 /CMM (0.0-0.2); BASOPHILS % (AUTO) 0.6 % (0.0-2.0); EOSINOPHILS % (AUTO) 0.8 % (0.0-6.0); HEMATOCRIT 30 % (39-51); HEMOGLOBIN 9.3 g/dL (13.5-17.5); LYMPHOCYTES # (AUTO) 1.1 /CMM (0.8-4.8); LYMPHOCYTES % (AUTO) 11.6 % (20.0-44.0); MEAN CORPUSCULAR HGB CONC 31 g/dl (31.0-36.0); MEAN CORPUSCULAR VOLUME 65 fL (80-96); MONOCYTES # (AUTO) 1.3 /CMM (0.1-1.30); MONOCYTES % (AUTO) 13.3 % (2.0-12.0); NEUTROPHILS # (AUTO) 7.1 /CMM (1.8-8.9); NEUTROPHILS % (AUTO) 73.7 % (43.0-81.0); PLATELET COUNT (AUTO) 85 /CMM (150-450); WHITE BLOOD COUNT (AUTO) 9.7 K/uL (4.3-11.0)
[2019-03-18 19:21] LABS: ALBUMIN 2.9 g/dL (3.4-5.0); BILIRUBIN,DIRECT 1.1 mg/dL (0.0-0.2); BILIRUBIN,TOTAL 2.1 mg/dL (0.2-1.0); CALCIUM, SERUM 8.4 mg/dL (8.5-10.1); CREATININE 0.6 mg/dL (0.6-1.3); POTASSIUM 3.4 mmol/L (3.5-5.1); TOTAL PROTEIN, SERUM 6.3 g/dL (6.4-8.2)
[2019-03-18 19:58] LABS: BAND % (MANUAL) 16 % (0.0-5.0); LYMPHOCYTES % (MANUAL) 16 % (16-48); MONOCYTES % (MANUAL) 12 % (0-11.0); NEUTROPHILS % (MANUAL) 56 (42-76)
[2019-03-18] MEDS ORDERED: CEFTRIAXONE 1 G in IV D5W 50 ML IV ONE (21:30)
[2019-03-18] MEDS ORDERED: MAGNESIUM OXIDE 400 MG TABLET PO ONE (21:30)
[2019-03-18] MEDS ORDERED: POTASSIUM CHLORIDE 20 MEQ TAB.PRT.SR PO ONE ×2 (21:30→21:35)
[2019-03-18] MEDS ORDERED: CEFTRIAXONE 1GM BAG (ER ONLY) 50 ML IV ONE (21:35)
[2019-03-18] MEDS ORDERED: ONDANSETRON HCL/PF 4 MG/2 ML VIAL ONE (21:35)
[2019-03-18] MEDS ORDERED: MAGNESIUM OXIDE 400 MG TABLET ONE (21:57)
[2019-03-18] MEDS ORDERED: ONDANSETRON HCL/PF - ER 4 MG/2 ML VIAL IV ONE (22:00)
[2019-03-18 22:25] LABS: APPEARANCE,URINE Clear (CLEAR); BILIRUBIN,URINE SMALL (NEGATIVE); BLOOD, URINE Trace-lysed Ery/uL (NEGATIVE); COLOR,URINE Dark (YELLOW); KETONES,URINE 80 (NEGATIVE); LEUKOCYTE ESTERASE ,URINE Negative (NEGATIVE); NITRITE, URINE Negative (NEGATIVE); PH,URINE 6.5 (5.0-8.0); PROTEIN,URINE Negative (NEGATIVE); UGLUCOSE Negative (NEGATIVE)
[2019-03-18 23:15] LABS: BACTERIA,URINE Rare /HPF (None Seen); RBC,URINE 0-2 /HPF (0-2); SQUAMOUS EPITHELIAL CELL,UR Rare /HPF (None Seen); WBC,URINE 0-2 /HPF (0-3)
[2019-03-18] MEDS ORDERED: ONDANSETRON HCL/PF 4 MG/2 ML VIAL IVP PRN (23:30)
[2019-03-18] MEDS ORDERED: MAGNESIUM HYDROXIDE 30 ML UDC PO PRN (23:30)
[2019-03-18] MEDS ORDERED: MAG HYDROX/AL HYDROX/SIMETH 30 ML UDC PO PRN (23:30)
[2019-03-18] MEDS ORDERED: Z GUARD REMEDY 2 OZ OINT TP PRN (23:30)
[2019-03-18] MEDS ORDERED: diphenhydrAMINE HCL/ZINC ACET CREAM 28.3 GM TUBE TP PRN (23:30)
[2019-03-18 23:55] VITALS: BP 117/73
[2019-03-19 00:36] VITALS: BP 117/73
[2019-03-19] MEDS: HYDROCODONE/APAP 5/325MG 1 EACH TABLET PO PRN ×4 (02:18→21:28)
[2019-03-19 08:00] VITALS: BP 103/83
[2019-03-19] MEDS: FUROSEMIDE 20 MG TABLET PO SCH (08:53)
[2019-03-19] MEDS: POTASSIUM CHLORIDE 20 MEQ TAB.PRT.SR PO SCH (08:53)
[2019-03-19] MEDS: FOLIC ACID 1 MG TABLET PO SCH (08:53)
[2019-03-19] MEDS: SPIRONOLACTONE 25 MG TABLET PO SCH (08:56)
[2019-03-19] MEDS: PANTOPRAZOLE 40 MG TABLET.DR PO SCH (08:56)
[2019-03-19] MEDS: NEOMY SULF/BACITRAC ZN/POLY 15 GM TUBE TP SCH ×3 (09:02→16:27)
[2019-03-19 12:04] LABS: BASOPHILS % (AUTO) 0.4 % (0.0-2.0); EOSINOPHILS % (AUTO) 1.3 % (0.0-6.0); HEMATOCRIT 27 % (39-51); HEMOGLOBIN 8.5 g/dL (13.5-17.5); LYMPHOCYTES # (AUTO) 0.7 /CMM (0.8-4.8); LYMPHOCYTES % (AUTO) 18.7 % (20.0-44.0); MEAN CORPUSCULAR HGB CONC 31 g/dl (31.0-36.0); MEAN CORPUSCULAR VOLUME 65 fL (80-96); MONOCYTES # (AUTO) 0.7 /CMM (0.1-1.30); MONOCYTES % (AUTO) 18.8 % (2.0-12.0); NEUTROPHILS # (AUTO) 2.4 /CMM (1.8-8.9); NEUTROPHILS % (AUTO) 60.8 % (43.0-81.0); PLATELET COUNT (AUTO) 64 /CMM (150-450); RED BLOOD CELL COUNT(AUTO) 4.22 MIL/uL (4.5-6.0)
[2019-03-19 12:17] LABS: CALCIUM, SERUM 7.9 mg/dL (8.5-10.1); CREATININE 0.6 mg/dL (0.6-1.3); MAGNESIUM 1.9 mg/dL (1.8-2.4); PHOSPHORUS 2.8 mg/dL (2.5-4.9); POTASSIUM 3.6 mmol/L (3.5-5.1)
[2019-03-19 12:27] LABS: THYROID STIMULATING HORMONE 1.852 uIU/mL (0.358-3.74)
[2019-03-19 14:46] LABS: BAND % (MANUAL) 1 % (0.0-5.0); LYMPHOCYTES % (MANUAL) 15 % (16-48); MONOCYTES % (MANUAL) 14 % (0-11.0); NEUTROPHILS % (MANUAL) 70 (42-76)
[2019-03-19 16:00] VITALS: BP 105/65
[2019-03-19] MEDS: ACETAMINOPHEN 325 MG TABLET PO PRN (18:12)
[2019-03-19 19:00] VITALS: BP 113/60
[2019-03-19] MEDS: CEFTRIAXONE 2 G in IV D5W 100 ML IV SCH (21:41)
[2019-03-20 06:41] LABS: CALCIUM, SERUM 7.9 mg/dL (8.5-10.1); CREATININE 0.5 mg/dL (0.6-1.3); POTASSIUM 2.9 mmol/L (3.5-5.1)
[2019-03-20 06:44] LABS: BASOPHILS % (AUTO) 0.4 % (0.0-2.0); EOSINOPHILS % (AUTO) 2.7 % (0.0-6.0); HEMATOCRIT 26 % (39-51); HEMOGLOBIN 8.3 g/dL (13.5-17.5); LYMPHOCYTES # (AUTO) 0.6 /CMM (0.8-4.8); LYMPHOCYTES % (AUTO) 18.6 % (20.0-44.0); MEAN CORPUSCULAR HGB CONC 32 g/dl (31.0-36.0); MEAN CORPUSCULAR VOLUME 65 fL (80-96); MONOCYTES # (AUTO) 0.6 /CMM (0.1-1.30); MONOCYTES % (AUTO) 16.5 % (2.0-12.0); NEUTROPHILS # (AUTO) 2.1 /CMM (1.8-8.9); NEUTROPHILS % (AUTO) 61.8 % (43.0-81.0); PLATELET COUNT (AUTO) 62 /CMM (150-450); RED BLOOD CELL COUNT(AUTO) 4.01 MIL/uL (4.5-6.0); WHITE BLOOD COUNT (AUTO) 3.5 K/uL (4.3-11.0)
[2019-03-20 08:00] VITALS: BP 114/69
[2019-03-20] MEDS: PANTOPRAZOLE 40 MG TABLET.DR PO SCH (09:40)
[2019-03-20] MEDS: SPIRONOLACTONE 25 MG TABLET PO SCH (09:40)
[2019-03-20] MEDS: HYDROCODONE/APAP 5/325MG 1 EACH TABLET PO PRN ×4 (09:40→23:30)
[2019-03-20] MEDS: FUROSEMIDE 20 MG TABLET PO SCH (09:41)
[2019-03-20] MEDS: POTASSIUM CHLORIDE 20 MEQ TAB.PRT.SR PO SCH (09:41)
[2019-03-20] MEDS: FOLIC ACID 1 MG TABLET PO SCH (09:41)
[2019-03-20] MEDS: NEOMY SULF/BACITRAC ZN/POLY 15 GM TUBE TP SCH ×3 (09:42→17:51)
[2019-03-20] MEDS: NYSTATIN TOP POWDER 15 GM BOTTLE TP SCH ×2 (12:15→17:50)
[2019-03-20 16:00] VITALS: BP 106/59
[2019-03-20 20:22] VITALS: BP 119/69
[2019-03-20] MEDS: CEFTRIAXONE 2 G in IV D5W 100 ML IV SCH ×2 (21:00→21:14)
[2019-03-20] MEDS: diphenhydrAMINE HCL 50 MG CAPSULE PO PRN (23:07)
[2019-03-21] MEDS: ZOLPIDEM TARTRATE 5 MG TABLET PO PRN ×2 (00:10→23:44)
[2019-03-21 07:30] LABS: BASOPHILS % (AUTO) 0.3 % (0.0-2.0); EOSINOPHILS % (AUTO) 2.2 % (0.0-6.0); HEMATOCRIT 27 % (39-51); HEMOGLOBIN 8.5 g/dL (13.5-17.5); LYMPHOCYTES # (AUTO) 0.8 /CMM (0.8-4.8); LYMPHOCYTES % (AUTO) 11.8 % (20.0-44.0); MEAN CORPUSCULAR HGB CONC 31 g/dl (31.0-36.0); MEAN CORPUSCULAR VOLUME 66 fL (80-96); MONOCYTES # (AUTO) 0.9 /CMM (0.1-1.30); MONOCYTES % (AUTO) 13.6 % (2.0-12.0); NEUTROPHILS # (AUTO) 4.7 /CMM (1.8-8.9); NEUTROPHILS % (AUTO) 72.1 % (43.0-81.0); PLATELET COUNT (AUTO) 76 /CMM (150-450); RED BLOOD CELL COUNT(AUTO) 4.12 MIL/uL (4.5-6.0); WHITE BLOOD COUNT (AUTO) 6.5 K/uL (4.3-11.0)
[2019-03-21 07:53] LABS: CREATININE 0.5 mg/dL (0.6-1.3)
[2019-03-21 08:00] VITALS: BP 107/61
[2019-03-21] MEDS: PANTOPRAZOLE 40 MG TABLET.DR PO SCH (08:26)
[2019-03-21] MEDS: POTASSIUM CHLORIDE 20 MEQ TAB.PRT.SR PO SCH ×3 (08:26→12:51)
[2019-03-21] MEDS: FOLIC ACID 1 MG TABLET PO SCH (08:26)
[2019-03-21] MEDS: FUROSEMIDE 20 MG TABLET PO SCH (08:26)
[2019-03-21] MEDS: SPIRONOLACTONE 25 MG TABLET PO SCH (08:26)
[2019-03-21 08:36] LABS: EOSINOPHILS % (MANUAL) 2 % (0-4); LYMPHOCYTES % (MANUAL) 9 % (16-48); MONOCYTES % (MANUAL) 13 % (0-11.0); NEUTROPHILS % (MANUAL) 76 (42-76)
[2019-03-21] MEDS: HYDROCODONE/APAP 5/325MG 1 EACH TABLET PO PRN ×4 (08:57→21:57)
[2019-03-21] MEDS: NYSTATIN TOP POWDER 15 GM BOTTLE TP SCH ×2 (10:24→16:01)
[2019-03-21] MEDS: NEOMY SULF/BACITRAC ZN/POLY 15 GM TUBE TP SCH ×3 (10:24→16:01)
[2019-03-21 15:59] VITALS: BP 106/64
[2019-03-21] MEDS: MAG HYDROX/AL HYDROX/SIMETH 30 ML UDC PO PRN (19:02)
[2019-03-21 20:00] VITALS: BP 109/66
[2019-03-22] MEDS: HYDROCODONE/APAP 5/325MG 1 EACH TABLET PO PRN ×4 (03:46→19:57)
[2019-03-22] MEDS: MAG HYDROX/AL HYDROX/SIMETH 30 ML UDC PO PRN ×2 (06:40→16:45)
[2019-03-22] MEDS: PANTOPRAZOLE 40 MG TABLET.DR PO SCH (06:40)
[2019-03-22] MEDS: ACETAMINOPHEN 325 MG TABLET PO PRN (06:40)
[2019-03-22 08:00] VITALS: BP 107/64
[2019-03-22 08:14] LABS: BASOPHILS % (AUTO) 0.5 % (0.0-2.0); EOSINOPHILS % (AUTO) 2.3 % (0.0-6.0); HEMATOCRIT 27 % (39-51); HEMOGLOBIN 8.4 g/dL (13.5-17.5); LYMPHOCYTES # (AUTO) 0.9 /CMM (0.8-4.8); LYMPHOCYTES % (AUTO) 15.9 % (20.0-44.0); MEAN CORPUSCULAR HGB CONC 32 g/dl (31.0-36.0); MEAN CORPUSCULAR VOLUME 65 fL (80-96); MONOCYTES # (AUTO) 1.2 /CMM (0.1-1.30); MONOCYTES % (AUTO) 21.5 % (2.0-12.0); NEUTROPHILS # (AUTO) 3.4 /CMM (1.8-8.9); NEUTROPHILS % (AUTO) 59.8 % (43.0-81.0); PLATELET COUNT (AUTO) 87 /CMM (150-450); RED BLOOD CELL COUNT(AUTO) 4.07 MIL/uL (4.5-6.0); WHITE BLOOD COUNT (AUTO) 5.7 K/uL (4.3-11.0)
[2019-03-22 08:25] LABS: CALCIUM, SERUM 8.2 mg/dL (8.5-10.1); CREATININE 0.6 mg/dL (0.6-1.3); POTASSIUM 3.1 mmol/L (3.5-5.1)
[2019-03-22] MEDS: POTASSIUM CHLORIDE 20 MEQ TAB.PRT.SR PO SCH ×3 (08:41→11:21)
[2019-03-22] MEDS: FUROSEMIDE 20 MG TABLET PO SCH (08:42)
[2019-03-22] MEDS: FOLIC ACID 1 MG TABLET PO SCH (08:42)
[2019-03-22] MEDS: SPIRONOLACTONE 25 MG TABLET PO SCH (09:05)
[2019-03-22] MEDS: NYSTATIN TOP POWDER 15 GM BOTTLE TP SCH ×2 (09:10→16:42)
[2019-03-22] MEDS: NEOMY SULF/BACITRAC ZN/POLY 15 GM TUBE TP SCH ×3 (09:11→16:42)
[2019-03-22 10:40] LABS: BAND % (MANUAL) 1 % (0.0-5.0); EOSINOPHILS % (MANUAL) 1 % (0-4); LYMPHOCYTES % (MANUAL) 14 % (16-48); MONOCYTES % (MANUAL) 20 % (0-11.0); NEUTROPHILS % (MANUAL) 64 (42-76)
[2019-03-22 16:00] VITALS: BP 117/65
[2019-03-22 20:00] VITALS: BP 123/59
[2019-03-22] MEDS: diphenhydrAMINE HCL 50 MG CAPSULE PO PRN (23:04)
[2019-03-23] MEDS: HYDROCODONE/APAP 5/325MG 1 EACH TABLET PO PRN ×5 (00:15→19:53)
[2019-03-23] MEDS: ZOLPIDEM TARTRATE 5 MG TABLET PO PRN (01:44)
[2019-03-23 06:49] LABS: BASOPHILS % (AUTO) 0.7 % (0.0-2.0); EOSINOPHILS % (AUTO) 3.1 % (0.0-6.0); HEMATOCRIT 26 % (39-51); HEMOGLOBIN 8.2 g/dL (13.5-17.5); LYMPHOCYTES # (AUTO) 1.1 /CMM (0.8-4.8); LYMPHOCYTES % (AUTO) 22.4 % (20.0-44.0); MEAN CORPUSCULAR HGB CONC 32 g/dl (31.0-36.0); MEAN CORPUSCULAR VOLUME 65 fL (80-96); MONOCYTES # (AUTO) 1.2 /CMM (0.1-1.30); MONOCYTES % (AUTO) 24.8 % (2.0-12.0); NEUTROPHILS # (AUTO) 2.4 /CMM (1.8-8.9); PLATELET COUNT (AUTO) 90 /CMM (150-450); RED BLOOD CELL COUNT(AUTO) 3.96 MIL/uL (4.5-6.0); WHITE BLOOD COUNT (AUTO) 4.9 K/uL (4.3-11.0)
[2019-03-23 07:03] LABS: CALCIUM, SERUM 8.4 mg/dL (8.5-10.1); CREATININE 0.5 mg/dL (0.6-1.3); POTASSIUM 3.5 mmol/L (3.5-5.1)
[2019-03-23] MEDS: PANTOPRAZOLE 40 MG TABLET.DR PO SCH (07:30)
[2019-03-23 08:00] VITALS: BP 100/60
[2019-03-23] MEDS: NEOMY SULF/BACITRAC ZN/POLY 15 GM TUBE TP SCH ×3 (09:00→17:26)
[2019-03-23] MEDS: NYSTATIN TOP POWDER 15 GM BOTTLE TP SCH ×2 (09:00→17:26)
[2019-03-23 09:04] LABS: EOSINOPHILS % (MANUAL) 1 % (0-4); LYMPHOCYTES % (MANUAL) 18 % (16-48); MONOCYTES % (MANUAL) 18 % (0-11.0); NEUTROPHILS % (MANUAL) 63 (42-76)
[2019-03-23] MEDS: SPIRONOLACTONE 25 MG TABLET PO SCH (09:24)
[2019-03-23] MEDS: FOLIC ACID 1 MG TABLET PO SCH (09:24)
[2019-03-23] MEDS: FUROSEMIDE 20 MG TABLET PO SCH (09:24)
[2019-03-23] MEDS: POTASSIUM CHLORIDE 20 MEQ TAB.PRT.SR PO SCH (09:24)
[2019-03-23] MEDS: diphenhydrAMINE HCL 50 MG CAPSULE PO PRN (09:26)
[2019-03-23 16:00] VITALS: BP 109/62
[2019-03-23 20:00] VITALS: BP 105/67
[2019-03-24] MEDS: HYDROCODONE/APAP 5/325MG 1 EACH TABLET PO PRN ×2 (00:22→16:23)
[2019-03-24] MEDS: ZOLPIDEM TARTRATE 5 MG TABLET PO PRN (01:24)
[2019-03-24 06:40] LABS: BASOPHILS % (AUTO) 0.8 % (0.0-2.0); EOSINOPHILS % (AUTO) 2.9 % (0.0-6.0); HEMATOCRIT 26 % (39-51); HEMOGLOBIN 8.2 g/dL (13.5-17.5); LYMPHOCYTES # (AUTO) 1.1 /CMM (0.8-4.8); LYMPHOCYTES % (AUTO) 23.8 % (20.0-44.0); MEAN CORPUSCULAR HGB CONC 32 g/dl (31.0-36.0); MEAN CORPUSCULAR VOLUME 66 fL (80-96); MONOCYTES # (AUTO) 1.3 /CMM (0.1-1.30); NEUTROPHILS % (AUTO) 43.5 % (43.0-81.0); PLATELET COUNT (AUTO) 111 /CMM (150-450); RED BLOOD CELL COUNT(AUTO) 3.95 MIL/uL (4.5-6.0); WHITE BLOOD COUNT (AUTO) 4.5 K/uL (4.3-11.0)
[2019-03-24 06:50] LABS: CALCIUM, SERUM 7.9 mg/dL (8.5-10.1); CREATININE 0.6 mg/dL (0.6-1.3); POTASSIUM 3.4 mmol/L (3.5-5.1)
[2019-03-24 08:00] VITALS: BP 116/56
[2019-03-24 08:34] LABS: BAND % (MANUAL) 4 % (0.0-5.0); EOSINOPHILS % (MANUAL) 4 % (0-4); LYMPHOCYTES % (MANUAL) 22 % (16-48); MONOCYTES % (MANUAL) 23 % (0-11.0); NEUTROPHILS % (MANUAL) 47 (42-76)
[2019-03-24] MEDS ORDERED: POTASSIUM CHLORIDE 20 MEQ TAB.PRT.SR PO SCH (10:00)
[2019-03-24] MEDS: FUROSEMIDE 20 MG TABLET PO SCH (10:07)
[2019-03-24] MEDS: PANTOPRAZOLE 40 MG TABLET.DR PO SCH (10:07)
[2019-03-24] MEDS: POTASSIUM CHLORIDE 20 MEQ TAB.PRT.SR PO SCH (10:09)
[2019-03-24] MEDS: FOLIC ACID 1 MG TABLET PO SCH (10:09)
[2019-03-24] MEDS: SPIRONOLACTONE 25 MG TABLET PO SCH (10:43)
[2019-03-24] MEDS: NYSTATIN TOP POWDER 15 GM BOTTLE TP SCH (13:21)
[2019-03-24] MEDS: NEOMY SULF/BACITRAC ZN/POLY 15 GM TUBE TP SCH ×2 (13:21→15:50)
[2019-03-24 16:00] VITALS: BP 109/68
== END 2019-03-24 17:15 | disposition home or self-care (01) | DRG 280 ==
LOC: ER 16:51 → MED 23:23
PROVIDERS: ADMIT Registered Nurse; ATTEND Student in an Organized Health Care Education/Training Program
PROC: 0W9G3ZZ Drainage of Peritoneal Cavity, Percutaneous Approach (ICD-10-PCS; principal; 2019-03-19)
DX: K70.31 Alcoholic cirrhosis of liver with ascites (principal); I85.11 Secondary esophageal varices with bleeding; D68.4 Acquired coagulation factor deficiency; D69.59 Other secondary thrombocytopenia; E44.0 Moderate protein-calorie malnutrition; E83.42 Hypomagnesemia; E87.1 Hypo-osmolality and hyponatremia; K76.6 Portal hypertension; K86.1 Other chronic pancreatitis; D72.825 Bandemia; Z59.0 Homelessness; Z76.5 Malingerer [conscious simulation]; G89.4 Chronic pain syndrome; D63.8 Anemia in other chronic diseases classified elsewhere; F17.210 Nicotine dependence, cigarettes, uncomplicated; I10 Essential (primary) hypertension; E88.09 Other disorders of plasma-protein metabolism, not elsewhere classified; Z68.24 Body mass index [BMI] 24.0-24.9, adult; S51.811A Laceration without foreign body of right forearm, initial encounter; X58.XXXA Exposure to other specified factors, initial encounter; Y93.9 Activity, unspecified; Y92.009 Unspecified place in unspecified non-institutional (private) residence as the place of occurrence of the external cause; E87.6 Hypokalemia; L98.8 Other specified disorders of the skin and subcutaneous tissue; F10.188 Alcohol abuse with other alcohol-induced disorder
CPT/HCPCS: 36415; 71045-TC; 76705-TC; 76942-TC; 80048-TC; 80061-TC; 80076-TC; 81000-TC; 83690-TC; 83735-TC; 84100-TC; 84443-TC; 85025-TC; 85730-TC; 86850-TC; 87040-TC; 87070-TC; 87081-TC; 87086-TC; 89051-TC; A6403; G0378; J0696; J2405; J7030; J7050; J7060; Q0163

== ENCOUNTER 2019-04-25 17:45 | Emergency (ER) | payer OTHER ==
[~2019-04-25] VITALS: Ht 177.8 cm; Wt 84.8 kg
--- NOTE | 2019-04-25 17:50 | NUR ---
[id number], pt called 911 c/o abdominal pain and distension. +etoh. Patient a/ox3, breathing even and unlabored, no sob noted, kept comfortable. No distress noted.
[2019-04-25 18:18] LABS: APPEARANCE,URINE Clear (CLEAR); BILIRUBIN,URINE Negative (NEGATIVE); BLOOD, URINE Negative Ery/uL (NEGATIVE); COLOR,URINE Light yellow (YELLOW); KETONES,URINE Negative (NEGATIVE); LEUKOCYTE ESTERASE ,URINE Negative (NEGATIVE); NITRITE, URINE Negative (NEGATIVE); PROTEIN,URINE Negative (NEGATIVE); UGLUCOSE Negative (NEGATIVE); UROBILINOGEN,URINE 0.2 EU/dL (0.2)
[2019-04-25 18:33] LABS: BASOPHILS # (AUTO) 0.2 /CMM (0.0-0.2); BASOPHILS % (AUTO) 1.7 % (0.0-2.0); EOSINOPHILS % (AUTO) 2.8 % (0.0-6.0); HEMATOCRIT 37 % (39-51); HEMOGLOBIN 11.7 g/dL (13.5-17.5); LYMPHOCYTES # (AUTO) 2.5 /CMM (0.8-4.8); LYMPHOCYTES % (AUTO) 23.7 % (20.0-44.0); MEAN CORPUSCULAR HGB CONC 32 g/dl (31.0-36.0); MEAN CORPUSCULAR VOLUME 73 fL (80-96); MONOCYTES # (AUTO) 1.4 /CMM (0.1-1.30); MONOCYTES % (AUTO) 13.4 % (2.0-12.0); NEUTROPHILS # (AUTO) 6.2 /CMM (1.8-8.9); NEUTROPHILS % (AUTO) 58.4 % (43.0-81.0); PLATELET COUNT (AUTO) 390 /CMM (150-450); RED BLOOD CELL COUNT(AUTO) 5.13 MIL/uL (4.5-6.0); WHITE BLOOD COUNT (AUTO) 10.6 K/uL (4.3-11.0)
--- NOTE | 2019-04-25 18:37 | NUR ---
BLOOD DRAWN AND SENT TO LAB. URINE SAMPLE RECEIVED.
[2019-04-25 19:05] LABS: CARBON DIOXIDE 24 mmol/L (21-32); CHLORIDE 104 mmol/L (98-107); CREATININE 0.5 mg/dL (0.6-1.3); GLUCOSE 86 mg/dL (74-106); POTASSIUM 4.1 mmol/L (3.5-5.1); SODIUM SERUM 141 mmol/L (136-145); UREA NITROGEN, BLOOD 3 mg/dL (7-18)
--- NOTE | 2019-04-25 19:11 | NUR ---
PT RECEIVED IN BED SLEEPING. NAD DISTRESS. ARROUSABLE
[2019-04-25 19:13] LABS: ALANINE AMINOTRANSFERASE 25 U/L (12-78); ALBUMIN 3.2 g/dL (3.4-5.0); ALCOHOL, BLOOD 376 mg/dL (0-0); ALKALINE PHOSPHATASE 313 U/L (46-116); ASPARTATE AMINOTRANSFERASE 54 U/L (15-37); BILIRUBIN,DIRECT 0.4 mg/dL (0.0-0.2); TOTAL PROTEIN, SERUM 6.9 g/dL (6.4-8.2)
[2019-04-25 19:14] LABS: SALICYLATE < 2.8 mg/dL (2.8-20.0)
--- NOTE | 2019-04-25 19:30 | NUR ---
ENDORSED TO MINERVA CISNEROS FOR KELLY
[2019-04-25 20:44] LABS: EOSINOPHILS % (MANUAL) 3 % (0-4); LYMPHOCYTES % (MANUAL) 17 % (16-48); MONOCYTES % (MANUAL) 4 % (0-11.0); NEUTROPHILS % (MANUAL) 76 (42-76)
[2019-04-25 21:35] VITALS: BP 132/77
--- NOTE | 2019-04-25 21:35 | NUR ---
Patient discharged to home in stable condition. Written and verbal after care instructions given. Patient verbalizes understanding of instruction. Pt ambulatory with a steady gait
== END 2019-04-25 21:36 | disposition home or self-care (01) ==
LOC: ER 17:48
DX: F10.229 Alcohol dependence with intoxication, unspecified (principal); K70.30 Alcoholic cirrhosis of liver without ascites; I10 Essential (primary) hypertension; D64.9 Anemia, unspecified; G89.29 Other chronic pain; F17.200 Nicotine dependence, unspecified, uncomplicated; Z59.0 Homelessness; Z79.899 Other long term (current) drug therapy; Y90.8 Blood alcohol level of 240 mg/100 ml or more
CPT/HCPCS: 36415; 80048; 80076; 80305; 80307; 80329; 81001; 82140; 85025; 85610; 99283; 99406; G0480; 81000-TC

== ENCOUNTER 2019-05-07 21:18 | Emergency (ER) | payer OTHER ==
[~2019-05-07] VITALS: Ht 182.9 cm; Wt 76.2 kg
--- NOTE | 2019-05-07 21:26 | NUR ---
PT CAME TO ER BIB RA C/O ABDOMINAL PAIN 2x DAYS. PT STATES THAT HE HAS PAIN IN HIS STOMACH. PT HAS ABDOMINAL DISTENSION, STATES HIS LAST PARACENTESIS WAS 2 WEEKS. AAOX4. NO SOB. BREATHING EVENLY AND UNLABORED. CONNECTED TO MONITOR.
--- NOTE | 2019-05-07 21:45 | NUR ---
BLOOD COLLECTED AND SENT TO LAB
[2019-05-07 22:04] LABS: BASOPHILS % (AUTO) 0.6 % (0.0-2.0); EOSINOPHILS % (AUTO) 4.3 % (0.0-6.0); HEMATOCRIT 34 % (39-51); HEMOGLOBIN 10.9 g/dL (13.5-17.5); LYMPHOCYTES # (AUTO) 2.1 /CMM (0.8-4.8); LYMPHOCYTES % (AUTO) 32.5 % (20.0-44.0); MEAN CORPUSCULAR HGB CONC 32 g/dl (31.0-36.0); MEAN CORPUSCULAR VOLUME 74 fL (80-96); MONOCYTES # (AUTO) 0.9 /CMM (0.1-1.30); MONOCYTES % (AUTO) 13.7 % (2.0-12.0); NEUTROPHILS # (AUTO) 3.1 /CMM (1.8-8.9); NEUTROPHILS % (AUTO) 48.9 % (43.0-81.0); PLATELET COUNT (AUTO) 163 /CMM (150-450); WHITE BLOOD COUNT (AUTO) 6.4 K/uL (4.3-11.0)
[2019-05-07 22:10] LABS: CALCIUM, SERUM 8.4 mg/dL (8.5-10.1); CREATININE 0.5 mg/dL (0.6-1.3); POTASSIUM 3.1 mmol/L (3.5-5.1)
[2019-05-07 22:16] LABS: ALBUMIN 3.2 g/dL (3.4-5.0); BILIRUBIN,DIRECT 0.5 mg/dL (0.0-0.2); BILIRUBIN,TOTAL 1.2 mg/dL (0.2-1.0)
[2019-05-07 22:28] LABS: APPEARANCE,URINE Clear (CLEAR); BILIRUBIN,URINE Negative (NEGATIVE); BLOOD, URINE Negative Ery/uL (NEGATIVE); COLOR,URINE Yellow (YELLOW); KETONES,URINE Negative (NEGATIVE); LEUKOCYTE ESTERASE ,URINE Negative (NEGATIVE); NITRITE, URINE Negative (NEGATIVE); PROTEIN,URINE Negative (NEGATIVE); UGLUCOSE Negative (NEGATIVE); UROBILINOGEN,URINE 0.2 EU/dL (0.2)
--- NOTE | 2019-05-07 22:29 | NUR ---
URINE COLLECTED AND SENT TO LAB
[2019-05-07 23:28] LABS: LYMPHOCYTES % (MANUAL) 25 % (16-48); NEUTROPHILS % (MANUAL) 58 (42-76)
[2019-05-07 23:29] LABS: EOSINOPHILS % (MANUAL) 7 % (0-4); MONOCYTES % (MANUAL) 10 % (0-11.0)
[2019-05-08 02:42] VITALS: BP 124/76
--- NOTE | 2019-05-08 02:43 | NUR ---
PATIENT REFUSED TO SIGN DISCHARGE INSTRUCTIONS FORM AND HOMELESS WAIVER.
== END 2019-05-08 02:44 | disposition home or self-care (01) ==
LOC: ER 21:19
DX: R10.84 Generalized abdominal pain (principal); R79.89 Other specified abnormal findings of blood chemistry; F19.10 Other psychoactive substance abuse, uncomplicated; I10 Essential (primary) hypertension; E83.51 Hypocalcemia; D68.9 Coagulation defect, unspecified; M54.5 Low back pain; G89.29 Other chronic pain; E44.1 Mild protein-calorie malnutrition; F17.200 Nicotine dependence, unspecified, uncomplicated; F10.10 Alcohol abuse, uncomplicated; Y90.9 Presence of alcohol in blood, level not specified; Z59.0 Homelessness; Z79.899 Other long term (current) drug therapy
CPT/HCPCS: 36415; 80048-TC; 80076-TC; 81000-TC; 83690-TC; 85025-TC

== ENCOUNTER 2019-05-16 17:13 | Inpatient (IN) | payer MEDICAID, OTHER ==
[~2019-05-16] VITALS: Ht 182.9 cm; Wt 75.7 kg
--- NOTE | 2019-05-16 18:58 | NUR ---
[id number] FROM [facility] C/O ABDOMINAL PAIN/DISTENSIOn, pt to bed 6, -sob, nad noted, pt on monitor, vss, pending md cortes
--- NOTE | 2019-05-16 18:58 | NUR ---
PT TO ER BED 6, REPORT GIVEN TO SONIYA CISNEROS
[2019-05-16 19:39] LABS: BASOPHILS # (AUTO) 0.1 /CMM (0.0-0.2); BASOPHILS % (AUTO) 1.7 % (0.0-2.0); EOSINOPHILS % (AUTO) 2.8 % (0.0-6.0); HEMATOCRIT 33 % (39-51); HEMOGLOBIN 10.8 g/dL (13.5-17.5); LYMPHOCYTES # (AUTO) 1.6 /CMM (0.8-4.8); LYMPHOCYTES % (AUTO) 23.4 % (20.0-44.0); MEAN CORPUSCULAR HGB CONC 33 g/dl (31.0-36.0); MEAN CORPUSCULAR VOLUME 75 fL (80-96); MONOCYTES # (AUTO) 1.1 /CMM (0.1-1.30); MONOCYTES % (AUTO) 16.6 % (2.0-12.0); NEUTROPHILS # (AUTO) 3.8 /CMM (1.8-8.9); NEUTROPHILS % (AUTO) 55.5 % (43.0-81.0); PLATELET COUNT (AUTO) 120 /CMM (150-450); RED BLOOD CELL COUNT(AUTO) 4.43 MIL/uL (4.5-6.0); WHITE BLOOD COUNT (AUTO) 6.9 K/uL (4.3-11.0)
[2019-05-16 19:49] LABS: CALCIUM, SERUM 7.9 mg/dL (8.5-10.1); CARBON DIOXIDE 26 mmol/L (21-32); CHLORIDE 103 mmol/L (98-107); CREATININE 0.5 mg/dL (0.6-1.3); GLUCOSE 83 mg/dL (74-106); POTASSIUM 3.3 mmol/L (3.5-5.1); SODIUM SERUM 138 mmol/L (136-145); UREA NITROGEN, BLOOD 4 mg/dL (7-18)
[2019-05-16 19:54] LABS: ALANINE AMINOTRANSFERASE 16 U/L (12-78); ALBUMIN 2.8 g/dL (3.4-5.0); ALKALINE PHOSPHATASE 301 U/L (46-116); ASPARTATE AMINOTRANSFERASE 38 U/L (15-37); BILIRUBIN,DIRECT 0.5 mg/dL (0.0-0.2); BILIRUBIN,TOTAL 1.1 mg/dL (0.2-1.0); TOTAL PROTEIN, SERUM 6.2 g/dL (6.4-8.2)
--- NOTE | 2019-05-16 22:10 | NUR ---
BED ASSIGNMENT 209
--- NOTE | 2019-05-16 22:17 | NUR ---
REPORT GIVEN TO BLAYNE PASTOR FOR KELLY
[2019-05-16] MEDS ORDERED: diphenhydrAMINE HCL 50 MG CAPSULE PO PRN (22:30)
[2019-05-16] MEDS ORDERED: MAG HYDROX/AL HYDROX/SIMETH 30 ML UDC PO PRN (22:30)
[2019-05-16 22:33] VITALS: BP 107/66
--- NOTE | 2019-05-16 22:33 | NUR ---
MS RN ADMITTING NOTES RECEIVED PT FROM ER VIA [facility]IAM IN STABLE CONDITION. PT A/O X3 AND ABLE TO MAKE NEEDS KNOWN. RESPIRATIONS EVEN AND UNLABORED WITH NO S/S OF ACUTE DISTRESS OR SOB NOTED AT THIS TIME. PT NOTED WITH ACITIES, PT REFUSED MEASUREMENT. PT REFUSED SKIN ASSESSMENT WELL WOUND CARE. PT REFUSED GOWN WELL TAKING OFF SHOES. SAFETY MEASURES IN PLACE WITH BED IN LOWEST LOCKED POSITION WITH SIDE RAILS UP X2. ORIENTED PT TO ROOM AND STAFF. CALL LIGHT WITHIN REACH. WILL CONTINUE TO MONITOR. Addendum: 05/17/19 at 0534 by DAWIT RANDLE RN ASCLORELEI*
--- NOTE | 2019-05-16 23:05 | NUR ---
MS RN NOTES LAB CALLED FOR PT LACTIC ACID 2.1 TRENDING DOWN FROM 2.6. MD AWARE WITH NO NEW ORDERS.
[2019-05-16] MEDS: MORPHINE SULFATE INJ 2 MG/ML DISP.SYRIN IV PRN (23:36)
[2019-05-17] MEDS: ZOLPIDEM TARTRATE 5 MG TABLET PO PRN ×2 (00:27→22:56)
[2019-05-17 07:36] LABS: BASOPHILS % (AUTO) 0.5 % (0.0-2.0); EOSINOPHILS % (AUTO) 4.1 % (0.0-6.0); HEMATOCRIT 30 % (39-51); HEMOGLOBIN 9.7 g/dL (13.5-17.5); LYMPHOCYTES % (AUTO) 20.2 % (20.0-44.0); MEAN CORPUSCULAR HGB CONC 32 g/dl (31.0-36.0); MEAN CORPUSCULAR VOLUME 74 fL (80-96); MONOCYTES % (AUTO) 20.7 % (2.0-12.0); NEUTROPHILS # (AUTO) 2.6 /CMM (1.8-8.9); NEUTROPHILS % (AUTO) 54.5 % (43.0-81.0); PLATELET COUNT (AUTO) 99 /CMM (150-450); RED BLOOD CELL COUNT(AUTO) 4.06 MIL/uL (4.5-6.0); WHITE BLOOD COUNT (AUTO) 4.7 K/uL (4.3-11.0)
--- NOTE | 2019-05-17 07:58 | NUR ---
MS RN NOTES PT IN BED AND AWAKE. PT A/O X3 AND ABLE TO MAKE NEEDS KNOWN. RESPIRATIONS EVEN AND UNLABORED WITH NO S/S OF ACUTE DISTRESS OR SOB NOTED THROUGHOUT SHIFT. PT NOTED WITH ACITIES, PT REFUSED MEASUREMENT. PT REFUSED SKIN ASSESSMENT WELL WOUND CARE. PT REFUSED GOWN WELL TAKING OFF SHOES. SAFETY MEASURES IN PLACE WITH BED IN LOWEST LOCKED POSITION WITH SIDE RAILS UP X2. CALL LIGHT WITHIN REACH. WILL ENDORSE TO ONCOMING NURSE FOR KELLY.
[2019-05-17 08:00] VITALS: BP 113/61
--- NOTE | 2019-05-17 08:00 | NUR ---
RN NOTES RECEIVED PATIENT IN THE BED A/O X3, ROOM AIR, NO ACUTE RESPIRATORY DISTRESS, V/S STABLE. PATIENT WAS COMPLAINING OF PAIN GENERALIZED,. DISTENDED ABDOMEN, TODAY PLAN PARACENTESIS. ADMINISTERED SCHEDULED MEDICATION. PATIENT UNKEPT, USING URINAL. IV ACCESS ON LEFT FA INTACT SL. NEEDS ATTENDED AND ANTICIPATED, SAFETY PRECAUTION MAINTAINED ALL THE TIME. CALL LIGHT WITHIN TO REACH.
[2019-05-17 08:28] LABS: ALBUMIN 2.5 g/dL (3.4-5.0); BILIRUBIN,TOTAL 1.1 mg/dL (0.2-1.0); CREATININE 0.5 mg/dL (0.6-1.3); MAGNESIUM 1.6 mg/dL (1.8-2.4); PHOSPHORUS 3.3 mg/dL (2.5-4.9); POTASSIUM 3.1 mmol/L (3.5-5.1); TOTAL PROTEIN, SERUM 5.6 g/dL (6.4-8.2)
[2019-05-17] MEDS ORDERED: LORAZEPAM INJ 2 MG/ML VIAL IV PRN (08:30)
[2019-05-17] MEDS: POTASSIUM CHLORIDE 20 MEQ TAB.PRT.SR PO SCH (09:23)
[2019-05-17] MEDS: FUROSEMIDE 20 MG TABLET PO SCH (09:24)
[2019-05-17] MEDS: FOLIC ACID 1 MG TABLET PO SCH (09:24)
[2019-05-17] MEDS: CLOTRIMAZOLE/BETAMETASONE DIPROPIONATE 15 GM TUBE TP SCH ×2 (09:24→17:27)
[2019-05-17] MEDS: SPIRONOLACTONE 25 MG TABLET PO SCH (09:25)
[2019-05-17] MEDS: MORPHINE SULFATE INJ 2 MG/ML DISP.SYRIN IV PRN ×4 (09:30→20:54)
--- NOTE | 2019-05-17 09:30 | NUR ---
RN NOTES ADMINISTERED MORPHINE SULFATE 2 MG/ML IV PUSH FOR GENERALIZED PAIN 01/22 PER PATIENT REQUEST, V/S TAKEN BP 113/61, P-82, ENCOURAGED TO INCREASE FLUID INTAKE.
[2019-05-17] MEDS ORDERED: MAGNESIUM OXIDE 400 MG TABLET PO ONE (10:25)
[2019-05-17] MEDS ORDERED: POTASSIUM CHLORIDE 20 MEQ TAB.PRT.SR PO ONE (10:30)
[2019-05-17 10:50] LABS: EOSINOPHILS % (MANUAL) 6 % (0-4); LYMPHOCYTES % (MANUAL) 20 % (16-48); MONOCYTES % (MANUAL) 19 % (0-11.0); MYELOCYTES % 1 % (0-0); NEUTROPHILS % (MANUAL) 54 (42-76)
--- NOTE | 2019-05-17 13:02 | NUR ---
rn notes Get call lab for lactic acid 2.0, notified Jon CARDIOPULMONARY TECHNICIAN AND EEG TECH about result , no new order per hospitalist wnl parameters. continued monitoring.
--- NOTE | 2019-05-17 13:54 | NUR ---
RN NOTES ADMINISTERED MORPHINE SULFATE 2 MG/ML IV PUSH FOR GENERALIZED PAIN 01/22 PER PATIENT REQUEST, V/S TAKEN BP-138/74, 90, CONTINUED MONITORING.
[2019-05-17] MEDS: ONDANSETRON HCL/PF 4 MG/2 ML VIAL IV PRN (14:25)
--- NOTE | 2019-05-17 14:25 | NUR ---
RN NOTES ADMINISTERED ZOFRAN 4 MG/ML IV PUSH FOR NAUSEA AND VOMITING.
[2019-05-17] MEDS ORDERED: GUAIFENESIN 300 MG/15 ML UDC PO PRN (14:30)
[2019-05-17 16:00] VITALS: BP 134/81
--- NOTE | 2019-05-17 17:52 | NUR ---
RN NOTES ADMINISTERED MORPHINE SULFATE 2 MG/ML IV PUSH FOR PAIN 01/22 PER PATIENT REQUEST, V/S TAKEN BP-134/81, P-86, FRIEND NEXT TO THE BED, CONTINUED MONITORING.
--- NOTE | 2019-05-17 18:30 | NUR ---
RN NOTES MEDICATION WERE ADMINISTERED FOR PAIN EFFECTIVE. NO NAUSEA/VOMITING AT THIS TIME, PATIENT POOR EATER BECAUSE OF PAIN. IV ACCESS INTACT ON LEFT FA. FRIEND NEXT TO THE BED. CALL LIGHT WITHIN TO REACH. ENDORSED ONCOMING NURSE FOLLOW PLAN OF CARE.
--- NOTE | 2019-05-17 19:25 | NUR ---
MS RN OPENING NOTES Received patient, awake on bed. On RA, no SOB/respiratory distress noted, no s/sx of discomfort noted at this time. Kept on bed clean, dry and comfortable. On fall and aspiration precautions. Call light within easy reach. Will continue to monitor accordingly.
[2019-05-17 20:47] VITALS: BP 131/77
[2019-05-18] MEDS: MORPHINE SULFATE INJ 2 MG/ML DISP.SYRIN IV PRN ×5 (05:52→21:21)
[2019-05-18 06:40] LABS: BASOPHILS % (AUTO) 0.6 % (0.0-2.0); EOSINOPHILS % (AUTO) 1.9 % (0.0-6.0); HEMATOCRIT 32 % (39-51); HEMOGLOBIN 10.5 g/dL (13.5-17.5); LYMPHOCYTES # (AUTO) 0.8 /CMM (0.8-4.8); LYMPHOCYTES % (AUTO) 15.5 % (20.0-44.0); MEAN CORPUSCULAR HGB CONC 32 g/dl (31.0-36.0); MEAN CORPUSCULAR VOLUME 74 fL (80-96); MONOCYTES # (AUTO) 0.9 /CMM (0.1-1.30); MONOCYTES % (AUTO) 19.4 % (2.0-12.0); NEUTROPHILS # (AUTO) 3.1 /CMM (1.8-8.9); NEUTROPHILS % (AUTO) 62.6 % (43.0-81.0); PLATELET COUNT (AUTO) 74 /CMM (150-450); RED BLOOD CELL COUNT(AUTO) 4.34 MIL/uL (4.5-6.0); WHITE BLOOD COUNT (AUTO) 4.9 K/uL (4.3-11.0)
[2019-05-18 06:47] LABS: CALCIUM, SERUM 8.2 mg/dL (8.5-10.1); CREATININE 0.5 mg/dL (0.6-1.3); MAGNESIUM 1.7 mg/dL (1.8-2.4); PHOSPHORUS 3.3 mg/dL (2.5-4.9); POTASSIUM 3.6 mmol/L (3.5-5.1)
--- NOTE | 2019-05-18 06:58 | NUR ---
MS RN CLOSING NOTES Patient asleep on Vaughan's position on bed. On RA, no SOB/respiratory distress noted at this time. No new complaints made. All nursing needs attended, due meds given as ordered. Medicated for pain, noted effective. Kept on bed clean, dry and comfortable. Call light within easy reach. On fall and aspiration precautions. Endorsed.
[2019-05-18] MEDS: FOLIC ACID 1 MG TABLET PO SCH (07:54)
[2019-05-18] MEDS: FUROSEMIDE 20 MG TABLET PO SCH (07:54)
[2019-05-18] MEDS: SPIRONOLACTONE 25 MG TABLET PO SCH (07:54)
[2019-05-18] MEDS: POTASSIUM CHLORIDE 20 MEQ TAB.PRT.SR PO SCH (07:54)
[2019-05-18] MEDS: CLOTRIMAZOLE/BETAMETASONE DIPROPIONATE 15 GM TUBE TP SCH ×2 (07:56→17:33)
[2019-05-18 08:00] VITALS: BP 128/68
[2019-05-18] MEDS ORDERED: MAGNESIUM OXIDE 400 MG TABLET PO ONE (08:00)
--- NOTE | 2019-05-18 08:00 | NUR ---
RN NOTES RECEIVED PATIENT IN THE BED A/O X3, NO ACUTE RESPIRATORY DISTRESS, V/S TAKEN WNL, WAS COMPLAINING OF GENERALIZED PAIN 10/10, COUGHING NO DISCHARGE, PATIENT REFUSED EAT BECAUSE OF PAIN, ADMINISTERED SCHEDULED MEDICATION. PATIENT USING URINAL. SEEN HOSPITALIST MONA TALENT ASSISTANT NO NEW ORDER WILL CONTINUED HOSPITALIZATION, AND MONITORING.
--- NOTE | 2019-05-18 09:39 | NUR ---
RN NOTES ADMINISTERED MORPHINE SULFATE 2 MG/ML IV PUSH FOR GENERALIZED PAIN 01/22 PER PATIENT REQUEST, V/S TAKEN BP 123/68, P-90, R-21, CONTINUED MONITORING. ALSO US PERONEAL NEXT TO THE BED PREPARING PATIENT FOR PARACENTESIS AT THIS TIME WAITING FOR RADIOLOGIST.
--- NOTE | 2019-05-18 10:56 | NUR ---
RN Notes Paracentesis done by Dr Nam output was 7000cc, will take output to the lab .
[2019-05-18 11:09] LABS: LYMPHOCYTES % (MANUAL) 4 % (16-48); MONOCYTES % (MANUAL) 14 % (0-11.0); NEUTROPHILS % (MANUAL) 82 (42-76)
--- NOTE | 2019-05-18 11:27 | NUR ---
Social service consult requested by Dr. Carvalho for homelessness. Pt is a 55 year old male who was admitted to [facility] for Ascites, umbilical hernia. OPERATIONS OFFICER AFLOAT met with pt. bedside and introduced self. OPERATIONS OFFICER AFLOAT is familiar with the pt. from previous admissions and ED visits. Pt was resting in his bed and is alert and oriented x 4 (person, place, time, and situation). Pt states he is ambulatory. Pt appears disheveled. Pt is homeless and stays around the [facility]. Pt states he receives $200 per month in [employer] benefits, and no other financial government benefits. Pt has no next of kin or person to notify. Pt denies drug use, but admits drinking beer occasionally. Pt reports to have had a beer 10 days ago. Pt reports to smoke 4 to 5 cigarettes per day. offered pt referrals to substance abuse treatment programs, but pt declined. OPERATIONS OFFICER AFLOAT offered pt winter alf placement, however4 pt declined, stating, " I don't want a alf is [facility] or [place]." Pt denies any suicidal and homicidal ideations and visual/auditory hallucinations at this time. OPERATIONS OFFICER AFLOAT to provide pt with homeless/alcohol treatment program referrals prior to discharge. Homeless patient waiver form to be signed by the pt. upon discharge.
--- NOTE | 2019-05-18 12:48 | NUR ---
RN NOTES ADMINISTERED MORPHINE SULFATE 2 MG/ML IV PUSH FOR GENERALIZED PAIN 01/22 PER PATIENT REQUEST, V/S TAKEN DIMITRI
[2019-05-18 16:00] VITALS: BP 120/67
[2019-05-18] MEDS: HYDROCORTISONE 1% CREAM 28.35 GM TUBE TP SCH (17:32)
--- NOTE | 2019-05-18 17:33 | NUR ---
RN NOTES ADMINISTERED MORPHINE SULFATE 2 MG/ML IV PUSH FOR ABDOMINAL PAIN 01/22 PER PATIENT REQUEST, V/S TAKEN BP 120/76, p-85. continued monitoring.
--- NOTE | 2019-05-18 18:00 | NUR ---
RN NOTES MEDICATION WERE ADMINISTERED FOR PAIN EFFECTIVE, POOR EATER, ISOLATIVE, AMBULATORY SELF CARE, STILL UNKEMPT. CALL LIGHT WITHIN TO REACH. ENDORSED ONCOMING NURSE FOLLOW PLAN OF CARE.
--- NOTE | 2019-05-18 19:50 | NUR ---
RN NOTES RECEIVED PATIENT AWAKE, DENIES PAIN WITH MINIMAL DISCOMFORT, NO ACUTE RESPIRATORY DISTRESS NOTED, WITH ABDOMINAL DISTENTION AND ENLARGED BELLY BUTTON NOTED, PATIENT STATES THAT THE UMBILICAL BUTTON IS A LITTLE BIT SMALLER THAN YESTERDAY, STATUS POST PARACENTESIS AND WAS ABLE TO OBTAINED 7,000 ML OF CLEAR YELLOW FLUID AND SPECIMEN SENT FOR BASIC CYTOLOGY, REPORTED BY AM NURSE LILLIANA. ALL NEEDS ANTICIPATED, WILL CONTINUE TO MONITOR ACCORDINGLY.
[2019-05-19] MEDS: MORPHINE SULFATE INJ 2 MG/ML DISP.SYRIN IV PRN ×3 (00:30→09:19)
[2019-05-19 04:25] VITALS: BP 109/78
--- NOTE | 2019-05-19 06:09 | NUR ---
RN NOTES ALL NEEDS ATTENDED AND MET, ABLE TO REST AND SLEPT AT INTERVALS, REPOSITIONED FOR COMFORT, SAFETY MEASURES INPLACED,, CALL LIGHT WITHIN EASY REACH. WILL ENDORSE TO AM NURSE FOR CONTINUITY OF CARE.
[2019-05-19 06:19] LABS: CALCIUM, SERUM 8.3 mg/dL (8.5-10.1); CREATININE 0.5 mg/dL (0.6-1.3); MAGNESIUM 1.9 mg/dL (1.8-2.4); POTASSIUM 3.4 mmol/L (3.5-5.1)
[2019-05-19 06:23] LABS: BASOPHILS % (AUTO) 0.7 % (0.0-2.0); HEMATOCRIT 32 % (39-51); HEMOGLOBIN 10.4 g/dL (13.5-17.5); LYMPHOCYTES # (AUTO) 0.7 /CMM (0.8-4.8); LYMPHOCYTES % (AUTO) 16.7 % (20.0-44.0); MEAN CORPUSCULAR HGB CONC 32 g/dl (31.0-36.0); MEAN CORPUSCULAR VOLUME 75 fL (80-96); MONOCYTES # (AUTO) 0.9 /CMM (0.1-1.30); MONOCYTES % (AUTO) 20.8 % (2.0-12.0); NEUTROPHILS # (AUTO) 2.6 /CMM (1.8-8.9); NEUTROPHILS % (AUTO) 58.8 % (43.0-81.0); PLATELET COUNT (AUTO) 74 /CMM (150-450); RED BLOOD CELL COUNT(AUTO) 4.31 MIL/uL (4.5-6.0); WHITE BLOOD COUNT (AUTO) 4.5 K/uL (4.3-11.0)
[2019-05-19 07:27] LABS: LYMPHOCYTES % (MANUAL) 16 % (16-48); NEUTROPHILS % (MANUAL) 68 (42-76)
[2019-05-19 07:28] LABS: EOSINOPHILS % (MANUAL) 1 % (0-4); MONOCYTES % (MANUAL) 15 % (0-11.0)
[2019-05-19 08:00] VITALS: BP 124/69
--- NOTE | 2019-05-19 08:00 | NUR ---
RN NOTES RECEIVED PATIENT IN THE BED A/O X3, NO ACUTE RESPIRATORY DISTRESS, V/S TAKEN WNL, WAS COMPLAINING OF ABDOMINAL PAIN 10/10, COUGHING , AND NAUSEA. ADMINISTERED SCHEDULED MEDICATION. PATIENT USING URINAL, UNKEPT, ENCOURAGED TO TAKE A SHOWER. WILL CONTINUED HOSPITALIZATION, AND MONITORING.
[2019-05-19] MEDS: HYDROCORTISONE 1% CREAM 28.35 GM TUBE TP SCH (09:18)
[2019-05-19] MEDS: FOLIC ACID 1 MG TABLET PO SCH (09:18)
[2019-05-19] MEDS: FUROSEMIDE 20 MG TABLET PO SCH (09:18)
[2019-05-19] MEDS: CLOTRIMAZOLE/BETAMETASONE DIPROPIONATE 15 GM TUBE TP SCH (09:18)
[2019-05-19] MEDS: POTASSIUM CHLORIDE 20 MEQ TAB.PRT.SR PO SCH (09:18)
[2019-05-19] MEDS: SPIRONOLACTONE 25 MG TABLET PO SCH (09:18)
--- NOTE | 2019-05-19 09:19 | NUR ---
RN NOTES ADMINISTERED MORPHINE SULFATE 2 MG/ML IV PUSH FOR ABDOMINAL PAIN 01/22 PER PATIENT REQUEST, V/S TAKEN BP-124/69, P-92, R-20. PATIENT ALSO WAS COMPLAINING OF NAUSEA AND VOMITING.
[2019-05-19] MEDS: ONDANSETRON HCL/PF 4 MG/2 ML VIAL IV PRN (09:28)
--- NOTE | 2019-05-19 09:28 | NUR ---
RN NOTES ADMINISTERED ZOFRAN 4 MG/ML IV PUSH FOR NAUSEA AND VOMITING.
--- NOTE | 2019-05-19 10:00 | NUR ---
RN NOTES MEDICATION WERE ADMINISTERED FOR PAIN, AND NAUSEA EFFECTIVE, PATIENT IN THE BED RESTING.
--- NOTE | 2019-05-19 11:08 | NUR ---
WOUND CARE CONSULT WOUND CARE RECEIVED CONSULT FOR BRUISES AND SCATTERED RASHES. WOUND CARE WILL DEFER CONSULT AND TREATMENT PLANS TO PLASTIC SURGICAL TEAM WHO ARE CURRENTLY FOLLOWING THIS PATIENT. PATIENT WITH SHAY AT 17, ALL PRESSURE ULCER PREVENTION MEASURES ARE NOTED TO BE IN PLACE AT THIS TIME. WILL SEE PRN.
--- NOTE | 2019-05-19 11:25 | NUR ---
rn notes SEEN PATIENT BY HOSPITALIST Dr GONG, PATIENT WILL DISCHARGE TODAY FOR [facility].
--- NOTE | 2019-05-19 12:03 | NUR ---
RN NOTES PATIENT WALK OUT OF HOSPITAL AT THIS TIME WITHOUT WAITING DISCHARGE ORDER, AND PAPERWORK. PATIENT STATE "I AM HOT GOING [facility] . I AM GOING [employer], MY FRIENDS THERE". REFUSED PICTURE TO BE TAKEN. REMOVED IV ACCESS. ESCORTED PATIENT TO THE LOBBY FOR SAFETY.
--- NOTE | 2019-05-19 13:25 | NUR ---
Pt declined [facility] placement and refused to sign homeless patient waiver form. Form was signed by two witnesses and placed in pt's chart.
== END 2019-05-19 11:00 | disposition home or self-care (01) | DRG 280 ==
LOC: ER 17:15 → MEDSG2 22:21
PROVIDERS: ADMIT Internal Medicine
PROC: 0W9G3ZZ Drainage of Peritoneal Cavity, Percutaneous Approach (ICD-10-PCS; principal; 2019-05-18)
DX: K70.31 Alcoholic cirrhosis of liver with ascites (principal); E43 Unspecified severe protein-calorie malnutrition; E87.2 Acidosis; K76.6 Portal hypertension; E83.42 Hypomagnesemia; K86.1 Other chronic pancreatitis; Z59.0 Homelessness; F10.20 Alcohol dependence, uncomplicated; D63.8 Anemia in other chronic diseases classified elsewhere; E87.6 Hypokalemia; Z68.22 Body mass index [BMI] 22.0-22.9, adult; I10 Essential (primary) hypertension; F41.9 Anxiety disorder, unspecified; F32.9 Major depressive disorder, single episode, unspecified; G89.29 Other chronic pain; M54.9 Dorsalgia, unspecified; M54.2 Cervicalgia; F17.210 Nicotine dependence, cigarettes, uncomplicated; K21.9 Gastro-esophageal reflux disease without esophagitis; R21 Rash and other nonspecific skin eruption; G25.81 Restless legs syndrome; J44.9 Chronic obstructive pulmonary disease, unspecified
CPT/HCPCS: 36415; 76942-TC; 80048-TC; 80053-TC; 80076-TC; 83605-TC; 83690-TC; 83735-TC; 84100-TC; 85025-TC; 85730-TC; 87081-TC; 88112-TC; 88305-TC; 88312-TC; G0378; J2060; J2270; J2405

== ENCOUNTER 2019-06-16 19:35 | Emergency (ER) | payer MEDICAID, OTHER ==
[~2019-06-16] VITALS: Ht 182.9 cm; Wt 75.7 kg
[~2019-06-16 19:35] MED LIST changes: -DIPH28.33 TP; -DIPH50CA37 PO; -FURO20TA4 PO; -Hydrogel Dressing TP; -MAG30ORA PO; -POTA20TA83 PO; -SPIR25TA PO; -ZOLP5TAB2 PO
--- NOTE | 2019-06-16 19:40 | NUR ---
[id number] C/O GENERALIZED ABDOMINAL PAIN, PT TO BED 6, AWAKE, ALERT, -SOB, AND NOTED, VSS, PENDING MD MCCURDY
[2019-06-16 20:22] LABS: BASOPHILS # (AUTO) 0.1 /CMM (0.0-0.2); BASOPHILS % (AUTO) 1.5 % (0.0-2.0); EOSINOPHILS % (AUTO) 3.2 % (0.0-6.0); HEMATOCRIT 29 % (39-51); HEMOGLOBIN 9.5 g/dL (13.5-17.5); LYMPHOCYTES # (AUTO) 2.1 /CMM (0.8-4.8); LYMPHOCYTES % (AUTO) 28.9 % (20.0-44.0); MEAN CORPUSCULAR HGB CONC 33 g/dl (31.0-36.0); MEAN CORPUSCULAR VOLUME 74 fL (80-96); MONOCYTES # (AUTO) 1.4 /CMM (0.1-1.30); MONOCYTES % (AUTO) 19.3 % (2.0-12.0); NEUTROPHILS # (AUTO) 3.5 /CMM (1.8-8.9); NEUTROPHILS % (AUTO) 47.1 % (43.0-81.0); PLATELET COUNT (AUTO) 176 /CMM (150-450); RED BLOOD CELL COUNT(AUTO) 3.94 MIL/uL (4.5-6.0); WHITE BLOOD COUNT (AUTO) 7.4 K/uL (4.3-11.0)
[2019-06-16 20:35] LABS: CALCIUM, SERUM 7.6 mg/dL (8.5-10.1); CREATININE 0.6 mg/dL (0.6-1.3); POTASSIUM 3.3 mmol/L (3.5-5.1)
[2019-06-16 20:40] LABS: ALBUMIN 2.7 g/dL (3.4-5.0); BILIRUBIN,DIRECT 0.4 mg/dL (0.0-0.2); BILIRUBIN,TOTAL 0.8 mg/dL (0.2-1.0); TOTAL PROTEIN, SERUM 5.7 g/dL (6.4-8.2)
[2019-06-16 21:10] LABS: BAND % (MANUAL) 3 % (0.0-5.0); EOSINOPHILS % (MANUAL) 3 % (0-4); LYMPHOCYTES % (MANUAL) 21 % (16-48); MONOCYTES % (MANUAL) 19 % (0-11.0); NEUTROPHILS % (MANUAL) 54 (42-76)
[2019-06-16] MEDS ORDERED: POTASSIUM CHLORIDE 20 MEQ TAB.PRT.SR PO ONE ×2 (21:30→21:52)
[2019-06-16 21:55] VITALS: BP 110/65
--- NOTE | 2019-06-16 22:10 | NUR ---
Patient given written and verbal discharge instructions. Patient verbalizes understanding of instructions. Patient is ambulatory with steady gait. Refuses offer of prison placement. Patient given list of available shelters in surrounding area.
== END 2019-06-16 22:12 | disposition home or self-care (01) ==
LOC: ER 19:36
DX: R18.8 Other ascites (principal); E87.6 Hypokalemia; D64.9 Anemia, unspecified; F10.10 Alcohol abuse, uncomplicated; K42.9 Umbilical hernia without obstruction or gangrene; F17.210 Nicotine dependence, cigarettes, uncomplicated; I10 Essential (primary) hypertension; M54.5 Low back pain; G89.29 Other chronic pain; M54.2 Cervicalgia; E83.51 Hypocalcemia; F19.10 Other psychoactive substance abuse, uncomplicated; Y90.9 Presence of alcohol in blood, level not specified; Z59.0 Homelessness; Z91.010 Allergy to peanuts; Z79.899 Other long term (current) drug therapy
CPT/HCPCS: 36415; 80048-TC; 80076-TC; 83690-TC; 85025-TC; 85730-TC

== ENCOUNTER 2019-12-04 00:31 | Emergency (ER) | payer OTHER ==
[~2019-12-04] VITALS: Ht 182.9 cm; Wt 75.7 kg
[2019-12-04 00:35] VITALS: BP 99/61
--- NOTE | 2019-12-04 00:37 | NUR ---
PT BIBA C/O ABD DISTENTION AND GENERALIZED ABD PAIN. +ABDOMINAL DISTENTION NOTED. PT HAS A HX OF CIRRHOSIS. PT AAOX4, VSS, RESPIRATIONS EVEN AND UNLABORED ON RA W/ NAD NOTED. PT CONNECTED TO THE SUPERVISOR [employer]PA[employer] AND POX.
--- NOTE | 2019-12-04 00:38 | NUR ---
DR COSTELLO AT BEDSIDE
--- NOTE | 2019-12-04 00:50 | NUR ---
IV LINE ESTABLISHED. BLOOD COLLECTED AND SENT TO LAB
--- NOTE | 2019-12-04 00:58 | NUR ---
EKG AT BEDSIDE
[2019-12-04 01:13] LABS: CALCIUM, SERUM 8.7 mg/dL (8.5-10.1); CARBON DIOXIDE 25 mmol/L (21-32); CHLORIDE 99 mmol/L (98-107); CREATININE 0.6 mg/dL (0.6-1.3); GLUCOSE 95 mg/dL (74-106); SODIUM SERUM 138 mmol/L (136-145); UREA NITROGEN, BLOOD 2 mg/dL (7-18)
[2019-12-04 01:14] LABS: SERUM AMMONIA 52 umol/L (11-32)
--- NOTE | 2019-12-04 01:17 | NUR ---
Patient does not wish to proceed with medical care recommended by Dr. So. Patient given information related to possible complications, up to and including , which could occur as a result of leaving the hospital at this time. Patient verbalizes understanding of risks involved due to leaving against medical advice. Patient has signed AMA form.
[2019-12-04 01:19] LABS: ALANINE AMINOTRANSFERASE 22 U/L (12-78); ALBUMIN 3.4 g/dL (3.4-5.0); ALKALINE PHOSPHATASE 367 U/L (46-116); ASPARTATE AMINOTRANSFERASE 48 U/L (15-37); BILIRUBIN,DIRECT 0.5 mg/dL (0.0-0.2); BILIRUBIN,TOTAL 1.1 mg/dL (0.2-1.0); LIPASE 98 U/L (73-393); TOTAL PROTEIN, SERUM 6.8 g/dL (6.4-8.2)
[2019-12-04 01:20] LABS: BASOPHILS # (AUTO) 0.1 /CMM (0.0-0.2); BASOPHILS % (AUTO) 1.3 % (0.0-2.0); EOSINOPHILS % (AUTO) 3.6 % (0.0-6.0); HEMATOCRIT 39 % (39-51); HEMOGLOBIN 12.4 g/dL (13.5-17.5); LYMPHOCYTES # (AUTO) 1.9 /CMM (0.8-4.8); LYMPHOCYTES % (AUTO) 24.9 % (20.0-44.0); MEAN CORPUSCULAR HGB CONC 32 g/dl (31.0-36.0); MEAN CORPUSCULAR VOLUME 80 fL (80-96); MONOCYTES # (AUTO) 1.4 /CMM (0.1-1.30); MONOCYTES % (AUTO) 18.7 % (2.0-12.0); NEUTROPHILS # (AUTO) 3.9 /CMM (1.8-8.9); NEUTROPHILS % (AUTO) 51.5 % (43.0-81.0); PLATELET COUNT (AUTO) 184 /CMM (150-450); RED BLOOD CELL COUNT(AUTO) 4.85 MIL/uL (4.5-6.0); WHITE BLOOD COUNT (AUTO) 7.5 K/uL (4.3-11.0)
[2019-12-04 01:22] LABS: POTASSIUM 2.6 mmol/L (3.5-5.1)
[2019-12-04] MEDS ORDERED: POTASSIUM CHLORIDE 20 MEQ TAB.PRT.SR PO ONE (01:30)
[2019-12-04] MEDS ORDERED: POTASSIUM CHLORIDE 10 MEQ/50 ML PREMIXED IVPB FOR PERIPHERAL LINE IV ONE (01:30)
[2019-12-04 01:49] LABS: EOSINOPHILS % (MANUAL) 3 % (0-4); LYMPHOCYTES % (MANUAL) 22 % (16-48); MONOCYTES % (MANUAL) 10 % (0-11.0)
[2019-12-04 01:50] LABS: NEUTROPHILS % (MANUAL) 65 (42-76)
== END 2019-12-04 01:23 | disposition left against medical advice (07) ==
LOC: ER 00:31
DX: R18.8 Other ascites (principal); E87.6 Hypokalemia; R14.0 Abdominal distension (gaseous); K42.9 Umbilical hernia without obstruction or gangrene; I10 Essential (primary) hypertension; E83.51 Hypocalcemia; D64.9 Anemia, unspecified; D68.9 Coagulation defect, unspecified; G89.29 Other chronic pain; M54.5 Low back pain; E44.1 Mild protein-calorie malnutrition; F17.200 Nicotine dependence, unspecified, uncomplicated; Z59.0 Homelessness; Z91.010 Allergy to peanuts; Z79.899 Other long term (current) drug therapy
CPT/HCPCS: 36415; 80048-TC; 80076-TC; 82140-TC; 83605-TC; 83690-TC; 85025-TC; 85730-TC; 87040-TC; 87081-TC

== ENCOUNTER 2020-02-19 17:57 | Inpatient (IN) | payer OTHER ==
[~2020-02-19] VITALS: Ht 170.2 cm; Wt 81.2 kg
--- NOTE | 2020-02-19 18:00 | NUR ---
[address], "COULDN'T STAND UP", LAST ETOH THIS AM. pt aler and oriented x1. able to follow directions. with periods of confusion and disorientation. no n/v. no sob. no seizure. no c/o chest pain. awaiting for MD cortes
--- NOTE | 2020-02-19 18:20 | NUR ---
urine collected and sent to lab
[2020-02-19 18:37] LABS: BASOPHILS # (AUTO) 0.1 /CMM (0.0-0.2); BASOPHILS % (AUTO) 1.2 % (0.0-2.0); EOSINOPHILS % (AUTO) 2.6 % (0.0-6.0); HEMATOCRIT 40 % (39-51); HEMOGLOBIN 13.4 g/dL (13.5-17.5); LYMPHOCYTES # (AUTO) 2.3 /CMM (0.8-4.8); LYMPHOCYTES % (AUTO) 31.9 % (20.0-44.0); MEAN CORPUSCULAR HGB CONC 33 g/dl (31.0-36.0); MEAN CORPUSCULAR VOLUME 89 fL (80-96); MONOCYTES # (AUTO) 1.1 /CMM (0.1-1.30); MONOCYTES % (AUTO) 15.1 % (2.0-12.0); NEUTROPHILS # (AUTO) 3.6 /CMM (1.8-8.9); NEUTROPHILS % (AUTO) 49.2 % (43.0-81.0); PLATELET COUNT (AUTO) 188 /CMM (150-450); RED BLOOD CELL COUNT(AUTO) 4.54 MIL/uL (4.5-6.0); WHITE BLOOD COUNT (AUTO) 7.4 K/uL (4.3-11.0)
[2020-02-19 18:39] LABS: BILIRUBIN,URINE Negative (NEGATIVE); BLOOD, URINE Negative Ery/uL (NEGATIVE); COLOR,URINE Yellow (YELLOW); LEUKOCYTE ESTERASE ,URINE Negative (NEGATIVE); NITRITE, URINE Negative (NEGATIVE); PROTEIN,URINE Negative (NEGATIVE); UGLUCOSE Negative (NEGATIVE); UROBILINOGEN,URINE 0.2 EU/dL (0.2)
[2020-02-19 18:57] LABS: ALBUMIN 2.9 g/dL (3.4-5.0); BILIRUBIN,DIRECT 0.6 mg/dL (0.0-0.2); BILIRUBIN,TOTAL 1.1 mg/dL (0.2-1.0); CALCIUM, SERUM 9.7 mg/dL (8.5-10.1); CREATININE 0.5 mg/dL (0.6-1.3); TOTAL PROTEIN, SERUM 6.7 g/dL (6.4-8.2)
[2020-02-19 18:59] LABS: POTASSIUM 2.4 mmol/L (3.5-5.1)
[2020-02-19] MEDS ORDERED: KETOROLAC TROMETHAMINE INJ 30 MG/ML VIAL ONE (19:28)
[2020-02-19] MEDS ORDERED: POTASSIUM CL. PREMIX PERIPHER. 50 ML ONE (19:28)
[2020-02-19] MEDS ORDERED: POTASSIUM CL. PREMIX PERIPHER. 50 ML IV ONE (19:30)
[2020-02-19] MEDS ORDERED: KETOROLAC TROMETHAMINE INJ 30 MG/ML VIAL IV ONE (19:30)
[2020-02-19 19:41] LABS: BAND % (MANUAL) 1 % (0.0-5.0); EOSINOPHILS % (MANUAL) 4 % (0-4); LYMPHOCYTES % (MANUAL) 34 % (16-48); MONOCYTES % (MANUAL) 4 % (0-11.0); NEUTROPHILS % (MANUAL) 57 (42-76)
--- NOTE | 2020-02-19 19:41 | NUR ---
RESUMED CARE FROM BLAYNE DUQUE. IV LINE ESTABLSHED ON L HAND 22G. MEDICATED ORDERED
--- NOTE | 2020-02-19 19:44 | NUR ---
COVID SWAB DONE AND SENT TO LAB
--- NOTE | 2020-02-19 20:14 | NUR ---
LAB CALLED, COVID NEGATIVE RESULT.
[2020-02-19] MEDS ORDERED: ACETAMINOPHEN 325 MG TABLET PO PRN (20:30)
[2020-02-19] MEDS ORDERED: MAG HYDROX/AL HYDROX/SIMETH 30 ML UDC PO PRN (20:30)
[2020-02-19] MEDS ORDERED: ONDANSETRON HCL/PF 4 MG/2 ML VIAL IVP PRN (20:30)
[2020-02-19] MEDS ORDERED: HYDROCODONE/APAP 5/325MG TABLET PO PRN (20:30)
[2020-02-19] MEDS ORDERED: MAGNESIUM HYDROXIDE 30 ML UDC PO PRN (20:30)
--- NOTE | 2020-02-19 20:48 | NUR ---
REPROT GIVEN TO BLAYNE VEGA FOR KELLY
[2020-02-19] MEDS ORDERED: POTASSIUM CL. PREMIX PERIPHER. 150 ML ONE (20:49)
--- NOTE | 2020-02-19 21:03 | NUR ---
pt transported to unit on [address] with emt at bedside. pt is in stable condition for transport. nad noted during transport
--- NOTE | 2020-02-19 21:30 | NUR ---
RN ADMITTING NOTES ADMITTED PATIENT TRANSPORTED FROM ER VIA GURNEY, CALM AND COOPERATIVE AT THIS TIME. ORIENTED TO ROOM AND THE USE OF CALL LIGHT. 1ST BAD OF POTASSIUM CHLORIDE INFUSING AT THIS TIME, STARTED FROM ER. PATIENT REFUSED SKIN ASSESSMENT, OFFERED TO CHANGE HIS CASUAL CLOTHES TO HOSPITAL GOWN BUT REFUSED, ANSWERS QUESTIONS DURING ASSESSMENT WITH EPISODES OF AGITATION AND CONFUSION. ON O2 AT 2LPM VIA NASAL CANNULA. NO SIGNS OF ACUTE RESPIRATORY OR CARDIAC DISTRESS NOTED. PERIPHERAL IV ACCESS ON HIS LEFT HAND G#22 INFUSING WELL. ALL NEEDS ANTICIPATED, WILL CONTINUE TO MONITOR ACCORDINGLY.
[2020-02-19 21:40] VITALS: BP 113/71
--- NOTE | 2020-02-19 22:00 | NUR ---
RN NOTES RUNNING 2ND BAG OF 40 MEQS OF POTASSIUM CHLORIDE PATIENT COMPLAINED THAT IT HURTS AND HAS BURNING SENSATION. INFUSING AT SLOWER RATE. WILL RESUME INFUSING LATER. PATIENT IS SCREAMING AT THIS TIME.
[2020-02-19 22:30] VITALS: BP 113/71
[2020-02-19 23:22] VITALS: BP 127/67
--- NOTE | 2020-02-20 | NUR ---
RN NOTES ASLEEP AT THIS TIME, 3RD BAG OF POTASSIUM CHLORIDE INFUSING AT A SLOWER RATE. WILL CONTINUE TO MONITOR.
[2020-02-20] MEDS: LORAZEPAM 1 MG TABLET PO PRN ×2 (03:55→20:57)
--- NOTE | 2020-02-20 03:55 | NUR ---
RN NOTES PATIENT IS ATTEMPTING TO REMOVED/ PULL OUT IV ACCESS. SCREAMING AND YELLING AT THIS TIME. RESTLESS AND AGITATED. ATIVAN 1 MG TABLET PO GIVEN PRN ORDER FOR ANXIETY AND ETOH WITHDRAWAL.
--- NOTE | 2020-02-20 06:20 | NUR ---
RN NOTES ALL NEEDS ATTENDED AND MET. ABLE TO REST AND SLEPT AT INTERVALS. SAFETY MEASURES IN PLACES, REPOSITIONED FOR COMFORT. CALL LIGHT WITH IN EASY REACH. WILL ENDORSE TO AM NURSE FOR CONTINUITY OF CARE.
--- NOTE | 2020-02-20 07:35 | NUR ---
RN MS OPENING NOTES RECEIVED PT RESTING IN BED, A/O X2-3, VERBALLY RESPONSIVE. ON RA, BREATHING EVEN UNLABORED, WITH NO ACUTE DISTRESS NOTED. NO C/O PAIN AT THIS TIME. IV TO LT HAND #22 G PATENT AND INTACT. BED IS AT LOWEST POSITION AND LOCKED WITH SIDE RAILS UP X2 AND CALL LIGHT WITH IN REACH. WILL CONTINUE TO MONITOR PATIENT THROUGH OUT SHIFT.
[2020-02-20 08:12] VITALS: BP 85/54
[2020-02-20] MEDS: MORPHINE SULFATE INJ 2 MG/ML DISP.SYRIN IV PRN ×2 (09:39→18:37)
[2020-02-20] MEDS: FOLIC ACID 1 MG TABLET PO SCH (09:44)
[2020-02-20] MEDS: FUROSEMIDE 20 MG TABLET PO SCH (09:44)
[2020-02-20] MEDS: MULTIVITAMINS,THERAGRAN 1 UDTAB TABLET PO SCH (09:44)
[2020-02-20] MEDS: SPIRONOLACTONE 25 MG TABLET PO SCH (09:48)
[2020-02-20] MEDS: THIAMINE HCL 100 MG TABLET PO SCH (09:50)
[2020-02-20 10:33] LABS: BASOPHILS # (AUTO) 0.1 /CMM (0.0-0.2); BASOPHILS % (AUTO) 1.1 % (0.0-2.0); EOSINOPHILS % (AUTO) 1.8 % (0.0-6.0); HEMATOCRIT 36 % (39-51); LYMPHOCYTES % (AUTO) 17.5 % (20.0-44.0); MEAN CORPUSCULAR HGB CONC 33 g/dl (31.0-36.0); MEAN CORPUSCULAR VOLUME 89 fL (80-96); MONOCYTES # (AUTO) 0.8 /CMM (0.1-1.30); MONOCYTES % (AUTO) 13.5 % (2.0-12.0); NEUTROPHILS # (AUTO) 3.9 /CMM (1.8-8.9); NEUTROPHILS % (AUTO) 66.1 % (43.0-81.0); PLATELET COUNT (AUTO) 129 /CMM (150-450); RED BLOOD CELL COUNT(AUTO) 4.06 MIL/uL (4.5-6.0); WHITE BLOOD COUNT (AUTO) 5.9 K/uL (4.3-11.0)
[2020-02-20 12:47] LABS: ALBUMIN 2.5 g/dL (3.4-5.0); BILIRUBIN,TOTAL 1.2 mg/dL (0.2-1.0); CALCIUM, SERUM 8.2 mg/dL (8.5-10.1); CREATININE 0.6 mg/dL (0.6-1.3); MAGNESIUM 1.6 mg/dL (1.8-2.4); PHOSPHORUS 3.8 mg/dL (2.5-4.9); POTASSIUM 3.1 mmol/L (3.5-5.1); TOTAL PROTEIN, SERUM 5.7 g/dL (6.4-8.2)
[2020-02-20 16:00] VITALS: BP 119/77
[2020-02-20] MEDS: POTASSIUM CHLORIDE 20 MEQ TAB.PRT.SR PO SCH ×2 (18:29→20:22)
--- NOTE | 2020-02-20 18:50 | NUR ---
RN MS CLOSING NOTES PT RESTING IN BED, A/OX4 . ON RA, BREATHING EVEN AND UNLABORED, WITH NO ACUTE DISTRESS NOTED. PT C/O PAIN TO ABD AND WHOLE BODY X9-10. IV TO LT HAND #22 G PATENT AND INTACT. PT HAD A PARACENTESIS DONE TODAY WITH 5000CC REMOVED. PT IN STABLE CONDITION. BED IS AT LOWEST POSITION AND LOCKED WITH SIDE RAILS UP X2 AND CALL LIGHT WITH IN REACH. WILL ENDORSE TO ONCOMING SHIFT.
[2020-02-20 20:00] VITALS: BP 114/73
--- NOTE | 2020-02-20 20:08 | NUR ---
MS/TELE/RN DURING INITIAL SHIFT ROUNDING AT 1930, PATIENT WAS IN BED SLEEPING, APPEAR COMFORTABLE, NO SIGNS OF DISTRESS NOTED, CALL LIGHT IN REACH, WILL MONITOR.
--- NOTE | 2020-02-20 20:39 | NUR ---
MS/TELE.RN EPISODE OF VOMITING WITH NAUSEA, ZOFRAN 4 MG IVP WAS GIVEN ORDERED. WILL MONITOR.
--- NOTE | 2020-02-20 20:58 | NUR ---
MS/TELE PATIENT IS AGITATED AT THIS TIME, ATIVAN 1 MG PO WAS GIVEN ORDERED. WILL MONITOR.
--- NOTE | 2020-02-20 22:14 | NUR ---
MS/TELE/RN PATIENT IS SLEEPING AT THIS TIME, APPEAR COMFORTABLE, NO SIGNS OF DISTRESS NOTED, CALL LIGHT IN REACH, WILL CONTINUE TO MONITOR.
--- NOTE | 2020-02-20 23:22 | NUR ---
MS/TELE ENDORSED TO NEXT RN FOR CONTINUITY OF CARE
--- NOTE | 2020-02-20 23:25 | NUR ---
Received report from RNAisha, for continuity of care.
[2020-02-21] MEDS: MORPHINE SULFATE INJ 2 MG/ML DISP.SYRIN IV PRN (03:17)
--- NOTE | 2020-02-21 03:17 | NUR ---
Patient complains of abdominal pain. Patient describes pain as aching and rates pain an 8 on a 0-10 numerical scale. Administered PRN Morphine per MD order. Will continue to monitor.
--- NOTE | 2020-02-21 04:11 | NUR ---
Patient in bed sleeping. Shows no signs of pain at the moment. Will continue to monitor.
[2020-02-21 06:32] LABS: BASOPHILS % (AUTO) 0.4 % (0.0-2.0); EOSINOPHILS % (AUTO) 1.1 % (0.0-6.0); HEMATOCRIT 38 % (39-51); HEMOGLOBIN 12.9 g/dL (13.5-17.5); LYMPHOCYTES # (AUTO) 0.8 /CMM (0.8-4.8); LYMPHOCYTES % (AUTO) 12.5 % (20.0-44.0); MEAN CORPUSCULAR HGB CONC 34 g/dl (31.0-36.0); MEAN CORPUSCULAR VOLUME 88 fL (80-96); MONOCYTES % (AUTO) 16.1 % (2.0-12.0); NEUTROPHILS # (AUTO) 4.3 /CMM (1.8-8.9); NEUTROPHILS % (AUTO) 69.9 % (43.0-81.0); PLATELET COUNT (AUTO) 94 /CMM (150-450); RED BLOOD CELL COUNT(AUTO) 4.34 MIL/uL (4.5-6.0); WHITE BLOOD COUNT (AUTO) 6.2 K/uL (4.3-11.0)
[2020-02-21 07:04] LABS: CALCIUM, SERUM 7.6 mg/dL (8.5-10.1); CREATININE 0.5 mg/dL (0.6-1.3); MAGNESIUM 1.4 mg/dL (1.8-2.4); PHOSPHORUS 3.7 mg/dL (2.5-4.9)
[2020-02-21 07:13] LABS: POTASSIUM 2.8 mmol/L (3.5-5.1)
--- NOTE | 2020-02-21 07:24 | NUR ---
RN MS NOTES RECEIVED CALL FROM [facility] FROM LAB WITH POTASSIUM RESULTS 2.8. JJ MAC MD, JULIANA, AWARE. RECEIVED ORDER FOR POTASSIUM REPLACEMENT 60 MEQ. ORDER PLACED.
--- NOTE | 2020-02-21 07:50 | NUR ---
RN MS OPENING NOTES RECEIVED PT RESTING IN BED, A/O X4, ON RA, BREATHING EVEN AND UNLABORED, WITH NO ACUTE RESPIRATORY DISTRESS NOTED. NO C/O PAIN ALL OVER, BUT NO REQUEST FOR PAIN MEDS AT THIS TIME. IV TO LT HAND #22 G PATENT AND INTACT. BED IS AT LOWEST POSITION AND LOCKED WITH SIDE RAILS UP X2 AND CALL LIGHT WITH IN REACH. WILL CONTINUE TO MONITOR PATIENT THROUGH OUT SHIFT.
[2020-02-21 08:00] VITALS: BP 116/67
[2020-02-21] MEDS ORDERED: POTASSIUM CHLORIDE 20 MEQ TAB.PRT.SR PO ONE (08:00)
[2020-02-21] MEDS: SPIRONOLACTONE 25 MG TABLET PO SCH (08:41)
[2020-02-21] MEDS: FUROSEMIDE 20 MG TABLET PO SCH (08:42)
[2020-02-21] MEDS: THIAMINE HCL 100 MG TABLET PO SCH (08:42)
[2020-02-21] MEDS: MULTIVITAMINS,THERAGRAN 1 UDTAB TABLET PO SCH (08:42)
[2020-02-21] MEDS: FOLIC ACID 1 MG TABLET PO SCH (08:42)
[2020-02-21 09:48] LABS: EOSINOPHILS % (MANUAL) 2 % (0-4); LYMPHOCYTES % (MANUAL) 13 % (16-48); MONOCYTES % (MANUAL) 17 % (0-11.0); NEUTROPHILS % (MANUAL) 68 (42-76)
[2020-02-21] MEDS: Magnesium 1GM/D5W 100ML PREMIX 100 ML IV SCH ×3 (10:26→12:00)
--- NOTE | 2020-02-21 12:00 | NUR ---
[employer] NOTES DISCHARGE ORDERS RECEIVED. PT OK AND STABLE TO D/C HOME /SELF CARE. MEDICATION, DISCHARGE INSTRUCTIONS AND EDUCATION PROVIDED TO PATIENT. PT VERBALIZED UNDERSTANDING. BELONGINGS CHECKED. PATIENT REFUSED SKIN CHECK. IV TO LT HAND REMOVED. PT IS STABLE. 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
[2020-02-21 12:07] LABS: CALCIUM, SERUM 8.2 mg/dL (8.5-10.1); CREATININE 0.7 mg/dL (0.6-1.3); POTASSIUM 3.7 mmol/L (3.5-5.1)
== END 2020-02-21 14:56 | disposition home or self-care (01) | DRG 280 ==
LOC: ER 17:59 → TELE 20:51 → MED 23:04
PROVIDERS: ADMIT Nurse Practitioner Acute Care; ATTEND Nurse Practitioner Acute Care
PROC: 0W9G3ZZ Drainage of Peritoneal Cavity, Percutaneous Approach (ICD-10-PCS; principal; 2020-02-20)
DX: K70.31 Alcoholic cirrhosis of liver with ascites (principal); F10.229 Alcohol dependence with intoxication, unspecified; Y90.9 Presence of alcohol in blood, level not specified; E44.0 Moderate protein-calorie malnutrition; E87.6 Hypokalemia; I10 Essential (primary) hypertension; F19.10 Other psychoactive substance abuse, uncomplicated; K86.1 Other chronic pancreatitis; D63.8 Anemia in other chronic diseases classified elsewhere; K76.6 Portal hypertension; G89.29 Other chronic pain; D68.9 Coagulation defect, unspecified; Z79.899 Other long term (current) drug therapy; Z59.0 Homelessness; Z91.010 Allergy to peanuts; R73.9 Hyperglycemia, unspecified; K72.90 Hepatic failure, unspecified without coma; Z91.19 Patient's noncompliance with other medical treatment and regimen; F17.200 Nicotine dependence, unspecified, uncomplicated; F64.9 Gender identity disorder, unspecified
CPT/HCPCS: 36415; 76942-TC; 80048-TC; 80053-TC; 80076-TC; 81000-TC; 82140-TC; 83690-TC; 83735-TC; 84100-TC; 85025-TC; 85730-TC; 87081-TC; 97116-TC; 97530-TC; C9803; G0378; G0480; J1885; J2270; J2405; J3475; J3480; J7050